=== PATIENT | male | born 1960 | race African-American/Black ===

== ENCOUNTER 2017-06-19 09:58 | Inpatient (IN) | payer MEDICAID ==
[~2017-06-19] VITALS: Ht 175.3 cm; Wt 90.7 kg
[2017-06-19 10:06] VITALS: BP 180/127
--- NOTE | 2017-06-19 10:10 | NUR ---
56 YO M BIB taxi w/ c/o edema. Pt is a&o x 4 at this time, but could not list any health hx. In triage stated he has CHF. Pt reports he was taking Lasix but has not taken it since October 2016 because he ran out and is currently not taking any medication. GCS 15. Pt presents with labored breathing and grunting and purse-liped breathing. HOB elevated w/o effectiveness. Pulse ox revealed 83%, O2 applied via NC at 2L/min. O2 sat re-evaluated at 99%. Pt unsteady when attempting to ambulate. Educated to use urinal and ask for help when trying to stand. Edema noted pn full body of pt. The abdomen is distended and hard to the touch and the skin looks like "orange peels". Scrotal and penile edema noted, severe. Edema noted bilaterally from scrotum to the feet. Non-pitting edema. ER MD Worthington notified of pt status. Pt needs met at this time. Will continue to monitor.
[2017-06-19] MEDS ORDERED: IPRATROPIUM 0.02% 0.5 MG/2.5 ML NEBU INH ONE (10:45)
[2017-06-19] MEDS ORDERED: ALBUTEROL 0.083% 2.5 MG/3 ML NEBU INH ONE (10:45)
[2017-06-19] MEDS ORDERED: methylPREDNISolone SS 125 MG/2 ML VIAL IVP ONE (10:45)
[2017-06-19] MEDS ORDERED: FUROSEMIDE 100 MG/10 ML VIAL IVP ONE (10:45)
[2017-06-19 11:26] LABS: BASOPHILS % (AUTO) 0.5 % (0.0-2.0); EOSINOPHILS % (AUTO) 0.3 % (0.0-4.0); HEMATOCRIT 37.2 % (36-52); HEMOGLOBIN 11.9 g/dL (12.0-18.0); LYMPHOCYTES # (AUTO) 0.8 K/uL (2.0-11.5); LYMPHOCYTES % (AUTO) 9.8 % (20.5-51.1); MEAN CORPUSCULAR HEMOGLOBIN 31 pg (27-31); MEAN CORPUSCULAR HGB CONC 32 g/dL (33-37); MEAN CORPUSCULAR VOLUME 96.1 fL (80-94); MONOCYTES # (AUTO) 0.8 K/uL (0.8-1.0); MONOCYTES % (AUTO) 9.6 % (1.7-9.3); NEUTROPHILS # (AUTO) 6.7 K/uL (1.8-7.7); NEUTROPHILS % (AUTO) 79.8 % (42.2-75.2); PLATELET COUNT (AUTO) 317 K/uL (140-450); RED BLOOD CELL COUNT(AUTO) 3.87 MIL/uL (4.20-6.10); RED CELL DISTRIBUTION WIDTH 13.7 % (11.6-13.7); WHITE BLOOD COUNT (AUTO) 8.4 K/uL (4.8-10.8)
--- NOTE | 2017-06-19 11:34 | NUR ---
PT YELLING OUT FOR NURSE ASSISTANCE TO USE URINAL. PT REFUSES TO USE URINAL IN BED. DEMANDS TO BE ASSISTED TO GET UP AND STAND. 1 PERSON ASSIST, TOLERATED WELL.PT INFORMED TO USE CALL LIGHT BUTTON WHEN REQUESTING ASSISTANCE, VERBALIZED UNDERSTANDING.
[2017-06-19] MEDS ORDERED: ACETAMINOPHEN 325 MG TAB PO PRN (11:35)
[2017-06-19] MEDS ORDERED: ONDANSETRON 4 MG/2 ML VIAL IM/IVP PRN (11:35)
[2017-06-19] MEDS ORDERED: NACL 0.9% 1,000 ML IV SCH (11:35)
[2017-06-19] MEDS ORDERED: DOCUSATE SODIUM 100 MG GELCAP PO PRN (11:35)
[2017-06-19] MEDS ORDERED: ENALAPRILAT 2.5 MG/2 ML VIAL IVP ONE (11:55)
--- NOTE | 2017-06-19 11:59 | NUR ---
URINAL-500CC OUT.
[2017-06-19 12:08] LABS: PROTHROMBIN TIME 12.8 secs (10.8-13.4)
--- NOTE | 2017-06-19 12:42 | NUR ---
Patient will be admitted to care of GELA Salazar. Admited to Tele. Will go to room 119-B. Belongings list completed. Pt tolerated transfer well.
--- NOTE | 2017-06-19 13:00 | NUR ---
PATIENT BROUGHT TO UNIT VIA GURNEY FROM THE ER. RECEIVED BEDSIDE REPORT FROM POLISHING MACHINE OPERATOR HELPER. PATIENT IS AAOX4, ON 2L NC WITH NO SIGNS AND SYMPTOMS OF ACUTE RESPIRATORY DISTRESS NOTED AT THIS TIME. PATIENT WAS ABLE TO AMBULATE FROM THE GURNEY TO THE RESTROOM TO HIS BED. ORIENTED PATIENT TO THE ROOM, EXPLAINED THE CALL LIGHT TO HIM. HE VERBALIZED UNDERSTANDING. MRSA SWAB DONE. SKIN IS INTACT. PATIENT IS VERY EDEMATOUS IN BLE AND SCROTAL AREA. HAS IV TO THE RIGHT EJ 20G ON SALINE LOCK AT THIS TIME. BED IN LOWEST POSITION, SIDE RAILS UP X2, CALL LIGHT PLACED WITHIN REACH. WILL CONTINUE TO MONITOR.
[2017-06-19 13:12] LABS: ANION GAP 12.4 (8-16); ASPARTATE AMINOTRANSFERASE 45 U/L (15-37); CARBON DIOXIDE 28.6 mmol/L (21-32); CHLORIDE 108 mmol/L (98-107); CREATININE 0.7 mg/dL (0.7-1.3); GFR ARICAN-AMERICAN 149 mL/min (>90); GLUCOSE 142 mg/dL (74-106); SODIUM SERUM 145 mmol/L (136-145); TOTAL BILIRUBIN 1.8 mg/dL (0.0-1.0); UREA NITROGEN, BLOOD 16 mg/dL (7-18)
[2017-06-19 13:27] LABS: MAGNESIUM 2.2 mg/dL (1.8-2.4); PHOSPHORUS 3.1 mg/dL (2.5-4.9)
[2017-06-19 14:12] LABS: THYROID STIMULATING HORMONE 4.17 uIU/mL (0.34-3.74)
--- NOTE | 2017-06-19 14:15 | NUR ---
ECHO DONE DYLAN GUERRA NOTIFIED ABOUT EF AND RVSP
[2017-06-19] MEDS ORDERED: HEPARIN PER PHARMACY MC PRN (15:10)
[2017-06-19] MEDS ORDERED: hePARIN / DEXT 5% PREMIX 250 ML IV SCH (15:10)
--- NOTE | 2017-06-19 15:10 | NUR ---
ACCESSED PT AND NOTIFIED JEANMARIE OF MY FINDINGS. PT EXHIBITED INCREASED WOB WHILE LAYING DOWN AND SUGGESTED TO MD THAT PT WOULD BENEFIT FROM BiPAP. MD AGREED. WAITING ON MD'S ORDERS.
--- NOTE | 2017-06-19 15:50 | NUR ---
URINE SAMPLE COLLECTED.
[2017-06-19 16:00] VITALS: BP 147/120
[2017-06-19 16:36] LABS: APPEARANCE,URINE CLEAR (CLEAR); BILIRUBIN,URINE NEGATIVE (NEGATIVE); BLOOD, URINE NEGATIVE (NEGATIVE); COLOR,URINE YELLOW (YELLOW); LEUKOCYTE ESTERASE ,URINE NEGATIVE (NEGATIVE); NITRITE, URINE NEGATIVE (NEGATIVE); UGLUCOSE NEGATIVE (NEGATIVE)
[2017-06-19 16:42] LABS: BARBITURATE, URINE NEG. ng/ml (NEG <=200); BENZODIAZEPINE, URINE NEG. ng/mL (NEG <=200); CANNABINOID, URINE POS. ng/mL (NEG <=50); COCAINE, URINE NEG. ng/mL (NEG <=300); OPIATE, URINE NEG. ng/mL (NEG <=2000); PHENCYCLIDINE SCREEN,URINE NEG. ng/mL (NEG <=25)
--- NOTE | 2017-06-19 16:50 | NUR ---
MADE DR MURRY AWARE OF PATIENTS ELEVATED DIASTOLIC BP AND ELEVATED HR. WILL FOLLOW THROUGH WITH ORDERS.
[2017-06-19] MEDS ORDERED: METOPROLOL 25 MG TAB PO SCH ×3 (17:45→21:00)
[2017-06-19] MEDS ORDERED: METOPROLOL 5 MG/5 ML VIAL IV SCH (17:45)
--- NOTE | 2017-06-19 17:45 | NUR ---
GAVE METOPROLOL 2.5ML IVP FOR BP OF 147/120 HR133.
--- NOTE | 2017-06-19 18:49 | NUR ---
SPOKE WITH DR ISABEL TO INFORM HER OF PATIENTS REASSESSMENT OF BLOOD PRESSURE. 142/94, HEART RATE STILL ELEVATED AT 131. SHE SAID THAT THEY ARE GOING TO WATCH IT FOR THE NEXT FOUR HOURS AND IF IT IS STILL HIGH THEY WILL GIVE AMIODARONE. PER DR RICHARDSON.
--- NOTE | 2017-06-19 19:25 | NUR ---
ENDORSED PATIENT TO PHOTO MANAGER RN FOR CONTINUITY OF CARE. PATIENT IN STABLE CONDITION.
--- NOTE | 2017-06-19 19:26 | NUR ---
RECEIVED REPORT FROM DAY NURSE. PT IN STABLE CONDITION. PT IS AAOX4 ON 2L O2 VIA NC. SKIN INTACT. PT HAS GENERALIZED EDEMA AND PITTING EDEMA +2 TO SCROTAL AREA AND ABDOMEN. PT HAS A R EJ PATENT AND INTACT, INFUSING WELL. PT HAS ORDERS TO BE ON HEPARIN DRIP AT 1530 06/19/18, PT IS NOT CURRENTLY ON HEPARIN DRIP, ASKED DR. ISABEL IF PT SHOULD BE ON IT, SHE SAID YES, I WILL START HEPARIN DRIP. INITIAL ASSESSMENT COMPLETED. PLAN OF CARE DISCUSSED WITH PT, VERBALIZED UNDERSTANDING. ALL SAFETY PRECAUTIONS MET, BOARD UPDATED, CALL LIGHT WITHIN REACH, WILL CONTINUE TO MONITOR.
[2017-06-19 20:00] VITALS: BP 142/94
[2017-06-19] MEDS: hePARIN / DEXT 5% PREMIX 250 ML IV SCH (20:09)
--- NOTE | 2017-06-19 20:09 | NUR ---
HEPARIN DRIP STARTED, PT TOLERATING WELL, NO S/S OF DISTRESS, WILL CONTINUE TO MONITOR.
[2017-06-19] MEDS: METOPROLOL 25 MG TAB PO SCH (20:50)
[2017-06-19] MEDS: SIMVASTATIN 20 MG TAB PO SCH (20:50)
--- NOTE | 2017-06-19 20:50 | NUR ---
DUE MEDICATIONS GIVEN WITH EDUCATION, PT VERBALIZED UNDERSTANDING AND TOLERATED WELL. WILL CONTINUE TO MONITOR
--- NOTE | 2017-06-19 21:00 | NUR ---
PT GIVEN CRACKERS AND JUICE PER REQUEST
--- NOTE | 2017-06-19 22:00 | NUR ---
PT FOUND WITHOUT O2 ON SAT AT 86% PUT O2 BACK AND EDUCATED IMPORTANCE OF WEARING O2, PT AGREES AND UNDERSTANDS
--- NOTE | 2017-06-19 22:30 | NUR ---
ASSISTED PT UP TO THE SIDE OF THE BED TO USE URINAL
--- NOTE | 2017-06-19 22:30 | NUR ---
PT GIVEN MORE CRACKERS AND JUICE REQUESTED
--- NOTE | 2017-06-19 23:24 | NUR ---
PT RESTING COMFORTABLY IN BED NO S/S OF DISTRESS NOTED
[2017-06-20] VITALS: BP 120/63
--- NOTE | 2017-06-20 00:30 | NUR ---
MADE DR. ISABEL MADE AWARE OF HR 131, DR STATED SHE WILL PUT IN ORDERS
--- NOTE | 2017-06-20 00:49 | NUR ---
PT FOUND WITH O2 OFF, PT NON COMPLIANT WITH O2 AND KEEPS TAKING OFF, PT EDUCATED ON IMPORTANCE OF O2, VERBALIZED UNDERSTANDING
--- NOTE | 2017-06-20 00:53 | NUR ---
AMIODARONE ADMINISTERED PER MD ORDERS
[2017-06-20] MEDS ORDERED: AMIODARONE 200 MG TAB PO SCH (01:00)
--- NOTE | 2017-06-20 02:00 | NUR ---
PT REFUSING TO WEAR O2 AT THIS TIME
--- NOTE | 2017-06-20 02:34 | NUR ---
NOTIFIED DR. ISABEL THAT PT REFUSES IV TO BE ATTEMPTED, ONLY ONE ATTEMPT MADE AND PT STATES, "NO MORE INVASIVE THERAPY."
--- NOTE | 2017-06-20 02:35 | NUR ---
FLUIDS D/C AT THIS TIME
--- NOTE | 2017-06-20 03:00 | NUR ---
PT STILL REFUSING TO WEAR O2
[2017-06-20 04:00] VITALS: BP 126/68
--- NOTE | 2017-06-20 05:55 | NUR ---
FLUMER MADE ONE ATTEMPT TO DRAW BLOOD AND COULD NOT GET IT, PT REFUSES ANY OTHER ATTEMPTS
--- NOTE | 2017-06-20 06:27 | NUR ---
MADE BAHMAN IN RAD AWARE THAT PT REFUSED TO HAVE IV STARTED AND IS REFUSING INVASIVE TREATMENT AT THIS TIME. PT REFUSES CT
--- NOTE | 2017-06-20 06:30 | NUR ---
PT AGITATED THAT HE IS NPO SAYING THAT HOW CAN A NURSE NOT GIVE HIM ANY FOOD OR WATER AND HE IS SCARED FOR HIS LIFE, MADE DR. ISABEL AWARE SHE SAID TO STILL KEEP NPO FOR NOW
--- NOTE | 2017-06-20 07:23 | NUR ---
REPORT GIVEN TO DAY NURSE FOR CONTINUITY OF CARE, PT IN STABLE CONDITION.
--- NOTE | 2017-06-20 07:50 | NUR ---
ENDORSEMENT RECEIVED FROM PMP NURSE. PATIENT AWAKE, ALERT. RESPIRATION EVEN, UNLABOR ON 4L NC. SKIN DRY AND WARM. IV CAME OFF FROM RIGHT EJ, CATHETER INTACT, BLEEDING WAS CONTROLLED. DENIED PAIN, SOB AT THIS TIME. PLAN OF CARE WAS DISCUSSED WITH PATIENT. BED AT LOW POSITION WITH HOB WAS ELEVATED. CALL LIGHT WITHIN REACH
[2017-06-20 08:00] VITALS: BP 126/91
[2017-06-20 08:27] LABS: T4 (THYROXINE) 6.3 ug/dL (4.5-12.0)
[2017-06-20 08:56] LABS: HEMATOCRIT 38.4 % (36-52); HEMOGLOBIN 12.1 g/dL (12.0-18.0); LYMPHOCYTES # (AUTO) 0.8 K/uL (2.0-11.5); LYMPHOCYTES % (AUTO) 6.6 % (20.5-51.1); MEAN CORPUSCULAR HEMOGLOBIN 30 pg (27-31); MEAN CORPUSCULAR HGB CONC 32 g/dL (33-37); MONOCYTES # (AUTO) 1.1 K/uL (0.8-1.0); MONOCYTES % (AUTO) 9.7 % (1.7-9.3); NEUTROPHILS # (AUTO) 9.7 K/uL (1.8-7.7); NEUTROPHILS % (AUTO) 83.7 % (42.2-75.2); PLATELET COUNT (AUTO) 338 K/uL (140-450); RED CELL DISTRIBUTION WIDTH 13.8 % (11.6-13.7); WHITE BLOOD COUNT (AUTO) 11.6 K/uL (4.8-10.8)
[2017-06-20] MEDS: METOPROLOL 25 MG TAB PO SCH ×2 (09:00→20:43)
[2017-06-20] MEDS: AMIODARONE 200 MG TAB PO SCH ×2 (09:00→20:43)
[2017-06-20] MEDS ORDERED: FUROSEMIDE 20 MG/2 ML VIAL IVP SCH ×3 (09:00)
[2017-06-20] MEDS: LISINOPRIL 5 MG TAB PO SCH (09:00)
[2017-06-20] MEDS: ASPIRIN 81 MG TAB.CHEW PO SCH (09:01)
[2017-06-20 09:13] LABS: ANION GAP 8.4 (8-16); CARBON DIOXIDE 34.6 mmol/L (21-32); CREATININE 0.8 mg/dL (0.7-1.3)
--- NOTE | 2017-06-20 09:27 | NUR ---
CT SCAN CHEST WITH CONTRAST CONSENT IS OBTAINED AT BEDSIDE, SIGNED BY PATIENT. ALL RISKS AND BENEFITS WERE EXPLAINED TO THE PATIENT. PATIENT VERBALIZED UNDERSTANDING.
[2017-06-20 09:33] LABS: MAGNESIUM 2.3 mg/dL (1.8-2.4); PHOSPHORUS 3.9 mg/dL (2.5-4.9)
--- NOTE | 2017-06-20 10:12 | NUR ---
CT SCAN TECHS ARE AT BEDSIDE TRANSFERRING PATIENT. PATIENT IS STABLE AT THIS TIME.
--- NOTE | 2017-06-20 10:33 | NUR ---
PATIENT HAS BEEN SCREENED AND CATEGORIZED MODERATE NUTRITION RISK. PATIENT WILL BE SEEN WITHIN 3-5 DAYS OF ADMISSION. 06/22/17 - 06/24/[address]
--- NOTE | 2017-06-20 11:00 | NUR ---
PATIENT WAS BROUGHT BACK FROM CT. PATIENT IS STABLE AT THIS TIME. HEPARIN DRIP WAS ADJUSTED PER PROTOCOL.
[2017-06-20] MEDS: hePARIN / DEXT 5% PREMIX 250 ML IV SCH ×3 (11:11→17:13)
--- NOTE | 2017-06-20 11:40 | NUR ---
PATIENT AWAKE, ALERT. RESPIRATION EVEN, UNLABOR ON 4L NC. VS IS STABLE. DENIED PAIN, SOB AT THIS TIME. NO DISTRESS NOTED. CALL LIGHT WITHIN REACH
[2017-06-20 12:00] VITALS: BP 129/92
[2017-06-20 12:29] LABS: FOLIC ACID 13.7 ng/mL (>3.0)
[2017-06-20] MEDS ORDERED: FUROSEMIDE 40 MG TAB PO SCH (13:43)
--- NOTE | 2017-06-20 15:30 | NUR ---
PATIENT IS SLEEPING COMFORTABLY. RESPIRATION EVEN, UNLABOR ON ROOM AIR. NO DISTRESS NOTED AT THIS TIME. MED WAS GIVEN PER ORDER. CALL LIGHT WITHIN REACH
[2017-06-20 16:00] VITALS: BP 130/86
[2017-06-20] MEDS ORDERED: SIMETHICONE 40 MG/0.6 ML GT PRN (17:35)
[2017-06-20] MEDS ORDERED: HYDROcodone/APAP 5/325 MG 1 TAB TAB GT PRN (17:35)
[2017-06-20] MEDS ORDERED: HEPARIN PER PHARMACY MC PRN (17:40)
--- NOTE | 2017-06-20 18:29 | NUR ---
PATIENT AWAKE, ALERT. RESPIRATION EVEN, UNLABOR ON 2L NC. IV PATENT AND INTACT. NO DISTRESS NOTED AT THIS TIME. CALL LIGHT WITHIN REACH
--- NOTE | 2017-06-20 19:19 | NUR ---
ENDORSEMENT GIVEN TO THE ONLINE MARKETING DIRECTOR NURSE. PATIENT IS STABLE AT THIS TIME
--- NOTE | 2017-06-20 19:20 | NUR ---
RECEIVED REPORT FROM DAY NURSE. PT IN STABLE CONDITION. PT IS AAOX4 ON 2L O2 VIA NC. SKIN INTACT. PT HAS GENERALIZED EDEMA AND PITTING EDEMA +2 TO SCROTAL AREA AND ABDOMEN. PT HAS A R EJ PATENT AND INTACT, INFUSING WELL. PT HAS ORDERS TO BE ON HEPARIN DRIP AT 1530 06/19/18, PT IS NOT CURRENTLY ON HEPARIN DRIP, ASKED DR. ISABEL IF PT SHOULD BE ON IT, SHE SAID YES, I WILL START HEPARIN DRIP. INITIAL ASSESSMENT COMPLETED. PLAN OF CARE DISCUSSED WITH PT, VERBALIZED UNDERSTANDING. ALL SAFETY PRECAUTIONS MET, BOARD UPDATED, CALL LIGHT WITHIN REACH, WILL CONTINUE TO MONITOR. Addendum: 06/20/17 at 2226 by Renee Owens RN CORRECTION: PT ALREADY ON HEPARIN DRIP, DISREGARD. PT NO LONGER HAS EJ, PT HAS L AC IV
[2017-06-20 20:00] VITALS: BP 128/85
--- NOTE | 2017-06-20 20:00 | NUR ---
PT REQUESTING A SANDWICH WITH ONLY CHEESE IN IT, PT STATES HE HAS NOT BEEN SUFFICIENTLY FED SINCE HES BEEN HERE.
--- NOTE | 2017-06-20 20:30 | NUR ---
PT REQUESTING MORE FOOD AT THIS TIME. TOLD PT HE CAN HAVE SOME CRACKERS. PT GIVEN GAIL
[2017-06-20] MEDS: SIMVASTATIN 20 MG TAB PO SCH (20:43)
--- NOTE | 2017-06-20 21:15 | NUR ---
PT SITTING AT THE BEDSIDE REQUESTING TO BE GIVEN ANOTHER SANDWHICH, WILL CALL WAFER POLISHING LEAD WORKER
--- NOTE | 2017-06-20 21:30 | NUR ---
PT GIVEN SANDWICH, PT FOUND WITHOUT O2 ON, RE APPLIES O2 AND EDUCATED PT ON IMPORTANCE OF WEARING IT
--- NOTE | 2017-06-20 21:45 | NUR ---
PT TURNED DUCTFIXING PLUMBER LIGHT, WENT INTO ROOM, PT REQUESTING THAT TV CHANNEL BE CHANGED
--- NOTE | 2017-06-20 22:10 | NUR ---
CAME IN ROOM AND FOUND PT GETTING OUT OF BED SAYING THAT HE NEEDS TO, "SLEEP UPSIDE DOWN FOR HIS SCROTUM AND THAT THE GOWN IS TRAPPING HIM AND HE DOES NOT WANT TO WEAR IT." PT REFUSING GOWN AT THIS TIME AND WANTS TO BE NAKED BECAUSE HE FEELS TRAPPED
--- NOTE | 2017-06-20 22:24 | NUR ---
PT TURNED STOCK DRIVER LIGHT, WENT INTO ROOM, PT REQUESTS THAT VOLUME ON TV BE ADJUSTED
--- NOTE | 2017-06-20 23:00 | NUR ---
PT CALLED AND STATED, "I'M NOT GETTING ANSWERS HERE, SOMETHING IS WRONG WITH MY STERNUM." PT POINTED AT SCROTUM. HE STATES, "IT IS GETTING BIGGER AND NOTHING IS BEING DONE, I CAN'T SLEEP." PT PROCEEDED TO GET INTO CHAIR NAKED. WILL NOTIFY DR. ISABEL
--- NOTE | 2017-06-20 23:05 | NUR ---
DR. ISABEL MADE AWARE OF PTS INCREASING AGITATION. SHE STATES THAT IT IS NOT A CASE SHE IS FAMILIAR WITH AND IS COVERING FOR BARREL RAISER HELPER, IT IS DAY SHIFTS CASE. SHE WILL LOOK INTO IT. NEW ORDERS GIVEN FOR ATIVAN NEEDED FOR AGITATION
[2017-06-20] MEDS ORDERED: LORazepam 1 MG TAB PO PRN (23:20)
--- NOTE | 2017-06-20 23:55 | NUR ---
LAB CALLED WITH CRITICAL PTT 74.4, HEPARIN DRIP ADJUSTED PER PROTOCOL. NO S/S OF DISTRESS OR BLEEDING NOTED. WILL MAKE DR. ISABEL AWARE.
[2017-06-21] VITALS: BP 132/86
[2017-06-21] MEDS: hePARIN / DEXT 5% PREMIX 250 ML IV SCH ×2 (00:27→10:40)
--- NOTE | 2017-06-21 01:15 | NUR ---
PT TURNED BIOTECHNICIAN LIGHT BECAUSE HE WANTS TO SIT ON THE SIDE OF THE BED AND ADJUST THE TV
--- NOTE | 2017-06-21 01:45 | NUR ---
PT TURNED BRANDS EDITOR LIGHT, PT STATES, "I DID NOT KNOW I DID THAT BUT CAN YOU BRING ME ANOTHER SANDWHICH." TOLD PT I COULD BRING HIM CRACKERS
--- NOTE | 2017-06-21 02:28 | NUR ---
PT FOUND PULLING AUTO BODY MECHANIC LIGHT CORD AND PULLING IT OUT OF THE WALL
--- NOTE | 2017-06-21 03:00 | NUR ---
PT NOW RESTING IN BED, NO S/S OF DISTRESS NOTED
[2017-06-21 04:00] VITALS: BP 138/92
[2017-06-21 07:01] LABS: BASOPHILS % (AUTO) 0.4 % (0.0-2.0); EOSINOPHILS % (AUTO) 0.4 % (0.0-4.0); HEMOGLOBIN 12.3 g/dL (12.0-18.0); LYMPHOCYTES % (AUTO) 9.9 % (20.5-51.1); MEAN CORPUSCULAR HEMOGLOBIN 30 pg (27-31); MEAN CORPUSCULAR HGB CONC 32 g/dL (33-37); MEAN CORPUSCULAR VOLUME 96.1 fL (80-94); MONOCYTES # (AUTO) 0.8 K/uL (0.8-1.0); MONOCYTES % (AUTO) 7.8 % (1.7-9.3); NEUTROPHILS # (AUTO) 7.9 K/uL (1.8-7.7); NEUTROPHILS % (AUTO) 81.5 % (42.2-75.2); PLATELET COUNT (AUTO) 349 K/uL (140-450); RED BLOOD CELL COUNT(AUTO) 4.06 MIL/uL (4.20-6.10); WHITE BLOOD COUNT (AUTO) 9.6 K/uL (4.8-10.8)
--- NOTE | 2017-06-21 07:13 | NUR ---
REPORT GIVEN TO DAY NURSE, PT IN STABLE CONDITION. NO S/S OF DISTRESS NOTED
--- NOTE | 2017-06-21 07:50 | NUR ---
ENDORSEMENT RECEIVED FROM MEAT CURER NURSE. PATIENT AWAKE, ALERT. RESPIRATION EVEN, UNLABOR ON 4L NC. SKIN DRY AND WARM. IV PATENT AND INTACT. DENIED PAIN, SOB AT THIS TIME. PLAN OF CARE WAS DISCUSSED WITH PATIENT. BED AT LOW POSITION WITH HOB WAS ELEVATED. CALL LIGHT WITHIN REACH
[2017-06-21 07:55] LABS: CARBON DIOXIDE 33.8 mmol/L (21-32); CREATININE 0.9 mg/dL (0.7-1.3); POTASSIUM 3.8 mmol/L (3.5-5.1)
[2017-06-21 08:00] VITALS: BP 162/96
[2017-06-21] MEDS ORDERED: LACTULOSE 20 GM/30 ML UDC PO SCH (08:30)
[2017-06-21 08:35] LABS: FOLIC ACID 12.3 ng/mL (>3.0)
[2017-06-21] MEDS: LISINOPRIL 5 MG TAB PO SCH (08:45)
[2017-06-21] MEDS: AMIODARONE 200 MG TAB PO SCH ×2 (08:46→20:54)
[2017-06-21] MEDS: ASPIRIN 81 MG TAB.CHEW PO SCH (08:47)
[2017-06-21] MEDS: METOPROLOL 25 MG TAB PO SCH (08:47)
[2017-06-21 08:57] LABS: MAGNESIUM 2.3 mg/dL (1.8-2.4); PHOSPHORUS 3.7 mg/dL (2.5-4.9)
[2017-06-21] MEDS ORDERED: SPIRONOLACTONE 50 MG TAB PO SCH ×2 (09:00)
[2017-06-21] MEDS ORDERED: FUROSEMIDE 40 MG/4 ML VIAL IVP SCH (09:00)
--- NOTE | 2017-06-21 09:15 | NUR ---
SPOKE TO BANDAR IN PHARMACY REGARDING PTT 45.9, ADVISED TO CONTINUE WITH CURRENT SETTING ON HEPARIN DRIP
--- NOTE | 2017-06-21 10:30 | NUR ---
PATIENT WAS SITTING NAKED ON THE CHAIR, STATED HE WANTED TO GET SOME SUN BY THE WINDOW. IV MED WAS HUNG. PATIENT WAS CLEANED UP AND PUT ON NEW GOWN. RT AT BEDSIDE. CALL LIGHT WITHIN REACH
--- NOTE | 2017-06-21 10:46 | NUR ---
CALLED DR. WESLEY MURRY [phone] REVIEWED ABG SAMPLE REPORT
--- NOTE | 2017-06-21 11:30 | NUR ---
PATIENT IS SLEEPING COMFORTABLY ON THE CHAIR. RESPIRATION EVEN, UNLABOR ON 4L NC. NO DISTRESS NOTED AT THIS TIME. VS IS STABLE. CALL LIGHT WITHIN REACH
[2017-06-21 12:00] VITALS: BP 113/87
[2017-06-21] MEDS ORDERED: MECLIZINE 25 MG TAB PO SCH (13:00)
--- NOTE | 2017-06-21 14:50 | NUR ---
PATIENT IS SLEEPING COMFORTABLY ON THE CHAIR. PATIENT WAS PLACED BACK IN BED. IV MED WAS DISCONTINUED PER ORDER. PATIENT WAS PLACED BACK TO 4L NC.
--- NOTE | 2017-06-21 15:50 | NUR ---
PATIENT AWAKE, ALERT. STANDING AND LEANING OVER THE CHAIR. PATIENT WAS HELPED TO SIT DOWN ON THE CHAIR. NASAL CANNULA WAS FOUND ON BED. RESPIRATION EVEN, UNLABOR, TACHYPNIC ON ROOM AIR. PATIENT WAS PUT BACK ON 4L NC. DENIED PAIN AT THIS TIME, N/V AT THIS TIME. CALL LIGHT WITHIN REACH.
[2017-06-21 16:00] VITALS: BP 142/102
[2017-06-21] MEDS: FUROSEMIDE 20 MG/2 ML VIAL IVP SCH ×2 (17:23→23:20)
[2017-06-21] MEDS: RIVAROXABAN 10 MG TAB PO SCH (17:29)
[2017-06-21] MEDS ORDERED: FUROSEMIDE 20 MG/2 ML VIAL IVP SCH (18:00)
[2017-06-21] MEDS ORDERED: RIVAROXABAN 10 MG TAB PO SCH (18:00)
--- NOTE | 2017-06-21 18:20 | NUR ---
OFFERED TO HELP PATIENT PUT ON SCROTAL SUPPORT. PATIENT STATED HE WANTED TO WASH UP FIRST BEFORE PUTTING IT ON. CLEAN TOWELS AND HYGIENE SUPPLIES WERE PROVIDED FOR THE PATIENT AND INTRUSTED THE PATIENT TO PUT IT ON BEFORE GOING BACK TO BED. PATIENT VERBALIZED UNDERSTANDING.
--- NOTE | 2017-06-21 19:31 | NUR ---
ENDORSEMENT GIVEN TO THE TWINE WINDER NURSE. PATIENT IS STABLE AT THIS TIME
--- NOTE | 2017-06-21 19:32 | NUR ---
RECEIVED BEDSIDE REPORT FROM DAY SHIFT NURSE MATI RN, PT STABLE, NO DISTRESS NOTED, SLEEPING, IV TO RAC 20G SL, PATENT, INTACT, PT ON 4LPM O2 VIA NC, NO SOB, PT HAS BLE EDEMA AND SCROTAL EDEMA,, INITIAL ASSESSMENT DONE, ALL SAFETY PRECAUTION MET, WILL CONTINUE TO MONITOR.
[2017-06-21 20:00] VITALS: BP 146/97
[2017-06-21] MEDS: CARVEDILOL 3.125 MG TAB PO SCH (20:53)
[2017-06-21] MEDS: SIMVASTATIN 20 MG TAB PO SCH (20:53)
[2017-06-21] MEDS: LACTULOSE 20 GM/30 ML UDC PO SCH (20:55)
--- NOTE | 2017-06-21 20:55 | NUR ---
DUE MEDICATION ADMINISTERED, PT TOLERATED WELL, NO DISTRESS NOTED, CALL LIGHT WITHIN REACH, WILL CONTINUE TO MONITOR.
--- NOTE | 2017-06-21 22:10 | NUR ---
TALKED TO DR. ISABEL REGARDING PT STATED HAVING TROUBLE BREATHING, O2 SATURATION OF 98%, PT KEEPS TAKING NC OFF. SEEN PT, STATED LUNGS ARE CLEAR, STATED NO NEED FOR BREATHING TREATMENT, ENCOURAGE PT TO KEEP O2 ON, PT STATED UNDERSTANDING AND PUT OXYGEN BACK ON. WILL CONTINUE TO MONITOR.
--- NOTE | 2017-06-21 23:20 | NUR ---
DUE MEDICATION ADMINISTERED, PT TOLERATED WELL, NO DISTRESS NOTED, CALL LIGHT WITHIN REACH, WILL CONTINUE TO MONITOR.
[2017-06-22] VITALS: BP 155/87
--- NOTE | 2017-06-22 00:01 | NUR ---
CHECKED ON PT, PT SLEEPING, NO DISTRESS NOTED, CALL LIGHT WITHIN REACH, WILL CONTINUE TO MONITOR.
--- NOTE | 2017-06-22 01:00 | NUR ---
PT STATED SOB, CHECKED ON PT, PT STABLE, O2 97% ON 4LPM O2 VIA NC, ENCOURAGE PT TO STAY ON O2, PT STATED DOES NOT WANT O2, NOTIFY DR. ISABEL, STATED WILL SEE PT, KEEP ENCOURAGING PT TO PUT ON NC, PT FINALLY PUTS ON NC, LEFT RESTING, NO DISTRESS NOTED, CALL LIGHT WITHIN REACH, WILL CONTINUE TO MONITOR.
--- NOTE | 2017-06-22 03:10 | NUR ---
PT RESTING ON BED,NO DISTRESS NOTED, CALL LIGHT WITHIN REACH, WILL CONTINUE TO MONITOR.
[2017-06-22 04:00] VITALS: BP 138/100
--- NOTE | 2017-06-22 05:20 | NUR ---
PT AMBULATED TO RESTROOM, DID A BM, THEN AMBULATED TO CHAIR ON THE BEDSIDE, REQUESTED TO SIT ON CHAIR, NO DISTRESS NOTED, CALL LIGHT WITHIN REACH, WILL CONTINUE TO MONITOR.
[2017-06-22] MEDS: FUROSEMIDE 20 MG/2 ML VIAL IVP SCH ×3 (05:48→17:34)
--- NOTE | 2017-06-22 07:25 | NUR ---
ENDORSED PLAN OF CARE TO DAY SHIFT NURSE KARISSA RN, PT STABLE, NO DISTRESS NOTED, CALL LIGHT WITHIN REACH.
--- NOTE | 2017-06-22 07:26 | NUR ---
RECEIVED REPORT FROM PROTOTYPE SEWER RN. PATIENT IS SITTING IN THE CHAIR SLEEPING, AWAKENS TO NAME. AAOX4. HAS NASAL CANNULA AT 4L. NO SIGNS AND SYMPTOMS OF ACUTE RESPIRATORY DISTRESS NOTED AT THIS TIME. PATIENT HAS IV THE RIGHT AC 20G ON SALINE LOCK AT THIS TIME. DISCUSSED PLAN OF CARE WITH PATIENT AND HE VERBALIZED UNDERSTANDING. BED IS IN LOWEST POSITION, SIDE RAILS UP X2, CALL LIGHT WITHIN REACH TO PATIENT SITTING IN CHAIR. WILL CONTINUE TO MONITOR.
[2017-06-22 07:37] LABS: BASOPHILS % (AUTO) 0.4 % (0.0-2.0); EOSINOPHILS # (AUTO) 0.1 K/uL (0-0.4); HEMATOCRIT 36.4 % (36-52); HEMOGLOBIN 11.7 g/dL (12.0-18.0); LYMPHOCYTES % (AUTO) 13.6 % (20.5-51.1); MEAN CORPUSCULAR HEMOGLOBIN 31 pg (27-31); MEAN CORPUSCULAR HGB CONC 32 g/dL (33-37); MEAN CORPUSCULAR VOLUME 96.2 fL (80-94); MONOCYTES # (AUTO) 0.7 K/uL (0.8-1.0); MONOCYTES % (AUTO) 9.7 % (1.7-9.3); NEUTROPHILS # (AUTO) 5.4 K/uL (1.8-7.7); NEUTROPHILS % (AUTO) 75.3 % (42.2-75.2); PLATELET COUNT (AUTO) 298 K/uL (140-450); RED BLOOD CELL COUNT(AUTO) 3.78 MIL/uL (4.20-6.10); WHITE BLOOD COUNT (AUTO) 7.1 K/uL (4.8-10.8)
[2017-06-22 07:46] LABS: ANION GAP 9.1 (8-16); CREATININE 0.9 mg/dL (0.7-1.3); POTASSIUM 4.1 mmol/L (3.5-5.1)
[2017-06-22 08:00] VITALS: BP 140/101
[2017-06-22 08:02] LABS: MAGNESIUM 2.2 mg/dL (1.8-2.4); PHOSPHORUS 4.3 mg/dL (2.5-4.9)
[2017-06-22] MEDS: SPIRONOLACTONE 50 MG TAB PO SCH (08:10)
[2017-06-22] MEDS: ASPIRIN 81 MG TAB.CHEW PO SCH (08:10)
[2017-06-22] MEDS: LISINOPRIL 10 MG TAB PO SCH (08:11)
[2017-06-22] MEDS: AMIODARONE 200 MG TAB PO SCH ×2 (08:11→20:30)
[2017-06-22] MEDS: LACTULOSE 20 GM/30 ML UDC PO SCH ×2 (08:11→20:30)
[2017-06-22] MEDS: CARVEDILOL 3.125 MG TAB PO SCH (08:11)
[2017-06-22] MEDS: CLINICAL MONITORING MC SCH (08:14)
[2017-06-22] MEDS ORDERED: LACTULOSE 20 GM/30 ML UDC PO SCH (09:00)
--- NOTE | 2017-06-22 11:00 | NUR ---
PATIENT IS BACK IN THE BED, CALL LIGHT WITHIN REACH. WILL CONTINUE TO MONITOR.
--- NOTE | 2017-06-22 11:30 | NUR ---
ATTEMPTED TO PUT PATIENTS SCROTUM IN AN EXTRA LARGE SIZE SCROTAL SUPPORT BUT THEY WOULD NOT FIT. ELEVATED PATIENTS SCROTUM WITH A PILLOW. EDUCATED PATIENT ON THE REASONING OF ME PLACING THE PILLOW THERE. PATIENT VERBALIZED UNDERSTANDING.
[2017-06-22 12:00] VITALS: BP 120/87
--- NOTE | 2017-06-22 12:35 | NUR ---
ADMINISTERED LASIX, NOTICED PATIENT REMOVED THE PILLOW FROM UNDER HIS SCROTUM. ASKED HIM WHY HE DID THAT AND HE REPLIED THAT HE WAS HOT. PLACED THE PILLOW AGAIN UNDER HIS SCROTUM. WILL CONTINUE TO MONITOR.
[2017-06-22] MEDS ORDERED: SILDENAFIL 20 MG TAB PO SCH (13:00)
--- NOTE | 2017-06-22 14:32 | NUR ---
PATIENT REFUSED TO HAVE HIS LEADS FIXED. STUDENTS OFFERED TO CHANGE HIS LINEN AND HE REFUSED.
[2017-06-22 16:00] VITALS: BP 106/70
[2017-06-22] MEDS: RIVAROXABAN 10 MG TAB PO SCH (17:42)
--- NOTE | 2017-06-22 19:30 | NUR ---
RECEIVED FROM AM RN IN CHAIR SITTING UP BUT SLEEPING. PT. WOKE UP EASILY WHEN CALLED BY NAME. [address] 02 STA AT 99 %. CALL LIGHT WITH IN REACH . A/O X 4. ROM X 4. SCROTUM INFLAMMED. PT. WITH ANASARCA. TELEMETRY MONITORING. HEPLOCKED. AFEBRILE. DENIES ANY PAIN AT THIS TIME. CARE PLANS FOR THE NIGHT DISCUSSED WITH HIM.
--- NOTE | 2017-06-22 19:37 | NUR ---
ENDORSED PATIENT TO SR. STRATEGIC SOURCING MANAGER RN FOR CONTINUITY OF CARE. PATIENT IN STABLE CONDITION.
[2017-06-22 20:31] VITALS: BP 123/91
[2017-06-22] MEDS: CARVEDILOL 6.25 MG TAB PO SCH (20:31)
[2017-06-22] MEDS: SIMVASTATIN 20 MG TAB PO SCH (20:31)
--- NOTE | 2017-06-22 20:36 | NUR ---
ALL P.O. MEDICATIONS TAKEN WITH OUT ANY PROBLEM. TOLERATED WELL. CALL LIGHT WITH IN REACH.
[2017-06-23] VITALS (7 sets, daily range): BP systolic 107–129; BP diastolic 74–97
[2017-06-23] MEDS: FUROSEMIDE 20 MG/2 ML VIAL IVP SCH ×4 (00:05→17:10)
--- NOTE | 2017-06-23 00:25 | NUR ---
PT. STILL AWAKE AT THIS TIME AND WATCHING TV WITH SNACKS. ABLE TO VERBALIZE NEEDS WELL. A/O X 4. TELEMETRY MONITORING. ABLE TO USE CALL LIGHT WELL.
--- NOTE | 2017-06-23 01:30 | NUR ---
CHECKED ON PT. SLEEPING AT THIS TIME.
--- NOTE | 2017-06-23 04:17 | NUR ---
BEEN SLEEPING FOR A WHILE. NO RESTLESSNESS. CHECKED IVF SITE . PATENT AND WITH GOOD BLOOD RETURN. CALL LIGHT WITH IN REACH. TELEMETRY MONITORING.
--- NOTE | 2017-06-23 07:31 | NUR ---
ENDORSED TO THE NEX RN FOR CONTINUITY OF CARE. SLEEPING. WAKES UP ESILY WHEN TOUCHED. NO COMPLAINTS AT THIS TIME. TELEMETRY MONITORING.
--- NOTE | 2017-06-23 07:32 | NUR ---
RECEIVED REPORT FROM COMMUNITY ASSOCIATE RN. PATIENT IS STANDING AND LEANING ON BEDSIDE TABLE. AAOX4. HAS NASAL CANNULA AT 4L. NO SIGNS AND SYMPTOMS OF ACUTE RESPIRATORY DISTRESS NOTED AT THIS TIME. PATIENT HAS IV THE RIGHT AC 20G ON SALINE LOCK AT THIS TIME. DISCUSSED PLAN OF CARE WITH PATIENT AND HE VERBALIZED UNDERSTANDING. PATIENT SET BED HEIGHT HIGH AND REFUSES TO LET YOU LOWER IT. EDUCATED HIM ON SAFETY, STILL WANTS IT UP HIGH. SIDE RAILS UP X2, CALL LIGHT WITHIN REACH. WILL CONTINUE TO MONITOR.
[2017-06-23 07:54] LABS: MAGNESIUM 1.9 mg/dL (1.8-2.4); PHOSPHORUS 3.4 mg/dL (2.5-4.9)
[2017-06-23 07:57] LABS: BASOPHILS # (AUTO) 0.1 K/uL (0.00-0.22); BASOPHILS % (AUTO) 1.7 % (0.0-2.0); EOSINOPHILS # (AUTO) 0.1 K/uL (0-0.4); HEMATOCRIT 36.2 % (36-52); HEMOGLOBIN 11.6 g/dL (12.0-18.0); LYMPHOCYTES # (AUTO) 0.8 K/uL (2.0-11.5); LYMPHOCYTES % (AUTO) 11.4 % (20.5-51.1); MEAN CORPUSCULAR HEMOGLOBIN 30 pg (27-31); MEAN CORPUSCULAR HGB CONC 32 g/dL (33-37); MEAN CORPUSCULAR VOLUME 95.1 fL (80-94); MONOCYTES # (AUTO) 0.7 K/uL (0.8-1.0); MONOCYTES % (AUTO) 9.5 % (1.7-9.3); NEUTROPHILS # (AUTO) 5.6 K/uL (1.8-7.7); NEUTROPHILS % (AUTO) 76.4 % (42.2-75.2); PLATELET COUNT (AUTO) 302 K/uL (140-450); RED BLOOD CELL COUNT(AUTO) 3.81 MIL/uL (4.20-6.10); RED CELL DISTRIBUTION WIDTH 13.4 % (11.6-13.7); WHITE BLOOD COUNT (AUTO) 7.4 K/uL (4.8-10.8)
[2017-06-23 07:59] LABS: ANION GAP 11.8 (8-16); CREATININE 0.8 mg/dL (0.7-1.3); POTASSIUM 3.8 mmol/L (3.5-5.1)
[2017-06-23] MEDS: LACTULOSE 20 GM/30 ML UDC PO SCH ×2 (09:14→21:44)
[2017-06-23] MEDS: ASPIRIN 81 MG TAB.CHEW PO SCH (09:14)
[2017-06-23] MEDS: LISINOPRIL 10 MG TAB PO SCH (09:15)
[2017-06-23] MEDS: CARVEDILOL 6.25 MG TAB PO SCH ×2 (09:15→21:44)
[2017-06-23] MEDS: SPIRONOLACTONE 50 MG TAB PO SCH (09:15)
[2017-06-23] MEDS: AMIODARONE 200 MG TAB PO SCH ×2 (09:16→21:44)
[2017-06-23] MEDS: CLINICAL MONITORING MC SCH (09:20)
--- NOTE | 2017-06-23 11:04 | NUR ---
PATIENT STATING THAT WE DIDN'T GIVE HIM BREAKFAST, WHEN EARLIER HE REFUSED HIS PANCAKES AND EGGS AND WANTED TOAST WITH CHEESE INSTEAD. I HAD CALL [facility] AND REQUESTED WHAT THE PATIENT WANTED AND THEY BROUGHT IT OVER. NOW PATIENT WANTED A SANDWICH, INFORMED HIM THAT THE WILL BE BRINGING LUNCH SOON. HE ASKED FOR CHOCOLATE MILK. WENT TO THE KITCHEN TO SEE IF WE HAVE CHOCOLATE MILK AND THEY DON'T CARRY IT. BROUGHT LOW FAT MILK AND PEACHES TO PATIENT FOR A SNACK AND HE REFUSED THEM.
[2017-06-23 12:09] LABS: HEPATITIS A ANTIBODY IGM Negative (Negative); HEPATITIS B CORE AB TOTAL Negative (Negative); HEPATITIS B SURFACE ANTIBODY Non Reactive (.); HEPATITIS B SURFACE ANTIGEN Negative (Negative)
--- NOTE | 2017-06-23 14:28 | NUR ---
06/23/17 RD INITIAL ASSESSMENT COMPLETED PLEASE REFER TO NUTRITION ASSESSMENT UNDER CARE ACTIVITY FOR ESTIMATED NUTRITIONAL NEEDS. RD RECOMMENDATIONS: 1. CONTINUE CARDIAC DIET TOLERATED. -NOTE PT WITH GOOD PO INTAKE AND MEETING 100% OF NUTRITION NEEDS AT THIS TIME. 2. RD WILL F/U 7 DAYS; LOW RISK. NATHALY BENITEZ, RD
[2017-06-23] MEDS: ALBUTEROL SULFATE/IPRATROPIU 3 ML SOL IH PRN (14:40)
[2017-06-23] MEDS: RIVAROXABAN 10 MG TAB PO SCH (17:19)
--- NOTE | 2017-06-23 19:25 | NUR ---
RECEIVED FROM AM RN SITTING IN CHAIR DOZING. WOKE UP WHEN TOUCHED AND CALLED BY NAME. NO SOB. DENIES PAIN AT THIS TIME. ABLE TO VERBALIZE NEEDS WELL. CALL LIGHT WITH IN REACH. TELEMETRY MONITORING.
--- NOTE | 2017-06-23 19:27 | NUR ---
ENDORSED PATIENT TO FABRIC AND ACCESSORIES ESTIMATOR RN FOR CONTINUITY OF CARE. PATIENT IN STABLE CONDITION.
--- NOTE | 2017-06-23 19:30 | NUR ---
RECEIVED FROM AM RN IN BED . DAUGHTER AT BEDSIDE. PT. DX. CHANGE OF LOC AND ON TRACH TO VENT WITH 02 SAT OF 100% FI02 AT 30 % RATE AT 14. MARIE CATHETER IN PLACE DRAINING WELL WITH YELLOW URINE , GT FEEDING AT 65 ML / HOUR AND WITH NS AT 165 ML/H. IVF SITE INTACT AND WITH GOOD BLOOD RETURN. PT. TOTAL CARE. APHASIC. NEEDS WILL BE ANTICIPATED AND PT. WILL BE TURNED Q 2H RT WITH PRESSURE ULCER TO SACRAL AREA. Addendum: 06/23/17 at 2208 by Marcy Rowland RN ABOVE CHARTING WRONG PT.
[2017-06-23] MEDS: SIMVASTATIN 20 MG TAB PO SCH (21:44)
--- NOTE | 2017-06-23 22:10 | NUR ---
PT. STILL IN CHAIR DOZING . NO RESTLESSNESS. ALL P.O. MEDICATIONS TAKEN WELL. PROVIDED WITH A LITTLE BIT OF WATER WITH ICE RT C/O VERY THIRSTY. REMINDED TO GO SLOW ON HIS FLUIDS. "I KNOW". TELEMETRY MONITORING. ABLE TO USE CALL LIGHT FOR HELP AT ALL TIMES.
[2017-06-24 00:15] VITALS: BP 116/84
--- NOTE | 2017-06-24 00:41 | NUR ---
PT. ASSISTED TO BED. NO COMPLAINTS OF PAIN DONE. ON TELEMETRY MONITORING . ABLE TO VERBALIZE NEEDS WELL. USES CALL LIGHT MOST OF TIMES.
[2017-06-24] MEDS: FUROSEMIDE 20 MG/2 ML VIAL IVP SCH ×4 (00:58→18:00)
--- NOTE | 2017-06-24 03:00 | NUR ---
SLEEPING MOST OF TIMES SITTING IN CHAIR. PREFERS STAYING IN CHAIR. "I AM COMFORTABLE THIS WAY."
[2017-06-24 04:00] VITALS: BP 126/96
--- NOTE | 2017-06-24 07:18 | NUR ---
SLEPT WELL. ENDORSED TO THE NEXT RN FOR CONTINUITY OF CARE. NO PAIN COMPLAINTS DONE THIS SHIFT.
--- NOTE | 2017-06-24 07:19 | NUR ---
RECEIVED REPORT FROM NIGHT RN AT PT BEDSIDE. PATIENT IS SLEEPING, EASILY AWAKENS. ON O2 4L NC. EXPIRATORY GRUNTING NOTED, NO S/S OF ACUTE DISTRESS. EDEMA NOTED BUE/BLE WELL SCROTAL. PATIENT C/O LOWER EXTREMITY PAIN, DR. LEWIS MADE AWARE. CALL LIGHT WITHIN REACH. DENIES CHEST PAIN.
[2017-06-24 08:00] VITALS: BP 119/77
[2017-06-24] MEDS: CARVEDILOL 6.25 MG TAB PO SCH ×2 (09:14→21:00)
[2017-06-24] MEDS: SPIRONOLACTONE 50 MG TAB PO SCH (09:14)
[2017-06-24] MEDS: AMIODARONE 200 MG TAB PO SCH ×2 (09:14→21:00)
[2017-06-24] MEDS: GABAPENTIN 300 MG CAP PO SCH ×3 (09:14→18:30)
[2017-06-24] MEDS: ASPIRIN 81 MG TAB.CHEW PO SCH (09:15)
[2017-06-24] MEDS: FERROUS GLUCONATE 324 MG TAB PO SCH (09:15)
[2017-06-24] MEDS: LISINOPRIL 10 MG TAB PO SCH (09:15)
[2017-06-24] MEDS: LACTULOSE 20 GM/30 ML UDC PO SCH ×2 (09:15→20:49)
[2017-06-24] MEDS: CLINICAL MONITORING MC SCH (09:15)
--- NOTE | 2017-06-24 10:20 | NUR ---
PATIENT RESTING IN BED. NO S/S OF ACUTE DISTRESS NOTED.
[2017-06-24] MEDS: ALBUTEROL SULFATE/IPRATROPIU 3 ML SOL IH PRN ×3 (10:24→19:09)
[2017-06-24 12:00] VITALS: BP 82/55
--- NOTE | 2017-06-24 12:30 | NUR ---
PATIENT LETHARGIC, NON ADMINISTERED NEURONTIN. PATIENT IS ASLEEP, EASILY AWAKENS, ALERT AND ORIENTED.
--- NOTE | 2017-06-24 13:40 | NUR ---
PATIENT HAVING INCREASED WORK OF BREATHING, RT AT BEDSIDE, ADMINISTERED PRN BREATHING TX. DR. MURRY MADE AWARE OF DECREASED BP IN LOW 80S. NO NEW ORDERS, CONTINUE TO MONITOR AT THIS TIME.
--- NOTE | 2017-06-24 14:58 | NUR ---
PT NOTES CHART REVIEWED. CLEARED BY RN FOR P.T. TX. PATIENT IS ASLEEP, BUT AROUSABLE. MONITORED PATIENT'S VC BP 86/62, HR 114 BPM & RETAKEN AGAIN A FEW MINS LATER BP 81/54, HR 110 BPM. SPO2 ON 3 LPM FLUCTUATING BETWEEN 85%-90%. WILL HOLD TX AT THIS TIME D/T PATIENT HYPOTENSIVE & DROWSY. RN IS PRESENT AT PATIENT'S BEDSIDE & AWARE. DISCUSSED W/ PRIMARY PHYSICAL THERAPIST TIME [id number] PVE Addendum: 06/24/17 at 1704 by Codie Rasheed PT PHYSICAL THERAPY CO-SIGN The Physical Therapy Progress Notes documented by Pilot Instructor have been reviewed. Reviewed/Co-Signed by: Codie Rasheed PT Documentation Done by:CARMITA CARBALLO PTA
[2017-06-24 16:00] VITALS: BP 89/55
--- NOTE | 2017-06-24 17:20 | NUR ---
PATIENT LETHARGIC PERIODS OF SLEEP APNEA. AWAKENS TO NAME, NO S/S OF ACUTE DISTRESS NOTED. DENIES PAIN/DISCOMFORT.
[2017-06-24] MEDS: RIVAROXABAN 10 MG TAB PO SCH (18:31)
--- NOTE | 2017-06-24 19:31 | NUR ---
SBAR REPORT GIVEN TO GELA RIOS AT PT BEDSIDE. PATIENT SLEEPING, EASILY AROUSES, NO S/S OF ACUTE DISTRESS NOTED. CONTINUED ON 4L NC.
--- NOTE | 2017-06-24 19:40 | NUR ---
RECEIVED PATIENT REPORT AT BEDSIDE. PATIENT ALERT AND ORIENTED BUT LETHARGIC. PATIENT RECEIVING 3L O2 VIA NC. O2 SAT AT 95%. ASCITES NOTED. SCROTAL EDEMA AND BLE +2 PITTING EDEMA NOTED. IV LINE NOTED TO THE RIGHT AC SALINE LOCKED. PATIENT ON TELE MONITORING. BED LOWERED WITH CALL LIGHT WITHIN REACH. WILL CONTINUE TO MONITOR
[2017-06-24 20:00] VITALS: BP 89/62
[2017-06-24] MEDS: SIMVASTATIN 20 MG TAB PO SCH (20:49)
[2017-06-25] VITALS: BP 97/59
--- NOTE | 2017-06-25 01:19 | NUR ---
PATIENT ASLEEP IN BED. NO S/S OF DISTRESS. PT ON 3L O2 VIA NC. O2 SAT 100%
--- NOTE | 2017-06-25 02:45 | NUR ---
PATIENT AWAKE, SITTING AT THE SIDE OF THE BED. PATIENT VOIDED IN THE URINAL. 200ML OF DARK QUIANA URINE NOTED
[2017-06-25 04:00] VITALS: BP 103/72
[2017-06-25] MEDS: ALBUTEROL SULFATE/IPRATROPIU 3 ML SOL IH PRN ×3 (05:33→22:23)
[2017-06-25] MEDS: FUROSEMIDE 20 MG/2 ML VIAL IVP SCH ×4 (05:51→21:11)
[2017-06-25 06:30] LABS: HEMATOCRIT 36.7 % (36-52); HEMOGLOBIN 11.4 g/dL (12.0-18.0); MEAN CORPUSCULAR HEMOGLOBIN 30 pg (27-31); MEAN CORPUSCULAR HGB CONC 31 g/dL (33-37); MEAN CORPUSCULAR VOLUME 96.1 fL (80-94); PLATELET COUNT (AUTO) 253 K/uL (140-450); RED BLOOD CELL COUNT(AUTO) 3.82 MIL/uL (4.20-6.10); RED CELL DISTRIBUTION WIDTH 14.1 % (11.6-13.7)
[2017-06-25 06:48] LABS: ANION GAP 8.4 (8-16); CARBON DIOXIDE 38.8 mmol/L (21-32); CREATININE 1.5 mg/dL (0.7-1.3); POTASSIUM 4.2 mmol/L (3.5-5.1)
[2017-06-25 06:58] LABS: MAGNESIUM 2.2 mg/dL (1.8-2.4); PHOSPHORUS 4.2 mg/dL (2.5-4.9)
--- NOTE | 2017-06-25 07:29 | NUR ---
PATIENT REPORT GIVEN AT BEDSIDE. PATIENT ENDORSED IN STABLE CONDITION
--- NOTE | 2017-06-25 07:30 | NUR ---
RECEIVED REPORT AT BEDSIDE FROM [employer] NURSE FOR CONTINUITY OF CARE. PATIENT STABLE.
--- NOTE | 2017-06-25 07:50 | NUR ---
PATIENT RESTING. EASILY AWAKENS WHEN SPOKEN TO. HR 115. O2 SAT 97% 3L NC. BREATH SOUNDS DIMINISHED WITH EXPIRATORY WHEEZE. PATIENT COMPLAINS OF SOB. PRN TX GIVEN. POST TX BREATH SOUNDS CLEAR, DIMINISHED. PATIENT TOLERATED TX WELL. NO ADVERSE SIDE EFFECTS. PATIENT STATES TO "FEEL BETTER". NO RESPIRATORY DISTRESS NOTED AT THIS TIME. WILL CONTINUE TO MONITOR.
[2017-06-25 07:51] LABS: LYMPHOCYTES % (MANUAL) 8 % (20-46); MONOCYTES % (MANUAL) 4 % (5-12)
[2017-06-25 07:52] LABS: EOSINOPHILS % (MANUAL) 1 % (0-4)
[2017-06-25 08:00] VITALS: BP 123/79
--- NOTE | 2017-06-25 08:00 | NUR ---
INITIAL ASSESSMENT PERFORMED.PATIENT ALERT AND ABLE TO VERBALIZE NEEDS. NO ACUTE DISTRESS NOTED. NO SOB. RESP EVEN AND UNLABORED/ LUNG SOUNDS CLEAR. PATIENT CONT ON O2 @3L/MIN VIA NC. PATIENT WITH BOWEL SOUNDS ACTIVE. RAC 20G. SL. PATENT AND INTACT. PATIENT WITH CARDIAC DIET. PATIENT DENIES PAIN. SKIN INTACT. PLAN OF CARE DISCUSSED WITH PATIENT AT BEDSIDE. PATIENT VERBALIZED UNDERSTANDING AND AGREEMENT. PATIENT ORIENTED TO ROOM. PATIENT ABLE TO AMBULATE WITH ASSIST. AT BEDSIDE. CALL LIGHT WITHIN REACH. WILL CONT TO MONITOR.
[2017-06-25] MEDS: FERROUS GLUCONATE 324 MG TAB PO SCH (09:13)
[2017-06-25] MEDS: LISINOPRIL 10 MG TAB PO SCH (09:14)
[2017-06-25] MEDS: GABAPENTIN 300 MG CAP PO SCH ×3 (09:15→17:25)
[2017-06-25] MEDS: ASPIRIN 81 MG TAB.CHEW PO SCH (09:15)
[2017-06-25] MEDS: SPIRONOLACTONE 50 MG TAB PO SCH (09:15)
[2017-06-25] MEDS: AMIODARONE 200 MG TAB PO SCH ×2 (09:16→21:10)
[2017-06-25] MEDS: CARVEDILOL 6.25 MG TAB PO SCH ×2 (09:16→21:10)
[2017-06-25] MEDS: LACTULOSE 20 GM/30 ML UDC PO SCH ×2 (09:16→21:17)
[2017-06-25] MEDS: CLINICAL MONITORING MC SCH (09:26)
--- NOTE | 2017-06-25 10:30 | NUR ---
PATIENT ALERT AND ABLE TO VERBALIZE NEEDS. NO ACUTE DISTRESS NOTED. DENIES PAIN AT THIS TIME. PATIENT CONT WITH SCROTAL SWELLING +2. PATIENT STATED THAT IT HAS IMPROVED SIGNIFICANTLY. CONT WITH ANASARCA.CALL LIGHT WITHIN REACH. WILL CONT TO MONITOR.
[2017-06-25 10:31] LABS: HEMATOCRIT 34.1 % (36-52); HEMOGLOBIN 10.8 g/dL (12.0-18.0); MEAN CORPUSCULAR HEMOGLOBIN 30 pg (27-31); MEAN CORPUSCULAR HGB CONC 32 g/dL (33-37); MEAN CORPUSCULAR VOLUME 94.3 fL (80-94); PLATELET COUNT (AUTO) 244 K/uL (140-450); RED BLOOD CELL COUNT(AUTO) 3.62 MIL/uL (4.20-6.10); RED CELL DISTRIBUTION WIDTH 13.9 % (11.6-13.7); WHITE BLOOD COUNT (AUTO) 17.6 K/uL (4.8-10.8)
[2017-06-25 10:54] LABS: LYMPHOCYTES % (MANUAL) 2 % (20-46); MONOCYTES % (MANUAL) 4 % (5-12)
--- NOTE | 2017-06-25 12:00 | NUR ---
PATIENT REFUSING FC PLACEMENT. DR MURRY TALK TO PATIENT REGARDING IMPORTANCE OF FC PLACEMENT. PATIENT VERBALIZED UNDERSTANDING AND AGREEMENT.
--- NOTE | 2017-06-25 12:32 | NUR ---
PATIENT SCHEDULED MEDICATIONS GIVEN ORDERED. PATIENT STATED HE WOULD LIKE TO HAVE FC PLACEMENT AFTER HE EATS LUNCH. GARETT GIVEN 4/10 PAIN. CALL LIGHT WITHIN REACH. WILL CONT TO MONITOR.
[2017-06-25] MEDS: HYDROcodone/APAP 7.5/325 MG 1 TAB PO PRN (12:33)
--- NOTE | 2017-06-25 14:01 | NUR ---
PATIENTS PENIS FORESKIN EDEMATOUS AND CANNOT VISUALIZED MEATUS.ATTEMPTED X 2 TO INSERT FC. MET RESISTANCE AND UNABLE ADVANCE FC. DR MURRY MADE AWARE. WILL CONT TO MONITOR PT.
--- NOTE | 2017-06-25 14:31 | NUR ---
CM NOTE REVIEW DONE FOR CONTINUED STAY CRITERIA
[2017-06-25 16:00] VITALS: BP 97/57
--- NOTE | 2017-06-25 16:00 | NUR ---
PATIENT IN BED WITH EYES CLOSED. RESP EVEN AND UNLABORED. EASILY WOKEN. NO ACUTE DISTRESS NOTED. CALL LIGHT WITHIN REACH. WILL CONT TO MONITOR.
[2017-06-25 16:29] LABS: APPEARANCE,URINE CLEAR (CLEAR); BILIRUBIN,URINE NEGATIVE (NEGATIVE); BLOOD, URINE NEGATIVE (NEGATIVE); COLOR,URINE YELLOW (YELLOW); LEUKOCYTE ESTERASE ,URINE NEGATIVE (NEGATIVE); NITRITE, URINE NEGATIVE (NEGATIVE); PH,URINE 5.5 (5.0-9.0); UGLUCOSE NEGATIVE (NEGATIVE)
[2017-06-25] MEDS: RIVAROXABAN 10 MG TAB PO SCH (17:31)
--- NOTE | 2017-06-25 18:00 | NUR ---
PATIENT IN BED EATING MEAL. NO ACUTE DISTRESS . RESP EVEN AND UNLABORED. DENIES PAIN . CALL LIGHT WITHIN REACH. WILL CONT TO MONITOR.
--- NOTE | 2017-06-25 19:10 | NUR ---
ENDORSED REPORT TO DRAW IN HAND NURSE AT BEDSIDE FOR CONT OF CARE. PATIENT STABLE.
--- NOTE | 2017-06-25 19:11 | NUR ---
PATIENT REPORT RECEIVED FROM MORNING NURSE AT BEDSIDE. PATIENT IS ASLEEP. BUT AROUSABLE TO LIGHT SHAKING. PATIENT IS ON O2 4L NC. PATIENT'S BREATHING IS A LITTLE LABORED. BUT PULSE OX READS 96%. BED IN LOWEST POSITION, SIDE RAILS UP AND CALL LIGHT WITHIN REACH. WILL CONTINUE TO MONITOR.
[2017-06-25] MEDS: SIMVASTATIN 20 MG TAB PO SCH (21:10)
--- NOTE | 2017-06-25 22:25 | NUR ---
PATIENT SEEN BY RT. RT WILL GIVE PATIENT BREATHING TREATMENT.
[2017-06-26] VITALS (29 sets, daily range): BP systolic 59–118; BP diastolic 28–78
--- NOTE | 2017-06-26 | NUR ---
CHECKED ON PATIENT. PATIENT IS ASLEEP. NO SIGNS AND SYMPTOMS OF DISTRESS NOTED. BREATHING EVEN AND UNLABORED. WILL CONTINUE TO MONITOR.
--- NOTE | 2017-06-26 03:00 | NUR ---
CHECKED ON PATIENT. PATIENT IS ASLEEP. NO SIGNS AND SYMPTOMS OF DISTRESS NOTED. BREATHING EVEN AND UNLABORED. WILL CONTINUE TO MONITOR.
[2017-06-26] MEDS: HYDROcodone/APAP 7.5/325 MG 1 TAB PO PRN (06:06)
--- NOTE | 2017-06-26 07:18 | NUR ---
PATIENT REPORT GIVEN TO MORNING NURSE FOR CONTINUITY OF CARE. PATIENT IS IN STABLE CONDITION
--- NOTE | 2017-06-26 07:30 | NUR ---
PATIENT REPORT RECEIVED FROM RETAIL DELIVERY DRIVER NURSE AT BEDSIDE. PATIENT IS SLEEPING, AROUSED TO LIGHT SHAKING, OX4. PATIENT IS ON O2 4L NC. VITALS TAKEN. IV NOTED TO RIGHT AC, 20G, SL. BOARD UPDATED. PLAN OF CARE DISCUSSED, PT VERBALIZED UNDERSTANDING. BED IN LOWEST POSITION, SIDE RAILS UP AND CALL LIGHT WITHIN REACH. WILL CONTINUE TO MONITOR.
--- NOTE | 2017-06-26 07:45 | NUR ---
PATIENT REPORT GIVEN TO MORNING NURSE FOR CONTINUITY OF CARE. PATIENT IS IN STABLE CONDITION Addendum: 06/26/17 at 0745 by Neelima Zambrano RN WRONG TIME
[2017-06-26] MEDS: LISINOPRIL 10 MG TAB PO SCH (09:00)
--- NOTE | 2017-06-26 09:05 | NUR ---
ATTEMPTED ABG TWICE ON LR. GOT SMALL SAMPLES ON THE 2ND TRY. TRIED TO GET SAMPLE READ BUT ABG MACHINE REPORTED INSUFFICIENT AMOUNT OF SAMPLE. PT STATED ANY MORE ATTEMPTS WILL BE REFUSED. WILL INFORM .
[2017-06-26] MEDS: CARVEDILOL 6.25 MG TAB PO SCH ×2 (09:14→21:00)
[2017-06-26] MEDS: ASPIRIN 81 MG TAB.CHEW PO SCH (09:14)
[2017-06-26] MEDS: LACTULOSE 20 GM/30 ML UDC PO SCH ×2 (09:14→22:14)
[2017-06-26] MEDS: FUROSEMIDE 20 MG/2 ML VIAL IVP SCH (09:14)
[2017-06-26] MEDS: AMIODARONE 200 MG TAB PO SCH ×2 (09:15→22:14)
[2017-06-26] MEDS: SPIRONOLACTONE 50 MG TAB PO SCH (09:15)
--- NOTE | 2017-06-26 09:15 | NUR ---
PT IS ON METOPROLOL, LASIX, AND SPIROLACTONE. DUE TO CONCERN OF LOW BP, LISINOPRIL NOT GIVEN, BP 118/76 AT THIS TIME.
[2017-06-26] MEDS: FERROUS GLUCONATE 324 MG TAB PO SCH (09:16)
[2017-06-26] MEDS: CLINICAL MONITORING MC SCH (09:16)
[2017-06-26] MEDS: GABAPENTIN 300 MG CAP PO SCH ×3 (09:16→18:11)
[2017-06-26 10:56] LABS: HEMATOCRIT 36.6 % (36-52); HEMOGLOBIN 11.2 g/dL (12.0-18.0); MEAN CORPUSCULAR HEMOGLOBIN 30 pg (27-31); MEAN CORPUSCULAR HGB CONC 31 g/dL (33-37); MEAN CORPUSCULAR VOLUME 97.4 fL (80-94); PLATELET COUNT (AUTO) 248 K/uL (140-450); RED BLOOD CELL COUNT(AUTO) 3.76 MIL/uL (4.20-6.10); RED CELL DISTRIBUTION WIDTH 14.6 % (11.6-13.7); WHITE BLOOD COUNT (AUTO) 12.6 K/uL (4.8-10.8)
[2017-06-26 11:11] LABS: MAGNESIUM 2.6 mg/dL (1.8-2.4); PHOSPHORUS 5.4 mg/dL (2.5-4.9)
[2017-06-26 11:13] LABS: ANION GAP 6.2 (8-16); CARBON DIOXIDE 39.9 mmol/L (21-32); CREATININE 2.6 mg/dL (0.7-1.3); POTASSIUM 5.1 mmol/L (3.5-5.1)
[2017-06-26 11:33] LABS: EOSINOPHILS % (MANUAL) 1 % (0-4); LYMPHOCYTES % (MANUAL) 7 % (20-46); MONOCYTES % (MANUAL) 12 % (5-12)
--- NOTE | 2017-06-26 12:00 | NUR ---
ATTEMPTED TO GET ABG ON PT BUT PT REFUSED. EXPLAINED TO PT WHY HE NEEDED TO GET AN ABG BUT PT STILL REFUSED. WILL CONT TO MONITOR PT.
--- NOTE | 2017-06-26 12:30 | NUR ---
GAVE PT CRANBERRY JUICE MIXED WITH ICE. PT FINISHED ALL. NO S/S OF ACUTE DISTRESS. VITALS TAKEN. O2 95%, BP 94/66, HR 105.
--- NOTE | 2017-06-26 14:28 | NUR ---
BED ALARM ACTIVATED. FOUND PT ON BED LYING SIDEWAY. URINE ON FLOOR. RAPID RESPONSE CALLED, CODE JUDI CALLED [phone]. FOR DETAILS PLEASE REFER TO [facility] DOCUMENTATION SHEET.
--- NOTE | 2017-06-26 15:00 | NUR ---
TRANSFERRED PT TO ICU, BED 5. REPORT GIVEN TO ICU NURSE.
--- NOTE | 2017-06-26 15:42 | NUR ---
AT 1500 PT RECEIVED FROM MED/SURG/TELE VIA [facility]. PT NON-RESPONSIVE, NO EYES OPENING, UNABLE TO FOLLOW COMMANDS, NO WITHDRAWS TO PAIN, RESTLESS. PUPLIS REACTIVE TO LIGHT. SKIN DRY AND WARM TO TOUCH. PT RECEIVED ON ETT TO VENT AC 14, TV 500 PEEP 5 FIO2 100%. LUNGS SOUND CLEAR ON AUSCULTATION. RIGHT AC 20 G, INTACT WITH GOOD BLOOD RETURNS. ABDOMEN FIRM, ROUND, NON-TENDER. ACTIVE BOWEL SOUND. EDEMATOUS BODY. KEPT HOB ELEVATED. BED IN LOW POSITION LOCKED. WILL CONTINUE TO MONITOR.
--- NOTE | 2017-06-26 15:50 | NUR ---
PT BP FLUCTUATING, CALLED DR MURRY SAID WILL BE IN ICU SOON TO SEE PT.
--- NOTE | 2017-06-26 16:00 | NUR ---
PATIENT PULLED ETT TUBE. DR. MURRY MADE AWARE. ER PHYSICIAN MADE AWARE, STATED WILL DO ABG FOR NOW AND WILL EVALUATE IF PATIENT NEED TO BE REINTUBATED WHEN RESULTS COMEBACK. RT AT BEDSIDE, ABG OBTAINED.
[2017-06-26] MEDS ORDERED: PROPOFOL 1000 MG/100 ML PREMIX 100 ML IV PRN (16:10)
--- NOTE | 2017-06-26 16:20 | NUR ---
PT ON NON-REBREATHER 100%. SPO2 100%. PT ABLE VERBALIZE. A/O X3. DR. MURRY AT BEDSIDE EVALUATING PT. MADE AWARE ABOUT FLUCTUATING BP. RT AT BEDSIDE.
--- NOTE | 2017-06-26 16:27 | NUR ---
DR. MURRY AWARE ABOUT ABG RESULT.
--- NOTE | 2017-06-26 16:30 | NUR ---
SPOKE TO MD MORENO ABOUT ABG. TIFFANIE WANTS ANOTHER ABG DONE.
[2017-06-26] MEDS ORDERED: BUMETANIDE 1 MG TAB PO SCH (17:00)
--- NOTE | 2017-06-26 17:12 | NUR ---
CALLED DR. MURRY. NOTIFIED PT CONDITION. OKAY TO GIVE PO MEDICINE.
--- NOTE | 2017-06-26 17:29 | NUR ---
P.T. NOTES D/C FROM P.T. AT THIS TIME, Pt TRANSFERRED TO ICU; WILL AWAIT P.T. RE EVAL ORDER WHEN APPROPRIATE. Addendum: 06/26/17 at 1729 by Codie Rasheed PT Amended: Links added.
[2017-06-26] MEDS: RIVAROXABAN 10 MG TAB PO SCH (17:30)
--- NOTE | 2017-06-26 17:40 | NUR ---
PT CODED AT AROUND 1545 DURING CODE. PT TRANSFERED TO ICU. PT EXTUBED SELF. 1657 PLACED PT ON BIPAP 02/20 BU R 14 100%. GOT ABG'S @ 1655 SHOWED MD MORENO AT 1718. REINTUBATED PT AND PLACED PT ON AC 14, 500, +5, 100%. HR 105 SAT 89 RR 14. WILL CONT TO MONITOR PT.
--- NOTE | 2017-06-26 17:49 | NUR ---
AT [address] HERNANDEZ. ASSISTED BY ER NURSE NIKKO, ASSIGNED NURSE AND RT. PT ON ETT TO VENT AT THIS TIME. AC/VC 14 TV 500, FIO2 100% PEEP 5.
[2017-06-26] MEDS: PROPOFOL 1000 MG/100 ML PREMIX 100 ML IV PRN (18:17)
--- NOTE | 2017-06-26 18:19 | NUR ---
Pt. on deprivan at 5 mcg/kg/min. On continuous monitoring.
--- NOTE | 2017-06-26 18:45 | NUR ---
BP 68/51. CALLED OFFICE X2. UNABLE TO REACH DOCTOR.
--- NOTE | 2017-06-26 19:15 | NUR ---
AND DR. ISABEL AT BEDSIDE TO ADJUST ETT TUBE PLACEMENT ACCORDINGLY
--- NOTE | 2017-06-26 19:17 | NUR ---
REPORT GIVEN TO NOC SHIFT RN FOR CONTINUITY OF CARE. PT ON SEDATION. DR. TALAVERA AT BEDSIDE EVALUATING PT.
--- NOTE | 2017-06-26 19:29 | NUR ---
RECEIVED PT ON VENT SUPPORT AT DOCUMENTED SETTINGS, 7.5 ETT PULLED BACK 3 CM TO 24 CM PER CXR, TOLERATED WELL WITH BILATERAL BREATH SOUNDS PRESENT, AWATING CXR FOR CONFIRMED PLACEMENT, SUCTIONED SMALL AMOUNTS OF THIN BLOOD TINGED SECRETIONS, ALARMS SET AND AUDIBLE, VENT PLUGGED INTO RED OUTLET, AMBU BAG AT BEDSIDE, WILL CONT TO MONITOR.
[2017-06-26] MEDS: FLUTICASONE 100 MCG /SALMETEROL 50 MCG DISK IH SCH (19:30)
--- NOTE | 2017-06-26 19:30 | NUR ---
RECEIVED PT. PT SEDATED, RASS-3. BILATERAL PERRL NOTED. FLACC 0. CONTINUE ETT TO VENT. TOLERATING WELL. LUNGS CLEAR ON AUSCULTATION. EQUAL, UNLABORED BILATERAL BREATH NOTED. CONTINUE TO MONITOR VITALS CLOSELY. AWAITING PLACEMENT OF CENTRAL LINE. SKIN WARM, DRY, INTACT. 20 GAUGE R AC NOTED. INTACT AND PATENT. CONTINUE PROPOFOL DRIP. TOLERATING WELL. BLLE +3 EDEMA NOTED. SWELLING NOTED ON SCROTUM. ABLE TO MOVE BUE. CONTINUE ROM AND ELEVATION OF BLE. ABDOMEN HARD, DISTENDED. BOWEL SOUND PRESENT X 4 QUADRANT. WILL CONTINUE TO MONITOR.
--- NOTE | 2017-06-26 19:40 | NUR ---
MARIE CATHETER PLACED ORDERED BY DR. ISABEL. 30 CC DARK YELLOW URINE WITH DARK SEDIMENTATION NOTED IN CATHETER
--- NOTE | 2017-06-26 19:45 | NUR ---
NG TUBE PLACEMENT PLACED ORDERED. TOLERATED WELL. DRAINING MURKY GREEN OUTPUT.
[2017-06-26] MEDS ORDERED: LORazepam 2 MG/ML VIAL ONE (19:55)
--- NOTE | 2017-06-26 20:03 | NUR ---
DR. ISABEL AND LITHOGRAPHIC PLATE MAKER AT BEDSIDE TO PLACE CENTRAL LINE. CONSENT OBTAINED, TIME OUT DONE. WILL CONTINUE TO MONITOR.
--- NOTE | 2017-06-26 20:15 | NUR ---
XRAY CONFIRMATION OF ETT PLACEMENT
--- NOTE | 2017-06-26 20:15 | NUR ---
XRAY CONFIRMATION OF NG TUBE PLACEMENT AND CENTRAL LINE PLACEMENT.
[2017-06-26] MEDS ORDERED: NOREPINEPHRINE 4 MG/4 ML VIAL IV ONE ×2 (20:24→20:38)
[2017-06-26] MEDS ORDERED: NOREPINEPHRINE 8 MG in DEXTROSE 5% 250 ML IV PRN (20:30)
[2017-06-26] MEDS ORDERED: BUMETANIDE 1 MG/4 ML VIAL IV ONE (21:00)
--- NOTE | 2017-06-26 21:00 | NUR ---
BEDBATH GIVEN TO PT. ALL LINEN CHANGED. NEW LEADS PLACED. PT TOLERATED WELL.
[2017-06-26 21:27] LABS: ALBUMIN 2.2 g/dL (3.4-5.0); ANION GAP 8.4 (8-16); CARBON DIOXIDE 38.5 mmol/L (21-32); CREATININE 3.2 mg/dL (0.7-1.3); POTASSIUM 4.9 mmol/L (3.5-5.1); TOTAL BILIRUBIN 1.5 mg/dL (0.0-1.0)
[2017-06-26] MEDS: PIPER/TAZO 3.375GM/D5W PREMIX 50 ML IV SCH (22:14)
[2017-06-26] MEDS: SIMVASTATIN 20 MG TAB PO SCH (22:15)
--- NOTE | 2017-06-26 22:30 | NUR ---
ORAL CARE PERFORMED. PT TOLERATED WELL. NOTED WITH SCANT AMOUNT OF BLOOD IN MOUTH. WILL CONTINUE TO MONITOR FOR CHANGES
--- NOTE | 2017-06-26 23:00 | NUR ---
PT RESTING IN BED. NO S/SX OF ACUTE DISTRESS NOTED.
[2017-06-27] VITALS (107 sets, daily range): BP systolic 79–151; BP diastolic 48–102
--- NOTE | 2017-06-27 | NUR ---
PT AWAKE TO SOUND. ATTEMPTED TO REACH FOR ETT TUBE. REMIND PT TO NOT REMOVE TUBE AND THE IMPORTANCE OF HAVING ETT TUBE AND CENTRAL LINE. PT BECAME CALM AND RELAXED IN BED. NODDED UNDERSTANDING. PT ABLE TO NOD AND SHAKE HEAD TO SIMPLE CONVERSATION.
--- NOTE | 2017-06-27 01:00 | NUR ---
PT IN BED. CALM AND RESTING. NO S/SX OF ACUTE DISTRESS NOTED. PT ATTEMPTED TO RAISE HAND TO ETT TUBE BUT STOPPED WHEN ASKED NOT TO. PT NODS UNDERSTANDING OF THE IMPORTANCE OF KEEPING ETT TUBE IN PLACE. WILL CONTINUE TO MONITOR
[2017-06-27] MEDS: LORazepam 2 MG/ML VIAL IM/IVP PRN ×4 (01:42→22:09)
--- NOTE | 2017-06-27 02:00 | NUR ---
PT RESTING IN BED. NO S/SX OF ACUTE DISTRESS NOTED. VITALS WITHIN STABLE. FLACC 0
--- NOTE | 2017-06-27 03:00 | NUR ---
VITALS REMAIN STABLE. CONTINUE LEVOPHED AND PROPOFOL DRIP AT CURRENT RATE. PT RESTING COMFORTABLY IN BED. NO S/SX OF ACUTE DISTRESS NOTED.
--- NOTE | 2017-06-27 04:00 | NUR ---
PT RESTING IN BED. NO S/SX OF ACUTE DISTRESS NOTED. FLACC 0. WILL CONTINUE TO MONITOR FOR CHANGES.
[2017-06-27] MEDS: PIPER/TAZO 3.375GM/D5W PREMIX 50 ML IV SCH ×2 (04:33→13:31)
--- NOTE | 2017-06-27 05:00 | NUR ---
PT SUCTION WITH MODERATE THICK CREAMY YELLOW SECRETION. O2 SATURATION CONTINUES TO BE IN 80%S WITH GOOD WAVEFORM. RT NOTIFIED AND AT BEDSIDE TO ASSESS
--- NOTE | 2017-06-27 06:00 | NUR ---
ORAL CARE GIVEN. PT SUCTIONED. TOLERATED WELL. VITALS WITHIN NORMAL. FLACC 0. NO S/SX OF ACUTE DISTRESS NOTED.
[2017-06-27 06:26] LABS: BASOPHILS % (AUTO) 0.1 % (0.0-2.0); EOSINOPHILS % (AUTO) 0.2 % (0.0-4.0); HEMATOCRIT 34.3 % (36-52); HEMOGLOBIN 10.9 g/dL (12.0-18.0); LYMPHOCYTES # (AUTO) 0.7 K/uL (2.0-11.5); MEAN CORPUSCULAR HEMOGLOBIN 30 pg (27-31); MEAN CORPUSCULAR HGB CONC 32 g/dL (33-37); MEAN CORPUSCULAR VOLUME 94.9 fL (80-94); MONOCYTES # (AUTO) 1.5 K/uL (0.8-1.0); MONOCYTES % (AUTO) 14.2 % (1.7-9.3); NEUTROPHILS # (AUTO) 8.3 K/uL (1.8-7.7); NEUTROPHILS % (AUTO) 78.5 % (42.2-75.2); PLATELET COUNT (AUTO) 261 K/uL (140-450); RED BLOOD CELL COUNT(AUTO) 3.61 MIL/uL (4.20-6.10); RED CELL DISTRIBUTION WIDTH 14.3 % (11.6-13.7); WHITE BLOOD COUNT (AUTO) 10.6 K/uL (4.8-10.8)
[2017-06-27] MEDS: ALBUTEROL SULFATE/IPRATROPIU 3 ML SOL IH PRN (06:53)
--- NOTE | 2017-06-27 06:53 | NUR ---
RECEIVED ON A CS DiscoSCAPE R860 VENTILATOR PLUGGED INTO RED OUTLET TOLERATING WELL WITHOUT ADVERSE REACTIONS NOTED TO A PORTEX ENDOTRACHEAL TUBE #7.5 SECURED AT 24cm WITH ANCHOR FAST ETT PLACEMENT CONFIRMED VIA CXR SATED 06/28/2011 AND BILATERAL AUSCULTATION AMBU BAG NOTED AT HOB LOC SEDATED BREATH SOUNDS COARSE RHONCHI BILATERAL WITH SHALLOW CHEST RISE ENDOTRACHEAL SUCTION FOR LARGE THIN YELLOW WITH BLOOD TINGE SECRETIONS AIRWAY PATENT
[2017-06-27 07:06] LABS: ANION GAP 11.7 (8-16); CARBON DIOXIDE 36.8 mmol/L (21-32); CREATININE 2.4 mg/dL (0.7-1.3); POTASSIUM 4.5 mmol/L (3.5-5.1)
--- NOTE | 2017-06-27 07:10 | NUR ---
RECEIVED REPORT FROM GELA MAGANA. PT IS INTUBATED (SIZE 7.5) AND SEDATED ON PROPOFOL 3.57ML/HR AND LEVOPHED 4.997MCG/KG/MIN. PT HAS A MARIE CATH IN PLACE DRAINING QUIANA/ORANGE COLORED URINE. PT HAS A RIGHT IJ IN PLACE WITH CVP MONITORING THAT WAS ZEROED; CURRENTLY READING 23. PTS IJ BANDAGE IS DRY AND IN TACT. PT HAD A RIGHT AC THAT WAS REMOVED; IT DID NOT FLUSH AND NO BLOOD DRAW. PT HAS ANASARCA; HIS UPPER LIMBS ARE SWOLLEN, STOMACH ROUND AND DISTENDED WITH ASCITES, LOWER LIMBS ARE HARD WITH +1 PITTING. ALTHOUGH PT IS SEDATED, HE CAN BE AROUSED AND WILL FOLLOW SIMPLE COMMANDS (WIGGLE TOES, OPEN YOUR EYES). PT FIO2 WAS REDUCED FROM 80 TO 70 DURING REPORT. PT'S LIMBS ARE COLD TO THE TOUCH, AND SKIN ON LOWER LIMBS IS TIGHT AND SHINY. SKIN IS INTACT BUT FEET BILATERALLY ARE VERY DRY. PULSES COULD BE FOUND ON LIMBS WITH DOPPLER ONLY. BOWEL SOUNDS ARE PRESENT IN ALL 4 QUADRANTS BUT VERY FAINT DUE TO DISTENTION AND ASCITES. LUNG SOUNDS ARE CLEAR BILATERALLY BUT WILL CRACKLES WHEN NEEDS TO BE SUCTIONS. SECRETIONS ARE THICK, YELLOW/ GREEN AND CREAMY. PT HAS NG TUBE THAT IS CONNECTED TO LOW INTERMITTED SUCTION. PTS BED IS IN LOWEST POSITION WITH BED ALARM AND LOCK ON. ALTHOUGH SEDATED, PT CALL LIGHT IS WITHIN REACH OF PT.
[2017-06-27 07:19] LABS: MAGNESIUM 2.5 mg/dL (1.8-2.4); PHOSPHORUS 4.6 mg/dL (2.5-4.9)
--- NOTE | 2017-06-27 07:20 | NUR ---
SATURATION 98% ON FIO2 OF 80% POST HHN THERAPY TITRATED FIO2 TO 70% HALINA/RN NOTIFIED
[2017-06-27] MEDS: FLUTICASONE 100 MCG /SALMETEROL 50 MCG DISK IH SCH ×2 (07:30→19:30)
--- NOTE | 2017-06-27 08:00 | NUR ---
VAP ORAL CARE PROVIDED PER PROTOCOL. MARIE CARE WAS ALSO COMPLETED. PT HAS CREAM YELLOW DISCHARGE FROM PENIS. WILL CLOSELY MONITOR.
[2017-06-27] MEDS: PANTOPRAZOLE 40 MG INJ VIAL IVP SCH (08:36)
[2017-06-27] MEDS: SPIRONOLACTONE 50 MG TAB PO SCH (08:39)
[2017-06-27] MEDS: CARVEDILOL 6.25 MG TAB PO SCH ×2 (08:39→20:20)
[2017-06-27] MEDS: ASPIRIN 81 MG TAB.CHEW PO SCH (08:40)
[2017-06-27] MEDS: FERROUS GLUCONATE 324 MG TAB PO SCH (08:40)
[2017-06-27] MEDS: AMIODARONE 200 MG TAB NG SCH ×2 (08:42→20:19)
[2017-06-27] MEDS: LACTULOSE 20 GM/30 ML UDC PO SCH ×2 (08:43→20:20)
[2017-06-27] MEDS: BUMETANIDE 1 MG/4 ML VIAL IV SCH ×2 (08:45→20:19)
[2017-06-27] MEDS: CLINICAL MONITORING MC SCH (08:46)
--- NOTE | 2017-06-27 08:56 | NUR ---
SEDATED NO SOB NOTED AT THIS TIME BREATH SOUNDS EXP WHEEZE BILATERAL WITH GOOD CHEST RISE SATURATION 96% ON FIO2 OF 70% TITRATED FIO2 TO 65% STEVEN/RN NOTIFIED
--- NOTE | 2017-06-27 09:30 | NUR ---
DR. EATON CAME TO SEE PATIENT. UPDATE GIVEN.
--- NOTE | 2017-06-27 09:57 | NUR ---
PTS BLOOD PRESSURE BEGAN TO DROP. 09: LEVOPHED INCREASED 2 MCG = 13.11ML 1003: LEVOPHED INCREASED 2 MCG = 16.68ML 1005: PROPOFOL TURNED OFF 1010: LEVOPHED INCREASED 2 MCG = 20.6ML 1015: LEVOPHED INCREASED 2 MCG = 24.33ML PTS SBP HAS STAYED OVER 90 SINCE THE LAST INCREASE.
--- NOTE | 2017-06-27 10:52 | NUR ---
OFF SEDATION RESPONSIVE TO LINEN ATTENDANT VERBAL COMMANDS PATIENT PARTICIPATED IN WEANING PARAMETERS BREATH SOUNDS RHONCHI AND WHEEZE BILATERAL ENDOTRACHEAL SUCTION FOR LARGE THIN YELLOW WITH BLOOD TINGE SECRETIONS AIRWAY PATENT CHANGED ANCHOR FAST TOLERATED CHANGE WELL WITHOUT ADVERSE REACTIONS NOTED Addendum: 06/27/17 at 1118 by Jamel Cameron RT Jovanna LYONS REVIEWED ABG REPORT WITH DR. ANISH EATON NEW ORDER: INCREASE PEEP TO 7 cmH2O KEEP SATURATION GREATER THAN 92%
--- NOTE | 2017-06-27 10:52 | NUR ---
RESPIRATORY AT BEDSIDE. PEEP CHANGED TO 7.
--- NOTE | 2017-06-27 12:08 | NUR ---
VAP ORAL CARE. PT SLEEPING, DENIES ALL PAIN. PT IS OFF PROPOFOL, FOLLOWS COMMANDS AND HELPS WITH TURNING POSSIBLE. PT IS RESPONSIVE AND RESPONDS TO LIGHT PAIN, MOVEMENT, SHAKING. BED IN LOWEST POSITION, BED LOCK ON, ALARM ON, CALL LIGHT WITHIN REACH.
[2017-06-27] MEDS ORDERED: PROBIOTIC SCREEN 1 EA MISC MC PRN (13:30)
--- NOTE | 2017-06-27 13:50 | NUR ---
06/27/17 RD FOLLOW UP COMPLETED PLEASE REFER TO NUTRITION ASSESSMENT UNDER CARE ACTIVITY FOR ESTIMATED NUTRITIONAL NEEDS. 1.CONTINUE NPO STATUS MEDICALLY APPROPRIATE 2. RECOMMEND NUTRITION SUPPORT WHEN MEDICALLY APPROPRIATE: NUTREN PULMONARY STARTING AT 10 ML/HOUR AND INCREASING 10 ML/HR Q12H UNTIL GOAL RATE OF 50 ML/HOUR. -THIS WILL INITITALLY PROVIDE 360 KCAL, 16 G PROTEIN AND 188 ML OF H20. IN ADDITION TO KCAL RECEIVED FROM PROPOFOL (2.57 ML/HR, 1.1 KCAL/ML), PT WILL RECEIVE 454 KCAL/DAY (26% OF ENERGY NEEDS). 3. RD TO FOLLOW-UP 2-3 DAYS, HIGH RISK TONIO VILLAGOMEZ RD
--- NOTE | 2017-06-27 14:11 | NUR ---
PT SLEEPING, EASILY AROUSED. FOLLOWS DIRECTIONS, COMMANDS AND ABLE TO ASSIST IN TURNING. REPOSITIONED FOR COMFORT AND DENIES ALL PAIN. BED LOCK ON AND IN LOWEST POSITION. ALARM ON. CALL LIGHT WITHIN REACH.
[2017-06-27] MEDS ORDERED: METOLAZONE 5 MG TAB PO SCH (14:19)
[2017-06-27] MEDS: NOREPINEPHRINE 8 MG in NACL 0.9% 250 ML IV PRN (14:51)
--- NOTE | 2017-06-27 15:10 | NUR ---
PT AGITATED. ATIVAN GIVEN. CHANGED CVP DRESSING. BED IN LOWEST POSITION, BED LOCK AND ALARM ON. CALL LIGHT WITHIN REACH.
[2017-06-27] MEDS: RIVAROXABAN 15 MG TAB PO SCH (16:46)
--- NOTE | 2017-06-27 16:55 | NUR ---
PT CVP READING ZEROED.
--- NOTE | 2017-06-27 17:18 | NUR ---
CONTINUED TO MONITOR PT ON VENT WITH SETTINGS CHARTED BREATH SOUNDS PRESENT BILAT CLEAR SXN PT WITH MIN AMT OFF WHITE SECS ABU BAG AT BEDSIDE VENT PLUGGED INTO RED OUTLET
--- NOTE | 2017-06-27 19:14 | NUR ---
RECEIVED PT STABLE ON VENT SUPPORT AT DOCUMENTED SETTINGS, SUCTIONED SMALL AMOUNTS OF THICK YELLOW SECRETIONS, NO RESP DISTRESS OR SOB NOTED AT THIS TIME, 7.5 ETT SECURED AND PATENT AT 24 CM AT THE TEETH/GUMS, ALARMS SET AND AUDIBLE, AMBU BAG AT BEDSIDE, VENT PLUGGED INTO RED OUTLET, PULSE OX ON, WILL CONTINUE TO MONITOR.
--- NOTE | 2017-06-27 19:20 | NUR ---
TRANSFERRED CARE TO IZZY, GELA.
--- NOTE | 2017-06-27 19:20 | NUR ---
RECEIVED BEDSIDE REPORT FORM MORNING SHIFT RNMIGUE. PT CLOSED HIS EYES BUT RESPONSIVE TO NAME AND VOICE, PT IS ETT TO VENT SETTING WITH A/C MODE RATE 14, FIO2 65%, VT 500, PEEP 7. NO ACUTE RESPIRATORY DISTRESS NOTED. PT HAS CENTRAL LINE TO RIGHT IJ WITH CBP MONITORING. PT IS ON LEVOPHED 8MG RUNNING WITH 15MCG/MIN. BILATERAL LUNG SOUND CLEAR. S1, S2 HEARD. ST ON THE ABSTRACT CHECKER. HR 118 NOTED. ACTIVE BOWEL SOUND HEARD TO ALL 4 QUADS. PT'S ABDOMEN ROUND AND DISTENDED WITH ASCITES. MARIE CATH IN PLACE, DRAINING CLEAR, YELLOW URINE. BED IS LOW POSITION, HOB ELEVATED 30 DEGREE. CALL LIGHT WITHIN REACH. WILL CONTINUE TO MONITOR. Addendum: 06/27/17 at 2105 by Andreas Brooks RN NGT TO RIGHT NARES, PLACEMENT CHECKED, CONNECTED TO LOW INTERMITTENT SUCTION.
[2017-06-27] MEDS: PIPER/TAZO 2.25GM/D5W PREMIX 50 ML IV SCH (20:18)
[2017-06-27] MEDS: acetaZOLAMIDE 250 MG TAB PO SCH (20:20)
[2017-06-27] MEDS: SIMVASTATIN 20 MG TAB PO SCH (20:20)
--- NOTE | 2017-06-27 20:25 | NUR ---
BP 135/100 NOTED. LEVOPHED TITRATED DOWN TO 13MCG/MIN. NO ACUTE DISTRESS NOTED. WILL CONTINUE TO MONITOR.
--- NOTE | 2017-06-27 20:40 | NUR ---
ADMINISTERED SCHEDULED MEDICATIONS ORDERED, PT TOLERATED WELL. NGT IS CLAMPED AT THIS TIME. NO ACUTE DISTRESS NOTED. BP 132/[address] ON THE ASSEMBLER CHASSIS. DENIES PAIN AT THIS TIME. WILL CONTINUE TO MONITOR.
--- NOTE | 2017-06-27 22:10 | NUR ---
PT COMPLAINED ABOUT DISCOMFORT WITH ET TUBE. ATIVAN ADMINISTERED AT THIS TIME, TOLERATED WELL. WILL CONTINUE TO MONITOR.
[2017-06-28] VITALS (108 sets, daily range): BP systolic 79–150; BP diastolic 49–100
--- NOTE | 2017-06-28 | NUR ---
PT IS IN ASLEEP, AROUSABLE TO VOICE, OAA X1, ABLE TO ANSWER BY NODDING HIS HEAD. NO ACUTE DISTRESS NOTED. DENIES PAIN AT THIS TIME. PROVIDED VAP ORAL CARE, TOLERATED WELL. WILL CONTINUE TO MONITOR.
--- NOTE | 2017-06-28 01:30 | NUR ---
AT BED SIDE TO CHECK THE PT. WILL FOLLOW THE ORDER.
[2017-06-28] MEDS: NOREPINEPHRINE 8 MG in NACL 0.9% 250 ML IV PRN ×2 (01:48→19:04)
[2017-06-28] MEDS: LORazepam 2 MG/ML VIAL IM/IVP PRN (02:16)
--- NOTE | 2017-06-28 02:16 | NUR ---
ADMINISTERED ATIVAN DUE TO PT COMPLAINED ABOUT DISCOMFORT WITH ET TUBE AND FIGHT WITH VENT. WILL CONTINUE TO MONITOR.
[2017-06-28] MEDS: PROPOFOL 1000 MG/100 ML PREMIX 100 ML IV PRN ×2 (02:54→19:02)
--- NOTE | 2017-06-28 02:55 | NUR ---
PROPOFOL STARTED AT THIS TIME DUE TO PT GETTING AGITATED AND FIGHTING WITH VENT. NOTIFIED DR. ISABEL THAT PT IS GETTING AGITATED AND ATIVAN DOES NOT WORK. DR. ISABEL STATED IT IS OK TO START PROPOFOL. WILL CONTINUE TO MONITOR.
--- NOTE | 2017-06-28 03:50 | NUR ---
PT IS SEDATED RASS -3 ON PROPOFOL DRIP. NO ACUTE DISTRESS NOTED. PT'S BP 119/84 WITH LEVOPHED DRIP. WILL CONTINUE TO MONITOR.
[2017-06-28] MEDS: PIPER/TAZO 2.25GM/D5W PREMIX 50 ML IV SCH ×3 (05:28→20:20)
--- NOTE | 2017-06-28 05:30 | NUR ---
ADMINISTERED SCHEDULED ABX, TOLERATED WELL. NO ACUTE DISTRESS NOTED. PT IS SEDATED RASS -3 ON PROPOFOL DRIP. BP 123/90 AT THIS TIME WITH LEVOPHED DRIP. HOB ELEVATED, BED IS LOW POSITION. CALL LIGHT WITHIN REACH.
--- NOTE | 2017-06-28 06:06 | NUR ---
BP 130/94 NOTED, LEVOPHED TITRATED DOWN TO 9MCG/MIN AT THIS TIME. NO ACUTE DISTRESS NOTED. PT IS SEDATED RASS -3 WITH PROPOFOL DRIP. WILL CONTINUE TO MONITOR.
[2017-06-28 06:15] LABS: BASOPHILS % (AUTO) 0.1 % (0.0-2.0); EOSINOPHILS # (AUTO) 0.1 K/uL (0-0.4); EOSINOPHILS % (AUTO) 0.7 % (0.0-4.0); HEMATOCRIT 34.1 % (36-52); LYMPHOCYTES % (AUTO) 8.6 % (20.5-51.1); MEAN CORPUSCULAR HEMOGLOBIN 30 pg (27-31); MEAN CORPUSCULAR HGB CONC 32 g/dL (33-37); MEAN CORPUSCULAR VOLUME 93.2 fL (80-94); MONOCYTES # (AUTO) 1.7 K/uL (0.8-1.0); MONOCYTES % (AUTO) 14.8 % (1.7-9.3); NEUTROPHILS # (AUTO) 8.7 K/uL (1.8-7.7); NEUTROPHILS % (AUTO) 75.8 % (42.2-75.2); PLATELET COUNT (AUTO) 287 K/uL (140-450); RED BLOOD CELL COUNT(AUTO) 3.66 MIL/uL (4.20-6.10); RED CELL DISTRIBUTION WIDTH 14.2 % (11.6-13.7); WHITE BLOOD COUNT (AUTO) 11.5 K/uL (4.8-10.8)
[2017-06-28 06:19] LABS: ANION GAP 12.1 (8-16); CARBON DIOXIDE 36.8 mmol/L (21-32); CREATININE 1.8 mg/dL (0.7-1.3); POTASSIUM 3.9 mmol/L (3.5-5.1)
[2017-06-28 06:30] LABS: MAGNESIUM 2.5 mg/dL (1.8-2.4); PHOSPHORUS 3.9 mg/dL (2.5-4.9)
--- NOTE | 2017-06-28 07:05 | NUR ---
RECEIVED INTUBATED PT WITH 7.5 ETT SECURED @24 TEETH/GUMS ON VENT. SETTINGS AC 14, VT 500, PEEP 6 AND FIO2 40%. PT SUCTIONED OBTAINED SMALL AMOUNT OF THICK YELLOW SECRETIONS, AIRWAY IS PATENT AND ETT IS SECURE. PT IS NOT AWAKE AND NOT ALERT AT THIS TIME BUT IS NOT SOB AND NOT IN DISTRESS. VENT IS PLUGGED INTO A RED OUTLET WITH ALARMS ON AND FUNCTIONING. AMBU BAG IS PRESENT AT BEDSIDE. WILL CONTINUE TO MONITOR.
[2017-06-28] MEDS: FLUTICASONE 100 MCG /SALMETEROL 50 MCG DISK IH SCH ×2 (07:30→19:30)
--- NOTE | 2017-06-28 07:35 | NUR ---
BEDSIDE REPORT GIVEN TO MORNING NURSE PRITCHARD FOR CONTINUITY OF CARE.
--- NOTE | 2017-06-28 07:35 | NUR ---
RECEIVED REPORT FROM IZZY RN. PT IS SEDATED ON PROPOFOL. PT HAS RIGHT IJ; PROPOFOL RUNNING, LEVOPHED, CVP MONITORING (MEASURING 18). PT CAN BE AROUSED. PT'S LUNGS ARE CLEAR AND ALL BOWEL SOUNDS CAN BE HEARD IN ALL 4 QUADRANTS. PT HAS A MARIE IN PLACE WITH BIGHT YELLOW URINE WITH BLOOD CLOT SEDIMENTS IN TUBE. PT HAS DISCHARGE FROM PENIS. PT HAS +1 PITTING ANASARCA. PT IS CURRENTLY NPO EXCEPT FOR MEDS. PT IS ON FLUID RESTRICTION. S1S2 HEARD. PT IS ON THE OPTOMETRIST. PT'S BED LOCK AND ALARM IS ON, BED IN LOWEST POSITION, CALL LIGHT WITHIN REACH. WILL CLOSELY MONITOR. Addendum: 06/28/17 at 1240 by Carmen Fregoso RN PT ETT TUBE AT 24 TEETH/GUMS. SIDE 7.5
--- NOTE | 2017-06-28 08:05 | NUR ---
VAP ORAL CARE. PT IS SEDATED. PT POSITIONED FOR COMFORT. SKIN ASSESSMENT AND BED BATH. BED LEFT IN LOWEST POSITION, BED LOCK ON AND ALARM ON. CALL LIGHT WITHIN LIGHT.
[2017-06-28] MEDS: PANTOPRAZOLE 40 MG INJ VIAL IVP SCH (08:30)
[2017-06-28] MEDS: BUMETANIDE 1 MG/4 ML VIAL IV SCH ×2 (08:30→20:22)
[2017-06-28] MEDS: LACTOBACILLUS RHAMNOSUS GG 1 EACH CAP PO SCH (08:31)
[2017-06-28] MEDS: FERROUS GLUCONATE 324 MG TAB PO SCH (08:31)
[2017-06-28] MEDS: acetaZOLAMIDE 250 MG TAB PO SCH ×2 (08:31→20:21)
[2017-06-28] MEDS: LACTULOSE 20 GM/30 ML UDC PO SCH ×2 (08:31→20:21)
[2017-06-28] MEDS: SPIRONOLACTONE 50 MG TAB PO SCH (08:32)
[2017-06-28] MEDS: ASPIRIN 81 MG TAB.CHEW PO SCH (08:33)
[2017-06-28] MEDS: AMIODARONE 200 MG TAB NG SCH ×2 (08:33→20:21)
[2017-06-28] MEDS: CARVEDILOL 6.25 MG TAB PO SCH ×2 (08:33→20:22)
[2017-06-28] MEDS ORDERED: METOLAZONE 5 MG TAB PO SCH (09:00)
[2017-06-28] MEDS: CLINICAL MONITORING MC SCH (09:17)
--- NOTE | 2017-06-28 10:00 | NUR ---
DR. EATON CAME TO SEE PT. UPDATE GIVEN. ORDERS RECEIVED. WILL CLOSELY MONITOR.
--- NOTE | 2017-06-28 12:10 | NUR ---
RT HERE DRAWING ABG.
--- NOTE | 2017-06-28 12:30 | NUR ---
CALLED DR. EATON TO LET HIM KNOW OF ABG RESULTS. DID NOT RECEIVE ANY NEW ORDERS.
--- NOTE | 2017-06-28 12:31 | NUR ---
ABG RESULTS GIVEN TO BY NURSE NAMAN NO VENT CHANGES REQUESTED BY PHYSICIAN AT THIS TIME.
--- NOTE | 2017-06-28 12:37 | NUR ---
PT RESTING IN BED. PT IS ON PROPOFOL. DENIES ALL PAIN. PT CAN BE AROUSED BY TOUCH AND CALLING HIS NAME. FOLLOWS DIRECTIONS AND IS ABLE TO HELP ASSIST IN TURNING
--- NOTE | 2017-06-28 12:48 | NUR ---
VAP ORAL CARE PROVIDED PER PROTOCOL.
--- NOTE | 2017-06-28 13:21 | NUR ---
PT SUCTIONED OBTAINED SMALL AMOUNT OF THICK CLEAR SECRETIONS, AIRWAY IS PATENT AND ETT REMAINS SECURE. WILL CONTINUE TO MONITOR.
--- NOTE | 2017-06-28 13:59 | NUR ---
[facility]. REPOSITIONED PT FOR COMFORT. PT IS ABLE TO BE AROUSED BUT VERY LETHARGIC DUE TO PROPOFOL. RASS -3.
[2017-06-28] MEDS ORDERED: POTASSIUM CHLORIDE 20% 40 MEQ/15 ML UDC GT SCH (14:55)
--- NOTE | 2017-06-28 15:24 | NUR ---
UPDATED URINE OUTPUT 4,010 ML SINCE START OF SHIFT.
--- NOTE | 2017-06-28 16:51 | NUR ---
PT IS RESTING. REMAINS -3 RASS. CVP TRENDING DOWN, CURRENTLY 16. BED LOCKED, ALARM ON. CALL LIGHT WITHIN REACH. WILL CLOSELY MONITOR.
--- NOTE | 2017-06-28 17:25 | NUR ---
PT REMAINS ON DOCUMENTED VENT SETTINGS. ETT REMAINS SECURE. VENT ALARMS REMAIN ON AND FUNCTIONING. PT IS NOT DEMONSTRATING ANY SIGNS/SYMPTOMS OF RESPIRATORY DISTRESS.
--- NOTE | 2017-06-28 17:25 | NUR ---
RT AT BEDSIDE.
--- NOTE | 2017-06-28 17:27 | NUR ---
CALLED PNEUMATIC TUBE FITTER FOR FEEDING PUMP. NEW ORDERS TO START FEEDS.
--- NOTE | 2017-06-28 17:54 | NUR ---
DR. MURRY MADE AWARE OF URINE OUTPUT OF 4010 ML FOR 12H.
[2017-06-28] MEDS: RIVAROXABAN 15 MG TAB PO SCH (17:56)
--- NOTE | 2017-06-28 19:20 | NUR ---
TRANSFERRED CARE TO NIGHT RNHANNAH.
--- NOTE | 2017-06-28 19:20 | NUR ---
PT GETTING AGITATED DURING SHIFT CHANGE, PROPOFOL TITRATED UP TO 15MCG/KG/MIN.
--- NOTE | 2017-06-28 19:23 | NUR ---
RECEIVED BEDSIDE REPORT FORM MORNING SHIFT RNMIGUE. PT IS SEDATED WITH PROPOFOL DRIP RASS -3, PT IS ETT TO VENT SETTING WITH A/C MODE RATE 14, FIO2 40%, VT 500, PEEP 6. NO ACUTE RESPIRATORY DISTRESS NOTED. PT HAS CENTRAL LINE TO RIGHT IJ WITH CVP MONITORING. PT IS ON LEVOPHED 8MG RUNNING WITH 7MCG/MIN. BILATERAL LUNG SOUND CLEAR. S1, S2 HEARD. ST ON THE MACHINE SETTER. HR 115 NOTED. ACTIVE BOWEL SOUND HEARD TO ALL 4 QUADS. PT'S ABDOMEN ROUND AND DISTENDED WITH ASCITES. MARIE CATH IN PLACE, DRAINING CLEAR, YELLOW URINE. BED IS LOW POSITION, HOB ELEVATED 30 DEGREE. CALL LIGHT WITHIN REACH. WILL CONTINUE TO MONITOR.
--- NOTE | 2017-06-28 19:45 | NUR ---
TUBE FEEDING STARTED ORDERED, CHECKED PLACEMENT OF NG TUBE, NO RESIDUAL NOTED. CONTINUOS FEEDING NUTREN PULMO 10ML/HR. WILL CONTINUE TO MONITOR.
[2017-06-28] MEDS: SIMVASTATIN 20 MG TAB PO SCH (20:21)
--- NOTE | 2017-06-28 20:40 | NUR ---
ADMINISTERED SCHEDULED MEDICATIONS ORDERED, TOLERATED WELL. NO ACUTE DISTRESS NOTED. ST ON THE MONITOR. BP 121/60 WITH LEVOPHED DRIP. PT IS SEDATED RASS -3 WITH PROPOFOL DRIP. WILL CONTINUE TO MONITOR.
--- NOTE | 2017-06-28 22:30 | NUR ---
PT IS SEDATED RASS -[address] ON THE OVERHEAD CLEANER. BP 95/65 WITH LEVOPHED DRIP. NO ACUTE DISTRESS NOTED. WILL CONTINUE TO MONITOR.
[2017-06-29] VITALS (106 sets, daily range): BP systolic 88–137; BP diastolic 44–85
--- NOTE | 2017-06-29 | NUR ---
PT IS SEDATED WITH PROPOFOL DRIP RASS -3. NO ACUTE DISTRESS NOTED. ST ON THE BIOLOGY FACULTY MEMBER. BP 105/66 WITH LEVOPHED DRIP. WILL CONTINUE TO MONITOR.
--- NOTE | 2017-06-29 01:39 | NUR ---
LOWERED FIO2 TO 30%. SATS 95%
--- NOTE | 2017-06-29 01:50 | NUR ---
DR. ISABEL AT BEDSIDE TO CHECK THE PT, WILL FOLLOW THE ORDER.
--- NOTE | 2017-06-29 03:30 | NUR ---
PT IS SEDATED WITH PROPOFOL DRIP RASS -3. NO ACUTE RESPIRATORY DISTRESS NOTED. ST ON THE LIFE ENRICHMENT DIRECTOR. HR 113. BP 105/76 WITH LEVOPHED DRIP. WILL CONTINUE TO MONITOR.
[2017-06-29] MEDS: PIPER/TAZO 2.25GM/D5W PREMIX 50 ML IV SCH ×3 (04:49→20:18)
--- NOTE | 2017-06-29 05:00 | NUR ---
ADMINISTERED SCHEDULED ABX ORDERED. NO ACUTE DISTRESS NOTED. ST ON THE MONITOR. BP 104/73 WITH LEVOPHED DRIP. PT IS SEDATED WITH PROPOFOL. WILL CONTINUE TO MONITOR.
--- NOTE | 2017-06-29 06:20 | NUR ---
PT IS SEDATED WITH PROPOFOL RASS -3. NO ACUTE DISTRESS NOTED. ST ON THE MONITOR. FLACC 0. WILL CONTINUE TO MONITOR.
--- NOTE | 2017-06-29 06:45 | NUR ---
RECEIVED PT ON VENT SETTINGS AC 14, VT 500, PEEP 6, FI02 30%. AIRWAY IS SECURED AND PATENT. VENT IS PLUGGED INTO RED OUTLET AND AMBU BAG IS IN ROOM. NO RESPIRATORY DISTRESS IS NOTED. ET TUBE 7.5 AND 24@TEETH. ALARMS AND SET AND FUNCTIONING. NO SECRETIONS WHILE SUCTIONING. NO TX IS GIVEN AT THIS TIME. WILL CONTINUE TO MONITOR.
--- NOTE | 2017-06-29 07:10 | NUR ---
BED SIDE REPORT GIVEN TO MORNING RN. HIGGINS FOR CONTINUITY OF CARE.
--- NOTE | 2017-06-29 07:11 | NUR ---
RECEIVED BEDSIDE REPORT FROM STAFF ANESTHETIST RN, HANNAH, FOR CONTINUITY OF CARE. PATIENT IS SEDATED, ABLE TO FOLLOW SIMPLE COMMANDS. SKIN IS INTACT, CENTRAL LINE TO RIJ WITH PROPOFOL RUNNING AT 15MCG/HR AND LEVOPHED RUNNING AT 7MCG/HR. ST/SR ON MONITOR, CVP MONITORING IS 11 AT THIS TIME. PATIENT HAS ETT TO VENT WITH SETTINGS AC/VC FIO2 30, TV 500, RATE 14, PEEP 6. PATIENT HAS NG TUBE TO RIGHT NARES TO TUBE FEEDING, NUTREN PULMO, 10ML/HR. PATIENT HAS A MARIE CATHETER IN PLACE. HOB IS 30 DEGRESS IN LOWEST POSSIBLE POSITION. PATIENT SHOWS NO SIGNS OF DISTRESS AT THIS TIME. CALL LIGHT IS IN REACH. WILL MONITOR CLOSELY.
[2017-06-29] MEDS: FLUTICASONE 100 MCG /SALMETEROL 50 MCG DISK IH SCH ×2 (07:30→19:30)
[2017-06-29] MEDS: FERROUS GLUCONATE 324 MG TAB PO SCH (08:22)
[2017-06-29] MEDS: AMIODARONE 200 MG TAB NG SCH ×2 (08:22→20:18)
[2017-06-29] MEDS: LACTOBACILLUS RHAMNOSUS GG 1 EACH CAP PO SCH (08:22)
[2017-06-29] MEDS: CARVEDILOL 6.25 MG TAB PO SCH (08:22)
[2017-06-29] MEDS: SPIRONOLACTONE 50 MG TAB PO SCH (08:23)
[2017-06-29] MEDS: LACTULOSE 20 GM/30 ML UDC PO SCH ×2 (08:23→20:16)
[2017-06-29] MEDS: ASPIRIN 81 MG TAB.CHEW PO SCH (08:23)
[2017-06-29] MEDS: acetaZOLAMIDE 250 MG TAB PO SCH ×2 (08:23→20:19)
[2017-06-29] MEDS: PANTOPRAZOLE 40 MG INJ VIAL IVP SCH (08:24)
[2017-06-29] MEDS: CLINICAL MONITORING MC SCH (08:25)
[2017-06-29] MEDS: BUMETANIDE 1 MG/4 ML VIAL IV SCH ×2 (08:25→20:17)
[2017-06-29 09:10] LABS: ANION GAP 8.8 (8-16); CARBON DIOXIDE 37.8 mmol/L (21-32); CREATININE 1.6 mg/dL (0.7-1.3); POTASSIUM 3.6 mmol/L (3.5-5.1)
[2017-06-29 09:17] LABS: MAGNESIUM 2.3 mg/dL (1.8-2.4); PHOSPHORUS 3.6 mg/dL (2.5-4.9)
[2017-06-29 09:23] LABS: EOSINOPHILS # (AUTO) 0.1 K/uL (0-0.4); EOSINOPHILS % (AUTO) 1.3 % (0.0-4.0); MEAN CORPUSCULAR HEMOGLOBIN 30 pg (27-31)
[2017-06-29 09:26] LABS: RED BLOOD CELL COUNT(AUTO) 3.74 MIL/uL (4.20-6.10); WHITE BLOOD COUNT (AUTO) 11.2 K/uL (4.8-10.8)
[2017-06-29 09:27] LABS: HEMOGLOBIN 11.2 g/dL (12.0-18.0); MEAN CORPUSCULAR HGB CONC 32 g/dL (33-37); MEAN CORPUSCULAR VOLUME 93.5 fL (80-94); PLATELET COUNT (AUTO) 305 K/uL (140-450); RED CELL DISTRIBUTION WIDTH 14.2 % (11.6-13.7)
[2017-06-29 09:28] LABS: BASOPHILS % (AUTO) 0.4 % (0.0-2.0); LYMPHOCYTES # (AUTO) 1.2 K/uL (2.0-11.5); LYMPHOCYTES % (AUTO) 10.5 % (20.5-51.1); MONOCYTES # (AUTO) 1.5 K/uL (0.8-1.0); MONOCYTES % (AUTO) 13.3 % (1.7-9.3); NEUTROPHILS # (AUTO) 8.4 K/uL (1.8-7.7); NEUTROPHILS % (AUTO) 74.5 % (42.2-75.2)
--- NOTE | 2017-06-29 10:52 | NUR ---
06/29/17 RD FOLLOW UP COMPLETED PLEASE REFER TO NUTRITION PROGRESS NOTE UNDER CARE ACTIVITY FOR ESTIMATED NUTRITION NEEDS. RD RECOMMENDATIONS: 1. RECOMMEND ADDING PROSOURCE TID ONTO CURRENT TUBE FEEDING ORDER OF NUTREN SHEILARY AT GOAL RATE OF 50M L/HR. -EACH PROSOURCE PROVIDES 11 GM OF PROTEIN AND 40 KCAL (INCREASED PROTEIN NEEDS DUE TO VENT SUPPORT) -NOTE GOAL RATE OF 50 ML/HR WILL PROVIDE 1200 ML TOTAL VOLUME, 1920 KCAL, 115 GM OF PROTEIN, 917 ML OF FREE WATER (WILL BE ADEQUATE TO MEET 100% OF ESTIMATED ENERGY AND PROTEIN NEEDS) 2. RD WILL F/U 2-3 DAYS; HIGH RISK. NATHALY BENITEZ, RD
--- NOTE | 2017-06-29 11:12 | NUR ---
PATIENT WAS PUT ON SEDATION VACATION, PROPOFOL WAS OFF FOR [address] RT AT BEDSIDE. PATIENT TOLERATED WELL. DECREASED PROPOFOL TO 10MCG/HR. WILL CONTINUE TO MONITOR
--- NOTE | 2017-06-29 11:25 | NUR ---
ATTEMPTED A WEAN ON VENT SETTINGS CPAP WITH PS OF 10. FIRST ATTEMPT PT WENT APNEIC AND THE APNEIC ALARM WENT OFF. PLACED HIM BACK ON INITIAL SETTINGS FOR A COUPLE MINUTES AND EXPLAINED TO THE PT AGAIN THAT WE WERE SWITCHING MODES TO CPAP FOR A WEANING TRIAL. PLACED BACK ON CPAP PS 10. NIF OF -7, VC 241, RSBI 47, VT 502, PEAK PRESSURE 17, MEAN 8. PT WAS DISPLAYING RESPIRATORY DISTRESS HR WENT TO 120 SP02 65. PLACED PT BACK ON INITIAL VENT SETTINGS. WEAN LASTED 2 MINUTES TOTAL. WILL CONTINUE TO MONITOR.
--- NOTE | 2017-06-29 11:27 | NUR ---
PATIENT OPENS EYES, ABLE TO FOLLOW COMMANDS AND NODS HEAD TO ANSWER QUESTIONS. DENIES PAIN AT THIS TIME. PATIENT IS OBSERVED SLIGHTLY RESTLESS EVEN AFTER CALMING TECHNIQUES SO INCREASED PROPOFOL DRIP BACK TO 15MCG/HR. WILL CONTINUE TO MONITOR
[2017-06-29] MEDS: NOREPINEPHRINE 8 MG in NACL 0.9% 250 ML IV PRN (12:49)
[2017-06-29] MEDS: PROPOFOL 1000 MG/100 ML PREMIX 100 ML IV PRN (15:02)
--- NOTE | 2017-06-29 15:07 | NUR ---
IN TO SEE PATIENT, UPDATED ON PATIENT'S CONDITION. WILL FOLLOW UP WITH ANY ORDERS.
--- NOTE | 2017-06-29 15:43 | NUR ---
IN TO SEE PATIENT, UPDATED ON PATIENT'S CONDITION. WILL FOLLOW UP ON ANY ORDERS.
--- NOTE | 2017-06-29 15:50 | NUR ---
PROVIDED MARIE CARE AND CLEANED AND CHANGED PATIENT. PATIENT TOLERATED WELL. NO SIGNS OF ACUTE DISTRESS NOTED. PROVIDED ORAL CARE. WILL CONTINUE TO MONITOR
[2017-06-29] MEDS: RIVAROXABAN 15 MG TAB PO SCH (16:45)
--- NOTE | 2017-06-29 18:09 | NUR ---
PATIENT PRESENTS NO SIGNS OF DISTRESS AT THIS TIME. WILL CONTINUE TO MONITOR
--- NOTE | 2017-06-29 18:54 | NUR ---
DR. ROCHA IN TO SEE AND EXAMINE PATIENT. WILL FOLLOW UP WITH ANY ORDERS.
--- NOTE | 2017-06-29 19:02 | NUR ---
ENDORSED CONTINUITY OF CARE AT BEDSIDE TO MOLD YARD SUPERVISOR RNMG. PATIENT PRESENTS NO SIGNS OF ACUTE DISTRESS AT THIS TIME.
--- NOTE | 2017-06-29 19:20 | NUR ---
RECEIVED REPORT FROM MORNING RN FOR CONTINUITY OF CARE. VS STABLE AT THIS TIME. PT AFEBRILE. RASS -3. PT ON PROPOFOL DRIP AT 15MCG. PERRL. ETT TO VENT WITH SETTINGS: FIO2 30%, RR14, TV 500, AND PEEP 6. LUNG SOUNDS RHONCHI. NO SIGNS OF RESPIRATORY DISTRESS NOTED. S1+S2 HEARD. PULSES ARE STRONG AND PALPABLE IN ALL EXTREMITIES. SINUS TACHYCARDIA ON MONITOR. PT ON LEVOPHED DRIP AT 5MCG. NGT IN PLACE THROUGH RIGHT NARES. PLACEMENT CHECKED. 10ML RESIDUAL NOTED. NUTREN PULMONARY RUNNING AT 20ML/HR. PT TOLERATING WELL. ABDOMEN ROUND, SOFT AND NONDISTENDED. MARIE CATHETER IN PLACE WITH YELLOW AND CLEAR URINE DRAINING. NO FOUL ODOR NOTED. PT HAS RIGHT IJ CENTRAL LINE IN PLACE. DRESSING DRY AND INTACT. NO BLEEDING NOTED ON SITE. HOB ELEVATED AT 30 DEGREES. CALL LIGHT WITHIN REACH. ALL SAFETY PRECAUTIONS ARE IN PLACE. WILL CONTINUE TO MONITOR PT.
[2017-06-29] MEDS: SIMVASTATIN 20 MG TAB PO SCH (20:18)
--- NOTE | 2017-06-29 22:20 | NUR ---
DR. HOSKINS AT BEDSIDE. WILL FOLLOW-UP WITH ANY ORDERS.
[2017-06-30] VITALS (105 sets, daily range): BP systolic 84–141; BP diastolic 50–97
[2017-06-30] MEDS: PROPOFOL 1000 MG/100 ML PREMIX 100 ML IV PRN ×3 (00:30→23:53)
--- NOTE | 2017-06-30 01:35 | NUR ---
VS STABLE AT THIS TIME. SINUS RHYTHM ON MONITOR. CURRENTLY NO CHANGE IN PT CONDITION. PT STILL ON PROPOFOL AND LEVOPHED DRIP. NGT TO FEEDING. ALL SAFETY PRECAUTIONS ARE IN PLACE. WILL CONTINUE TO MONITOR PT.
--- NOTE | 2017-06-30 04:45 | NUR ---
PT TURNED AND REPOSITIONED. LINENS CHANGED. PT ABLE TO FOLLOW SIMPLE COMMANDS. PT AROUSABLE. RASS -3. WILL CONTINUE TO MONITOR PT.
[2017-06-30] MEDS: PIPER/TAZO 2.25GM/D5W PREMIX 50 ML IV SCH ×3 (05:55→20:16)
--- NOTE | 2017-06-30 06:34 | NUR ---
DR. SUGGS AT BEDSIDE TO SEE PT.
[2017-06-30] MEDS: FLUTICASONE 100 MCG /SALMETEROL 50 MCG DISK IH SCH ×2 (07:11→19:30)
--- NOTE | 2017-06-30 07:12 | NUR ---
RECEIVED PT ON CARESCAPE ON A/C 14 VT 500 PEEP6 FIO2 30 ALARMS ARE 0N AND AUDIBLE BMV HOB PTS ET TUBE IS SECURE SIZE 7.5 24 CM ANCHOR FAST IN PLACE BS CLEAR PT IN HF ASLEEP VENT PLUGGED INTO RED OUTLET
--- NOTE | 2017-06-30 07:21 | NUR ---
REPORT GIVEN TO MORNING RN FOR CONTINUITY OF CARE. PT IN STABLE CONDITION AT THIS TIME.
--- NOTE | 2017-06-30 07:30 | NUR ---
RECEIVED REPORT FROM PM RN . PT SEDATED, RASS -3. BEDSIDE MONITOR SHOWS ST. ETT TO VENT WITH SETTINGS: FIO2 30%, RR14, TV 500, AND PEEP 6. NO SIGNS OF RESPIRATORY DISTRESS NOTED. PT HAS RIGHT IJ CENTRAL LINE IN PLACE. ON LEVOPHED DRIP AT 5MCG AND PROPOFOL DRIP AT 15MCG. NGT IN PLACE THROUGH RIGHT NARES RUNNING NUTREN PULMONARY RUNNING AT 30ML/HR. PLACEMENT CHECKED. 10ML RESIDUAL NOTED. ABDOMEN ROUND, MARIE CATHETER IN PLACE WITH YELLOW AND CLEAR URINE DRAINING. DRESSING DRY AND INTACT. HOB ELEVATED AT 30 DEGREES. CALL LIGHT WITHIN REACH. ALL SAFETY PRECAUTIONS IN PLACE. WILL CONTINUE TO MONITOR PT.
[2017-06-30 08:29] LABS: BASOPHILS # (AUTO) 0.1 K/uL (0.00-0.22); BASOPHILS % (AUTO) 1.2 % (0.0-2.0); EOSINOPHILS # (AUTO) 0.2 K/uL (0-0.4); EOSINOPHILS % (AUTO) 1.8 % (0.0-4.0); HEMATOCRIT 33.5 % (36-52); HEMOGLOBIN 10.7 g/dL (12.0-18.0); LYMPHOCYTES # (AUTO) 1.4 K/uL (2.0-11.5); LYMPHOCYTES % (AUTO) 14.2 % (20.5-51.1); MEAN CORPUSCULAR HEMOGLOBIN 30 pg (27-31); MEAN CORPUSCULAR HGB CONC 32 g/dL (33-37); MEAN CORPUSCULAR VOLUME 92.6 fL (80-94); MONOCYTES # (AUTO) 1.1 K/uL (0.8-1.0); MONOCYTES % (AUTO) 11.1 % (1.7-9.3); NEUTROPHILS # (AUTO) 6.8 K/uL (1.8-7.7); NEUTROPHILS % (AUTO) 71.7 % (42.2-75.2); PLATELET COUNT (AUTO) 335 K/uL (140-450); RED BLOOD CELL COUNT(AUTO) 3.61 MIL/uL (4.20-6.10); RED CELL DISTRIBUTION WIDTH 13.1 % (11.6-13.7); WHITE BLOOD COUNT (AUTO) 9.6 K/uL (4.8-10.8)
[2017-06-30 08:39] LABS: ANION GAP 7.2 (8-16); CARBON DIOXIDE 34.6 mmol/L (21-32); CREATININE 1.2 mg/dL (0.7-1.3)
[2017-06-30 08:45] LABS: POTASSIUM 2.8 mmol/L (3.5-5.1)
[2017-06-30 08:46] LABS: MAGNESIUM 1.8 mg/dL (1.8-2.4); PHOSPHORUS 4.1 mg/dL (2.5-4.9)
[2017-06-30] MEDS ORDERED: BUMETANIDE 1 MG/4 ML VIAL IV SCH (09:00)
[2017-06-30] MEDS: CLINICAL MONITORING MC SCH (09:00)
[2017-06-30] MEDS: ASPIRIN 81 MG TAB.CHEW PO SCH (09:29)
[2017-06-30] MEDS: AMIODARONE 200 MG TAB NG SCH ×2 (09:29→20:16)
[2017-06-30] MEDS: PANTOPRAZOLE 40 MG INJ VIAL IVP SCH (09:29)
[2017-06-30] MEDS: LACTOBACILLUS RHAMNOSUS GG 1 EACH CAP PO SCH (09:29)
[2017-06-30] MEDS ORDERED: KCL 20 MEQ/WATER INJ PREMIX 100 ML IV SCH (09:30)
[2017-06-30] MEDS: acetaZOLAMIDE 250 MG TAB PO SCH ×2 (09:30→20:16)
[2017-06-30] MEDS: FERROUS GLUCONATE 324 MG TAB PO SCH (09:30)
[2017-06-30] MEDS: SPIRONOLACTONE 50 MG TAB PO SCH (09:30)
[2017-06-30] MEDS: LACTULOSE 20 GM/30 ML UDC PO SCH ×2 (09:31→20:17)
--- NOTE | 2017-06-30 09:35 | NUR ---
SEDATION VACATION DONE WITH RT JOVANNA. REORIENTED PT,NOTIFIED HIM HE IS IN HOSPITAL, DON'T PULL OUT THE TUBES. PT IS CALM AT THIS MOMENT.
[2017-06-30] MEDS ORDERED: POTASSIUM CHLORIDE 20% 40 MEQ/15 ML UDC GT SCH (10:00)
--- NOTE | 2017-06-30 11:06 | NUR ---
IN TO [place]CKE PT, NOTIFIED MD SEDATION VACATION DONE, PER , STOP PROPOFOL AT THIS TIME AND CHANGE TO CPAP TO SEE HOW PT IS DOING, NOTIFIED RT JOVANNA.
--- NOTE | 2017-06-30 12:02 | NUR ---
NIF -24 VC 540 Addendum: 06/30/17 at 1224 by Randa Moise RT PS 12 PEEP WAS DECREASED TO 5
--- NOTE | 2017-06-30 12:27 | NUR ---
FRANCO REPORTED TO DR BERRY RETURN TO A/C WEAN IN AM
--- NOTE | 2017-06-30 12:30 | NUR ---
PT BACK TO PROPOFOL DRIP AT 10 MCG/KG/MIN
--- NOTE | 2017-06-30 15:02 | NUR ---
PT SEDATED, NO SOB, O2 SAT 96%.
[2017-06-30] MEDS: RIVAROXABAN 15 MG TAB PO SCH (17:31)
--- NOTE | 2017-06-30 18:00 | NUR ---
PT SEDATED. STILL ETT TO VENT, NO S/S OF RESPIRATORY DISTRESS NOTED. DAY SHIFT URINE OUTPUT TOTAL 3000 ML.
[2017-06-30 19:11] LABS: ANION GAP 7.5 (8-16); CREATININE 1.4 mg/dL (0.7-1.3); POTASSIUM 3.5 mmol/L (3.5-5.1)
--- NOTE | 2017-06-30 19:15 | NUR ---
BEDSIDE REPORT GIVEN TO PM NURSE.
[2017-06-30] MEDS: NOREPINEPHRINE 8 MG in NACL 0.9% 250 ML IV PRN (19:16)
--- NOTE | 2017-06-30 19:30 | NUR ---
RECEIVED BEDSIDE REPORT FORM MORNING SHIFT RN, ANTOINE. PT IS SEDATED WITH PROPOFOL DRIP RASS -3. PT IS ETT TO VENT SETTING WITH A/C MODE RATE 14, FIO2 30%, VT 500, PEEP 5. NO ACUTE RESPIRATORY DISTRESS NOTED. NO FEVER. PT HAS CENTRAL LINE TO RIGHT IJ WITH CVP MONITORING. PT IS ON LEVOPHED 8MG RUNNING WITH 7MCG/MIN. BILATERAL LUNG SOUND CLEAR. S1, S2 HEARD. ST ON THE THERAPEUTIC MENTOR. HR 106 NOTED. ACTIVE BOWEL SOUND HEARD TO ALL 4 QUADS. PT'S ABDOMEN ROUND AND DISTENDED WITH ASCITES.PT IS IN NGT TO CONTINUOUS FEEDING WITH NUTREN PULMO 40ML/HR. MARIE CATH IN PLACE, DRAINING CLEAR, YELLOW URINE. BED IS LOW POSITION, HOB ELEVATED 30 DEGREE. CALL LIGHT WITHIN REACH. WILL CONTINUE TO MONITOR.
--- NOTE | 2017-06-30 20:00 | NUR ---
INCREASED CONTINUOUS TUBE FEEDING FROM 40ML/HR TO 50ML/HR ORDERED. TUBE PLACEMENT CHECKED, 5ML RESIDUAL NOTED. PT TOLERATED WELL. WILL CONTINUE TO MONITOR.
[2017-06-30] MEDS: SIMVASTATIN 20 MG TAB PO SCH (20:16)
--- NOTE | 2017-06-30 20:40 | NUR ---
ADMINISTERED SCHEDULED MEDICATIONS ORDERED, TOLERATED WELL. PT IS SEDATED WITH LEVOPHED DRIP. ST ON THE [employer] SALES CONSULTANT. HR 100'S NOTED. NO ACUTE DISTRESS NOTED. WILL CONTINUE TO MONITOR.
--- NOTE | 2017-06-30 22:30 | NUR ---
PT SEDATED WITH PROPOFOL DRIP RASS -3. NO ACUTE DISTRESS NOTED. ST ON THE MONITOR. HR 104 NOTED. BP 104/64 WITH LEVOPHED DRIP. WILL CONTINUE TO MONITOR.
[2017-07-01] VITALS (107 sets, daily range): BP systolic 75–131; BP diastolic 54–93
--- NOTE | 2017-07-01 00:30 | NUR ---
PT IS SEDATED WITH PROPOFOL DRIP RASS -3. NO ACUTE DISTRESS NOTED. A FLUTTER 3:1 TO 2:1 ON THE MONITOR WITH HR 102. CONTINUOUS LEVOPHED DRIP 7MCG/MIN. SBP OVER 100, DBP OVER 60 NOTED. WILL CONTINUE TO MONITOR.
--- NOTE | 2017-07-01 02:40 | NUR ---
PT IS SEDATED RASS -3 WITH PROPOFOL DRIP. NO FEVER, NO ACUTE DISTRESS NOTED. A FLUTTER 3:1 TO 2:1 ON THE MONITOR WITH HR 98. PT IS ON CONTINUOUS LEVOPHED DRIP 7MCG/MIN. HOB ELEVATED 30 DEGREE. BED IS LOW POSITION. CALL LIGHT WITHIN REACH. WILL CONTINUE TO MONITOR.
[2017-07-01] MEDS: PIPER/TAZO 2.25GM/D5W PREMIX 50 ML IV SCH ×3 (04:04→20:45)
--- NOTE | 2017-07-01 04:30 | NUR ---
ADMINISTERED SCHEDULED IV ABX, TOLERATED WELL. NO ACUTE DISTRESS NOTED. A-FLUTTER ON THE PRINT CUTTER. NO FEVER. VITAL SIGNS STABLE. FLACC 0. WILL CONTINUE TO MONITOR.
--- NOTE | 2017-07-01 06:00 | NUR ---
PT IS SEDATED RASS -3 WITH PROPOFOL DRIP. NO ACUTE DISTRESS NOTED. A-FLUTTER ON HYDRAULIC OIL TOOL OPERATOR WITH HR 100'S. SBP IS ABOVE 90 WITH LEVOPHED DRIP. WILL CONTINUE TO MONITOR.
--- NOTE | 2017-07-01 06:27 | NUR ---
REC'D PT ON CARESCAPE VENT SETTINGS AC14 VT 500 PEEP 5 FIO2 40% ALARMS ON AND FUNCTIONING PROPERLY AMBU BAG AT SIDE OF VENT AND VENT IS PLUGGED INTO RED OUTLET, SXN PT LARGE AMT OF THICK WHITE SECTIONS, B\S ARE RHONCHI BILATERALLY, PT IS ORALLY INTUBATED WITH 7.5 ET TUBE SECURED WITH ANCHOR FAST AT 24 CM AT TEETH, SKIN INTEGRITY IS INTACT, PT IS RESTING WITH NO SIGNS OF DISTRESS NOTED AT THIS TIME
[2017-07-01 06:38] LABS: ANION GAP 8.3 (8-16); CARBON DIOXIDE 33.9 mmol/L (21-32); CREATININE 1.3 mg/dL (0.7-1.3); POTASSIUM 3.2 mmol/L (3.5-5.1)
[2017-07-01 06:49] LABS: BASOPHILS # (AUTO) 0.1 K/uL (0.00-0.22); BASOPHILS % (AUTO) 0.9 % (0.0-2.0); EOSINOPHILS # (AUTO) 0.2 K/uL (0-0.4); EOSINOPHILS % (AUTO) 1.7 % (0.0-4.0); HEMATOCRIT 35.6 % (36-52); HEMOGLOBIN 11.8 g/dL (12.0-18.0); LYMPHOCYTES # (AUTO) 1.4 K/uL (2.0-11.5); LYMPHOCYTES % (AUTO) 12.5 % (20.5-51.1); MEAN CORPUSCULAR HEMOGLOBIN 31 pg (27-31); MEAN CORPUSCULAR HGB CONC 33 g/dL (33-37); MEAN CORPUSCULAR VOLUME 92.9 fL (80-94); NEUTROPHILS # (AUTO) 8.2 K/uL (1.8-7.7); NEUTROPHILS % (AUTO) 75.9 % (42.2-75.2); PLATELET COUNT (AUTO) 383 K/uL (140-450); RED BLOOD CELL COUNT(AUTO) 3.83 MIL/uL (4.20-6.10); RED CELL DISTRIBUTION WIDTH 13.4 % (11.6-13.7)
[2017-07-01 06:54] LABS: MAGNESIUM 1.9 mg/dL (1.8-2.4); PHOSPHORUS 4.4 mg/dL (2.5-4.9)
--- NOTE | 2017-07-01 07:20 | NUR ---
REPORT GIVEN TO RN. CHAPPELL. FOR CONTINUITY OF CARE.
[2017-07-01] MEDS ORDERED: DOCUSATE 100 MG/10 ML UDC PO PRN (07:24)
[2017-07-01] MEDS: FLUTICASONE 100 MCG /SALMETEROL 50 MCG DISK IH SCH ×2 (07:30→19:30)
--- NOTE | 2017-07-01 07:45 | NUR ---
ONE PORT OF THE RIGHT IJ TLC IS LEAKING. GIVEN PARTIAL BATH AND LINENS ARE CHANGE. TOLERATED THE PROCEDURE WELL.
[2017-07-01 07:59] LABS: WHITE BLOOD COUNT (AUTO) 10.9 K/uL (4.8-10.8)
[2017-07-01] MEDS: FERROUS GLUCONATE 324 MG TAB PO SCH (08:00)
--- NOTE | 2017-07-01 08:00 | NUR ---
INITIAL SHIFT ASSESSMENT DONE (SEE ASSESSMENT PART). SEDATED WITH PROPOFOL DRIP BUT EASILY AROUSABLE. FOLLOWS SIMPLE COMMAND. NO C/O PAIN. ON VENTILATOR, TOLERATING CURRENT SETTINGS WELL. O2 SAT 99%. A-FLUTTER ON MONITOR. SBP IN 86-110'S. ON LEVOPHED DRIP AT 5 MCG/MIN. ON TUBE FEEDING VIA NGT, TOLERATING WELL. NO RESIDUALS NOTED. HOB ELEVATED. UPDATED OF PLAN OF CARE. WILL CONTINUE TO MONITOR.
--- NOTE | 2017-07-01 08:15 | NUR ---
PATIENT ACCIDENTALLY PULL OUT THE NGT, TIP INTACT. INSERTED A NEW 16F NGT ON RIGHT NARES. PLACEMENT VERIFIED WITH OTHER RN, GELA RICKS. TOLERATED THE PROCEDURE WELL.
--- NOTE | 2017-07-01 08:43 | NUR ---
VENT CHECK, NO SXN REQUIRED AIRWAY IS PATENT AND PT IS RESTING
[2017-07-01] MEDS: LACTULOSE 20 GM/30 ML UDC PO SCH ×2 (08:55→20:45)
[2017-07-01] MEDS: acetaZOLAMIDE 250 MG TAB PO SCH ×2 (08:55→20:46)
[2017-07-01] MEDS: PANTOPRAZOLE 40 MG INJ VIAL IVP SCH (08:55)
[2017-07-01] MEDS: ASPIRIN 81 MG TAB.CHEW PO SCH (08:56)
[2017-07-01] MEDS: AMIODARONE 200 MG TAB NG SCH ×2 (08:56→20:45)
[2017-07-01] MEDS: SPIRONOLACTONE 50 MG TAB PO SCH (08:56)
[2017-07-01] MEDS: LACTOBACILLUS RHAMNOSUS GG 1 EACH CAP PO SCH (08:56)
[2017-07-01] MEDS: CLINICAL MONITORING MC SCH (08:58)
--- NOTE | 2017-07-01 09:18 | NUR ---
REPORT GIVEN TO INCOMING AIR VICE MARSHAL GELA REN. Addendum: 07/01/17 at 1921 by Agency 03 GELA REN WRONG TIME.
--- NOTE | 2017-07-01 10:00 | NUR ---
SLEEPING AT THIS TIME BUT EASILY AROUSABLE. NO SIGNS OF PAIN. OCCASIONAL AGITATION NOTED. TOLERATING VENTILATOR WELL. O2 SAT 97-100%. A-FLUTTER ON MONITOR. SBP IN 90'S-124. HOB ELEVATED. WILL CONTINUE TO MONITOR.
--- NOTE | 2017-07-01 11:05 | NUR ---
VENT CHECK, SXN PT SMALL AMT OF WHITE SECRETIONS PT IS RESTING
[2017-07-01] MEDS ORDERED: POTASSIUM CHLORIDE 40 MEQ, LIDOCAINE 1% 25 MG in NACL 0.9% 250 ML IV SCH (12:00)
--- NOTE | 2017-07-01 12:00 | NUR ---
REASSESSMENT DONE. NEURO STATUS STILL THE SAME. NO SIGNS OF PAIN. OCCASIONAL AGITATION NOTED. TOLERATING CURRENT VENTILATOR SETTINGS WELL. O2 SAT 99-100%. A-FLUTTER ON MONITOR. SBP IN 100'S-120'S. TOLERATING TUBE FEEDING WELL. NO RESIDUALS NOTED. HOB ELEVATED. UPDATED OF PLAN OF CARE. WILL CONTINUE TO MONITOR.
[2017-07-01] MEDS: PROPOFOL 1000 MG/100 ML PREMIX 100 ML IV PRN (12:32)
--- NOTE | 2017-07-01 12:58 | NUR ---
VENT CHECK, NO SXN REQUIRED AIRWAY IS PATENT PT SLEEPING
[2017-07-01] MEDS ORDERED: POTASSIUM CHLORIDE 10 MEQ TABER PO SCH (13:05)
--- NOTE | 2017-07-01 14:00 | NUR ---
RESTING IN BED. NO SIGNS OF PAIN. OCCASIONAL AGITATION NOTED. TOLERATING VENTILATOR WELL. O2 SAT 99-100%. A-FLUTTER ON MONITOR. SBP IN 100'S-120'S. HOB ELEVATED. WILL CONTINUE TO MONITOR.
--- NOTE | 2017-07-01 15:05 | NUR ---
vent check, sxn pt moderate amt of white secretions pt is resting with no signs of distress noted
--- NOTE | 2017-07-01 16:00 | NUR ---
REASSESSMENT DONE. NEURO STATUS UNCHANGED. NO SIGNS OF PAIN. OCCASIONAL AGITATION NOTED. TOLERATING CURRENT VENTILATOR SETTINGS WELL. O2 SAT 99-100%. A-FLUTTER ON MONITOR. SBP IN 100'S-120'S. TOLERATING TUBE FEEDING WELL. NO RESIDUALS NOTED. HOB ELEVATED. UPDATED OF PLAN OF CARE. WILL CONTINUE TO MONITOR.
--- NOTE | 2017-07-01 16:45 | NUR ---
VENT CHECK NO SXN REQUIRED AIRWAY IS PATENT PT SLEEPING
[2017-07-01] MEDS: RIVAROXABAN 15 MG TAB PO SCH (17:18)
--- NOTE | 2017-07-01 17:50 | NUR ---
DR EATON IS IN THE ROOM. UPDATED OF STATUS. STATED TO DO WEANING AGAIN TOMORROW MORNING.
--- NOTE | 2017-07-01 18:00 | NUR ---
RESTING IN BED. NO C/O PAIN. OCCASIONAL AGITATION NOTED. TOLERATING VENTILATOR WELL. O2 SAT 99-100%. A-FLUTTER ON MONITOR. SBP IN 100'S-110'S. LEVOPHED DRIP DECREASE TO 4 MCG/MIN. HOB ELEVATED. WILL CONTINUE TO MONITOR.
--- NOTE | 2017-07-01 19:18 | NUR ---
REPORT GIVEN TO INCOMING SUPPLIER MANAGER RN, RN HANNAH.
--- NOTE | 2017-07-01 19:30 | NUR ---
RECEIVED BEDSIDE REPORT FORM MORNING SHIFT RNTA. PT IS SEDATED WITH PROPOFOL DRIP RASS -3. PT IS ETT TO VENT SETTING WITH A/C MODE RATE 14, FIO2 30%, VT 500, PEEP 5. NO ACUTE RESPIRATORY DISTRESS NOTED. NO FEVER. PT HAS CENTRAL LINE TO RIGHT IJ WITH CVP MONITORING. PT IS ON LEVOPHED RUNNING WITH 4MCG/MIN. BILATERAL LUNG SOUND CLEAR. S1, S2 HEARD. ST ON THE DISPATCHER ELECTRIC POWER. HR 96 NOTED. ACTIVE BOWEL SOUND HEARD TO ALL 4 QUADS. PT'S ABDOMEN ROUND AND DISTENDED WITH ASCITES.PT IS IN NGT TO CONTINUOUS FEEDING WITH NUTREN PULMO 50ML/HR. MARIE CATH IN PLACE, DRAINING CLEAR, YELLOW URINE. PT'S SKIN IS INTACT. BILATERAL LOWER EX'S +1 PITTING EDEMA NOTED. SCROTUM SELLING NOTED. BED IS LOW POSITION, HOB ELEVATED 30 DEGREE. CALL LIGHT WITHIN REACH. WILL CONTINUE TO MONITOR.
[2017-07-01] MEDS: FERROUS SULFATE 300 MG/5 ML UDC GT SCH (20:45)
[2017-07-01] MEDS: SIMVASTATIN 20 MG TAB PO SCH (20:46)
--- NOTE | 2017-07-01 21:00 | NUR ---
ADMINISTERED SCHEDULED MEDICATIONS ORDERED, TOLERATED WELL. NO ACUTE DISTRESS NOTED. PT IS SEDATED RASS -3 WITH PROPOFOL DRIP. A-FLUTTER ON THE MONITOR WITH HR 99. BP 119/61 NOTED WITH LEVOPHED DRIP. PT IS TOLERATED WELL WITH VENTILATOR. WILL CONTINUE TO MONITOR.
[2017-07-01] MEDS: NOREPINEPHRINE 8 MG in NACL 0.9% 250 ML IV PRN (21:06)
--- NOTE | 2017-07-01 23:00 | NUR ---
PT IS SEDATED WITH PROPOFOL DRIP RASS -3. NO ACUTE DISTRESS NOTED. NO AGITATION NOTED AT THIS TIME. A-FLUTTER ON CORN SHELLER OPERATOR. HR ABOVE 100, BP 113/72 WITH LEVOPHED DRIP. WILL CONTINUE TO MONITOR.
[2017-07-02] VITALS (62 sets, daily range): BP systolic 84–146; BP diastolic 44–87
--- NOTE | 2017-07-02 01:00 | NUR ---
PT IS SEDATED WITH PROPOFOL RASS -3. NO ACUTE DISTRESS NOTED. NO EPISODE OF AGITATION NOTED. BP 113/57 WITH LEVOPHED DRIP. A-FLUTTER ON OVEN PRESS TENDER. WILL CONTINUE TO MONITOR.
--- NOTE | 2017-07-02 02:40 | NUR ---
PT IS SEDATED RASS -3. PT TOLERATED WELL WITH TUBE FEEDING, 5CC RESIDUAL NOTED. NO ACUTE DISTRESS NOTED. TOLERATED WELL WITH VENTILATOR. FLACC 0. WILL CONTINUE TO MONITOR.
--- NOTE | 2017-07-02 05:10 | NUR ---
ADMINISTERED SCHEDULED ABX, TOLERATED WELL. NO ACUTE DISTRESS NOTED. PT IS SEDATED WITH PROPOFOL DRIP RASS -3. SBP ABOVE 90'S WITH LEVOPHED DRIP. WILL CONTINUE TO MONITOR.
[2017-07-02] MEDS: PIPER/TAZO 2.25GM/D5W PREMIX 50 ML IV SCH (05:21)
[2017-07-02 05:51] LABS: BASOPHILS # (AUTO) 0.1 K/uL (0.00-0.22); EOSINOPHILS % (AUTO) 2.5 % (0.0-4.0); HEMOGLOBIN 11.4 g/dL (12.0-18.0); LYMPHOCYTES # (AUTO) 1.4 K/uL (2.0-11.5)
[2017-07-02 06:01] LABS: ANION GAP 7.2 (8-16); CARBON DIOXIDE 31.2 mmol/L (21-32); POTASSIUM 3.4 mmol/L (3.5-5.1)
[2017-07-02 06:09] LABS: MAGNESIUM 1.9 mg/dL (1.8-2.4); PHOSPHORUS 2.9 mg/dL (2.5-4.9)
[2017-07-02 06:14] LABS: EOSINOPHILS # (AUTO) 0.2 K/uL (0-0.4); HEMATOCRIT 34.8 % (36-52); LYMPHOCYTES % (AUTO) 13.8 % (20.5-51.1); MEAN CORPUSCULAR HEMOGLOBIN 30 pg (27-31); MEAN CORPUSCULAR HGB CONC 33 g/dL (33-37); MEAN CORPUSCULAR VOLUME 93.1 fL (80-94); MONOCYTES % (AUTO) 9.8 % (1.7-9.3); NEUTROPHILS # (AUTO) 7.1 K/uL (1.8-7.7); NEUTROPHILS % (AUTO) 72.9 % (42.2-75.2); PLATELET COUNT (AUTO) 382 K/uL (140-450); RED BLOOD CELL COUNT(AUTO) 3.74 MIL/uL (4.20-6.10); WHITE BLOOD COUNT (AUTO) 9.8 K/uL (4.8-10.8)
--- NOTE | 2017-07-02 06:26 | NUR ---
RECEIVED PT ON CARESCAPE ON NOTED SETTINGS ALARMS ARE ON AND AUDIBLE BMV HOB PTS ET TUBE SIZE 7,5 IS SECURE 24 CM ANCH[address] FAST IN PLACE BS RHONCI PT AWAKE IN HF VENT PLUGGED INTO RED OUTLET
--- NOTE | 2017-07-02 07:30 | NUR ---
REPORT GIVEN TO RN. SCHULTZ FOR CONTINUITY OF CARE.
--- NOTE | 2017-07-02 07:30 | NUR ---
RECEIVED REPORT FROM PM RN . PT SEDATED, BEDSIDE MONITOR SHOWS A-FLUTTER. ETT TO VENT WITH SETTINGS: FIO2 30%, RR14, TV 500, AND PEEP 5. NO SIGNS OF RESPIRATORY DISTRESS NOTED. PT HAS RIGHT IJ CENTRAL LINE IN PLACE.DRESSING DRY AND INTACT. ON LEVOPHED DRIP AT 4MCG AND PROPOFOL DRIP AT 10MCG/KG/MIN. NGT IN PLACE THROUGH RIGHT NARES RUNNING NUTREN PULMONARY RUNNING AT 50ML/HR. PLACEMENT CHECKED. MARIE CATHETER IN PLACE WITH YELLOW AND CLEAR URINE NOTED. HOB ELEVATED AT 30 DEGREES. CALL LIGHT WITHIN REACH. ALL SAFETY PRECAUTIONS IN PLACE. WILL CONTINUE TO MONITOR PT.
[2017-07-02] MEDS ORDERED: POTASSIUM CHLORIDE 10 MEQ TABER PO SCH (08:37)
[2017-07-02] MEDS: PANTOPRAZOLE 40 MG INJ VIAL IVP SCH (08:43)
[2017-07-02] MEDS: LACTULOSE 20 GM/30 ML UDC PO SCH ×2 (08:43→21:24)
[2017-07-02] MEDS: LACTOBACILLUS RHAMNOSUS GG 1 EACH CAP PO SCH (08:44)
[2017-07-02] MEDS: SPIRONOLACTONE 50 MG TAB PO SCH (08:44)
[2017-07-02] MEDS: ASPIRIN 81 MG TAB.CHEW PO SCH (08:44)
[2017-07-02] MEDS: AMIODARONE 200 MG TAB NG SCH ×2 (08:44→21:26)
[2017-07-02] MEDS: FERROUS SULFATE 300 MG/5 ML UDC GT SCH ×2 (08:45→21:26)
[2017-07-02] MEDS: acetaZOLAMIDE 250 MG TAB PO SCH ×2 (08:45→21:25)
--- NOTE | 2017-07-02 08:58 | NUR ---
VENT CHECK, NO SXN REQUIRED AIRWAY IS PATENT AND SEDATION WAS TURNED OFF TO START WEANING THE PATIENT
--- NOTE | 2017-07-02 09:05 | NUR ---
START SEDATION VACATION, RT AT BEDSIDE, PT TOLERATED WELL, REORIENTED PT, TOLD PT NOT TO PULL OUT TUBES, PT NODDED HIS HEAD .
--- NOTE | 2017-07-02 09:06 | NUR ---
PT PLACED ON CPAP 5 PS 12 WITH NO SIGNS OF DISTRESS NOTED AT THIS TIME
[2017-07-02] MEDS: CLINICAL MONITORING MC SCH (09:37)
--- NOTE | 2017-07-02 10:48 | NUR ---
DECREASE PS TO [address] EATON LEAVE PT ON CPAP
--- NOTE | 2017-07-02 14:00 | NUR ---
PT AGITATED , TRIED TO PULL OUT TUBES, STARTED PT ON PROPOFOL AGAIN. Addendum: 07/02/17 at 1621 by Kay Edwards RN WRONG TIME, PT BACK TO PROPOFOL DRIP AT 1500 INSTEAD OF 1400
--- NOTE | 2017-07-02 14:27 | NUR ---
07/02/17 RD FOLLOW UP COMPLETED PLEASE REFER TO NUTRITION ASSESSMENT UNDER CARE ACTIVITY FOR ESTIMATED NUTRITIONAL NEEDS. RD RECOMMENDATIONS: 1. RECOMMEND ADDING PROSOURCE TID ONTO CURRENT TUBE FEEDING ORDER OF NUTREN PULOMARY AT GOAL RATE OF 50M L/HR. -EACH PROSOURCE PROVIDES 11 GM OF PROTEIN AND 40 KCAL (INCREASED PROTEIN NEEDS DUE TO VENT SUPPORT) -NOTE GOAL RATE OF 50 ML/HR WILL PROVIDE 1200 ML TOTAL VOLUME, 1920 KCAL, 115 GM OF PROTEIN, 917 ML OF FREE WATER (WILL BE ADEQUATE TO MEET 100% OF ESTIMATED ENERGY AND PROTEIN NEEDS) 2. RD WILL F/U 2-3 DAYS; HIGH RISK. TONIO VILLAGOMEZ RD
--- NOTE | 2017-07-02 16:00 | NUR ---
PT CALMS DOWN AT THIS TIME. HELD PROPOFOL DRIP AND PT BACK TO CPAP. EXPLAINED TO PT NOT TO PULL OUT THE TUBES, PT NODDED HIS HEAD.
--- NOTE | 2017-07-02 17:16 | NUR ---
PT EXTUBATED PER ORDER WITHOUT INCIDENT VENT ON STBY PER DR UMA ALAMO AT [facility]
[2017-07-02] MEDS: RIVAROXABAN 15 MG TAB PO SCH (17:45)
[2017-07-02] MEDS: ALBUTEROL SULFATE/IPRATROPIU 3 ML SOL IH SCH (19:28)
--- NOTE | 2017-07-02 19:30 | NUR ---
RECEIVED REPORT FROM DAY NURSE, NO S/S OF DISTRESS NOTED. WILL CONTINUE TO MONITOR
--- NOTE | 2017-07-02 19:45 | NUR ---
PT AWAKE SITTING UP IN BED, ON CPAP/BIPAP @35% FIO2. PT DENIES PAIN @ THIS TIME. AOX3 MOVING ALL EXTREMITIES, SINUS TACHYCARDIA 100S; +1 EDEMA NOTED, ASCITES PRESENT. LUNGS CLEAR BILATERAL UPPER AND LOWER LOBES. ABDOMEN SOFT ROUND NGT TO R NOAM WINTERSEN PULMONARY @ 50 ML/HR. MARIE CATH QUIANA URINE PRESENT. SKIN INTACT. TRIPLE LUMEN R IJ NOTED, PATENT FLUSHING WELL. NO ACUTE DISTRESS NOTED. WILL CONTINUE TO MONITOR Addendum: 07/03/17 at 0349 by Chip Cortes RN AFLUTTER NOTED; NOT SINUS TACHYCARDIA
--- NOTE | 2017-07-02 19:48 | NUR ---
RECEIVED PT STABLE ON 3L NC POST EXTUBATION, NO RESP DISTRESS OR SOB NOTED AT THIS TIME, PLACED PT ON BIPAP FOR NOC ORDER BUT COULD NOT TOLERATE BIPAP MODE SETTINGS, ADJUSTED TO CPAP MODE AND IS MORE COMFORTABLE FOR THE PATIENT, HHN TX GIVEN INLINE, TOLERATING WELL, ALARMS SET AND AUDIBLE, LUIS ALBERTO REN AWARE, WILL CONTINUE TO MONITOR.
[2017-07-02] MEDS: SIMVASTATIN 20 MG TAB PO SCH (21:25)
--- NOTE | 2017-07-02 22:00 | NUR ---
BATH DONE PER PT REQUEST, LINEN CHANGED. X1 LARGE BM. NO ACUTE DISTRESS. WILL CONTINUE TO MONITOR
[2017-07-03] VITALS (14 sets, daily range): BP systolic 86–114; BP diastolic 54–78
--- NOTE | 2017-07-03 01:00 | NUR ---
PT ASLEEP IN BED; AROUSABLE. NO S/S OF ACUTE DISTRESS NOTED. CPAP @ 35%. AFLUTTER 100S NOTED. WILL CONTINUE TO OBSERVE
[2017-07-03] MEDS: ALBUTEROL SULFATE/IPRATROPIU 3 ML SOL IH SCH ×4 (01:08→19:09)
[2017-07-03 05:45] LABS: ANION GAP 8.4 (8-16); CREATININE 0.9 mg/dL (0.7-1.3); POTASSIUM 3.4 mmol/L (3.5-5.1)
[2017-07-03 05:50] LABS: MAGNESIUM 1.7 mg/dL (1.8-2.4); PHOSPHORUS 2.6 mg/dL (2.5-4.9)
[2017-07-03 06:59] LABS: BASOPHILS # (AUTO) 0.1 K/uL (0.00-0.22); BASOPHILS % (AUTO) 0.8 % (0.0-2.0); EOSINOPHILS # (AUTO) 0.2 K/uL (0-0.4); EOSINOPHILS % (AUTO) 2.3 % (0.0-4.0); HEMOGLOBIN 11.3 g/dL (12.0-18.0); LYMPHOCYTES % (AUTO) 9.5 % (20.5-51.1); MEAN CORPUSCULAR HEMOGLOBIN 31 pg (27-31); MEAN CORPUSCULAR HGB CONC 33 g/dL (33-37); MEAN CORPUSCULAR VOLUME 92.9 fL (80-94); MONOCYTES # (AUTO) 0.9 K/uL (0.8-1.0); MONOCYTES % (AUTO) 8.5 % (1.7-9.3); NEUTROPHILS # (AUTO) 8.1 K/uL (1.8-7.7); NEUTROPHILS % (AUTO) 78.9 % (42.2-75.2); PLATELET COUNT (AUTO) 336 K/uL (140-450); RED BLOOD CELL COUNT(AUTO) 3.66 MIL/uL (4.20-6.10); RED CELL DISTRIBUTION WIDTH 13.3 % (11.6-13.7); WHITE BLOOD COUNT (AUTO) 10.3 K/uL (4.8-10.8)
[2017-07-03] MEDS: FLUTICASONE 100 MCG /SALMETEROL 50 MCG DISK IH SCH (07:30)
--- NOTE | 2017-07-03 07:30 | NUR ---
RECEIVED REPORT FROM PM RN . PT AWAKE, ALERT. BEDSIDE MONITOR SHOWS A-FLUTTER. ON O2 NC 3L/MIN. NO SIGNS OF RESPIRATORY DISTRESS NOTED. PT HAS RIGHT IJ CENTRAL LINE IN PLACE.DRESSING DRY AND INTACT. NGT IN PLACE THROUGH RIGHT NARES RUNNING NUTREN PULMONARY RUNNING AT 50ML/HR. PLACEMENT CHECKED. MARIE CATHETER IN PLACE WITH YELLOW CLOUDY URINE NOTED. HOB ELEVATED AT 30 DEGREES. POC EXPLAINED TO PT, PT VERBALIZED UNDERSTANDING. CALL LIGHT WITHIN REACH. ALL SAFETY PRECAUTIONS IN PLACE. WILL CONTINUE TO MONITOR PT.
--- NOTE | 2017-07-03 07:31 | NUR ---
OFF BIPAP AT THIS TIME (7P-7A) ON SUPPLEMENTAL OXYGEN AT 3 LPM VIA NC VENTILAYOR ON STANDBY X 24 HRS ENDING 07/03/2017 AT 1700 HRS
--- NOTE | 2017-07-03 07:49 | NUR ---
REVIEWED ADVAIR DISKCUS 150/50 ORDER WITH [facility]IA/PHARMACY INHALER NOT AVAILABLE/CARRIED FOREMENTIONED WILL DC OFF EMAR WITH POSSIBLE SUBSTITUTE
[2017-07-03] MEDS ORDERED: MAG SULF 2000 MG/WATER PREMIX 50 ML IV SCH (09:00)
[2017-07-03] MEDS: acetaZOLAMIDE 250 MG TAB PO SCH (09:18)
[2017-07-03] MEDS: LACTOBACILLUS RHAMNOSUS GG 1 EACH CAP PO SCH (09:18)
[2017-07-03] MEDS: ASPIRIN 81 MG TAB.CHEW PO SCH (09:19)
[2017-07-03] MEDS: FERROUS SULFATE 300 MG/5 ML UDC GT SCH ×2 (09:19→20:39)
[2017-07-03] MEDS: AMIODARONE 200 MG TAB NG SCH ×2 (09:19→20:39)
[2017-07-03] MEDS: SPIRONOLACTONE 50 MG TAB PO SCH (09:19)
[2017-07-03] MEDS: LACTULOSE 20 GM/30 ML UDC PO SCH ×2 (09:20→20:39)
[2017-07-03] MEDS: PANTOPRAZOLE 40 MG INJ VIAL IVP SCH (09:20)
[2017-07-03] MEDS: CLINICAL MONITORING MC SCH (09:22)
--- NOTE | 2017-07-03 11:40 | NUR ---
BEDSIDE SWALLOW EVALUATION DONE, TRIED APPLE SOURCE AND APPLE JUICE, PT ABLE TO SWALLOW AND NO COUGH OR ASPIRATION NOTED.
[2017-07-03] MEDS ORDERED: POTASSIUM CHLORIDE 40 MEQ, LIDOCAINE 1% 25 MG in NACL 0.9% 250 ML IV SCH (12:00)
--- NOTE | 2017-07-03 13:47 | NUR ---
PT RESTING IN BED, AWAKE, ALERT, NO S/S OF RESPIRATORY DISTRESS NOTED, WILL CONTINUE TO MONITOR.
[2017-07-03] MEDS: RIVAROXABAN 15 MG TAB PO SCH (17:12)
--- NOTE | 2017-07-03 19:05 | NUR ---
BED BATH GIVEN, GOWN CHANGED. PT TOLERATED WELL.
--- NOTE | 2017-07-03 20:00 | NUR ---
PATIENT RECEIVED FROM ANTOINE BLISS/GELA. PATIENT EATING AT THIS TIME, STARTED ON FULL LIQUID DIET, HOB ELEVATED, TOLERATING PO INTAKE WELL. ST ON THE MONITOR, ON O2 AT 3LNC, TLC ON RIJ PATENT AND INTACT, THREE PORTS WITH GOOD BLOOD RETURN. MARIE CATHETER DRAINING CLOUDY YELLOW URINE WITH SEDIMENTS. MOVES ALL EXTREMITIES, ABLE TO TURN AND REPOSITIONED SELF IN BED. DENIES PAIN, AAOX4.
[2017-07-03] MEDS: SIMVASTATIN 20 MG TAB PO SCH (20:39)
[2017-07-04] VITALS: BP 99/76
[2017-07-04] MEDS ORDERED: HYDROcodone/APAP 7.5/325 MG 1 TAB PO PRN (00:25)
--- NOTE | 2017-07-04 00:29 | NUR ---
PATIENT COMPLAINING OF PAIN ON THE MARIE CATH SITE, NOTED URINE BLOODY AT THIS TIME. CALLED AND INFORMED DR. ISABEL (RESIDENT) ABOUT IT AND STATED THAT SHE'S GOING TO ORDER PAIN MED FOR THE PATIENT.
[2017-07-04] MEDS ORDERED: LIDOCAINE JELLY 2% 30 ML TUBE TP SCH (01:00)
[2017-07-04] MEDS ORDERED: LIDOCAINE JELLY 2% 30 ML TUBE TP ONE (01:10)
[2017-07-04] MEDS: ALBUTEROL SULFATE/IPRATROPIU 3 ML SOL IH SCH ×4 (01:40→19:00)
--- NOTE | 2017-07-04 01:40 | NUR ---
PT REFUSED BIPAP. I EXPLAINED THE BENEFITS OF BIPAP BUT PT DECLINED.
--- NOTE | 2017-07-04 02:52 | NUR ---
SPOKE WITH DR. ISABEL AT 229 TO INFORMED THAT PATIENT WANTED THE MARIE CATH TO BE REMOVED, DR. ISABEL STATED " WE CAN TRY IT", ASKED MD TO PUT IN ORDER TO DC MARIE CATH. MARIE CATH WAS REMOVED AT 234, PATIENT STATED " I FEEL RELIEVED".
--- NOTE | 2017-07-04 03:03 | NUR ---
GAVE TELEPHONE REPORT TO CRISTOBAL/GELA . PATIENT INFORMED THAT HE WILL GO TO [facility]/TELE 116.
[2017-07-04 04:00] VITALS: BP 102/65
--- NOTE | 2017-07-04 04:02 | NUR ---
PATIENT TRANSFERRED TO [facility] 116 BY CECI/[employer] PR[employer]ATION OFFICER AT 0400. BELONGINGS LIST DONE. PATIENT DENIES ANY PAIN, NO RESPIRATORY DISTRESS.
--- NOTE | 2017-07-04 04:15 | NUR ---
RECEIVED PT FROM ICU VIA WC IN STABLE CONDITION.PLACED ON BED TELE APPLIED AND SHOWING ST.CALL LIGHT WITHIN REACH.RT.IJ CVP LINE IS PATENT.BIPAP APPLIED BY RT.HE IS AWAKE,ALERT AND ORIENTED.VS STABLE.WILL CONTINUE MONITORING.
--- NOTE | 2017-07-04 06:52 | NUR ---
PT WANTED TO REMOVE BIPAP AND HAS O2 VIA NC.PUT O2 AT 3L/NC.INFORMED DAY SHIFT RT.NO REP.DISTRESS NOTED NOW.HR FOR VERY SHORT TIME TURNED TO A-FIB/FLUTER BUT BACK TO ST.PT WAS ASYMPTOMATIC.
[2017-07-04 07:07] LABS: BASOPHILS # (AUTO) 0.1 K/uL (0.00-0.22); BASOPHILS % (AUTO) 0.8 % (0.0-2.0); EOSINOPHILS # (AUTO) 0.1 K/uL (0-0.4); EOSINOPHILS % (AUTO) 1.4 % (0.0-4.0); HEMATOCRIT 32.9 % (36-52); HEMOGLOBIN 10.7 g/dL (12.0-18.0); LYMPHOCYTES % (AUTO) 10.4 % (20.5-51.1); MEAN CORPUSCULAR HEMOGLOBIN 30 pg (27-31); MEAN CORPUSCULAR HGB CONC 33 g/dL (33-37); MEAN CORPUSCULAR VOLUME 92.6 fL (80-94); MONOCYTES # (AUTO) 0.8 K/uL (0.8-1.0); MONOCYTES % (AUTO) 8.3 % (1.7-9.3); NEUTROPHILS # (AUTO) 7.9 K/uL (1.8-7.7); NEUTROPHILS % (AUTO) 79.1 % (42.2-75.2); PLATELET COUNT (AUTO) 327 K/uL (140-450); RED BLOOD CELL COUNT(AUTO) 3.55 MIL/uL (4.20-6.10); RED CELL DISTRIBUTION WIDTH 13.9 % (11.6-13.7)
[2017-07-04 07:37] LABS: ANION GAP 9.5 (8-16); CARBON DIOXIDE 26.4 mmol/L (21-32); CREATININE 0.9 mg/dL (0.7-1.3); POTASSIUM 3.9 mmol/L (3.5-5.1)
--- NOTE | 2017-07-04 07:40 | NUR ---
RECEIVED REPORT FROM CHARGE NURSE. PATIENT IS AAOX4, CURRENTLY ON ROOM AIR, HAS NO SIGNS AND SYMPTOMS OF ACUTE DISTRESS NOTED AT THIS TIME. HAS RIGHT IJ TRIPLE LUMEN, ALL ON SALINE LOCK. FLUSH WELL. SITE IS CLEAN, DRY, PATENT AND INTACT. BED IN LOWEST POSITION, SIDE RAILS UP X2, CALL LIGHT WITHIN REACH. WILL CONTINUE TO MONITOR.
--- NOTE | 2017-07-04 07:41 | NUR ---
REPORT GIVEN TO TRINA RN .PT CONDITION IS STABLE.
[2017-07-04 08:00] VITALS: BP 95/55
[2017-07-04 08:03] LABS: PHOSPHORUS 2.5 mg/dL (2.5-4.9)
[2017-07-04] MEDS: SPIRONOLACTONE 50 MG TAB PO SCH (09:00)
[2017-07-04] MEDS: LACTULOSE 20 GM/30 ML UDC PO SCH ×2 (09:00→21:00)
[2017-07-04] MEDS: AMIODARONE 200 MG TAB NG SCH ×2 (09:00→21:22)
[2017-07-04] MEDS: LACTOBACILLUS RHAMNOSUS GG 1 EACH CAP PO SCH (09:46)
[2017-07-04] MEDS: PANTOPRAZOLE 40 MG INJ VIAL IVP SCH (09:46)
[2017-07-04] MEDS: ASPIRIN 81 MG TAB.CHEW PO SCH (09:46)
[2017-07-04] MEDS: FERROUS SULFATE 300 MG/5 ML UDC GT SCH ×2 (09:47→21:22)
[2017-07-04] MEDS: CLINICAL MONITORING MC SCH (09:54)
[2017-07-04 12:00] VITALS: BP 95/65
[2017-07-04 16:00] VITALS: BP 87/55
[2017-07-04] MEDS: RIVAROXABAN 10 MG TAB PO SCH (18:04)
--- NOTE | 2017-07-04 19:30 | NUR ---
ENDORSED PATIENT TO ROTARY DRILLER HELPER RN FOR CONTINUITY OF CARE. PATIENT IN STABLE CONDITION.
--- NOTE | 2017-07-04 19:49 | NUR ---
PT REFUSED HHNTX , HE WATCHING OUTSIDE FROM THE WINDOW, HE DENIED ANY SOB OR DISTRESS.
[2017-07-04 20:00] VITALS: BP 112/85
--- NOTE | 2017-07-04 21:00 | NUR ---
ASKED DR CARTER IF OK TO GIVE NG AND GT MEDICATIONS PO ROUTE, DR SAID YES. ASKED IF ORDERS CAN BE CHANGED, HE SAID YES BUT FOR NOW JUST GIVE MEDS PO BECAUSE IT WILL TAKE TIME TO CHANGE ORDERS AND GET THEM VERIFIED
[2017-07-04] MEDS: SIMVASTATIN 20 MG TAB PO SCH (21:21)
--- NOTE | 2017-07-04 21:25 | NUR ---
ADMINISTERED SCHEDULED MEDICATIONS, PT TOLERATED WELL. PT RESTING IN BED NO SIGNS OF DISTRESS NOTED. BED IN LOWEST POSITION, CALL LIGHT WITHIN REACH. WILL CONTINUE TO MONITOR.
--- NOTE | 2017-07-04 23:59 | NUR ---
PT REFUSING TX AND BIPAP , HE SAID HE DOES NOT NEEDED, NO DISTRESS NOTED AT THIS TIME OR SOB
[2017-07-05] VITALS: BP 95/65
--- NOTE | 2017-07-05 | NUR ---
PT STABLE, NO SIGNS OF DISTRESS NOTED AT THIS TIME. BED IN LOWEST POSITION, CALL LIGHT WITHIN REACH. WILL CONTINUE TO MONITOR.
[2017-07-05] MEDS: ALBUTEROL SULFATE/IPRATROPIU 3 ML SOL IH SCH ×4 (01:00→19:00)
--- NOTE | 2017-07-05 02:14 | NUR ---
PT STABLE, NO SIGNS OF DISTRESS NOTED AT THIS TIME. BED IN LOWEST POSITION, CALL LIGHT WITHIN REACH. WILL CONTINUE TO MONITOR.
[2017-07-05 04:00] VITALS: BP 94/51
--- NOTE | 2017-07-05 04:00 | NUR ---
VITAL SIGNS WNL. PT STABLE, NO SIGNS OF DISTRESS NOTED AT THIS TIME. BED IN LOWEST POSITION, CALL LIGHT WITHIN REACH. WILL CONTINUE TO MONITOR.
--- NOTE | 2017-07-05 07:34 | NUR ---
ENDORSED PT TO DAY SHIFT RN FOR CONTINUITY OF CARE. PT IN STABLE CONDITION.
[2017-07-05 08:00] VITALS: BP 110/78
--- NOTE | 2017-07-05 08:00 | NUR ---
INITIAL ASSESSMENT PERFORMED. RESIDENT ALERT AND ABLE TO MAKE NEEDS KNOWN. NO ACUTE DISTRESS NOTED. LUNG SOUNDS CLEAR PT ON ROOM AIR. BOWEL SOUNDS ACTIVE. STATED LBM THIS AM. PATIENT CONT ON FULL LIQUID DIET. PATIENT WITH RIGHT IJ IN PLACE. PATENT AND INTACT. PATIENT DENIES PAIN AT THIS TIME. VSS.SKIN INTACT. PATIENT ABLE TO AMBULATE TO BATHROOM WITHOUT DIFFICULTIES AND STEADY GAIT. DISCUSSED PLAN OF CARE WITH PATIENT AT BEDSIDE. PATIENT VERBALIZED UNDERSTANDING AND AGREEMENT. ORIENTED PATIENT TO ROOM . CALL LIGHT WITHIN REACH. WILL CONT TO MONITOR.
[2017-07-05] MEDS: LACTOBACILLUS RHAMNOSUS GG 1 EACH CAP PO SCH (08:41)
[2017-07-05] MEDS: AMIODARONE 200 MG TAB PO SCH ×2 (08:41→21:15)
[2017-07-05] MEDS: ASPIRIN 81 MG TAB.CHEW PO SCH (08:41)
[2017-07-05] MEDS: LACTULOSE 20 GM/30 ML UDC PO SCH ×2 (08:42→21:15)
[2017-07-05] MEDS: FERROUS SULFATE 300 MG/5 ML UDC PO SCH ×2 (08:42→21:15)
[2017-07-05] MEDS: SPIRONOLACTONE 50 MG TAB PO SCH (08:42)
[2017-07-05] MEDS: PANTOPRAZOLE 40 MG INJ VIAL IVP SCH (08:43)
[2017-07-05] MEDS: CLINICAL MONITORING MC SCH (09:31)
--- NOTE | 2017-07-05 10:00 | NUR ---
PATIENT ALERT AND ABLE TO MAKE NEEDS KNOWN. NO ACUTE DISTRESS NOTED. CALL LIGHT WITHIN REACH. WILL CONT TO MONITOR.
[2017-07-05 12:00] VITALS: BP 110/75
--- NOTE | 2017-07-05 12:30 | NUR ---
PATIENT HAVING LUNCH AT THIS TIME. PATIENT TOLERATING DIET WELL. NO ACUTE DISTRESS. WILL CONT TO MONITOR.
--- NOTE | 2017-07-05 14:55 | NUR ---
07/05/17 RD FOLLOW UP COMPLETED PLEASE REFER TO NUTRITION PROGRESS NOTE UNDER CARE ACTIVITY FOR ESTIMATED NUTRITION NEEDS. RD RECOMMENDATIONS: 1. CONTINUE FULL LIQUID DIET TOLEREATED 2. WHEN APPROPRIATE, ADVANCE TO CARDIAC DIET 3. RD WILL F/U 3-5 DAYS; MODERATE RISK. ABHIJIT LOWE RD
--- NOTE | 2017-07-05 15:00 | NUR ---
PATIENT SITTING BY WINDOW READING MAGAZINE. NO ACUTE DISTRESS NOTED. WILL CONT TO MONITOR.
[2017-07-05 16:00] VITALS: BP 97/54
[2017-07-05] MEDS: RIVAROXABAN 10 MG TAB PO SCH (17:00)
--- NOTE | 2017-07-05 17:35 | NUR ---
PATIENT SITTING IN CHAIR HAVING DINNER. TOLERATING WELL. NO ACUTE DISTRESS NOTED. WILL CONT TO MONITOR.
--- NOTE | 2017-07-05 19:00 | NUR ---
PHYSICAL THERAPY CO-SIGN The Physical Therapy Progress Notes documented by Mixer Wet Pour have been reviewed. Reviewed/Co-Signed by: Karly Wood DPT Documentation Done by: Filemon Boggs PTA Patient yesenia tx well, progressing towards goals, cont with PT POC as yesenia/safe. Addendum: 07/05/17 at 1901 by Karly Wood PT Amended: Links added.
--- NOTE | 2017-07-05 19:15 | NUR ---
ENDORSED REPORT TO SORTER LUMBER STRAIGHTENER NURSE. PATIENT STABLE.
--- NOTE | 2017-07-05 19:23 | NUR ---
PT REFUSES HHNTX. PT SITTING IN CHAIR. NO SOB NOTED. PT AWAKE AND ORIENTED.WILL TAKE NEXT HHNTX
--- NOTE | 2017-07-05 19:30 | NUR ---
RECEIVED REPORT FROM DAY SHIFT NURSE HEIDI AT BEDSIDE FOR CONTINUITY OF CARE. PT AWAKE AO X4. PT IV CENTRAL LINE IJ HEP LOCK. NO S/S OF DISTRESS. PT ON RA. NO SOB. NO COMPLAINTS OF PAIN AT THIS TIME. BED LOWERED CALL LIGHT WITHIN REACH WILL CONTINUE TO MONITOR.
[2017-07-05 20:20] VITALS: BP 109/77
--- NOTE | 2017-07-05 21:00 | NUR ---
PT REQUESTING REG DIET. PT STATES HE HAS TOLERATED FULL LIQUIDS. PT IS VEGETARIAN.
[2017-07-05] MEDS: SIMVASTATIN 20 MG TAB PO SCH (21:16)
[2017-07-05] MEDS: CARVEDILOL 3.125 MG TAB PO SCH (21:16)
--- NOTE | 2017-07-05 22:06 | NUR ---
PT AWAKE AND WATCHING TV. NO SOB. NO S/S OF DISTRESS. WILL CONTINUE TO MONITOR.
--- NOTE | 2017-07-05 22:34 | NUR ---
SPOKE TO MD ABOUT PT DIET. CHANGED TO REGULAR DIET. WILL CONTINUE TO MONITOR.
[2017-07-06] VITALS: BP 115/72
--- NOTE | 2017-07-06 00:38 | NUR ---
PT IS READING AND WRITING QUIETLY. PT HAS NO SOB. NO S/S OF DISTRESS. WILL CONTINUE TO MONITOR.
[2017-07-06] MEDS: ALBUTEROL SULFATE/IPRATROPIU 3 ML SOL IH SCH ×4 (02:01→20:19)
--- NOTE | 2017-07-06 02:54 | NUR ---
PT IS SLEEPING. NO SOB. NO S/S OF DISTRESS. WILL CONTINUE TO MONITOR.
--- NOTE | 2017-07-06 03:41 | NUR ---
GAVE PT URINAL. EDUCATED PT ON STRICT INPUT AND OUTPUT. PT REFUSED CENTRAL LINE DRESSING CHANGE. I JUST REINFORCED WITH TAPE. WILL CONTINUE TO MONITOR.
[2017-07-06 04:00] VITALS: BP 115/83
--- NOTE | 2017-07-06 04:46 | NUR ---
PATIENT SLEEPING. NO S/S OF DISTRESS. NO SOB WILL CONTINUE TO MONITOR.
[2017-07-06 07:19] LABS: BASOPHILS # (AUTO) 0.1 K/uL (0.00-0.22); BASOPHILS % (AUTO) 1.2 % (0.0-2.0); EOSINOPHILS # (AUTO) 0.1 K/uL (0-0.4); HEMATOCRIT 33.8 % (36-52); LYMPHOCYTES # (AUTO) 1.4 K/uL (2.0-11.5); LYMPHOCYTES % (AUTO) 20.5 % (20.5-51.1); MEAN CORPUSCULAR HEMOGLOBIN 30 pg (27-31); MEAN CORPUSCULAR HGB CONC 33 g/dL (33-37); MEAN CORPUSCULAR VOLUME 91.1 fL (80-94); MONOCYTES # (AUTO) 0.7 K/uL (0.8-1.0); MONOCYTES % (AUTO) 10.7 % (1.7-9.3); NEUTROPHILS # (AUTO) 4.5 K/uL (1.8-7.7); NEUTROPHILS % (AUTO) 65.6 % (42.2-75.2); PLATELET COUNT (AUTO) 361 K/uL (140-450); RED BLOOD CELL COUNT(AUTO) 3.71 MIL/uL (4.20-6.10); WHITE BLOOD COUNT (AUTO) 6.9 K/uL (4.8-10.8)
--- NOTE | 2017-07-06 07:21 | NUR ---
GAVE REPORT TO DAY SHIFT NURSE CHANNING FOR CONTINUITY OF CARE AT BEDSIDE.
--- NOTE | 2017-07-06 07:21 | NUR ---
RECEIVED REPORT FROM NIGHTSHIFT NURSE AT BEDSIDE. PATIENT IS ALERT AND ORIENTED X4. PATIENT SHOWS NO SIGNS OF RESPIRATORY DISTRESS OR RESPIRATORY DEPRESSION. PATIENT HAS A RIGHT IJ CENTRAL LINE TRIPLE LUMEN WITH NOTHING INFUSING. PATIENT IS ON STRICT INTAKE AND OUTPUT. ENCOURAGED PATIENT TO USE THE URINAL SO WE CAN MEASURE HIS OUTPUT. PATIENT UNDERSTOOD INSTRUCTIONS. UPDATED BOARD IN PATIENT'S ROOM. LOWERED BED TO LOWEST SETTING. PLACED CALL LIGHT WITHIN REACH OF PATIENT. ENCOURAGED PATIENT TO CALL IF HE NEEDS ANYTHING. WILL CONTINUE TO MONITOR PATIENT.
[2017-07-06 07:26] LABS: ANION GAP 9.2 (8-16); CARBON DIOXIDE 26.6 mmol/L (21-32); CREATININE 0.8 mg/dL (0.7-1.3); POTASSIUM 3.8 mmol/L (3.5-5.1)
[2017-07-06 07:44] LABS: MAGNESIUM 1.8 mg/dL (1.8-2.4); PHOSPHORUS 2.1 mg/dL (2.5-4.9)
[2017-07-06 08:00] VITALS: BP 121/85
--- NOTE | 2017-07-06 08:01 | NUR ---
RECEIVED PT ON ROOM AIR SPO2 95%. BIPAP IS BEDSIDE, NOT INDICATED AT THIS TIME. PT IS SITTING UP IN BED NOT DEMONSTRATING ANY SIGNS/SYMPTOMS OF RESPIRATORY DISTRESS.
[2017-07-06] MEDS: CLINICAL MONITORING MC SCH (09:00)
[2017-07-06] MEDS: PANTOPRAZOLE 40 MG INJ VIAL IVP SCH (09:10)
[2017-07-06] MEDS: LACTULOSE 20 GM/30 ML UDC PO SCH ×2 (09:11→20:43)
[2017-07-06] MEDS: FERROUS SULFATE 300 MG/5 ML UDC PO SCH ×2 (09:11→20:43)
[2017-07-06] MEDS: ASPIRIN 81 MG TAB.CHEW PO SCH (09:11)
[2017-07-06] MEDS: SPIRONOLACTONE 50 MG TAB PO SCH (09:11)
[2017-07-06] MEDS: AMIODARONE 200 MG TAB PO SCH ×2 (09:11→20:44)
--- NOTE | 2017-07-06 09:11 | NUR ---
PATIENT IS RESTING IN BED. NO COMPLAINTS OF PAIN AT THIS TIME. WILL CONTINUE TO MONITOR PATIENT.
[2017-07-06] MEDS: CARVEDILOL 3.125 MG TAB PO SCH ×2 (09:13→20:44)
[2017-07-06] MEDS: LACTOBACILLUS RHAMNOSUS GG 1 EACH CAP PO SCH (09:13)
[2017-07-06 12:00] VITALS: BP 100/56
--- NOTE | 2017-07-06 12:33 | NUR ---
PATIENT SITTING ON CHAIR EATING HIS LUNCH. PATIENT SHOWS NO SIGNS OF RESPIRATORY DISTRESS OR RESPIRATORY DEPRESSION. WILL CONTINUE TO MONITOR PATIENT.
--- NOTE | 2017-07-06 14:30 | NUR ---
PHYSICAL THERAPY CO-SIGN The Physical Therapy Progress Notes documented by Car Driver have been reviewed. I concur with the documentation of this TILE AND MOTTLE SUPERVISOR. Plan: continue PT as per plan of care if he remains in this hospital. Reviewed/Co-Signed by: Tamara Giron, PT Documentation Done by: Filemon Boggs, TILE AND MOTTLE SUPERVISOR Addendum: 07/06/17 at 1515 by Tamara Giron PT Amended: Links added.
--- NOTE | 2017-07-06 14:44 | NUR ---
PATIENT SITTING ON CHAIR NEXT TO RESTROOM. PATIENT SHOWS NO SIGNS OF RESPIRATORY DISTRESS OR RESPIRATORY DEPRESSION. PATIENT DOES NOT MENTION ANY PAIN. WILL CONTINUE TO MONITOR PATIENT.
[2017-07-06 16:00] VITALS: BP 92/61
[2017-07-06] MEDS: RIVAROXABAN 10 MG TAB PO SCH (16:41)
--- NOTE | 2017-07-06 16:43 | NUR ---
PATIENT SITTING IN CHAIR NEXT TO RESTROOM. PATIENT DOES NOT COMPLAIN OF ANY PAIN. PATIENT DOES NOT PRESENT WITH ANY RESPIRATORY DISTRESS OR RESPIRATORY DEPRESSION. ASKED IF I CAN CHANGE PATIENT'S CENTRAL DRESSING. PATIENT RESPONDED, "IT IS OKAY, I DO NOT WANT ANYONE TOUCHING IT". EXPLAINED THE RISKS OF INFECTION AND THE BENEFITS OF CHANGING THE DRESSING. PATIENT UNDERSTOOD AND STILL REFUSED. WILL CONTINUE TO MONITOR PATIENT.
--- NOTE | 2017-07-06 18:59 | NUR ---
PATIENT RESTING IN BED. NO COMPLAINTS OF PAIN. NO SIGNS OF RESPIRATORY DISTRESS OR RESPIRATORY DEPRESSION. WILL CONTINUE TO MONITOR PATIENT.
--- NOTE | 2017-07-06 19:25 | NUR ---
GAVE REPORT TO NIGHTSHIFT NURSE AT BEDSIDE. PATIENT IN STABLE CONDITION.
--- NOTE | 2017-07-06 19:30 | NUR ---
RECEIVED FROM AM RN IN BED AWAKE AND SITTING IN CHAIR AND WRITING. HALL WORKER IN HERE TO SEE PT. NO SOB. VERBALIZES WELL. IVF CL TO RIGHT INTERNAL JUGULAR. NO BLEEDING. PATENT. CALL LIGHT WITH IN REACH AND REMINDED TO USE CALL LIGHT FOR ANY HELP HE MAY NEED. CARE PLANS FOR THE NIGHT DISCUSSED WITH HIM. TELEMETRY MONITORING. ON ROOM AIR AND 02 SAT 99% AT THIS T GUERRERO. DENIES ANY PAIN.
[2017-07-06] MEDS: SIMVASTATIN 20 MG TAB PO SCH (20:46)
[2017-07-06 20:47] VITALS: BP 105/69
--- NOTE | 2017-07-06 23:34 | NUR ---
SEEN BY CEREAL CHEMIST. STILL AWAKE AT THIS TIME. ENCOURAGED TO SLEEP. WATCHING TV. "OK" CALL LIGHT WITH IN REACH.
[2017-07-07 00:36] VITALS: BP 97/67
--- NOTE | 2017-07-07 00:39 | NUR ---
VITAL SIGNS TAKEN. WOKE UP EASILY . CALL LIGHT WITH IN REACH. TELEMETRY MONITORING.
[2017-07-07] MEDS: ALBUTEROL SULFATE/IPRATROPIU 3 ML SOL IH SCH ×2 (01:00→06:46)
--- NOTE | 2017-07-07 01:29 | NUR ---
PT WANTS TO SLEEP, NO SOB OR ANY DISTRESS NOTED
[2017-07-07 04:54] VITALS: BP 104/73
--- NOTE | 2017-07-07 06:27 | NUR ---
SLEPT WELL THIS SHIFT. NO COMPLAINTS DONE. TELEMETRY MONITORING. ABLE TO USE CALL LIGHT FOR HELP AND ABLE TO VERBALIZE NEEDS WELL. 02 SAT AT 100 TO 98 % ROOM AIR. NO COMPLAINTS OF SOB WHOLE NIGHT.
--- NOTE | 2017-07-07 07:25 | NUR ---
RECEIVED REPORT FROM NIGHTSHIFT NURSE AT BEDSIDE. UPDATED ON PATIENT'S CONDITION. PATIENT PRESENTS WITH NO PAIN AND NO RESPIRATORY DISTRESS OR RESPIRATORY DEPRESSION. PATIENT IS A&OX4. PATIENT HAS A RIGHT IJ TRIPLE LUMEN WITH NO FLUIDS INFUSING. UPDATED BOARD IN PATIENT'S ROOM. PUT CALL LIGHT WITHIN REACH OF PATIENT. WILL CONTINUE TO MONITOR PATIENT.
[2017-07-07 08:00] VITALS: BP 112/78
[2017-07-07 08:19] LABS: BASOPHILS # (AUTO) 0.1 K/uL (0.00-0.22); BASOPHILS % (AUTO) 1.2 % (0.0-2.0); EOSINOPHILS # (AUTO) 0.2 K/uL (0-0.4); EOSINOPHILS % (AUTO) 2.4 % (0.0-4.0); HEMATOCRIT 30.1 % (36-52); HEMOGLOBIN 10.2 g/dL (12.0-18.0); LYMPHOCYTES # (AUTO) 1.5 K/uL (2.0-11.5); LYMPHOCYTES % (AUTO) 22.7 % (20.5-51.1); MEAN CORPUSCULAR HEMOGLOBIN 31 pg (27-31); MEAN CORPUSCULAR HGB CONC 34 g/dL (33-37); MEAN CORPUSCULAR VOLUME 90.6 fL (80-94); MONOCYTES # (AUTO) 0.8 K/uL (0.8-1.0); MONOCYTES % (AUTO) 11.2 % (1.7-9.3); NEUTROPHILS # (AUTO) 4.2 K/uL (1.8-7.7); NEUTROPHILS % (AUTO) 62.5 % (42.2-75.2); PLATELET COUNT (AUTO) 344 K/uL (140-450); RED BLOOD CELL COUNT(AUTO) 3.33 MIL/uL (4.20-6.10); RED CELL DISTRIBUTION WIDTH 13.8 % (11.6-13.7); WHITE BLOOD COUNT (AUTO) 6.8 K/uL (4.8-10.8)
--- NOTE | 2017-07-07 08:30 | NUR ---
PATIENT ABLE TO EAT ALL OF HIS BREAKFAST. PATIENT IS IN STABLE CONDITION AT THIS TIME.
[2017-07-07] MEDS: PANTOPRAZOLE 40 MG INJ VIAL IVP SCH (08:42)
[2017-07-07 08:53] LABS: ANION GAP 10.3 (8-16); CARBON DIOXIDE 27.5 mmol/L (21-32); CREATININE 0.9 mg/dL (0.7-1.3); POTASSIUM 3.8 mmol/L (3.5-5.1)
[2017-07-07] MEDS: CLINICAL MONITORING MC SCH (09:00)
[2017-07-07] MEDS: LACTOBACILLUS RHAMNOSUS GG 1 EACH CAP PO SCH (10:14)
[2017-07-07] MEDS: SPIRONOLACTONE 50 MG TAB PO SCH (10:14)
[2017-07-07] MEDS: AMIODARONE 200 MG TAB PO SCH ×3 (10:15→21:33)
[2017-07-07] MEDS: ASPIRIN 81 MG TAB.CHEW PO SCH (10:16)
[2017-07-07] MEDS: CARVEDILOL 3.125 MG TAB PO SCH ×3 (10:17→21:32)
[2017-07-07] MEDS: FERROUS SULFATE 300 MG/5 ML UDC PO SCH ×3 (10:18→21:34)
[2017-07-07] MEDS: LACTULOSE 20 GM/30 ML UDC PO SCH ×2 (10:18→21:28)
--- NOTE | 2017-07-07 10:44 | NUR ---
PATIENT RESTING IN BED AT THIS TIME. NO COMPLAINTS OF PAIN. PATIENT RESPIRATIONS ARE WITHIN NORMAL LIMITS. WILL CONTINUE TO MONITOR PATIENT .
[2017-07-07 12:00] VITALS: BP 93/58
--- NOTE | 2017-07-07 13:30 | NUR ---
PATIENT AWAKE AT THIS TIME. PATIENT SITTING ON CHAIR AT BEDSIDE. NO COMPLAINTS OF PAIN. NO SIGNS OF RESPIRATORY DISTRESS OR RESPIRATORY DEPRESSION. WILL CONTINUE TO MONITOR PATIENT.
[2017-07-07] MEDS ORDERED: FUROSEMIDE 20 MG TAB PO SCH (14:30)
--- NOTE | 2017-07-07 15:06 | NUR ---
PATIENT BLOOD PRESSURE IS 95/69, 77 HR. HELD LASIX MEDICATION. PATIENT IN STABLE CONDITION. WILL CONTINUE TO MONITOR PATIENT.
[2017-07-07 16:00] VITALS: BP 96/60
[2017-07-07] MEDS: RIVAROXABAN 10 MG TAB PO SCH (17:30)
--- NOTE | 2017-07-07 17:32 | NUR ---
PATIENT REFUSED XARELTO MEDICATION. EXPLAINED BENEFITS OF MEDICATION TO PATIENT. PATIENT UNDERSTOOD BUT STILL REFUSED. WILL CONTINUE TO MONITOR PATIENT.
--- NOTE | 2017-07-07 17:32 | NUR ---
REAPPLIED TELE MONITOR LEADS TO PATIENT. PATIENT SHOWS NO SIGNS OF RESPIRATORY DISTRESS OR RESPIRATORY DEPRESSION.
--- NOTE | 2017-07-07 19:21 | NUR ---
GAVE REPORT TO NIGHTSHIFT NURSE AT BEDSIDE. PATIENT IN STABLE CONDITION.
--- NOTE | 2017-07-07 19:24 | NUR ---
RECEIVED FROM AM RN IN BED AWAKE AND ALERT. NO SOB. TELEMETRY MONITORING. CALL LIGHT WITH IN REACH. PT. DENIES ANY PAIN AT THIS TIME. VERBALIZES WELL. SITTING IN CHAIR AT THIS TIME WATCHING TV.
[2017-07-07 20:00] VITALS: BP 102/75
--- NOTE | 2017-07-07 20:00 | NUR ---
PT. WALKING IN HALLWAY AND ALL THE WAY TO ER SIDE. ADVISED NOT TO BUT REFUSED TO BE STOPPED. CALLED SECURITY FOR HELP. PT. ACCOMPANIED BACK TO HIS ROOM. NOTED PT. WALKING WELL WITH OUT ASSIST. NO SOB.
[2017-07-07] MEDS: SIMVASTATIN 20 MG TAB PO SCH ×2 (21:00→21:37)
--- NOTE | 2017-07-07 21:38 | NUR ---
PT. DECIDED AT FIRST TO NOT TAKE HIS MEDICATION. TALKED TO HIM ABOUT PROS AND CONS OF NOT TAKING IT. PT. UPSET AND AFTER A WHILE DECIDED TO TAKE IT FOR THE VERY LAST TIME. ALL P.O. MEDICATIONS ADMINISTERED.
[2017-07-08 00:47] VITALS: BP 98/68
--- NOTE | 2017-07-08 00:49 | NUR ---
PT. SLEEPING AT THIS TIME. NO RESTLESSNESS NOTED. TELEMETRY MONITORING.
--- NOTE | 2017-07-08 02:30 | NUR ---
PT. ABLE TO USE CALL LIGHT FOR HELP. ALERT AND ORIENTED X 4. ROM X 4. AFEBRILE. WATCHING TV AT THIS TIME.
[2017-07-08 04:00] VITALS: BP 109/73
--- NOTE | 2017-07-08 04:10 | NUR ---
SLEEPING AT THIS TIME WITH TV ON. CALL LIGHT WITH IN REACH.
--- NOTE | 2017-07-08 06:03 | NUR ---
PT. BEEN SLEEPING IN AND OUT RT WATCHING TV. PT. AM PERSONAL HYGIENE RENDERED BY CNAS. NO COMPLAINTS DONE. ON TELEMETRY MONITORING. NO SOB OR PAIN COMPLAINTS DONE THIS SHIFT. ABLE TO VERBALIZE NEEDS WELL.
[2017-07-08] MEDS ORDERED: ALBUTEROL SULFATE/IPRATROPIU 3 ML SOL IH PRN (07:00)
--- NOTE | 2017-07-08 07:30 | NUR ---
RECEIVED PT REPORT FROM NIGHTSHIFT NURSE. PATIENT IS AWAKE, ALERT, OX4. PATIENT HAS A RIGHT IJ TRIPLE LUMEN, HEP LOCK. VITALS TAKEN, NO S/S OF DISTRESS NOTED. INITIAL ASSESSMENT DONE. UPDATED BOARD. CALL LIGHT WITHIN REACH. WILL CONTINUE TO MONITOR.
[2017-07-08 08:00] VITALS: BP 109/67
[2017-07-08] MEDS ORDERED: CARVEDILOL 3.125 MG TAB PO SCH (09:00)
[2017-07-08] MEDS ORDERED: FERROUS SULFATE 300 MG/5 ML UDC PO SCH (09:00)
[2017-07-08] MEDS ORDERED: FUROSEMIDE 20 MG TAB PO SCH (09:00)
[2017-07-08] MEDS ORDERED: AMIODARONE 200 MG TAB PO SCH (09:00)
[2017-07-08] MEDS: SPIRONOLACTONE 50 MG TAB PO SCH (09:20)
[2017-07-08] MEDS: PANTOPRAZOLE 40 MG INJ VIAL IVP SCH (09:20)
[2017-07-08] MEDS: LACTOBACILLUS RHAMNOSUS GG 1 EACH CAP PO SCH (09:20)
[2017-07-08] MEDS: ASPIRIN 81 MG TAB.CHEW PO SCH (09:21)
[2017-07-08] MEDS: LACTULOSE 20 GM/30 ML UDC PO SCH (09:22)
[2017-07-08] MEDS: CLINICAL MONITORING MC SCH (09:36)
--- NOTE | 2017-07-08 09:50 | NUR ---
PT SITTING ON CHAIR OUTSIDE THE ROOM BY THE EXIT DOOR. NO S/S OF RESPIRATORY DISTRESS.
--- NOTE | 2017-07-08 10:20 | NUR ---
I met with patient to discuss plan for discharge and to provide resources available to patient. I attempted to provide patient with low- cost health care provider list, discounted medication list, shelters list in the area, as well transitional housing information and list. Patient was uncooperative and got very upset, with resources these telegraphic typewriter mechanic provided. He declined the resources stating " that he did not want or need correction or transitional housing" Patient also stated " I rather be discharge to the streets and find my own way". Patient stated " that he wanted to get placed on a facility or assisting living where he can retired peacefully, He also requested for $ 1,000. 00 [place] from the hospital to be able to buy a van; due to having gifted hands and been able to fix cars, therefore; he would be able to buy these old van and buy some oil with the $1,000.00 provided by the hospital and will fix it for transportation" Patient in addition requested to these telegraphic typewriter mechanic to contact " The welfare office and ask them to provide him with additional medical and financial assistance on a monthly basis. Patient will not hear or understand these telegraphic typewriter mechanic when I attempted to explain that what he was requesting would not be able to be provided. Patient got upset and " Stated that I can not help him" Patient stated that he has been living in [place] for about 40 years and he deserves to be provided with the resources he is asking as well; his green card and welfare services. Patient follow up implying that these telegraphic typewriter mechanic will not help him with what he wants and needs because Patient is . 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 Patient was serious and quiet after that and call his nurse to come and ask MD to discharge him. Patient will not speak much to me therefore; I left resources and dismiss my self from meeting.
--- NOTE | 2017-07-08 10:40 | NUR ---
SOCIAL WORK HAS FINISHED TALKING TO THE PT. PER PT REQUEST, PROVIDED PT WITH ONE RENE CRACKER AND HALF CUP OF WATER.
[2017-07-08] MEDS ORDERED: AMIO200T10 PO (11:02)
[2017-07-08] MEDS ORDERED: SPIR50TA PO (11:02)
[2017-07-08] MEDS ORDERED: FER300L PO (11:02)
[2017-07-08] MEDS ORDERED: XAR10 PO (11:02)
[2017-07-08] MEDS ORDERED: CARV3.122 PO (11:02)
[2017-07-08] MEDS ORDERED: PNEUMOCOCCAL VACCINE 23 MCG/0.5 ML VIAL IMVAC SCH (11:20)
--- NOTE | 2017-07-08 11:46 | NUR ---
PT NOTES Patient is sitting next to exit door in the hallway. Patient declined to participate in therapy. GELA Askew present & stated patient will be discharged. Patient educated on safety. Discussed w/ primary Physical Therapist. Addendum: 07/08/17 at 1302 by Nathaniel Choi PT PHYSICAL THERAPY CO-SIGN The Physical Therapy Progress Notes documented by Wic Site Coordinator have been reviewed. Reviewed/Co-Signed by: Nathaniel Choi PT Documentation Done by: CARMITA CARBALLO TIE TAMPER PT EDUCATED BUT NO CONSENT FOR CARE GIVEN, ACTIVELY WAITING TO DC.
[2017-07-08 12:00] VITALS: BP 117/53
--- NOTE | 2017-07-08 12:00 | NUR ---
PT WAS DISCHARGED PER MD ORDER. DISCHARGE INSTRUCTIONS AND MEDICATION TEACHING GIVEN. PT VERBALIZED UNDERSTANDING. MADE PT AWARE OF SCHEDULE APPOINTMENT WITH DR PARSONS. HALF-WAY LIST PROVIDED. HOMELESS WAIVER FORM SIGNED. BUS PASS PROVIDED. TELE REMOVED. CENTRAL LINE DC'D WITH SUTURE REMOVAL KIT, TIP INTACT, PRESSURE APPLIED. NO BLEEDING NOTED.
--- NOTE | 2017-07-08 12:20 | NUR ---
PT HAD LUNCH. DENIES ANY PAIN AT THIS TIME. NO S/S OF ACUTE DISTRESS. PT LEFT WITH ALL HIS BELONGING AND IN STABLE CONDITION. WHEELED PT TO LOBBY.
--- NOTE | 2017-07-08 13:00 | NUR ---
FOUND PT IN THE CAR WITH PASSER-BY WHO REQUESTS THE HOSPITAL TO PROVIDE A CAB TO THE BUS STATION FOR THE PT. TOLD THE PT TO WAIT IN FRONT OF THE LOBBY FOR THE CAB. PT REFUSED, STATING THAT HE IS NOT GOING BACK, HE KNOWS WHICH BUS TAKE, AND HE NEEDS TO GO RIGHT NOW. TRIED TO CONVINCE PT TO WAIT FOR CAB. PT JUST KEPT WALKING TOWARD WESTBOUND. CALLED CHARGE NURSE WHO CONTACTED THE SECURITY.
== END 2017-07-08 12:30 | disposition home or self-care (01) | DRG 720 ==
LOC: MED 09:58 → MTU 11:38 → MIC 06-26 14:53 → MTU 07-04 04:00
PROVIDERS: ADMIT Family Medicine Sports Medicine; ATTEND Family Medicine Sports Medicine
PROC: 5A1955Z Respiratory Ventilation, Greater than 96 Consecutive Hours (ICD-10-PCS; principal; 2017-06-26)
PROC: 0BH17EZ Insertion of Endotracheal Airway into Trachea, Via Natural or Artificial Opening (ICD-10-PCS; 2017-06-26)
PROC: 02HV33Z Insertion of Infusion Device into Superior Vena Cava, Percutaneous Approach (ICD-10-PCS; 2017-06-26)
PROC: B548ZZA Ultrasonography of Superior Vena Cava, Guidance (ICD-10-PCS; 2017-06-26)
PROC: 5A09357 Assistance with Respiratory Ventilation, Less than 24 Consecutive Hours, Continuous Positive Airway Pressure (ICD-10-PCS; 2017-07-02)
DX: A41.9 Sepsis, unspecified organism (principal); I26.09 Other pulmonary embolism with acute cor pulmonale; N17.0 Acute kidney failure with tubular necrosis; J96.21 Acute and chronic respiratory failure with hypoxia; R57.0 Cardiogenic shock; R65.21 Severe sepsis with septic shock; I48.92 Unspecified atrial flutter; M62.82 Rhabdomyolysis; E83.42 Hypomagnesemia; E44.0 Moderate protein-calorie malnutrition; I48.0 Paroxysmal atrial fibrillation; E87.4 Mixed disorder of acid-base balance; G93.41 Metabolic encephalopathy; I50.43 Acute on chronic combined systolic (congestive) and diastolic (congestive) heart failure; D72.829 Elevated white blood cell count, unspecified; F12.90 Cannabis use, unspecified, uncomplicated; I25.10 Atherosclerotic heart disease of native coronary artery without angina pectoris; D50.9 Iron deficiency anemia, unspecified; J44.9 Chronic obstructive pulmonary disease, unspecified; R74.8 Abnormal levels of other serum enzymes; F19.90 Other psychoactive substance use, unspecified, uncomplicated; N43.3 Hydrocele, unspecified; I07.1 Rheumatic tricuspid insufficiency; I27.20 Pulmonary hypertension, unspecified; E66.8 Other obesity; E78.5 Hyperlipidemia, unspecified; E87.8 Other disorders of electrolyte and fluid balance, not elsewhere classified; K72.90 Hepatic failure, unspecified without coma; I13.0 Hypertensive heart and chronic kidney disease with heart failure and stage 1 through stage 4 chronic kidney disease, or unspecified chronic kidney disease; N18.9 Chronic kidney disease, unspecified; I49.9 Cardiac arrhythmia, unspecified; J96.22 Acute and chronic respiratory failure with hypercapnia; K74.60 Unspecified cirrhosis of liver; I16.1 Hypertensive emergency; E87.6 Hypokalemia; D53.9 Nutritional anemia, unspecified; Z68.29 Body mass index [BMI] 29.0-29.9, adult; Z59.0 Homelessness; Z91.19 Patient's noncompliance with other medical treatment and regimen; Z79.899 Other long term (current) drug therapy
CPT/HCPCS: 31500; 36415; 36600; 70450; 71045; 71275; 74018; 76700; 80048; 80053; 80305; 81003; 82140; 82150; 82550; 82553; 82607; 82728; 82746; 82803; 82948; 83036; 83540; 83690; 83735; 83880; 84100; 84436; 84443; 84479; 84484; 85025; 85045; 85379; 85610; 85730; 86704; 86706; 86708; 86709; 86803; 86886; 86900; 86901; 87040; 87070; 87081; 87086; 87205; 87340; 90732; 92950; 93005; 93880; 93970; 94003; 94640; 94660; 96374; 96375; 97110; 97116; 97140; 97530; 99285; C9113; J1642; J1644; J1940; J2001; J2060; J2543; J2704; J2930; J3475; J3480; J3490; J7030; J7613; J7620; J7644; Q0092; Q9967

== ENCOUNTER 2017-07-29 19:58 | Inpatient (IN) | payer MEDICAID ==
[~2017-07-29] VITALS: Ht 175.3 cm; Wt 107.0 kg
[~2017-07-29 19:58] MED LIST: AMIO200T10 PO; CARV3.122 PO; FER300L PO; SPIR50TA PO; XAR10 PO
[2017-07-29 20:02] VITALS: BP 159/100
--- NOTE | 2017-07-29 20:07 | NUR ---
TO BED # 12 AMBULATORY
--- NOTE | 2017-07-29 20:10 | NUR ---
PATIENT PRESENTS TO ED WITH C/O GENERALIZED BODYACHES AND SHORTNESS OF BREATH X 1 WEEK. PT STATES HE USED TO TAKE WATER PILLS BUT IS UNSURE WHAT HE TAKES AND IS UNSURE OF HIS MEDICAL HISTORY. PT STATES "SOMETHING TO DO WITH PULMONARY". PT SKIN IS DRY AND PEELING ON HANDS AND FEET. PT DENIES N/V/D; AAOX4 WITH EVEN AND STEADY GAIT; HR EVEN AND REGULAR; PT DENIES ANY FEVER OR CP AT THIS TIME; PATIENT STATES PAIN OF 0/10 AT THIS TIME; PATIENT POSITIONED FOR COMFORT; HOB ELEVATED; BEDRAILS UP X2; BED DOWN. ER MD MADE AWARE OF PT STATUS.
--- NOTE | 2017-07-29 20:10 | NUR ---
URINE SAMPLE COLLECTED
--- NOTE | 2017-07-29 21:37 | NUR ---
X-Ray at bedside.
--- NOTE | 2017-07-29 21:44 | NUR ---
LAB AT BEDSIDE
[2017-07-29] MEDS ORDERED: DILTIAZEM 25 MG/5 ML VIAL IVP ONE ×2 (21:50→22:06)
[2017-07-29] MEDS ORDERED: DILTIAZEM 125 MG/25 ML VIAL IV ONE ×2 (22:02→22:50)
[2017-07-29 22:14] LABS: BASOPHILS # (AUTO) 0.1 K/uL (0.00-0.22); BASOPHILS % (AUTO) 1.2 % (0.0-2.0); EOSINOPHILS # (AUTO) 0.1 K/uL (0-0.4); EOSINOPHILS % (AUTO) 1.8 % (0.0-4.0); HEMATOCRIT 33.6 % (36-52); HEMOGLOBIN 10.8 g/dL (12.0-18.0); LYMPHOCYTES % (AUTO) 16.5 % (20.5-51.1); MEAN CORPUSCULAR HEMOGLOBIN 29 pg (27-31); MEAN CORPUSCULAR HGB CONC 32 g/dL (33-37); MEAN CORPUSCULAR VOLUME 90.7 fL (80-94); MONOCYTES # (AUTO) 0.5 K/uL (0.8-1.0); MONOCYTES % (AUTO) 9.3 % (1.7-9.3); NEUTROPHILS # (AUTO) 4.2 K/uL (1.8-7.7); NEUTROPHILS % (AUTO) 71.2 % (42.2-75.2); PLATELET COUNT (AUTO) 253 K/uL (140-450); RED BLOOD CELL COUNT(AUTO) 3.71 MIL/uL (4.20-6.10); RED CELL DISTRIBUTION WIDTH 15.1 % (11.6-13.7); WHITE BLOOD COUNT (AUTO) 5.9 K/uL (4.8-10.8)
--- NOTE | 2017-07-29 22:15 | NUR ---
PT EATING SANDWICH, CRACKERS AND JUICE.
[2017-07-29 22:24] LABS: ANION GAP 8.9 (8-16); CREATININE 0.8 mg/dL (0.7-1.3); POTASSIUM 3.9 mmol/L (3.5-5.1)
[2017-07-29 22:26] LABS: PROTHROMBIN TIME 13.1 secs (10.8-13.4)
--- NOTE | 2017-07-29 22:32 | NUR ---
PT RESTING COMFORTABLY AT THIS TIME.
[2017-07-29 22:39] LABS: ALBUMIN 3.4 g/dL (3.4-5.0); TOTAL BILIRUBIN 1.8 mg/dL (0.0-1.0)
[2017-07-29] MEDS ORDERED: ASPIRIN 81 MG TAB.CHEW PO ONE (22:40)
[2017-07-29] MEDS ORDERED: DILTIAZEM 125 MG in DEXTROSE 5% 100 ML IV ONE (22:40)
[2017-07-29] MEDS ORDERED: MORPHINE SULFATE 4 MG/ML SYR IVP PRN (23:30)
[2017-07-29] MEDS ORDERED: HYDROcodone/APAP 7.5/325 MG 1 TAB PO PRN (23:30)
[2017-07-29] MEDS ORDERED: ONDANSETRON 4 MG/2 ML VIAL IM/IVP PRN (23:30)
[2017-07-29] MEDS ORDERED: ACETAMINOPHEN 325 MG TAB PO PRN (23:30)
[2017-07-29 23:54] LABS: APPEARANCE,URINE CLEAR (CLEAR); BLOOD, URINE NEGATIVE (NEGATIVE); COLOR,URINE YELLOW (YELLOW); LEUKOCYTE ESTERASE ,URINE NEGATIVE (NEGATIVE); NITRITE, URINE NEGATIVE (NEGATIVE); UGLUCOSE TRACE (NEGATIVE)
[2017-07-29 23:59] LABS: AMYLASE 28 U/L (25-115); CHOL/HDL RATIO 3.1 (1-4.5); HDL CHOLESTEROL 39 mg/dL (40-60); LDL (CALC) 74 mg/dL (60-100); LIPASE 69 U/L (73-393); THYROID STIMULATING HORMONE 5.84 uIU/mL (0.34-3.74); TRIGLYCERIDES 33 mg/dL (30-150)
[2017-07-30] VITALS (7 sets, daily range): BP systolic 119–156; BP diastolic 93–118
[2017-07-30] MEDS ORDERED: DILTIAZEM 30 MG TAB PO SCH
[2017-07-30 00:02] LABS: BARBITURATE, URINE NEG. ng/ml (NEG <=200); BENZODIAZEPINE, URINE NEG. ng/mL (NEG <=200); CANNABINOID, URINE POS. ng/mL (NEG <=50); COCAINE, URINE NEG. ng/mL (NEG <=300); OPIATE, URINE NEG. ng/mL (NEG <=2000); PHENCYCLIDINE SCREEN,URINE NEG. ng/mL (NEG <=25)
[2017-07-30 00:04] LABS: BILIRUBIN,URINE NEGATIVE (NEGATIVE)
[2017-07-30 00:05] LABS: RBC,URINE 0-5 (RARE) /HPF (0-5); WBC,URINE 0-5 (RARE) /HPF (0-5)
--- NOTE | 2017-07-30 00:20 | NUR ---
ADMITTED PATIENT TO THE TELE UNIT, PATIENT AWAKE ALERT ORIENTED X3, NO S/S OF DISTRESS NOTED, REPORTED SHORTNESS OF BREATH, O2SAT 94%, ON O2 NC. TELE MONITOR PLACED ON PATIENT, IV PATENT AND INTACT, INFUSING NS AT 60ML/HR. PLAN OF CARE DISCUSSED, PATIENT VERBALIZED UNDERSTANDING. CALL LIGHT WITHIN REACH, SAFETY MEASURE ENSURED, WILL CONTINUE TO MONITOR.
--- NOTE | 2017-07-30 00:20 | NUR ---
Patient will be admitted to care of DR MATHIS. Admited to TELE. Will go to room 111B. Belongings list completed. Report to GELA SMITH.
[2017-07-30] MEDS: NACL 0.9% 1,000 ML IV SCH ×2 (00:40→23:26)
[2017-07-30] MEDS ORDERED: AMIODARONE 200 MG TAB PO ONE (00:50)
[2017-07-30] MEDS ORDERED: DILTIAZEM 30 MG TAB ONE (01:03)
--- NOTE | 2017-07-30 01:13 | NUR ---
DR. MURRY ORDERED ME TO GIVE PO AMIODARONE 200MG AND PO CARDIZEM 15MG ONE TIME FOR TONIGHT. MEDICATION GIVEN, PATIENT TOLERATED WELL. WILL CONTINUE TO MONITOR.
[2017-07-30] MEDS ORDERED: ALBUTEROL SULFATE/IPRATROPIU 3 ML SOL IH PRN (02:10)
[2017-07-30] MEDS ORDERED: ALBUTEROL SULFATE/IPRATROPIU 3 ML SOL IH ONE (02:17)
--- NOTE | 2017-07-30 02:27 | NUR ---
BP 167/116, HR 126, MADE DR. MURRY AWARE. RECEIVED ORDER OF COREG 1.5625MG PO ONCE. ORDER RECEIVED AND CARRIED OUT. PATIENT TOLERATED MEDICATION WELL. WILL CONTINUE TO MONITOR.
[2017-07-30] MEDS ORDERED: CARVEDILOL 3.125 MG TAB PO SCH ×2 (02:30→09:00)
[2017-07-30] MEDS: ALBUTEROL SULFATE/IPRATROPIU 3 ML SOL IH SCH ×5 (02:44→23:09)
[2017-07-30] MEDS ORDERED: FUROSEMIDE 20 MG/2 ML VIAL IVP SCH (04:00)
--- NOTE | 2017-07-30 04:05 | NUR ---
BP 156/112, HR 125, DR. MURRY IS AWARE.
--- NOTE | 2017-07-30 06:00 | NUR ---
PATIENT ASKED FOR BANANA, AND APPLE, STATED," IF YOU DON'T GIVE APPLE AND BANANA, I WILL NOT LET YOU DRAW BLOOD. I AM NOT A BLOOD BANK." MADE DR. MURRY AWARE, DR STATED," HE CAN HAVE FOOD, I WILL CHANGE THE DIET."
[2017-07-30 06:52] LABS: ANION GAP 8.4 (8-16); CARBON DIOXIDE 33.6 mmol/L (21-32); CREATININE 0.8 mg/dL (0.7-1.3)
[2017-07-30 07:07] LABS: MAGNESIUM 1.7 mg/dL (1.8-2.4); PHOSPHORUS 3.2 mg/dL (2.5-4.9)
--- NOTE | 2017-07-30 07:30 | NUR ---
RECEIVED ON BED AAOX4. NO SOB NOTED, NO C/O PAIN AT THIS TIME. PT ON BREATHING TREATMENTS AT THIS TIME WITH 99% O2 SATS. CHEST, DIMINISHED AIR ENTRY TO THE BASES. ABDOMEN SOFT, BOWEL SOUNDS PRESENT. +2 PITTING EDEMA ON BLE, INSTRUCTED PT TO CALL FOR ASSISTANCE, CALL LIGHT WITHIN, PT VERBALIZED UNDERSTANDING.
--- NOTE | 2017-07-30 07:37 | NUR ---
ENDORSED PLAN OF CARE TO DAY SHIFT, PATIENT IS IN STABLE CONDITION.
--- NOTE | 2017-07-30 07:41 | NUR ---
PT TONI WILKES TO EAT
--- NOTE | 2017-07-30 08:50 | NUR ---
PATIENT HAS BEEN SCREENED AND CATEGORIZED MODERATE NUTRITION RISK. PATIENT WILL BE SEEN WITHIN 3-5 DAYS OF ADMISSION. 08/01/17 08/03/[address]
[2017-07-30] MEDS: MAG SULF 2000 MG/WATER PREMIX 50 ML IV SCH ×2 (09:47→19:08)
[2017-07-30] MEDS: FERROUS SULFATE 300 MG/5 ML UDC PO SCH ×2 (09:47→20:35)
[2017-07-30] MEDS: AMIODARONE 200 MG TAB PO SCH ×2 (09:48→20:35)
[2017-07-30] MEDS: SPIRONOLACTONE 50 MG TAB PO SCH (09:49)
--- NOTE | 2017-07-30 10:00 | NUR ---
INSTRUCTED PT NPO UNTIL 3:30 PM FOR ULTRASOUND OF ABDOMEN, PT VERBALIZED UNDERSTANDING.
--- NOTE | 2017-07-30 13:05 | NUR ---
PT RESTING. NO SOB NOTED. NO SIGNS OF PAIN AT THIS TIME. NPO MAINTAINED.
--- NOTE | 2017-07-30 16:00 | NUR ---
ULTRASOUND OF ABDOMEN ON GOING AT THE BEDSIDE.
[2017-07-30] MEDS: RIVAROXABAN 10 MG TAB PO SCH (18:00)
[2017-07-30] MEDS ORDERED: MAG SULF 2000 MG/WATER PREMIX 50 ML IV ONE (19:08)
--- NOTE | 2017-07-30 19:25 | NUR ---
PT RESTING. NO SOB NOTED. NO SIGNS OF PAIN. ENDORSED TO NEXT SHIFT NURSE FOR CONTINUITY OF CARE.
--- NOTE | 2017-07-30 19:30 | NUR ---
RECEIVED REPORT FROM DAY SHIFT RN, PATIENT RESTING IN BED, AWAKE ALERT ORIENTED X3, NO S/S OF DISTRESS NOTED, RT IS IN THE ROOM, AND WILL GIVE BREATHING TREATMENT. IV PATENT AND INTACT, INFUSING MAGNESIUM AT 25ML/HR. CALL LIGHT WITHIN REACH, HEAD OF BED ELEVATED, SCROTUM IS ELEVATED ON PILLOW AND BILATERAL LOWER EXTREMITIES ARE ELEVATED, SAFETY MEASURE ENSURED, WILL CONTINUE TO MONITOR .
[2017-07-30] MEDS: CARVEDILOL 3.125 MG TAB PO SCH (20:36)
[2017-07-30] MEDS: DOCUSATE SODIUM 100 MG GELCAP PO PRN (20:39)
--- NOTE | 2017-07-30 20:42 | NUR ---
DUE MEDICATION GIVEN, PATIENT TOLERATED WELL. NO S/S OF DISTRESS NOTED, CALL LIGHT WITHIN REACH, SAFETY MEASURE ENSURED, WILL CONTINUE TO MONITOR.
--- NOTE | 2017-07-30 22:36 | NUR ---
NO CHANGE IN CONDITION, PATIENT IS SLEEPING, NO S/S OF DISTRESS NOTED, ON NC O2, 2L. CALL LIGHT WITHIN REACH, SAFETY MEASURE ENSURED, WILL CONTINUE TO MONITOR.
[2017-07-31] VITALS: BP 131/90
[2017-07-31] MEDS ORDERED: DILTIAZEM 30 MG TAB PO SCH
--- NOTE | 2017-07-31 00:12 | NUR ---
VITAL SIGNS STABLE, NO S/S OF DISTRESS NOTED, CALL LIGHT WITHIN REACH, SAFETY MEASURE ENSURED, WILL CONTINUE TO MONITOR.
--- NOTE | 2017-07-31 02:22 | NUR ---
PATIENT IS SLEEPING, NO S/S OF DISTRESS NOTED, ON NC O2, 2L. CALL LIGHT WITHIN REACH, SAFETY MEASURE ENSURED, WILL CONTINUE TO MONITOR.
[2017-07-31] MEDS: ALBUTEROL SULFATE/IPRATROPIU 3 ML SOL IH SCH ×6 (03:32→23:19)
[2017-07-31 04:00] VITALS: BP 131/94
--- NOTE | 2017-07-31 04:40 | NUR ---
NO CHANGE IN CONDITION, VITAL SIGNS STABLE, NO S/S OF DISTRESS NOTED, PATIENT TOOK NASAL CANNULA OFF, AND STATED," I AM OKAY, I DON'T WANT THIS WHEN I AM SLEEPING." [id number]%, EDUCATION GIVEN, PATIENT STILL REFUSE NASAL CANNULA, CALL LIGHT WITHIN REACH, SAFETY MEASURE ENSURED, WILL CONTINUE TO MONITOR.
--- NOTE | 2017-07-31 06:14 | NUR ---
PATIENT RESTING IN BED, NO S/S OF DISTRESS NOTED, CALL LIGHT WITHIN REACH, SAFETY MEASURE ENSURED, WILL CONTINUE TO MONITOR.
[2017-07-31 06:20] LABS: T4 (THYROXINE) 6.6 ug/dL (4.5-12.0)
--- NOTE | 2017-07-31 07:20 | NUR ---
ENDORSED PLAN OF CARE TO DAY SHIFT RN, PATIENT RESTING IN BED, IN STABLE CONDITION.
--- NOTE | 2017-07-31 07:21 | NUR ---
RECEIVED REPORT FROM THE DIESEL TECHNICIAN NURSE AT BEDSIDE FOR CONTINUITY OF CARE. PT IS AWAKE AND ORIENTED. INTRODUCED MYSELF AND UPDATED THE BOARDS. PT CLAIMS HE HAD A SMALL BM TODAY AND VERY LITTLE URINE. NOT URINATING MUCH. WILL KEEP TRACK OF I&O. SKIN IN INTACT, DRY. SCROTAL SWELLING. IV ON L AC 20G NS AT 10ML. PT IS EATING BREAKFST NOW. WILL CONTINUE TO MONITOR PT.
[2017-07-31 08:00] VITALS: BP 135/103
[2017-07-31] MEDS: FERROUS SULFATE 300 MG/5 ML UDC PO SCH ×2 (08:46→21:48)
[2017-07-31] MEDS: SPIRONOLACTONE 50 MG TAB PO SCH (08:47)
[2017-07-31] MEDS: CARVEDILOL 3.125 MG TAB PO SCH (08:47)
[2017-07-31] MEDS: AMIODARONE 200 MG TAB PO SCH ×2 (08:47→21:49)
[2017-07-31] MEDS: DOCUSATE SODIUM 100 MG GELCAP PO PRN (08:50)
[2017-07-31] MEDS ORDERED: CARVEDILOL 3.125 MG TAB PO SCH (09:15)
[2017-07-31 10:02] LABS: BASOPHILS # (AUTO) 0.1 K/uL (0.00-0.22); EOSINOPHILS # (AUTO) 0.1 K/uL (0-0.4); HEMOGLOBIN 11.4 g/dL (12.0-18.0); MEAN CORPUSCULAR HEMOGLOBIN 28 pg (27-31); MONOCYTES # (AUTO) 0.5 K/uL (0.8-1.0); NEUTROPHILS # (AUTO) 4.4 K/uL (1.8-7.7); RED BLOOD CELL COUNT(AUTO) 4.03 MIL/uL (4.20-6.10); WHITE BLOOD COUNT (AUTO) 6.1 K/uL (4.8-10.8)
[2017-07-31 10:05] LABS: BASOPHILS % (AUTO) 1.2 % (0.0-2.0); EOSINOPHILS % (AUTO) 1.8 % (0.0-4.0); HEMATOCRIT 36.5 % (36-52); LYMPHOCYTES % (AUTO) 16.7 % (20.5-51.1); MEAN CORPUSCULAR HGB CONC 31 g/dL (33-37); MEAN CORPUSCULAR VOLUME 90.5 fL (80-94); MONOCYTES % (AUTO) 8.2 % (1.7-9.3); NEUTROPHILS % (AUTO) 72.1 % (42.2-75.2); PLATELET COUNT (AUTO) 271 K/uL (140-450); RED CELL DISTRIBUTION WIDTH 15.2 % (11.6-13.7)
[2017-07-31 10:13] LABS: ANION GAP 10.1 (8-16); CARBON DIOXIDE 31.2 mmol/L (21-32); CREATININE 0.9 mg/dL (0.7-1.3); POTASSIUM 4.3 mmol/L (3.5-5.1)
[2017-07-31 10:17] LABS: MAGNESIUM 2.5 mg/dL (1.8-2.4); PHOSPHORUS 2.7 mg/dL (2.5-4.9)
--- NOTE | 2017-07-31 10:29 | NUR ---
PT IS SITTING UP ON THE SIDE OF THE BED. WRITING ON A PIECE OF PAPER. PT SAYS HE DOES THAT TO KEEP HIS MIND SHARP. REQUESTED ANOTHER JUICE BOX. NO OTHER COMPLAINTS. WILL CONTINUE TO MONITOR PT.
[2017-07-31 12:00] VITALS: BP 129/88
--- NOTE | 2017-07-31 13:00 | NUR ---
Expediter Service Order Notes: These travel writer contact [facility] Program for the mentally ill and homeless emergency skilled nursing. I spoke to Cas Joseph (Worker of the day) to discuss services, housing and medical care needed for patient. Per Mrs. Ruiz services are available for homeless individuals ages 18-64, willing to go to their emergency skilled nursing and receive mental and medical healthcare who have Medical and are not currently receiving SSI. I discuss Patient situation and made a referral for patient to see if he meets their criteria for services and housing. Per Mrs. Ruiz she requested patient's H&P and facesheet for her team to assess patient for program services provided by [facility]. I agreed to send Patients information and continue communication with Mrs. Ruiz
[2017-07-31] MEDS ORDERED: FUROSEMIDE 40 MG/4 ML VIAL IVP SCH (15:00)
--- NOTE | 2017-07-31 15:00 | NUR ---
Account Auditor Notes: Cas Ruiz (Worker of the day) form [facility] Program for Homeless and mental Health call me stating that after her team reviewing patient's information it was determined that Patient do not meet criteria to receive their services for two main reasons; 1) Patient has many medical issues that requires a different level of care that they ca not provide in their Program 2) Patient has a criminal background that they can not accept but instead provide resources to a Program In [place] call [facility]. According to Mrs. Ruiz Patient in 04/04 was convicted for battery charge and was assigned to a P.O. I thanked Mrs. Ruiz and ended the Call.
--- NOTE | 2017-07-31 15:41 | NUR ---
1220 SPOKE WITH NITA AT [facility] [phone] FAX [phone] AND INFORMED HER THAT PT WILL MOST LIKELY BE DISCHARGED TOMORROW. PER NITA IF PRESCRIPTION AND PT INFORMATION IS FAXED SHE CAN BEGIN THE PROCESS. [address] OLIVARES AND REQUESTED THAT HE MAKE OUT RX AND FAX TO NITA. 1500 SPOKE WITH NITA AND VERIFIED THAT RX WAS RECEIVED.
[2017-07-31 16:00] VITALS: BP 138/99
--- NOTE | 2017-07-31 16:44 | NUR ---
PT LAYING ON HIS STOMACH ACROSS THE BED WITH LEGS RAISED. PER PT THIS IS ONLY WAY HE CAN SLEEP. REQUESTED SOME FRUIT. CALLED [facility]. WILL CONTINUE TO MONITOR PT.
[2017-07-31] MEDS: RIVAROXABAN 10 MG TAB PO SCH (18:10)
--- NOTE | 2017-07-31 18:12 | NUR ---
ADMINISTERED XARELTO AFTER DINNER ORDERED. PT TOLERATED WELL. PT CLAIMS HE IS ALL BETTER. WILL CONTINUE TO MONITOR PT.
--- NOTE | 2017-07-31 19:34 | NUR ---
ENDORSED TO THE NIGHTSHIFT NURSE AT BEDSIDE FOR CONTINUITY OF CARE. PT IS IN STABLE CONDITION.
--- NOTE | 2017-07-31 19:39 | NUR ---
RECEIVED FROM AM RN AWAKE AND ALERT. ABLE TO VERBALIZE NEEDS WELL. NO SOB. DENIES ANY PAIN AT THIS T GUERRERO. STANDING UP BESIDE BED STRADDLING HIMSELF WITH A PILLOW BESIDE BED. " I AM COMFORTABLE WITH THIS POSITION." CALL LIGHT WITH IN REACH. CARE PLANS FOR TH ENIGHT DISCUSSED WITH HIM. TELEMETRY MONITORING.
--- NOTE | 2017-07-31 20:00 | NUR ---
RECEIVED PATIENT ON ROOM AIR. O2 SAT 97%. SCHEDULED BREATHING TX ADMINISTERED. PT TOLERATED TX WELL, NO ADVERSE SIDE EFFECTS. NO RESPIRATORY DISTRESS NOTED AT THIS TIME. WILL CONTINUE TO MONITOR.
[2017-07-31] MEDS ORDERED: SPIRONOLACTONE 50 MG TAB PO SCH (21:00)
[2017-07-31 21:43] VITALS: BP 132/98
[2017-07-31] MEDS: CARVEDILOL 6.25 MG TAB PO SCH (21:50)
--- NOTE | 2017-07-31 22:30 | NUR ---
PT. AWAKE AT THIS TIME AND WATCHING TV. CALL LIGHT WITH IN REACH. NO SOB. DENIES PAIN AT THIS TIME. ABLE TO AMBULATE BY HIMSELF. PITTING EDEMA TO BOTH LOWER EXTREMITIES+2. WITH BREATHING TREATMENTS FROM RESPIRATORY THERAPISTS.
[2017-07-31] MEDS: NACL 0.9% 1,000 ML IV SCH (23:26)
--- NOTE | 2017-07-31 23:31 | NUR ---
SCHEDULED BREATHING TX ADMINISTERED. NO RESPIRATORY DISTRESS NOTED AT THIS TIME. WILL CONTINUE TO MONITOR.
[2017-08-01 00:43] VITALS: BP 130/92
--- NOTE | 2017-08-01 01:30 | NUR ---
SLEEPING WELL. ABLE TO USE CALL LIGHT FOR HELP. ON ROOM AIR. REFUSING 02 AT THIS TIME. 02 SAT 90. "I AM OK" ENCOURAGED TO CALL IF HE NEEDS HELP. "OJK"
[2017-08-01] MEDS: ALBUTEROL SULFATE/IPRATROPIU 3 ML SOL IH SCH ×6 (03:19→22:51)
--- NOTE | 2017-08-01 03:19 | NUR ---
SCHEDULED BREATHING TX ADMINISTERED. NO RESPIRATORY DISTRESS NOTED AT THIS TIME. WILL CONTINUE TO MONITOR.
[2017-08-01 03:41] VITALS: BP 131/89
--- NOTE | 2017-08-01 03:55 | NUR ---
WOKE UP EASILY WHEN VITAL SIGN TAKEN. NO COMPLAINTS . WENT BACK TO SLEEP IN A SITTING UP POSITION AT THIS TIME. TELEMETRY MONITORING. DENIES PAIN AT THIS TIME.
[2017-08-01 06:26] LABS: BASOPHILS # (AUTO) 0.1 K/uL (0.00-0.22); BASOPHILS % (AUTO) 0.7 % (0.0-2.0); EOSINOPHILS # (AUTO) 0.1 K/uL (0-0.4); EOSINOPHILS % (AUTO) 0.8 % (0.0-4.0); HEMATOCRIT 34.7 % (36-52); LYMPHOCYTES % (AUTO) 14.3 % (20.5-51.1); MEAN CORPUSCULAR HEMOGLOBIN 29 pg (27-31); MEAN CORPUSCULAR HGB CONC 32 g/dL (33-37); MEAN CORPUSCULAR VOLUME 90.3 fL (80-94); MONOCYTES # (AUTO) 0.9 K/uL (0.8-1.0); MONOCYTES % (AUTO) 12.8 % (1.7-9.3); NEUTROPHILS % (AUTO) 71.4 % (42.2-75.2); PLATELET COUNT (AUTO) 282 K/uL (140-450); RED BLOOD CELL COUNT(AUTO) 3.84 MIL/uL (4.20-6.10); RED CELL DISTRIBUTION WIDTH 15.3 % (11.6-13.7)
[2017-08-01 06:40] LABS: ANION GAP 11.8 (8-16); CARBON DIOXIDE 29.7 mmol/L (21-32); POTASSIUM 5.5 mmol/L (3.5-5.1)
--- NOTE | 2017-08-01 06:42 | NUR ---
PT. AWAKE AT THIS TIME. WATCHING TV. NO COMPLAINTS DONE. TELEMETRY MONITORING. USES CALL LIGHT FOR ANY HELP HE MAY NEED. DENIES PAIN AT THIS TIME.
[2017-08-01 06:48] LABS: MAGNESIUM 2.1 mg/dL (1.8-2.4); PHOSPHORUS 3.5 mg/dL (2.5-4.9)
--- NOTE | 2017-08-01 07:29 | NUR ---
RECEIVED REPORT FROM COMMERCIAL CREDIT HEAD RN. PATIENT IS SLEEPING AT THIS TIME BUT AWAKES TO NAME. NO SIGNS AND SYMPTOMS OF ACUTE DISTRESS NOTED AT THIS TIME. ON ROOM AIR. HAS IV TO THE LEFT FOREARM 20G, NS INFUSING AT 10 ML/HR. SITE IS CLEAN, DRY, PATENT AND INTACT. BED IN LOWEST POSITION, SIDE RAILS UP X2, CALL LIGHT PLACED WITHIN REACH. WILL CONTINUE TO MONITOR.
[2017-08-01 08:00] VITALS: BP 149/108
[2017-08-01] MEDS ORDERED: SODIUM POLYSTYRENE 15 GM/60 ML UDBTL PO SCH (08:25)
[2017-08-01] MEDS: FERROUS SULFATE 300 MG/5 ML UDC PO SCH ×2 (09:07→21:34)
[2017-08-01] MEDS: CARVEDILOL 6.25 MG TAB PO SCH ×2 (09:07→21:34)
[2017-08-01] MEDS: AMIODARONE 200 MG TAB PO SCH ×2 (09:07→21:34)
[2017-08-01] MEDS: SPIRONOLACTONE 50 MG TAB PO SCH (09:08)
--- NOTE | 2017-08-01 11:19 | NUR ---
[place]EXALATE GIVEN TO PATIENT. TOLERATED WELL. WILL CONTINUE TO MONITOR.
[2017-08-01 12:00] VITALS: BP 150/109
[2017-08-01] MEDS ORDERED: ALBU0.0912 IH (12:02)
[2017-08-01] MEDS ORDERED: CARV6.252 PO (12:02)
--- NOTE | 2017-08-01 13:00 | NUR ---
Network Technology Instructor Notes: These health underwriter met with patient to discuss response form [facility] homeless and mental health program declined his acceptance due to Patient's criminal record information found. Patient denied information been accurate initially however; after I discuss with him his limited resources, due to his background he open up and agreed that he needed to follow thought with his important matters and legal documents. After I heard his frustrations with the system I informed patient of resource [facility] in [place] with who they work, and provide services with individuals with mental health, medical needs who need housing and have Probation background. Patient was appreciative and thanked me for my assistance; accepted the resource to CHOICE program and agreed to follow up after his discharge from [facility].
[2017-08-01] MEDS ORDERED: FUROSEMIDE 40 MG/4 ML VIAL IVP SCH (14:00)
--- NOTE | 2017-08-01 14:29 | NUR ---
PATIENT WANTED TO SIT IN HIS CHAIR AND TAKE A NAP. PLACED CHAIR NEXT TO WINDOW, CLOSED THE BLINDS AND PATIENT ELEVATED HIS LEGS ON THE BED. PLACED CALL LIGHT WITH PATIENT. WILL CONTINUE TO MONITOR.
[2017-08-01 14:41] LABS: ANION GAP 11.6 (8-16); CARBON DIOXIDE 29.6 mmol/L (21-32); CREATININE 1.1 mg/dL (0.7-1.3); POTASSIUM 4.2 mmol/L (3.5-5.1)
[2017-08-01] MEDS ORDERED: SODIUM FERRIC GLUCONATE 125 MG in NACL 0.9% 100 ML IV SCH (15:00)
--- NOTE | 2017-08-01 15:01 | NUR ---
1230 SPOKE WITH NITA FROM [facility] AND SHE STATED THAT THEY WILL BE UNABLE TO DELIVER PT'S MEDICATIONS TODAY THERE WAS A DELAY IN RECEIVING ONE OF THE MEDICATIONS FROM THEIR SUPPLIER TODAY. NITA DID APOLOGIZE AND STATED THAT IF THE MEDICATION IS RECEIVED TODAY SHE WILL HAVE IT DELIVERED TO [facility] EVEN IF IT IS AFTER HOURS. DR OLIVARES INFORMED AND ALSO PT WAS INFORMED. ALSO SPOKE WITH PT REGARDING DISCHARGE TODAY AND PT WAS RESISTANT. INFORMED PT THAT HE HAS BEEN GIVEN RESOURCES AND HE NEEDS TO UTILIZE THEM AND MAKE AN ATTEMPT TO FOLLOW UP ON HIS OWN. SUGGESTED THAT PT GO TO A FPC AND HE DID AGREE AND INFORMED HIM THAT THE [facility] IN [place] IS AVAILABLE AND THAT HE DOES NEED TO BE THERE TOMORROW BY 4PM. PT THEN STATED THAT HE DOES PLAN ON GOING TO THE WELFARE OFFICE IN [place] TO SEEK ASSISTANCE.
--- NOTE | 2017-08-01 15:26 | NUR ---
1503 CALLED [facility] [phone] AND SPOKE WITH ANTONINA AND PROVIDED INFORMATION THAT PT NEEDS A BARIATRIC GURNEY TRANSPORT WITH O2 AT 2L. AND PROVIDED DESTINATION OF [facility] ROOM 188. PROVIDED MAURICE AUTHORIZATION NUMBER [id number] AND ALSO PROVIDED [facility] UNIT CONTACT NUMBER AND REQUESTED THAT THE BE UNIT BE NOTIFIED OF WHAT COMPANY WILL BE PICKING PT UP AND WHAT TIME. Addendum: 08/02/17 at 0854 by Yusra Leary CM ENTERED ON WRONG PATIENT
[2017-08-01 16:00] VITALS: BP 123/101
--- NOTE | 2017-08-01 16:05 | NUR ---
INFORMED PATIENT THAT HIS O2 SATURATION WAS AT 89% BUT DIDN'T WANT TO WEAR THE OXYGEN.
--- NOTE | 2017-08-01 16:50 | NUR ---
PATIENT HAVING BOWEL MOVEMENT.
[2017-08-01] MEDS: RIVAROXABAN 10 MG TAB PO SCH (17:41)
--- NOTE | 2017-08-01 19:20 | NUR ---
ENDORSED PATIENT TO BRANCH SERVICE LEADER RN FOR CONTINUITY OF CARE. PATIENT IN STABLE CONDITION.
--- NOTE | 2017-08-01 19:25 | NUR ---
RECEIVED REPORT FROM DAY SHIFT NURSE NATALIE-GELA. PATIENT IS RESTING AT THIS TIME. AOX4, ON ROOM AIR AND REFUSING HIS NASAL CANNULA. HAS IV TO THE LEFT FOREARM 20G, NS INFUSING AT 10 ML/HR. SITE IS CLEAN, DRY, PATENT AND INTACT. NO S/S OF RESPIRATORY DISTRESS OR DISCOMFORT NOTE AT THIS TIME. DISCUSSED PLAN OF CARE AND PT VERBALIZED UNDERSTANDING. BED IN LOWEST POSITION, SIDE RAILS UP X2, BED BREAKS ON. BED SIDE TABLE AND CALL LIGHT PLACED WITHIN REACH. UPDATED WHITE BOARD. WILL CONTINUE TO MONITOR.
[2017-08-01 20:00] VITALS: BP 148/109
--- NOTE | 2017-08-01 21:35 | NUR ---
SCHEDULED MEDICATION GIVEN AND TOLERATED WELL. NO S/S OF RESPIRATORY DISTRESS OR DISCOMFORT AT THIS TIME. WILL CONTINUE TO MONITOR.
[2017-08-01] MEDS: NACL 0.9% 1,000 ML IV SCH (23:26)
[2017-08-02] VITALS: BP 115/88
--- NOTE | 2017-08-02 | NUR ---
VITAL SIGN TAKEN AND TOLERATED WELL. WILL CONTINUE TO MONITOR.
--- NOTE | 2017-08-02 02:25 | NUR ---
RECEIVED PATIENT LYING ON BED ASLEEP. FALL PRECAUTION IMPLEMENTED. CALL LIGHT WITHIN REACH. WILL CONTINUE TO MONITOR.
--- NOTE | 2017-08-02 02:25 | NUR ---
ENDORSED PT CARE TO SKIVER MACHINE NURSE ISAIAS FOR CONTINUITY OF CARE. PT STABLE AT THIS TIME.
[2017-08-02] MEDS: ALBUTEROL SULFATE/IPRATROPIU 3 ML SOL IH SCH ×2 (02:57→06:48)
[2017-08-02 04:00] VITALS: BP 144/108
--- NOTE | 2017-08-02 05:20 | NUR ---
SEEN PATIENT AWAKE SITTING ON BED . CALL PRECAUTION IMPLEMENTED. CALL LIGHT WITHIN REACH. NO S/S OF DISTRESS NOTED AT THIS TIME. WILL CONTINUE TO MONITOR.
[2017-08-02 06:45] LABS: BASOPHILS # (AUTO) 0.1 K/uL (0.00-0.22); BASOPHILS % (AUTO) 0.9 % (0.0-2.0); EOSINOPHILS # (AUTO) 0.1 K/uL (0-0.4); EOSINOPHILS % (AUTO) 1.3 % (0.0-4.0); HEMOGLOBIN 11.3 g/dL (12.0-18.0); LYMPHOCYTES # (AUTO) 1.1 K/uL (2.0-11.5); LYMPHOCYTES % (AUTO) 14.9 % (20.5-51.1); MEAN CORPUSCULAR HEMOGLOBIN 29 pg (27-31); MEAN CORPUSCULAR HGB CONC 32 g/dL (33-37); MEAN CORPUSCULAR VOLUME 89.8 fL (80-94); MONOCYTES % (AUTO) 12.6 % (1.7-9.3); NEUTROPHILS # (AUTO) 5.4 K/uL (1.8-7.7); NEUTROPHILS % (AUTO) 70.3 % (42.2-75.2); PLATELET COUNT (AUTO) 306 K/uL (140-450); RED BLOOD CELL COUNT(AUTO) 3.89 MIL/uL (4.20-6.10); RED CELL DISTRIBUTION WIDTH 15.3 % (11.6-13.7); WHITE BLOOD COUNT (AUTO) 7.6 K/uL (4.8-10.8)
--- NOTE | 2017-08-02 07:30 | NUR ---
ENDORSEMENT GIVEN TO AM SHIFT NURSE FOR CONTINUITY OF CARE. PATIENT IN STABLE CONDITION.
--- NOTE | 2017-08-02 07:45 | NUR ---
PATIENT AWAKE, ALERT, SITTING ON THE BED. RESPIRATION EVEN, UNLABOR ON ROOM AIR. SKIN DRY AND WARM. IV PATENT AND INTACT. PATIENT HAD A DIFFICULT TIME STAYING AWAKE, COMPLAINED OF NOT BEING ABLE TO SLEEPING FOR 5 DAYS, AND NOT FEELING WELL. DENIED ANY PAIN, SOB, N/V AT THIS TIME. VS IS TAKEN. PLAN OF CARE WAS DISCUSSED WITH PATIENT. BED AT LOW POSITION, SIDE RAILS UP. CALL LIGHT WITHIN REACH
[2017-08-02 08:00] VITALS: BP 144/102
--- NOTE | 2017-08-02 08:21 | NUR ---
PATIENT AWAKE, ALERT, ORIENTED, REQUESTING TO LEAVE AMA. RISKS WERE EXPLAINED TO THE PATIENT. PATIENT SIGNED AMA FORM. DR. MATTHEWS WAS MADE AWARE. IV WAS REMOVED, CATHETER INTACT, NO ACTIVE BLEEDING SEEN. SHELL FREEZING MACHINE OPERATOR WAS REMOVED, PATIENT TOLERATED WELL. ID BAND WAS REMOVED
--- NOTE | 2017-08-02 09:31 | NUR ---
PATIENT WAS ESCORTED OUT BY SECURITY. PATIENT IS STABLE AT THIS TIME
[2017-08-02 10:53] LABS: MAGNESIUM 2.2 mg/dL (1.8-2.4); PHOSPHORUS 3.7 mg/dL (2.5-4.9)
[2017-08-02 11:13] LABS: ANION GAP 13.2 (8-16); CARBON DIOXIDE 29.8 mmol/L (21-32); CREATININE 1.1 mg/dL (0.7-1.3)
== END 2017-08-02 09:30 | disposition left against medical advice (07) | DRG 133 ==
LOC: MED 19:58 → MTU 23:31
PROVIDERS: ADMIT Family Medicine Sports Medicine; ATTEND Family Medicine Sports Medicine
DX: J96.01 Acute respiratory failure with hypoxia (principal); I46.9 Cardiac arrest, cause unspecified; N17.0 Acute kidney failure with tubular necrosis; E83.42 Hypomagnesemia; I42.9 Cardiomyopathy, unspecified; I27.81 Cor pulmonale (chronic); I50.9 Heart failure, unspecified; I11.0 Hypertensive heart disease with heart failure; I48.92 Unspecified atrial flutter; F12.90 Cannabis use, unspecified, uncomplicated; R80.9 Proteinuria, unspecified; D64.9 Anemia, unspecified; E66.9 Obesity, unspecified; E87.6 Hypokalemia; G47.33 Obstructive sleep apnea (adult) (pediatric); E11.9 Type 2 diabetes mellitus without complications; K74.60 Unspecified cirrhosis of liver; I25.10 Atherosclerotic heart disease of native coronary artery without angina pectoris; N50.89 Other specified disorders of the male genital organs; R74.8 Abnormal levels of other serum enzymes; Z53.21 Procedure and treatment not carried out due to patient leaving prior to being seen by health care provider; Z91.19 Patient's noncompliance with other medical treatment and regimen; Z59.0 Homelessness; Z68.34 Body mass index [BMI] 34.0-34.9, adult; Z79.899 Other long term (current) drug therapy; Z71.51 Drug abuse counseling and surveillance of drug abuser
CPT/HCPCS: 36415; 71045; 76700; 80048; 80053; 80305; 81001; 82150; 83036; 83540; 83605; 83690; 83735; 83880; 84100; 84436; 84443; 84479; 84484; 85025; 85610; 85730; 87040; 87081; 87086; 93005; 94640; 96365; 96376; 99285; G0482; J1940; J2916; J3475; J3490; J7030; J7060; J7620

== ENCOUNTER 2017-08-09 10:26 | Inpatient (IN) | payer MEDICAID ==
[~2017-08-09] VITALS: Ht 175.3 cm; Wt 117.9 kg
[~2017-08-09 10:26] MED LIST changes: +ALBU0.0912 IH; +CARV6.252 PO
--- NOTE | 2017-08-09 10:27 | NUR ---
Patient BIBA to bed 4 at this time.
[2017-08-09 10:30] VITALS: BP 153/108
--- NOTE | 2017-08-09 10:36 | NUR ---
Note undone in EDM - 08/09/17 at 1042 by MEDMKD PT BIBA C/O "DIFFICULTY WALKING." PT IS AAOX4, ANSWERING QUESTIONS IN FULL SENTENCES, CLEAR SPEECH, FACIAL SYMMTRY, WITH EQUAL BUSINESS PROCESS SPECIALIST/PUSHES, PERRLA. PT PLACED ON ALL MONITORS, VSS. PT REPORTS LEGS ARE WEAK AND HEAVY, MAKING WALKING VERY DIFFICULT. PTS LEGS HAVE ASHY DRY SKIN, NO EDEMA, 2+ BILAT PEDAL PULSES, STRONG PUSHES BILAT. PT FOLLOWS COMMANDS WELL. DENIES N/V/D, DENIES SOB OR CP. PT REPORTS ABD DISTENTION MORE THAN NORMAL, DENIES PAIN. ABD NON TENDER, BUT FIRM AND DISTENDED. NAD NOTED/STATED OTHERWISE, PLACED ON 2L O2 VIA NC. PENDING MD WALDEN
--- NOTE | 2017-08-09 10:36 | NUR ---
PT BIBA C/O "DIFFICULTY WALKING." PT IS AAOX4, ANSWERING QUESTIONS IN FULL SENTENCES, CLEAR SPEECH, FACIAL SYMMTRY, WITH EQUAL REGIONAL OPERATIONS DIRECTOR/PUSHES, PERRLA. PT PLACED ON ALL MONITORS, TACHY AT 120 BPM, HYPERTENSIVE AT 158/108. PT REPORTS LEGS ARE WEAK AND HEAVY, MAKING WALKING VERY DIFFICULT. PTS LEGS HAVE ASHY DRY SKIN, NO EDEMA, 2+ BILAT PEDAL PULSES, STRONG PUSHES BILAT. PT FOLLOWS COMMANDS WELL. DENIES N/V/D, DENIES SOB OR CP. PT REPORTS ABD DISTENTION MORE THAN NORMAL, DENIES PAIN. ABD NON TENDER, BUT FIRM AND DISTENDED. NAD NOTED/STATED OTHERWISE, PLACED ON 2L O2 VIA NC. PENDING MD WALDEN
--- NOTE | 2017-08-09 10:39 | NUR ---
REPORT RECIEVED FROM [facility] WITH GELA FUNK AT BEDSIDE
--- NOTE | 2017-08-09 10:41 | NUR ---
PT ADMITS TO NOT TAKING PRESCRIBED MEDICATION FOR DM, HTN AND CHF FOR 1 WEEK, STATES HIS DOCTOR DID NOT GIVE HIM A REFILL AND HE AHSNT HAD AN APPOINTMENT RECENTLTY.
[2017-08-09] MEDS ORDERED: ENALAPRILAT 2.5 MG/2 ML VIAL IVP ONE (10:55)
[2017-08-09] MEDS ORDERED: FUROSEMIDE 100 MG/10 ML VIAL IVP ONE (10:55)
[2017-08-09] MEDS ORDERED: ASPIRIN 325 MG TAB PO ONE (10:55)
[2017-08-09] MEDS ORDERED: SPIRONOLACTONE 25 MG TAB PO ONE (10:55)
[2017-08-09] MEDS ORDERED: ONDANSETRON 4 MG/2 ML VIAL IVP ONE (10:55)
[2017-08-09] MEDS ORDERED: NITROGLYCERIN 2% 1 GM PKT TP ONE (10:55)
[2017-08-09 11:17] LABS: BASOPHILS # (AUTO) 0.1 K/uL (0.00-0.22); EOSINOPHILS # (AUTO) 0.1 K/uL (0-0.4); HEMATOCRIT 31.9 % (36-52); HEMOGLOBIN 10.1 g/dL (12.0-18.0); LYMPHOCYTES # (AUTO) 0.8 K/uL (2.0-11.5); LYMPHOCYTES % (AUTO) 12.4 % (20.5-51.1); MEAN CORPUSCULAR HEMOGLOBIN 29 pg (27-31); MEAN CORPUSCULAR HGB CONC 32 g/dL (33-37); MEAN CORPUSCULAR VOLUME 90.4 fL (80-94); MONOCYTES # (AUTO) 0.7 K/uL (0.8-1.0); MONOCYTES % (AUTO) 10.9 % (1.7-9.3); NEUTROPHILS % (AUTO) 74.7 % (42.2-75.2); PLATELET COUNT (AUTO) 270 K/uL (140-450); RED BLOOD CELL COUNT(AUTO) 3.53 MIL/uL (4.20-6.10); RED CELL DISTRIBUTION WIDTH 16.2 % (11.6-13.7); WHITE BLOOD COUNT (AUTO) 6.7 K/uL (4.8-10.8)
--- NOTE | 2017-08-09 11:21 | NUR ---
PT PLACED ON BIPAP BY RT.
--- NOTE | 2017-08-09 11:22 | NUR ---
Lauren maldonado in ED - 08/09/17 at 1126 by ANGIEKD PT PLACED ON BIPAP BY RT. GAMEZ IN PROGRESS
[2017-08-09 11:28] VITALS: BP 157/109
--- NOTE | 2017-08-09 11:35 | NUR ---
URINAL EMPTIED WITH 400ML OF CLEAR YELLOW URINE
--- NOTE | 2017-08-09 11:36 | NUR ---
RECIVED PT IN BED 3 ER ON 2LPM NC SPO2 .96 PT [address] BRE[address]ING [address] GAFFNEY ORDERED BPAP PT PLACED OON BIPAP WITH SETTINGS CHARTED PT AWAKE ALERT YOSSI BIPAP WELL AT THIS TIME BIPAP PLUGGED INTO RED OUTLET AMBU BAG AT BEDSIDE WILL CONTINUE TO MONITOR PT ON BIPAP PT UP AND DOWN URINATING GELA LENZ AWARE
[2017-08-09 11:39] LABS: CREATININE 0.9 mg/dL (0.7-1.3)
[2017-08-09 11:40] LABS: PROTHROMBIN TIME 12.7 secs (10.8-13.4)
[2017-08-09] MEDS ORDERED: NACL 0.9% 1,000 ML IV SCH (11:42)
[2017-08-09] MEDS ORDERED: ACETAMINOPHEN 325 MG TAB PO PRN (11:45)
[2017-08-09] MEDS ORDERED: ZOLPIDEM 5 MG TAB PO PRN (11:45)
--- NOTE | 2017-08-09 11:48 | NUR ---
EMPTIED 400ML FROM URINAL - CLEAR YELLOW URINE
[2017-08-09] MEDS ORDERED: HEPARIN PER PHARMACY MC PRN (11:50)
[2017-08-09 11:54] LABS: ALBUMIN 3.2 g/dL (3.4-5.0); FREE T4 (FREE THYROXINE) 1.01 ng/dL (0.76-1.46); THYROID STIMULATING HORMONE 5.77 uIU/mL (0.34-3.74); TOTAL BILIRUBIN 1.5 mg/dL (0.0-1.0)
--- NOTE | 2017-08-09 12:12 | NUR ---
DR LYN (RESIDENT) AT BEDSIDE TO IRAM
--- NOTE | 2017-08-09 12:16 | NUR ---
900ML OF CLEAR YELLOW URINE EMPTIED OUT OF URINAL
--- NOTE | 2017-08-09 12:35 | NUR ---
Patient will be admitted to care of [facility]. Admited to TELE. Will go to [id number]. Belongings list completed. Report to YAYA REN.
[2017-08-09] MEDS: ALBUTEROL SULFATE/IPRATROPIU 3 ML SOL IH SCH ×2 (12:39→19:23)
--- NOTE | 2017-08-09 12:40 | NUR ---
RECEIVED PT ON UNIT [facility]IA [facility], PT IS AAOX4, AMBULATES WITH ASSIST, IV IS ON THE LEFT FA, PATENT, INTACT, FLUSHING WELL, PT IS HAVING LABORED BREATHING, PT SKIN IS INTACT, DISCUSSED PLAN OF CARE WITH PT, PT VERBALIZED UNDERSTANDING, ORIENTED PT TO ROOM, SAFETY/FALL PRECAUTIONS ARE IN PLACE, CALL LIGHT IS WITHIN REACH, WILL CONTINUE TO MONITOR.
--- NOTE | 2017-08-09 12:46 | NUR ---
PT PLACED ON 3L NC. PT STATING HE IS NOT SOB AT THIS TIME. WILL MONITOR PT OFF BIPAP. MADE AWARE OF MODALITY CHANGE. BREATHING TX ADMINISTERED.
[2017-08-09 12:50] LABS: APPEARANCE,URINE CLEAR (CLEAR); BILIRUBIN,URINE NEGATIVE (NEGATIVE); BLOOD, URINE NEGATIVE (NEGATIVE); COLOR,URINE YELLOW (YELLOW); LEUKOCYTE ESTERASE ,URINE NEGATIVE (NEGATIVE); NITRITE, URINE NEGATIVE (NEGATIVE); UGLUCOSE NEGATIVE (NEGATIVE)
[2017-08-09 13:24] LABS: PROTHROMBIN TIME 12.8 secs (10.8-13.4)
[2017-08-09 13:34] LABS: FREE T4 (FREE THYROXINE) 0.99 ng/dL (0.76-1.46); PHOSPHORUS 3.7 mg/dL (2.5-4.9); THYROID STIMULATING HORMONE 6.52 uIU/mL (0.34-3.74)
[2017-08-09 13:36] LABS: RBC,URINE NONE SEEN /HPF (0-5); WBC,URINE NONE SEEN /HPF (0-5)
--- NOTE | 2017-08-09 13:40 | NUR ---
POST ABG PLACED PT ON .40 VENTI MASK PT WITH MILD HYPOXIMA DR HOGAN AWARE SPO2 .94 TO .98 PT IN STOMACH PAIN RN AWARE
[2017-08-09] MEDS: hePARIN / DEXT 5% PREMIX 250 ML IV SCH (14:49)
[2017-08-09] MEDS ORDERED: CARVEDILOL 6.25 MG TAB PO SCH ×2 (16:00→21:00)
[2017-08-09] MEDS ORDERED: AMIODARONE 200 MG TAB PO SCH (16:00)
[2017-08-09] MEDS ORDERED: SPIRONOLACTONE 50 MG TAB PO SCH (16:00)
[2017-08-09] MEDS ORDERED: FERROUS SULFATE 300 MG/5 ML UDC PO SCH (16:00)
--- NOTE | 2017-08-09 17:24 | NUR ---
PT REFUSED TO SIGN CONSENT FOR CT-SCAN WITH CONTRAST AT THIS TIME. PT STATED, "I HAD ENOUGH PROCEDURES FOR TODAY, I WILL SIGN LATER." I EDUCATED THE PATIENT REGARDING THE CT-SCAN AND THE REASON IT WAS BEING ORDERED. PT STILL REFUSED.
--- NOTE | 2017-08-09 18:28 | NUR ---
PT ON 3LPM NC SPO2 .94
--- NOTE | 2017-08-09 19:20 | NUR ---
PT SITTING UP ON SIDE OF BED AND ON ROOM AIR WHEN ENTERED ROOM. SPO2 89%. B/S: CLEAR. RATE 24 AND PT APPEARS TO HAVE LABORED BREATHING. PT IS AWAKE AND ALERT. COMPLETED MASK TX OF DUONEB THAT PT TOLERATED WELL WITH NO ADVERSE EFFECTS. ADVISED PATIENT TO LEAVE NASAL CANNULA ON AT 3L/M.
--- NOTE | 2017-08-09 19:30 | NUR ---
RECEIVED REPORT FROM [facility] NURSE FOR CONTINUITY OF CARE. PT AAOX4. PT IV NOTED RFA ON HEPARIN DRIP STARTED 1449 RUNNING AT 1600U/HR AKA: 16ML/HR. PT HAS NO SOB NO S/S OF DISTRESS ON 3L NC. BED LOWERED CALL LIGHT WITHIN REACH. WILL CONTINUE TO MONITOR.
[2017-08-09 19:57] VITALS: BP 128/91
[2017-08-09] MEDS: FERROUS SULFATE 300 MG/5 ML UDC PO SCH (20:13)
[2017-08-09] MEDS: DOCUSATE SODIUM 100 MG GELCAP PO SCH (20:14)
[2017-08-09] MEDS: CARVEDILOL 6.25 MG TAB PO SCH (20:14)
[2017-08-09] MEDS: AMIODARONE 200 MG TAB PO SCH (20:14)
--- NOTE | 2017-08-09 21:45 | NUR ---
RECEIVED CALL FROM LAB WITH UPDATED PTT. PTT 63.7. CHECKED EMAR FOR DOSAGE. PTT 46-70 = NO CHANGE. WILL CONTINUE TO MONITOR.
[2017-08-09] MEDS: ALBUTEROL SULFATE/IPRATROPIU 3 ML SOL IH PRN (22:59)
--- NOTE | 2017-08-09 23:20 | NUR ---
COMPLETEDDUONEB TREATMENT @2258. SPO2 98 BUT PATIENT IS A MOUTH BREATHER WHICH IS CAUSING HIM TO DESAT. PLACED PATIENT ON VENTURI MASK OF 15LPM 50% BUT PATIENT WAS VERY LETHARGIC. PLACED ON BIPAP @2326 SPO2 99 HEART RATE 116. WILL CONTINUE TO MONITOR.
[2017-08-10] VITALS (7 sets, daily range): BP systolic 107–158; BP diastolic 71–117
--- NOTE | 2017-08-10 00:18 | NUR ---
CHANGED BIPAP SETTINGS TO 02/20 RATE 12 FIO2 35% PER ORDERS FROM DR. BERRY.
[2017-08-10] MEDS: ALBUTEROL SULFATE/IPRATROPIU 3 ML SOL IH PRN (01:38)
[2017-08-10] MEDS: ALBUTEROL SULFATE/IPRATROPIU 3 ML SOL IH SCH ×3 (06:00→18:49)
--- NOTE | 2017-08-10 06:24 | NUR ---
REC'D PT ON JOSE BIPAP SETTINGS 02/20 RR12 FIO2 35% ALARMS ON AND AUDIBLE AND FUNCTIONING PROPERLY, AMBU BAG AT SIDE OF BIPAP AND BIPAP IS PLUGGED INTO RED OUTLET, NO HHN GIVEN PT IS SLEEPING WITH NO SIGNS OF DISTRESS NOTED AT THIS TIME, B\S ARE COARSE BILATERALLY, PT IS WEARING FACE MASK LARGE AND SKIN INTEGRITY IS INTACT
--- NOTE | 2017-08-10 06:39 | NUR ---
PATIENT HAS BEEN SCREENED AND CATEGORIZED MODERATE NUTRITION RISK. PATIENT WILL BE SEEN WITHIN 3-5 DAYS OF ADMISSION. 08/11/17-08/13/17 NORMA SMITH MS, RDN
--- NOTE | 2017-08-10 07:19 | NUR ---
PT TOOK BIPAP OFF AND WOULD NOT PUT BIPAP BACK ON SO I PLACED PT ON VENTI MASK AT 50% AT 15L
[2017-08-10] MEDS: hePARIN / DEXT 5% PREMIX 250 ML IV SCH (07:47)
--- NOTE | 2017-08-10 07:47 | NUR ---
PT IS AWAKE LYING ON THE BED, INSULATION WORKER NURSERALF HANG [place]OTHER HEPARIN BAG [place] [address] UNITS/HR.
--- NOTE | 2017-08-10 07:56 | NUR ---
GAVE REPORT TO DAYSHIFT NURSE AT BEDSIDE FOR CONTINUITY OF CARE.
--- NOTE | 2017-08-10 08:00 | NUR ---
RECEIVED REPORT ABOUT THE PT FROM SCORING MACHINE OPERATOR NURSERALF, PT IS AWAKE LYING ON THE BED, WITH A BIPAP BUT PT REFUSED TO HAVE IT PLACED ON HIM, [place] [address] UNITS/HR AT RIGHT FA. SIDE RAILS ARE UP AND CALL LIGHT WITHIN REACH. NO SIGN OF DISTRESS NOTED AT THIS TIME. WILL CONTINUE TO MONITOR.
--- NOTE | 2017-08-10 08:10 | NUR ---
PT IS AWAKE AND VITAL SIGNS TAKEN, SIDE RAILS ARE UP AND CALL,LIGHT WITHIN REACH., PT ALLOWED THE BIPAP TO BE PLACED ON HIM. NO SIGN OF DISTRESS NOTED AND WILL CONTINUE TO MONITOR.
--- NOTE | 2017-08-10 08:18 | NUR ---
FLIGHT TECHNICIAN CALLED AND INFORMED THAT SHE WAS NOT ABLE TO DRAW BLOOD FROM THE PT.
--- NOTE | 2017-08-10 08:24 | NUR ---
ASSISTED PT WHO SAT ON THE EDGE OF THE BED AND PUT ON GOWN AND PT WAS MADE COMFORTABLE ON THE BED, PT REFUSED TO HAVE THE BIPAP ON AND PT VERBALIZED THAT HE IS FINE. SIDE RAILS ARE UP AND CALL LIGHT WITHIN REACH. WILL CONTINUE TO MONITOR.
[2017-08-10] MEDS: DOCUSATE SODIUM 100 MG GELCAP PO SCH ×2 (08:47→20:19)
[2017-08-10] MEDS: AMIODARONE 200 MG TAB PO SCH ×2 (08:47→20:18)
[2017-08-10] MEDS: CARVEDILOL 6.25 MG TAB PO SCH ×3 (08:48→20:19)
[2017-08-10] MEDS: SPIRONOLACTONE 50 MG TAB PO SCH (08:49)
[2017-08-10] MEDS: FERROUS SULFATE 300 MG/5 ML UDC PO SCH ×2 (08:49→20:18)
[2017-08-10] MEDS: FUROSEMIDE 20 MG/2 ML VIAL IVP SCH (08:50)
[2017-08-10] MEDS ORDERED: FUROSEMIDE 40 MG/4 ML VIAL IVP SCH (09:00)
--- NOTE | 2017-08-10 09:00 | NUR ---
PT IS ASLEEP AND LYING ON THE BED, BP TAKEN AND RESULT IS 105/75., MEDICATIONS GIVEN AND PT TOLERATED IT, NO SIGN OF DISTRESS NOTED AND WILL CONTINUE TO MONITOR.
--- NOTE | 2017-08-10 09:03 | NUR ---
WENT TO CHECK ON PT, HE HAD VENTI MASK OFF AND RN WAS AT BEDSIDE GIVING PT MEDS I PLACED HIM BACK ON HIS 50% VENTI MASK AND EXPLAINED TO PT THAT IF HE WAS NOT GOING TO KEEP BIPAP ON HE NEEDED TO KEEP VENTI MASK ON.
--- NOTE | 2017-08-10 09:20 | NUR ---
ASKED PT TO SIGN THE CONSENT FOR THE CT AND CHEST ANGIOGRAPHY, WITNESSED THE PT SIGNING.
--- NOTE | 2017-08-10 09:25 | NUR ---
ASKED THE DR. MILLER TO SIGN THE CONSENT FOR THE CT AND CHEST ANGIOGRAPHY OF THE PT, DR. MILLER VERBALIZED THAT THE HEPARIN DRIP SHOULD BE WHEELED WITH THE PT, ACKNOWLEDGED AND WILL CALL RADIOLOGY.
--- NOTE | 2017-08-10 09:26 | NUR ---
CALLED RADIOLOGY AND SPOKE TO ZAYNAB, INFORMED THAT CONSENT WAS ALREADY SIGNED BY THE PT AND THAT THE PT IS ON A HEPARIN DRIP. ZAYNAB ASKED IF THE HEPARIN CAN BE STOPPED DURING THE PROCEDURE AND DR. MILLER WAS INFORMED AND ASKED ABOUT IT AND VERBALIZED THAT IT IS OK TO STOP THE HEPARIN DRIP OF THE PT DURING THE PROCEDURE.
--- NOTE | 2017-08-10 10:30 | NUR ---
INFORMED DR. MILLER IF PT CAN BE OUT FROM THE HEPARIN DRIP FOR ABOUT 10-15 MINS WHEN THE PT GOES FOR A CHEST ANGIOGRAPHY, DR. MILLER AND CHARGE NURSE, HANNAH, INFORMED OF THE PROCEDURE AND CONSENTED THAT IT IS OK FOR PT TO BE OUT OF HEPARIN DURING THE PROCEDURE.
--- NOTE | 2017-08-10 10:36 | NUR ---
PT IS OUT OF THE ROOM AND WAS TAKEN BY MIDWIFE AND BIRTH CENTER OWNER, ZAYNAB FOR A CHEST ANGIOGRAPHY AND RIDING ON A WHEELCHAIR WITH O2 PLACED ON HIM. NO SIGN OF DISTRESS NOTED ON THE PT AT THIS TIME.
--- NOTE | 2017-08-10 11:00 | NUR ---
PT GOT BACK TO THE ROOM AND MADE COMFORTABLE ON THE BED, IV LINE HOOKED UP AND HEPARIN WAS STARTED AGAIN. VITAL SIGN STABLE AND NO SIGN OF DISTRESS NOTED. CALL LIGHT WITHIN REACH AND SIDE RAILS ARE UP. WILL CONTINUE TO MONITOR.
--- NOTE | 2017-08-10 12:07 | NUR ---
PT IS ASLEEP ON A DOMIN[place]FOWLERS POSITON WITH FACE MASK ON, VITAL SIGNS TAKEN. SIDE RAILS ARE UP AND CALL LIGHT WITHIN REACH, NO SIGN OF DISTRESS NOTED AND WILL CONTINUE TO MONITOR.
--- NOTE | 2017-08-10 12:46 | NUR ---
RECEIVED A CALL FROM PHARMACIST, MARIA GUADALUPE VELAZQUEZ, INFORMING THAT THE HEPARIN WAS ALREADY DISCONTINUED FOR THE PT.
--- NOTE | 2017-08-10 12:49 | NUR ---
ACKNOWLEDGED AN ORDER FOR INCENTIVE SPIROMETRY FOR THE PT, FROM DR. MILLER.
--- NOTE | 2017-08-10 12:54 | NUR ---
SPOKE TO DR. MILLER TO CONFIRM IF HEPARIN IS BEING DISCONTINUED FOR THE PT, DR. MILLER SAID TO DISCONTINUE THE HEPARIN AND THE IVF WELL AND JUST PLACE PT ON A SALINE LOCK SINCE PT IS EATING GOOD. ORDER ACKNOWLEDGED.
--- NOTE | 2017-08-10 14:51 | NUR ---
PT IS SEATED ON THE BED AND WRITING ON A PAPER, FACE MASK STILL ON AND NO SIGN OF DISTRESS NOTED. CALL LIGHT WITHIN REACH AND WILL CONTINUE TO MONITOR.
--- NOTE | 2017-08-10 15:02 | NUR ---
pt is unable to preform IS at this time, pt is confused
--- NOTE | 2017-08-10 16:50 | NUR ---
DR. MILLER WAS INFORMED OF THE PT WANTING TO HAVE A SHOWER. DR. MILLER SPOKE TO THE PT AND ASSESSED THE PT'S O2 SAT LEVEL. PT IS ALLOWED TO TAKE A QUICK SHOWER.
--- NOTE | 2017-08-10 17:00 | NUR ---
PT WAS ASSISTED TO HAVE A SHOWER, NO SIGN OF DISTRESS NOTED. DRESSED UP AND MADE COMFORTABLE , TELE MONITOR WAS PLACED. WILL CONTINUE TO MONITOR.
[2017-08-10] MEDS ORDERED: RIVAROXABAN 10 MG TAB PO SCH (17:30)
--- NOTE | 2017-08-10 17:37 | NUR ---
PT IS SEATED ON THE CHAIR NEAR THE WINDOW WITH OXYGEN MASK ON, READING A MAGAZINE AND WATCHING TV AT THE SAME TIME, MEDICATION GIVEN AND PT TOLERATED IT. NO SIGN OF DISTRESS NOTED. WILL CONTINUE TO MONITOR.
[2017-08-10 18:37] LABS: BASOPHILS % (AUTO) 0.7 % (0.0-2.0); EOSINOPHILS # (AUTO) 0.1 K/uL (0-0.4); EOSINOPHILS % (AUTO) 1.1 % (0.0-4.0); HEMATOCRIT 37.8 % (36-52); HEMOGLOBIN 11.6 g/dL (12.0-18.0); LYMPHOCYTES % (AUTO) 15.5 % (20.5-51.1); MEAN CORPUSCULAR HEMOGLOBIN 28 pg (27-31); MEAN CORPUSCULAR HGB CONC 31 g/dL (33-37); MEAN CORPUSCULAR VOLUME 92.3 fL (80-94); MONOCYTES # (AUTO) 0.6 K/uL (0.8-1.0); MONOCYTES % (AUTO) 8.7 % (1.7-9.3); NEUTROPHILS # (AUTO) 4.7 K/uL (1.8-7.7); PLATELET COUNT (AUTO) 335 K/uL (140-450); RED CELL DISTRIBUTION WIDTH 16.6 % (11.6-13.7); WHITE BLOOD COUNT (AUTO) 6.4 K/uL (4.8-10.8)
--- NOTE | 2017-08-10 19:00 | NUR ---
SCHEDULED BREATHING TREATMENT ADMINISTERED. PATIENT TOLERATED TX WELL, NO ADVERSE SIDE EFFECTS. PATIENT ON VENTURI MASK AT FIO2 OF 40%. NO RESPIRATORY DISTRESS NOTED AT THIS TIME. WILL CONTINUE TO MONITOR.
[2017-08-10 19:09] LABS: ANION GAP 7.8 (8-16); CARBON DIOXIDE 33.3 mmol/L (21-32); CREATININE 1.2 mg/dL (0.7-1.3); POTASSIUM 4.1 mmol/L (3.5-5.1)
--- NOTE | 2017-08-10 19:10 | NUR ---
ENDORSED PT TO SPUN PASTE MACHINE OPERATOR NURSERALF FOR CONTINUITY OF CARE. PT IS AAKE AND LYING ON THE BED AND IS STABLE AT THIS TIME.
[2017-08-10 19:13] LABS: PHOSPHORUS 4.1 mg/dL (2.5-4.9)
[2017-08-10 19:22] LABS: CHOL/HDL RATIO 3.1 (1-4.5)
--- NOTE | 2017-08-10 19:30 | NUR ---
RECEIVED REPORT FROM DAYSHIFT NURSE AT BEDSIDE FOR CONTINUITY OF CARE . PT IS AAOX4. PT IS ON VENTURI MASK 12L WITH FIO2 40%. IV NOTED RFA 20G SALINE LOCK. NO SOB NO S/S OF DISTRESS. BED LOWERED CALL LIGHT WITHIN REACH. WILL CONTINUE TO MONITOR.
--- NOTE | 2017-08-10 20:48 | NUR ---
PT IS AWAKE AND RESTING IN BED NO SOB NO S/S OF DISTRESS WILL CONTINUE TO MONITOR.
--- NOTE | 2017-08-10 22:21 | NUR ---
PT SLEEPING NO SOB. NO S/S OF DISTRESS. WILL CONTINUE TO MONITOR.
--- NOTE | 2017-08-11 02:00 | NUR ---
PT IS SLEEPING. NO SOB. NO S/S OF DISTRESS. WILL CONTINUE TO MONITOR.
[2017-08-11 03:45] VITALS: BP 110/68
--- NOTE | 2017-08-11 03:49 | NUR ---
PT SLEEPING WILL CONTINUE TO MONITOR
[2017-08-11] MEDS: ALBUTEROL SULFATE/IPRATROPIU 3 ML SOL IH PRN (04:10)
[2017-08-11] MEDS: ALBUTEROL SULFATE/IPRATROPIU 3 ML SOL IH SCH ×2 (07:00→13:15)
--- NOTE | 2017-08-11 07:18 | NUR ---
GAVE REPORT TO DAYSHIFT NURSE FOR CONTINUITY OF CARE.
--- NOTE | 2017-08-11 07:19 | NUR ---
RECEIVED REPORT FROM BURNING SUPERVISOR NURSE. PATIENT LYING DOWN IN BED RECEIVING A BREATHING TREATMENT. NO DISTRESS NOTED. DENIES ANY PAIN. AAOX3, CALM, COOPERATIVE, SKIN COLOR APPROPRIATE TO ETHNICITY, WARM TO TOUCH. RESPIRATIONS EVEN, UNLABORED, ON O2 3L/MIN VIA NC. SKIN IS INTACT, HOWEVER, DRYNESS NOTED ON B/L LE AND FOOTS. ABDOMEN SOFT, OBESE. LUNGS DIMINISHED THROUGHOUT ALL LOBES. IV SITE INTACT, PATENT, ON SALINE LOCK. SCROTAL EDEMA AND B/L LE EDEMA NOTED. REVIEWED PLAN OF CARE WITH PATIENT. PATIENT VERBALIZED UNDERSTANDING. SAFETY MEASURES IN PLACE, CALL LIGHT WITHIN REACH. WILL CONTINUE TO MONITOR.
[2017-08-11 08:00] VITALS: BP 135/93
[2017-08-11] MEDS: DOCUSATE SODIUM 100 MG GELCAP PO SCH (09:19)
[2017-08-11] MEDS: SPIRONOLACTONE 50 MG TAB PO SCH (09:19)
[2017-08-11] MEDS: AMIODARONE 200 MG TAB PO SCH (09:20)
[2017-08-11] MEDS: CARVEDILOL 6.25 MG TAB PO SCH (09:21)
[2017-08-11] MEDS: FERROUS SULFATE 300 MG/5 ML UDC PO SCH (09:21)
--- NOTE | 2017-08-11 09:32 | NUR ---
PATIENT BACK FROM EGD. REPORT RECEIVED FROM OR NURSE. V/S STABLE, NO DISTRESS NOTED. IVF PLACED BACK ON PATIENT PER ORDERS. OXYGEN VIA NC ON 3L/MIN AT THIS THIS TIME S/P EGD. SAFETY MEASURES IN PLACE, CALL LIGHT WITHIN REACH, FALL PREVENTIONS IN PLACE. WILL CONTINUE TO MONITOR.
[2017-08-11] MEDS: FUROSEMIDE 20 MG/2 ML VIAL IVP SCH (09:44)
--- NOTE | 2017-08-11 10:48 | NUR ---
PATIENT LYING DOWN IN BED SLEEPING, AROUSABLE BY VOICE. NO DISTRESS NOTED. CONDITION UNCHANGED. SAFETY MEASURES IN PLACE, CALL LIGHT WITHIN REACH. WILL CONTINUE TO MONITOR.
[2017-08-11 11:18] LABS: BASOPHILS % (AUTO) 0.8 % (0.0-2.0); EOSINOPHILS # (AUTO) 0.1 K/uL (0-0.4); EOSINOPHILS % (AUTO) 1.7 % (0.0-4.0); HEMATOCRIT 34.8 % (36-52); HEMOGLOBIN 10.9 g/dL (12.0-18.0); LYMPHOCYTES # (AUTO) 0.7 K/uL (2.0-11.5); LYMPHOCYTES % (AUTO) 12.6 % (20.5-51.1); MEAN CORPUSCULAR HEMOGLOBIN 29 pg (27-31); MEAN CORPUSCULAR HGB CONC 31 g/dL (33-37); MEAN CORPUSCULAR VOLUME 91.3 fL (80-94); MONOCYTES # (AUTO) 0.5 K/uL (0.8-1.0); MONOCYTES % (AUTO) 9.5 % (1.7-9.3); NEUTROPHILS # (AUTO) 4.2 K/uL (1.8-7.7); NEUTROPHILS % (AUTO) 75.4 % (42.2-75.2); PLATELET COUNT (AUTO) 296 K/uL (140-450); RED BLOOD CELL COUNT(AUTO) 3.81 MIL/uL (4.20-6.10); RED CELL DISTRIBUTION WIDTH 16.5 % (11.6-13.7); WHITE BLOOD COUNT (AUTO) 5.6 K/uL (4.8-10.8)
[2017-08-11 11:30] LABS: ANION GAP 6.9 (8-16); CARBON DIOXIDE 34.3 mmol/L (21-32); POTASSIUM 4.2 mmol/L (3.5-5.1)
[2017-08-11] MEDS ORDERED: FURO20TA8 PO (11:31)
[2017-08-11] MEDS ORDERED: FERR325E14 PO (11:31)
[2017-08-11 11:43] LABS: MAGNESIUM 1.9 mg/dL (1.8-2.4); PHOSPHORUS 3.6 mg/dL (2.5-4.9)
[2017-08-11 12:00] VITALS: BP 105/75
--- NOTE | 2017-08-11 13:07 | NUR ---
PATIENT SITTING IN BEDSIDE CHAIR. NO DISTRESS NOTED. DENIES ANY PAIN. PROVIDED DISCHARGE INSTRUCTIONS TO PATIENT, FOLLOW-UP VISITS WITH DR. [facility], NEW/CHANGED MEDICATION REGIMEN, DIET REGIMEN, AND DISEASE MANAGEMENT OF CHF. 3 MONTHS OF MEDICATION SUPPLIES GIVEN TO PATIENT IN A PLASTIC BAG. [facility] GIVEN TO PATIENT, PATIENT SIGNED WAIVER FORM. ALL BELONGINGS WITH PATIENT. PATIENT TO BE DISCHARGED AROUND 1500 TO [facility]. WILL CONTINUE TO MONITOR AT THIS TIME.
--- NOTE | 2017-08-11 15:05 | NUR ---
PATIENT GETTING DRESSED AND READY TO LEAVE TO INTERMEDIATE. WILL CONTINUE TO MONITOR.
--- NOTE | 2017-08-11 16:50 | NUR ---
PATIENT ALL DRESSED UP AND READY TO GO TO [facility]. IV SITE REMOVED WITH MINIMAL BLOOD AND LUMEN COMPLETELY INTACT. ID BANDS REMOVED. ESCORTED PATIENT DOWN TO LOBBY VIA WHEELCHAIR. PATIENT ABLE TO AMBULATE WITH STEADY GAIT. PATIENT DISCHARGED AT THIS TIME TO [facility] VIA PUBLIC VEHICLE IN STABLE CONDITION.
== END 2017-08-11 16:50 | disposition home or self-care (01) | DRG 134 ==
LOC: MED 10:26 → MTU 11:42
PROVIDERS: ADMIT Student in an Organized Health Care Education/Training Program; ATTEND Student in an Organized Health Care Education/Training Program
PROC: 5A09357 Assistance with Respiratory Ventilation, Less than 24 Consecutive Hours, Continuous Positive Airway Pressure (ICD-10-PCS; principal; 2017-08-09)
PROC: 5A09357 Assistance with Respiratory Ventilation, Less than 24 Consecutive Hours, Continuous Positive Airway Pressure (ICD-10-PCS; 2017-08-10)
DX: I26.99 Other pulmonary embolism without acute cor pulmonale (principal); J96.01 Acute respiratory failure with hypoxia; N17.0 Acute kidney failure with tubular necrosis; I50.43 Acute on chronic combined systolic (congestive) and diastolic (congestive) heart failure; J18.9 Pneumonia, unspecified organism; I27.81 Cor pulmonale (chronic); E66.01 Morbid (severe) obesity due to excess calories; I11.0 Hypertensive heart disease with heart failure; E44.0 Moderate protein-calorie malnutrition; I48.92 Unspecified atrial flutter; K74.60 Unspecified cirrhosis of liver; E11.9 Type 2 diabetes mellitus without complications; J45.909 Unspecified asthma, uncomplicated; I25.10 Atherosclerotic heart disease of native coronary artery without angina pectoris; K72.90 Hepatic failure, unspecified without coma; I48.91 Unspecified atrial fibrillation; R26.2 Difficulty in walking, not elsewhere classified; I49.9 Cardiac arrhythmia, unspecified; F12.90 Cannabis use, unspecified, uncomplicated; R79.1 Abnormal coagulation profile; D63.8 Anemia in other chronic diseases classified elsewhere; E80.6 Other disorders of bilirubin metabolism; R74.0 Nonspecific elevation of levels of transaminase and lactic acid dehydrogenase [LDH]; R79.89 Other specified abnormal findings of blood chemistry; I89.0 Lymphedema, not elsewhere classified; E02 Subclinical iodine-deficiency hypothyroidism; E66.9 Obesity, unspecified; Z68.38 Body mass index [BMI] 38.0-38.9, adult; Z91.19 Patient's noncompliance with other medical treatment and regimen; Z86.73 Personal history of transient ischemic attack (TIA), and cerebral infarction without residual deficits; Z59.0 Homelessness; Z79.899 Other long term (current) drug therapy
CPT/HCPCS: 36415; 36600; 71045; 71275; 76705; 80048; 80053; 81001; 82150; 82550; 82803; 83690; 83735; 83880; 84100; 84439; 84443; 84479; 84484; 85025; 85379; 85610; 85730; 87081; 93005; 93925; 93970; 94640; 94660; 96374; 96375; 99285; J1644; J1940; J2405; J3490; J7030; J7620; Q0092; Q9967

== ENCOUNTER 2017-08-13 20:47 | Emergency (ER) | payer MEDICAID ==
[~2017-08-13] VITALS: Ht 175.3 cm; Wt 122.6 kg
[~2017-08-13 20:47] MED LIST changes: -CARV3.122 PO; -FER300L PO; +FERR325E14 PO; +FURO20TA8 PO
[2017-08-13 20:58] VITALS: BP 156/113
--- NOTE | 2017-08-13 22:20 | NUR ---
PT AMBULATED TO ER BED 7
--- NOTE | 2017-08-13 22:24 | NUR ---
57/M C/O SCROTAL EDEMA X1 DAY. PATIENT STATES HE STARTED SWELLING SINCE "YESTERDAY". PATIENT HAS LOWER EXTREMETY EDEMA WITHOUT PITTING, SKIN IS TIGHT, DRY, AND PEELING. PATIENT HAS ROUND, HARD STOMACH, AND SCROTAL SWELLING. PATIENT DENIES ANY PAIN AT THIS TIME. PATIENT STATES HE DOES NOT HAVE ANY MEDICAL HISTORY. PATIENT STATES HE HAD A "3 MONTH SUPPLY OF MEDICATIONS, AND WHEN I WENT TO [place] I HAD THEM ALL IN THE BASKET AND THEN THEY WERE GONE, I COULDNT FIND THEM ANYWHERE" WHEN ASKED WHAT THE MEDICATIONS WERE PATIENT COULD NOT RECALL. PATIENT IS A&OX4, LUNGS WHEEZING EXPIRATORY, BOWEL SOUNDS ARE ABSENT BUT PATIENT STATE LBM THIS MORNING AND "IT WAS A GOOD ONE". NO SIGNS OR SYMPTOMS OF ACUTE DISTRESS NOTED. ER MD MADE AWARE OF PATIENTS STATUS. WILL CONTINUE TO MONITOR.
--- NOTE | 2017-08-14 00:34 | NUR ---
PATIENTS CONTINUING TO WAIT FOR MD WALDEN
--- NOTE | 2017-08-14 01:55 | NUR ---
Dr. Wharton evaluating patient at bedside.
--- NOTE | 2017-08-14 02:10 | NUR ---
Patient appears to be resting comfortably in bed.
[2017-08-14] MEDS ORDERED: FUROSEMIDE 100 MG/10 ML VIAL IVP ONE (02:40)
[2017-08-14] MEDS ORDERED: SPIRONOLACTONE 50 MG TAB PO ONE (02:40)
[2017-08-14 03:18] LABS: BASOPHILS # (AUTO) 0.1 K/uL (0.00-0.22); BASOPHILS % (AUTO) 1.5 % (0.0-2.0); EOSINOPHILS # (AUTO) 0.1 K/uL (0-0.4); EOSINOPHILS % (AUTO) 1.9 % (0.0-4.0); HEMOGLOBIN 10.8 g/dL (12.0-18.0); LYMPHOCYTES # (AUTO) 1.1 K/uL (2.0-11.5); LYMPHOCYTES % (AUTO) 15.5 % (20.5-51.1); MEAN CORPUSCULAR HEMOGLOBIN 29 pg (27-31); MEAN CORPUSCULAR HGB CONC 32 g/dL (33-37); MEAN CORPUSCULAR VOLUME 91.4 fL (80-94); MONOCYTES % (AUTO) 14.7 % (1.7-9.3); NEUTROPHILS # (AUTO) 4.7 K/uL (1.8-7.7); NEUTROPHILS % (AUTO) 66.4 % (42.2-75.2); PLATELET COUNT (AUTO) 304 K/uL (140-450); RED BLOOD CELL COUNT(AUTO) 3.72 MIL/uL (4.20-6.10); WHITE BLOOD COUNT (AUTO) 7.1 K/uL (4.8-10.8)
[2017-08-14 03:26] LABS: ANION GAP 4.9 (8-16); CARBON DIOXIDE 36.2 mmol/L (21-32); CREATININE 0.9 mg/dL (0.7-1.3); POTASSIUM 4.1 mmol/L (3.5-5.1)
[2017-08-14 03:32] LABS: PROTHROMBIN TIME 12.6 secs (10.8-13.4)
[2017-08-14 03:33] LABS: ALBUMIN 3.3 g/dL (3.4-5.0); TOTAL BILIRUBIN 1.5 mg/dL (0.0-1.0)
--- NOTE | 2017-08-14 03:42 | NUR ---
PT SENT TO CT VIA W/C WITH [facility] AND ER EMT [id number]
[2017-08-14 03:49] LABS: APPEARANCE,URINE CLEAR (CLEAR); BILIRUBIN,URINE NEGATIVE (NEGATIVE); BLOOD, URINE NEGATIVE (NEGATIVE); COLOR,URINE YELLOW (YELLOW); LEUKOCYTE ESTERASE ,URINE NEGATIVE (NEGATIVE); NITRITE, URINE NEGATIVE (NEGATIVE); PH,URINE 8.5 (5.0-9.0); UGLUCOSE NEGATIVE (NEGATIVE)
[2017-08-14 04:07] LABS: RBC,URINE 0-5 (RARE) /HPF (0-5); TRIPLE PHOSPHATE CRYSTAL,UR 0-10 /HPF (None Seen); WBC,URINE 0-5 (RARE) /HPF (0-5)
--- NOTE | 2017-08-14 06:27 | NUR ---
Dr. Wharton re-evaluating patient.
[2017-08-14 07:08] VITALS: BP 174/122
--- NOTE | 2017-08-14 07:08 | NUR ---
Patient discharged with v/s stable. Written and verbal after care instructions given and explained. Patient alert, oriented and verbalized understanding of instructions. Ambulatory with steady gait. All questions addressed prior to discharge. ID band removed. Patient advised to follow up with PMD. Rx of ALDACTONE, ALBUTEROL, LASIX, XARELTO, AMIODARONE, CARVEDILOL, FERROUS SULFATE given. Patient educated on indication of medication including possible reaction and side effects. Opportunity to ask questions provided and answered.
== END 2017-08-14 07:08 | disposition home or self-care (01) ==
LOC: MED 20:47
DX: R18.8 Other ascites (principal); K76.9 Liver disease, unspecified; N50.89 Other specified disorders of the male genital organs; J45.909 Unspecified asthma, uncomplicated; I11.0 Hypertensive heart disease with heart failure; I50.9 Heart failure, unspecified; R41.0 Disorientation, unspecified; Z79.899 Other long term (current) drug therapy; Z86.73 Personal history of transient ischemic attack (TIA), and cerebral infarction without residual deficits
CPT/HCPCS: 36415; 74176; 80053; 81001; 82140; 83690; 85025; 85610; 87040; 96374; 99285; J1940

== ENCOUNTER 2017-08-23 20:28 | Inpatient (IN) | payer MEDICAID ==
[~2017-08-23] VITALS: Ht 175.3 cm; Wt 124.7 kg
[2017-08-23 20:30] VITALS: BP 103/44
[2017-08-23] MEDS ORDERED: FUROSEMIDE 100 MG/10 ML VIAL IVP ONE (21:45)
[2017-08-23 22:25] LABS: BASOPHILS # (AUTO) 0.1 K/uL (0.00-0.22); BASOPHILS % (AUTO) 1.4 % (0.0-2.0); EOSINOPHILS # (AUTO) 0.1 K/uL (0-0.4); EOSINOPHILS % (AUTO) 1.1 % (0.0-4.0); HEMATOCRIT 32.2 % (36-52); HEMOGLOBIN 10.2 g/dL (12.0-18.0); LYMPHOCYTES # (AUTO) 0.8 K/uL (2.0-11.5); LYMPHOCYTES % (AUTO) 12.9 % (20.5-51.1); MEAN CORPUSCULAR HEMOGLOBIN 28 pg (27-31); MEAN CORPUSCULAR HGB CONC 32 g/dL (33-37); MEAN CORPUSCULAR VOLUME 88.9 fL (80-94); MONOCYTES # (AUTO) 0.8 K/uL (0.8-1.0); MONOCYTES % (AUTO) 12.2 % (1.7-9.3); NEUTROPHILS # (AUTO) 4.6 K/uL (1.8-7.7); NEUTROPHILS % (AUTO) 72.4 % (42.2-75.2); PLATELET COUNT (AUTO) 237 K/uL (140-450); RED BLOOD CELL COUNT(AUTO) 3.62 MIL/uL (4.20-6.10); RED CELL DISTRIBUTION WIDTH 16.5 % (11.6-13.7); WHITE BLOOD COUNT (AUTO) 6.3 K/uL (4.8-10.8)
[2017-08-23 22:38] LABS: ANION GAP 10.9 (8-16); CARBON DIOXIDE 28.8 mmol/L (21-32); CREATININE 0.8 mg/dL (0.7-1.3); POTASSIUM 3.7 mmol/L (3.5-5.1)
[2017-08-23 22:44] LABS: ALBUMIN 3.2 g/dL (3.4-5.0); TOTAL BILIRUBIN 1.7 mg/dL (0.0-1.0)
[2017-08-23 22:45] LABS: PROTHROMBIN TIME 13.6 secs (10.8-13.4)
[2017-08-23 23:42] LABS: APPEARANCE,URINE CLEAR (CLEAR); BILIRUBIN,URINE NEGATIVE (NEGATIVE); BLOOD, URINE NEGATIVE (NEGATIVE); COLOR,URINE YELLOW (YELLOW); LEUKOCYTE ESTERASE ,URINE NEGATIVE (NEGATIVE); NITRITE, URINE NEGATIVE (NEGATIVE); UGLUCOSE NEGATIVE (NEGATIVE)
[2017-08-23 23:59] LABS: BARBITURATE, URINE NEG. ng/ml (NEG <=200); BENZODIAZEPINE, URINE NEG. ng/mL (NEG <=200); CANNABINOID, URINE POS. ng/mL (NEG <=50); COCAINE, URINE NEG. ng/mL (NEG <=300); OPIATE, URINE NEG. ng/mL (NEG <=2000); PHENCYCLIDINE SCREEN,URINE NEG. ng/mL (NEG <=25)
[2017-08-24 00:09] LABS: RBC,URINE 0-5 (RARE) /HPF (0-5); WBC,URINE 0-5 (RARE) /HPF (0-5)
[2017-08-24] MEDS ORDERED: NACL 0.9% 1,000 ML IV SCH (00:23)
[2017-08-24] MEDS ORDERED: ZOLPIDEM 5 MG TAB PO PRN (00:25)
[2017-08-24] MEDS ORDERED: ACETAMINOPHEN 325 MG TAB PO PRN (00:25)
[2017-08-24] MEDS ORDERED: HYDROcodone/APAP 7.5/325 MG 1 TAB PO PRN (00:25)
[2017-08-24] MEDS ORDERED: DOCUSATE SODIUM 100 MG GELCAP PO PRN (00:25)
[2017-08-24] MEDS ORDERED: LORazepam 0.5 MG TAB PO PRN (00:25)
[2017-08-24] MEDS ORDERED: MORPHINE SULFATE 2 MG/ML SYR IVP PRN (00:25)
[2017-08-24 01:10] VITALS: BP 154/111
[2017-08-24 01:27] LABS: FREE T4 (FREE THYROXINE) 1.01 ng/dL (0.76-1.46); MAGNESIUM 1.9 mg/dL (1.8-2.4); PHOSPHORUS 2.9 mg/dL (2.5-4.9); THYROID STIMULATING HORMONE 9.76 uIU/mL (0.34-3.74)
[2017-08-24] MEDS: FERROUS SULFATE 325 MG TABEC PO SCH ×3 (01:30→21:12)
[2017-08-24] MEDS ORDERED: CARVEDILOL 6.25 MG TAB ONE (01:57)
[2017-08-24] MEDS ORDERED: AMIODARONE 200 MG TAB ONE (01:57)
[2017-08-24] MEDS ORDERED: RIVAROXABAN 10 MG TAB PO SCH (02:00)
[2017-08-24] MEDS ORDERED: SPIRONOLACTONE 50 MG TAB PO SCH (02:00)
[2017-08-24] MEDS: AMIODARONE 200 MG TAB PO SCH ×3 (02:01→21:12)
[2017-08-24] MEDS: CARVEDILOL 6.25 MG TAB PO SCH ×3 (02:01→21:12)
[2017-08-24 05:00] VITALS: BP 137/110
[2017-08-24] MEDS: hydrALAZINE 20 MG/ML VIAL IVP SCH ×2 (06:05→06:17)
[2017-08-24 08:00] VITALS: BP 127/94
[2017-08-24] MEDS ORDERED: DILTIAZEM 25 MG/5 ML VIAL IVP SCH (08:10)
[2017-08-24 08:25] LABS: BASOPHILS # (AUTO) 0.1 K/uL (0.00-0.22); BASOPHILS % (AUTO) 1.4 % (0.0-2.0); EOSINOPHILS # (AUTO) 0.1 K/uL (0-0.4); EOSINOPHILS % (AUTO) 2.1 % (0.0-4.0); HEMATOCRIT 34.6 % (36-52); HEMOGLOBIN 10.7 g/dL (12.0-18.0); LYMPHOCYTES # (AUTO) 0.7 K/uL (2.0-11.5); LYMPHOCYTES % (AUTO) 13.2 % (20.5-51.1); MEAN CORPUSCULAR HEMOGLOBIN 28 pg (27-31); MEAN CORPUSCULAR HGB CONC 31 g/dL (33-37); MEAN CORPUSCULAR VOLUME 89.3 fL (80-94); MONOCYTES # (AUTO) 0.6 K/uL (0.8-1.0); MONOCYTES % (AUTO) 10.3 % (1.7-9.3); NEUTROPHILS # (AUTO) 3.9 K/uL (1.8-7.7); PLATELET COUNT (AUTO) 256 K/uL (140-450); RED BLOOD CELL COUNT(AUTO) 3.87 MIL/uL (4.20-6.10); RED CELL DISTRIBUTION WIDTH 16.6 % (11.6-13.7); WHITE BLOOD COUNT (AUTO) 5.4 K/uL (4.8-10.8)
[2017-08-24 08:43] LABS: ANION GAP 10.6 (8-16); CARBON DIOXIDE 31.3 mmol/L (21-32); CREATININE 0.9 mg/dL (0.7-1.3); POTASSIUM 3.9 mmol/L (3.5-5.1)
[2017-08-24] MEDS: FUROSEMIDE 40 MG/4 ML VIAL IVP SCH ×2 (08:43→16:49)
[2017-08-24] MEDS: SPIRONOLACTONE 50 MG TAB PO SCH (08:44)
[2017-08-24 08:48] LABS: PHOSPHORUS 3.5 mg/dL (2.5-4.9)
[2017-08-24] MEDS ORDERED: ALBUTEROL SULFATE/IPRATROPIU 3 ML SOL IH PRN (11:40)
[2017-08-24 12:00] VITALS: BP 116/82
[2017-08-24] MEDS: ALBUTEROL SULFATE/IPRATROPIU 3 ML SOL IH SCH ×2 (13:10→19:06)
[2017-08-24 16:00] VITALS: BP 106/74
[2017-08-24] MEDS: RIVAROXABAN 10 MG TAB PO SCH (16:55)
[2017-08-24 20:00] VITALS: BP 139/80
[2017-08-25] MEDS: ALBUTEROL SULFATE/IPRATROPIU 3 ML SOL IH SCH ×4 (00:46→19:17)
[2017-08-25 01:07] VITALS: BP 108/78
[2017-08-25 04:00] VITALS: BP 133/99
[2017-08-25 07:31] LABS: EOSINOPHILS # (AUTO) 0.1 K/uL (0-0.4); EOSINOPHILS % (AUTO) 2.9 % (0.0-4.0); HEMATOCRIT 34.4 % (36-52); HEMOGLOBIN 10.8 g/dL (12.0-18.0); LYMPHOCYTES # (AUTO) 0.8 K/uL (2.0-11.5); MEAN CORPUSCULAR HEMOGLOBIN 28 pg (27-31); MEAN CORPUSCULAR HGB CONC 31 g/dL (33-37); MEAN CORPUSCULAR VOLUME 88.5 fL (80-94); MONOCYTES # (AUTO) 0.5 K/uL (0.8-1.0); MONOCYTES % (AUTO) 10.9 % (1.7-9.3); NEUTROPHILS # (AUTO) 3.3 K/uL (1.8-7.7); NEUTROPHILS % (AUTO) 69.2 % (42.2-75.2); PLATELET COUNT (AUTO) 275 K/uL (140-450); RED BLOOD CELL COUNT(AUTO) 3.89 MIL/uL (4.20-6.10); RED CELL DISTRIBUTION WIDTH 16.3 % (11.6-13.7); WHITE BLOOD COUNT (AUTO) 4.8 K/uL (4.8-10.8)
[2017-08-25 07:40] LABS: ANION GAP 9.3 (8-16); CARBON DIOXIDE 32.6 mmol/L (21-32); CREATININE 0.9 mg/dL (0.7-1.3); POTASSIUM 3.9 mmol/L (3.5-5.1)
[2017-08-25 07:46] LABS: MAGNESIUM 1.9 mg/dL (1.8-2.4)
[2017-08-25 08:00] VITALS: BP 137/97
[2017-08-25] MEDS: FUROSEMIDE 40 MG/4 ML VIAL IVP SCH (08:25)
[2017-08-25] MEDS: DILTIAZEM 25 MG/5 ML VIAL IVP SCH ×2 (08:25→09:51)
[2017-08-25] MEDS: CARVEDILOL 6.25 MG TAB PO SCH ×2 (08:26→20:08)
[2017-08-25] MEDS: SPIRONOLACTONE 50 MG TAB PO SCH (08:26)
[2017-08-25] MEDS: FERROUS SULFATE 325 MG TABEC PO SCH ×2 (08:26→20:40)
[2017-08-25] MEDS: AMIODARONE 200 MG TAB PO SCH (08:26)
[2017-08-25] MEDS ORDERED: MAGNESIUM CITRATE 300 ML BTL PO SCH (08:30)
[2017-08-25] MEDS ORDERED: FUROSEMIDE 40 MG/4 ML VIAL IVP SCH (09:00)
[2017-08-25] MEDS ORDERED: DILTIAZEM 25 MG/5 ML VIAL IVP SCH (10:00)
[2017-08-25 10:06] LABS: T4 (THYROXINE) 6.1 ug/dL (4.5-12.0)
[2017-08-25 12:00] VITALS: BP 102/65
[2017-08-25 16:00] VITALS: BP 126/86
[2017-08-25] MEDS: FUROSEMIDE 40 MG TAB PO SCH (16:53)
[2017-08-25] MEDS: RIVAROXABAN 10 MG TAB PO SCH (16:55)
[2017-08-25 20:00] VITALS: BP 98/65
[2017-08-26] VITALS: BP 123/63
[2017-08-26] MEDS: ALBUTEROL SULFATE/IPRATROPIU 3 ML SOL IH SCH ×4 (01:11→19:26)
[2017-08-26 04:00] VITALS: BP 112/72
[2017-08-26 06:26] LABS: EOSINOPHILS # (AUTO) 0.2 K/uL (0-0.4); EOSINOPHILS % (AUTO) 3.5 % (0.0-4.0); HEMATOCRIT 34.2 % (36-52); HEMOGLOBIN 10.8 g/dL (12.0-18.0); LYMPHOCYTES # (AUTO) 0.9 K/uL (2.0-11.5); LYMPHOCYTES % (AUTO) 18.3 % (20.5-51.1); MEAN CORPUSCULAR HEMOGLOBIN 28 pg (27-31); MEAN CORPUSCULAR HGB CONC 31 g/dL (33-37); MEAN CORPUSCULAR VOLUME 88.8 fL (80-94); MONOCYTES # (AUTO) 0.8 K/uL (0.8-1.0); MONOCYTES % (AUTO) 16.4 % (1.7-9.3); NEUTROPHILS % (AUTO) 60.8 % (42.2-75.2); PLATELET COUNT (AUTO) 287 K/uL (140-450); RED BLOOD CELL COUNT(AUTO) 3.86 MIL/uL (4.20-6.10)
[2017-08-26 06:40] LABS: ANION GAP 6.2 (8-16); CARBON DIOXIDE 35.7 mmol/L (21-32); CREATININE 0.9 mg/dL (0.7-1.3); MAGNESIUM 2.1 mg/dL (1.8-2.4); PHOSPHORUS 3.9 mg/dL (2.5-4.9); POTASSIUM 3.9 mmol/L (3.5-5.1)
[2017-08-26 08:00] VITALS: BP 135/101
[2017-08-26] MEDS: FUROSEMIDE 40 MG TAB PO SCH ×2 (08:48→17:03)
[2017-08-26] MEDS: CARVEDILOL 6.25 MG TAB PO SCH ×2 (08:48→21:12)
[2017-08-26] MEDS: SPIRONOLACTONE 50 MG TAB PO SCH (08:48)
[2017-08-26] MEDS: FERROUS SULFATE 325 MG TABEC PO SCH ×2 (08:48→21:12)
[2017-08-26] MEDS: LOSARTAN 50 MG TAB PO SCH (08:48)
[2017-08-26 12:00] VITALS: BP 138/86
[2017-08-26 16:00] VITALS: BP 99/80
[2017-08-26] MEDS ORDERED: guaiFENesin DM 200/20 MG-10 ML 10 ML UDC PO PRN (16:50)
[2017-08-26] MEDS: RIVAROXABAN 10 MG TAB PO SCH (17:04)
[2017-08-26] MEDS ORDERED: DIGOXIN 0.25 MG/ML AMP IV SCH ×2 (18:01→22:00)
[2017-08-26 19:55] VITALS: BP 133/89
[2017-08-27] VITALS: BP 99/69
[2017-08-27] MEDS: ALBUTEROL SULFATE/IPRATROPIU 3 ML SOL IH SCH ×4 (01:23→19:00)
[2017-08-27 04:00] VITALS: BP 113/73
[2017-08-27 07:31] LABS: BASOPHILS # (AUTO) 0.1 K/uL (0.00-0.22); BASOPHILS % (AUTO) 1.2 % (0.0-2.0); EOSINOPHILS # (AUTO) 0.2 K/uL (0-0.4); EOSINOPHILS % (AUTO) 4.1 % (0.0-4.0); HEMATOCRIT 32.8 % (36-52); HEMOGLOBIN 10.4 g/dL (12.0-18.0); LYMPHOCYTES # (AUTO) 1.1 K/uL (2.0-11.5); LYMPHOCYTES % (AUTO) 22.2 % (20.5-51.1); MEAN CORPUSCULAR HEMOGLOBIN 28 pg (27-31); MEAN CORPUSCULAR HGB CONC 32 g/dL (33-37); MEAN CORPUSCULAR VOLUME 88.9 fL (80-94); MONOCYTES # (AUTO) 0.7 K/uL (0.8-1.0); MONOCYTES % (AUTO) 13.6 % (1.7-9.3); NEUTROPHILS % (AUTO) 58.9 % (42.2-75.2); PLATELET COUNT (AUTO) 265 K/uL (140-450); RED BLOOD CELL COUNT(AUTO) 3.69 MIL/uL (4.20-6.10); RED CELL DISTRIBUTION WIDTH 16.5 % (11.6-13.7)
[2017-08-27 07:46] LABS: ANION GAP 8.9 (8-16); CARBON DIOXIDE 33.9 mmol/L (21-32); CREATININE 0.8 mg/dL (0.7-1.3); POTASSIUM 3.8 mmol/L (3.5-5.1)
[2017-08-27 07:51] LABS: MAGNESIUM 1.8 mg/dL (1.8-2.4); PHOSPHORUS 3.9 mg/dL (2.5-4.9)
[2017-08-27 08:00] VITALS: BP 129/92
[2017-08-27] MEDS ORDERED: SODIUM PHOSPHATE 118 ML ENEM RC SCH (09:00)
[2017-08-27] MEDS ORDERED: MAGNESIUM CITRATE 300 ML BTL PO SCH (09:00)
[2017-08-27] MEDS ORDERED: DIGOXIN 0.25 MG/ML AMP IV SCH (09:00)
[2017-08-27] MEDS ORDERED: SPIRONOLACTONE 25 MG TAB PO SCH (09:00)
[2017-08-27] MEDS ORDERED: CLINICAL MONITORING MC SCH (09:00)
[2017-08-27] MEDS: LOSARTAN 50 MG TAB PO SCH (09:51)
[2017-08-27] MEDS: CARVEDILOL 6.25 MG TAB PO SCH (09:51)
[2017-08-27] MEDS: FUROSEMIDE 40 MG TAB PO SCH (09:51)
[2017-08-27] MEDS: FERROUS SULFATE 325 MG TABEC PO SCH (09:51)
[2017-08-27] MEDS ORDERED: DIGOXIN 0.125 MG TAB PO SCH (11:10)
[2017-08-27 12:00] VITALS: BP 129/92
[2017-08-27] MEDS ORDERED: LOSA50TA1 PO (14:26)
[2017-08-27] MEDS ORDERED: DOCU-299 PO (14:26)
[2017-08-27] MEDS ORDERED: DIGO0.1211 PO (14:26)
[2017-08-27] MEDS ORDERED: FURO40TA9 PO (14:26)
[2017-08-27] MEDS ORDERED: DEXT5SYR3 PO (14:26)
[2017-08-27 16:00] VITALS: BP 140/97
[2017-08-28] MEDS ORDERED: DIGOXIN 0.125 MG TAB PO SCH (09:00)
[2017-08-29] MEDS ORDERED: DIGOXIN 0.125 MG TAB PO SCH (09:00)
== END 2017-08-27 19:40 | disposition home or self-care (01) | DRG 194 ==
LOC: MED 20:28 → MTU 08-24 00:26
PROVIDERS: ADMIT Family Medicine; ATTEND Family Medicine
DX: I50.43 Acute on chronic combined systolic (congestive) and diastolic (congestive) heart failure (principal); N17.0 Acute kidney failure with tubular necrosis; E44.0 Moderate protein-calorie malnutrition; R18.8 Other ascites; I48.92 Unspecified atrial flutter; I27.20 Pulmonary hypertension, unspecified; K76.6 Portal hypertension; I42.0 Dilated cardiomyopathy; I48.91 Unspecified atrial fibrillation; I27.81 Cor pulmonale (chronic); D64.9 Anemia, unspecified; F12.10 Cannabis abuse, uncomplicated; J44.9 Chronic obstructive pulmonary disease, unspecified; Z87.891 Personal history of nicotine dependence; Z59.0 Homelessness; Z86.73 Personal history of transient ischemic attack (TIA), and cerebral infarction without residual deficits; J45.909 Unspecified asthma, uncomplicated; Z91.19 Patient's noncompliance with other medical treatment and regimen; Z68.41 Body mass index [BMI] 40.0-44.9, adult; D63.8 Anemia in other chronic diseases classified elsewhere; E66.01 Morbid (severe) obesity due to excess calories; G47.00 Insomnia, unspecified; E80.6 Other disorders of bilirubin metabolism; E02 Subclinical iodine-deficiency hypothyroidism; K59.00 Constipation, unspecified; R14.0 Abdominal distension (gaseous); K92.1 Melena; I34.0 Nonrheumatic mitral (valve) insufficiency; Z53.20 Procedure and treatment not carried out because of patient's decision for unspecified reasons; K74.60 Unspecified cirrhosis of liver
CPT/HCPCS: 36415; 71045; 76705; 80048; 80053; 80305; 81001; 82150; 83036; 83690; 83735; 83880; 84100; 84436; 84439; 84443; 84479; 84484; 85025; 85610; 87040; 87081; 93005; 94640; 96374; 99291; G0482; J0360; J1160; J1940; J3490; J7620; Q0092

== ENCOUNTER 2017-08-29 21:25 | Inpatient (IN) | payer MEDICAID ==
[~2017-08-29] VITALS: Ht 175.3 cm; Wt 113.0 kg
[~2017-08-29 21:25] MED LIST changes: -AMIO200T10 PO; +DEXT5SYR3 PO; +DIGO0.1211 PO; +DOCU-299 PO; +FURO40TA9 PO; +LOSA50TA1 PO
--- NOTE | 2017-08-29 21:26 | NUR ---
[facility] TO ER BED 09
[2017-08-29 21:29] VITALS: BP 159/108
--- NOTE | 2017-08-29 21:30 | NUR ---
C/O SOB/CHF EXACERBATION X 3 DAYS. PT SEEN HERE X 4 DAYS AGO FOR SAME COMPLAINT. PMH=CHF PT DENIES N/V/D; SKIN IS INTACT, PINK/WARM/DRY; AAOX4, PERRL, WITH EVEN AND STEADY GAIT; LUNGS WITH RHONCHI AND CRACKLES BILAT, DIMINISHED AT BASES, BREATHING LABORED ON ARRIVAL; HR EVEN AND REGULAR, BL PERIPHERAL PULSES PRESENT, +3 PITTING EDEMA ON BILAT LE; BS ACTIVE X4, NO TENDERNESS TO PALPATION, ABDOMEN DISTENDED, NO HEPATOSPLENOMEGALLY PALPATED, RESONANT TO PERCUSSION; PT DENIES ANY FEVER, CP AT THIS TIME; PT STATES 0/10 PAIN AT THIS TIME; VSS; PATIENT POSITIONED FOR COMFORT; HOB ELEVATED; BEDRAILS UP X2; BED DOWN.
[2017-08-29] MEDS ORDERED: FUROSEMIDE 40 MG/4 ML VIAL IVP ONE (21:35)
[2017-08-29 21:54] LABS: BASOPHILS # (AUTO) 0.1 K/uL (0.00-0.22); BASOPHILS % (AUTO) 1.1 % (0.0-2.0); EOSINOPHILS # (AUTO) 0.2 K/uL (0-0.4); HEMATOCRIT 34.6 % (36-52); LYMPHOCYTES # (AUTO) 0.6 K/uL (2.0-11.5); LYMPHOCYTES % (AUTO) 7.5 % (20.5-51.1); MEAN CORPUSCULAR HEMOGLOBIN 28 pg (27-31); MEAN CORPUSCULAR HGB CONC 32 g/dL (33-37); MEAN CORPUSCULAR VOLUME 87.9 fL (80-94); MONOCYTES # (AUTO) 0.7 K/uL (0.8-1.0); MONOCYTES % (AUTO) 8.7 % (1.7-9.3); NEUTROPHILS # (AUTO) 6.2 K/uL (1.8-7.7); NEUTROPHILS % (AUTO) 80.7 % (42.2-75.2); PLATELET COUNT (AUTO) 297 K/uL (140-450); RED BLOOD CELL COUNT(AUTO) 3.94 MIL/uL (4.20-6.10); RED CELL DISTRIBUTION WIDTH 16.4 % (11.6-13.7); WHITE BLOOD COUNT (AUTO) 7.7 K/uL (4.8-10.8)
--- NOTE | 2017-08-29 22:00 | NUR ---
PT REFUSING TO KEEP MONITOR ON AND STAY IN STRETCHER, ATTEMPTED TO REDIRECT X3
[2017-08-29 22:05] LABS: ANION GAP 9.2 (8-16); CARBON DIOXIDE 36.2 mmol/L (21-32); CREATININE 0.9 mg/dL (0.7-1.3); POTASSIUM 4.4 mmol/L (3.5-5.1)
[2017-08-29 22:18] LABS: TOTAL BILIRUBIN 1.2 mg/dL (0.0-1.0)
[2017-08-29 22:37] LABS: PROTHROMBIN TIME 12.9 secs (10.8-13.4)
--- NOTE | 2017-08-29 23:00 | NUR ---
PT REFUSING MONITOR AND STAYING IN ROOM , EDMD MADE AWARE
--- NOTE | 2017-08-30 | NUR ---
PT REFUSING MONITOR AND STAYING IN ROOM, EDMD MADE AWARE
--- NOTE | 2017-08-30 00:50 | NUR ---
PT REFUSING MONITOR AND STAYING IN ROOM, EDMD MADE AWARE
--- NOTE | 2017-08-30 02:01 | NUR ---
PT REFUSING OXYGEN DESPITE O2 SAT OF 77% ON RA. DR. LINTON MADE AWARE.
[2017-08-30] MEDS ORDERED: ALBUTEROL SULFATE/IPRATROPIU 3 ML SOL IH ONE (02:05)
[2017-08-30] MEDS ORDERED: ALBUTEROL 0.083% 2.5 MG/3 ML NEBU INH ONE (02:05)
[2017-08-30] MEDS ORDERED: HYDROcodone/APAP 7.5/325 MG 1 TAB PO PRN (02:10)
[2017-08-30] MEDS ORDERED: DOCUSATE SODIUM 100 MG GELCAP PO PRN ×2 (02:10→03:00)
[2017-08-30] MEDS ORDERED: FUROSEMIDE 40 MG/4 ML VIAL IVP SCH (02:10)
[2017-08-30] MEDS ORDERED: ACETAMINOPHEN 325 MG TAB PO PRN (02:10)
[2017-08-30] MEDS ORDERED: ALBUTEROL SULFATE/IPRATROPIU 3 ML SOL IH PRN (02:10)
--- NOTE | 2017-08-30 02:23 | NUR ---
PLACED PT ON NASAL CANNULA 2LPM SAT 97 HR 123 RR 20. WILL CONT TO MONITOR PT.
[2017-08-30 02:37] LABS: CHOL/HDL RATIO 3.7 (1-4.5); FREE T4 (FREE THYROXINE) 0.88 ng/dL (0.76-1.46); MAGNESIUM 1.8 mg/dL (1.8-2.4); PHOSPHORUS 3.7 mg/dL (2.5-4.9); THYROID STIMULATING HORMONE 10.63 uIU/mL (0.34-3.74)
[2017-08-30 02:43] LABS: APPEARANCE,URINE CLEAR (CLEAR); BILIRUBIN,URINE NEGATIVE (NEGATIVE); BLOOD, URINE NEGATIVE (NEGATIVE); COLOR,URINE YELLOW (YELLOW); LEUKOCYTE ESTERASE ,URINE NEGATIVE (NEGATIVE); NITRITE, URINE NEGATIVE (NEGATIVE); PH,URINE 7.5 (5.0-9.0); UGLUCOSE NEGATIVE (NEGATIVE)
[2017-08-30 02:51] LABS: BARBITURATE, URINE NEG. ng/ml (NEG <=200); BENZODIAZEPINE, URINE NEG. ng/mL (NEG <=200); CANNABINOID, URINE NEG. ng/mL (NEG <=50); COCAINE, URINE NEG. ng/mL (NEG <=300); OPIATE, URINE NEG. ng/mL (NEG <=2000); PHENCYCLIDINE SCREEN,URINE NEG. ng/mL (NEG <=25)
[2017-08-30] MEDS ORDERED: LEVOFLOXACIN 750 MG/D5W PREMIX 150 ML IV SCH (03:10)
--- NOTE | 2017-08-30 03:10 | NUR ---
INCREASED O2 ON NASAL CANNULA TO 5LPM DUE TO PT'S SPO2 BELOW 92%. SAT 92 HR 127 RR 18. WILL CONT TO MONITOR PT.
--- NOTE | 2017-08-30 03:10 | NUR ---
Patient will be admitted to care of DR. DAVID. Admited to [facility]. Will go to room 107B. Belongings list completed. Report to JAYLON REN.
[2017-08-30 03:15] VITALS: BP 184/130
--- NOTE | 2017-08-30 03:15 | NUR ---
;RECEIVED PT FROM ER VIA GURHUSSEIN PT IS AAOX4 AMBULATORY ON 02 2 LITERS NC 02 SAT 97% PT HAS EDEMA ON BLE AND ESTERNAL GENITAL MRSA NARES PROTOCL TAKEN AND SENT TO LAB RESP THERAPY IS HERE AT PT BEDSIDE
--- NOTE | 2017-08-30 03:35 | NUR ---
PLACED SPUTUM COLLECTION CUP AT BEDSIDE. EXPLAINED TO PT TO EXPECTORATE INTO CUP BUT PT SAID HE DID NOT HAVE ANYTHING TO COUGH UP AT THIS TIME. WILL CONT TO MONITOR PT.
--- NOTE | 2017-08-30 04:00 | NUR ---
PT VOIDING WELL AND AFTER LASIX GIVEN BP 159/107 02 SAT 95% and hr 129
[2017-08-30] MEDS ORDERED: CLINDAMYCIN 600 MG/4 ML VIAL ONE (04:32)
[2017-08-30] MEDS ORDERED: CLINDAMYCIN 600 MG in DEXTROSE 5% 50 ML IV SCH (05:00)
--- NOTE | 2017-08-30 06:15 | NUR ---
;PT RESTING ON BED RESP THERAPY ALREADY GIVE BREATHING TX ON TELEMETRY ATRIAL FLUTTER ON CLOSE MONITORING ON 04 22 LTS VIA NC
[2017-08-30 07:18] LABS: BASOPHILS # (AUTO) 0.2 K/uL (0.00-0.22); BASOPHILS % (AUTO) 1.9 % (0.0-2.0); EOSINOPHILS # (AUTO) 0.1 K/uL (0-0.4); EOSINOPHILS % (AUTO) 1.3 % (0.0-4.0); HEMATOCRIT 37.2 % (36-52); HEMOGLOBIN 11.9 g/dL (12.0-18.0); LYMPHOCYTES # (AUTO) 0.4 K/uL (2.0-11.5); LYMPHOCYTES % (AUTO) 5.2 % (20.5-51.1); MEAN CORPUSCULAR HEMOGLOBIN 28 pg (27-31); MEAN CORPUSCULAR HGB CONC 32 g/dL (33-37); MEAN CORPUSCULAR VOLUME 87.5 fL (80-94); MONOCYTES # (AUTO) 0.5 K/uL (0.8-1.0); MONOCYTES % (AUTO) 5.6 % (1.7-9.3); NEUTROPHILS # (AUTO) 7.1 K/uL (1.8-7.7); PLATELET COUNT (AUTO) 335 K/uL (140-450); RED BLOOD CELL COUNT(AUTO) 4.24 MIL/uL (4.20-6.10); RED CELL DISTRIBUTION WIDTH 16.5 % (11.6-13.7); WHITE BLOOD COUNT (AUTO) 8.2 K/uL (4.8-10.8)
[2017-08-30] MEDS: ALBUTEROL SULFATE/IPRATROPIU 3 ML SOL IH SCH ×3 (07:34→19:49)
--- NOTE | 2017-08-30 07:55 | NUR ---
PATIENT ALERT AND ABLE TO MAKE NEEDS KNOWN. NO ACUTE DISTRESS NOTED.PATIENT WITHOUT O2 ON WHEN ENTERED ROOM O2 SAT 88%. ADMINISTERED O2 @2L/MIN VIA NC.RESP EVEN AND UNLABORED. LUNG SOUNDS CLEAR WITH OCCASIONAL DRY COUGH NON PRODUCTIVE. BOWEL SOUNDS ACTIVE X 4 QUADS.SKIN INTACT. SCROTUM ENLARGED AND EDEMATOUS. DENIES PAIN AT THIS TIME. PATIENT WITH LAC 20G SL. ON CARDIAC DIET. UPDATED BOARD. DISCUSSED PLAN OF CARE WITH PATIENT AT BEDSIDE. PATIENT CONT ON .FREQUENT VISUAL CHECKS. CALL LIGHT WITHIN REACH. WILL CONT TO MONITOR.
[2017-08-30 08:00] VITALS: BP 152/99
[2017-08-30 08:06] LABS: ANION GAP 9.2 (8-16); CARBON DIOXIDE 38.5 mmol/L (21-32); CREATININE 0.9 mg/dL (0.7-1.3); POTASSIUM 3.7 mmol/L (3.5-5.1)
[2017-08-30 08:11] LABS: MAGNESIUM 1.8 mg/dL (1.8-2.4); PHOSPHORUS 3.7 mg/dL (2.5-4.9)
--- NOTE | 2017-08-30 08:44 | NUR ---
PATIENT HAS BEEN SCREENED AND CATEGORIZED MODERATE NUTRITION RISK. PATIENT WILL BE SEEN WITHIN 3-5 DAYS OF ADMISSION. 09/01/17 09/03/[address]
[2017-08-30] MEDS ORDERED: SPIRONOLACTONE 50 MG TAB PO SCH (09:00)
[2017-08-30] MEDS: CARVEDILOL 6.25 MG TAB PO SCH ×2 (09:06→21:09)
[2017-08-30] MEDS: SPIRONOLACTONE 25 MG TAB PO SCH (09:06)
[2017-08-30] MEDS: LOSARTAN 50 MG TAB PO SCH (09:06)
[2017-08-30] MEDS: LACTOBACILLUS RHAMNOSUS GG 1 EACH CAP PO SCH (09:07)
[2017-08-30] MEDS: FUROSEMIDE 40 MG TAB PO SCH ×2 (09:07→16:36)
[2017-08-30] MEDS: DIGOXIN 0.125 MG TAB PO SCH (09:07)
[2017-08-30] MEDS: FERROUS SULFATE 325 MG TABEC PO SCH ×2 (09:07→21:09)
--- NOTE | 2017-08-30 10:30 | NUR ---
PATIENT PROVIDED WITH SCROTAL SUPPORT STRAP . PATIENT WITHOUT OXYGEN ON WHEN ENTERED ROOM . FREQUENT REMINDERS TO KEEP O2 ON. WILL CONT TO MONITOR.
--- NOTE | 2017-08-30 11:00 | NUR ---
telephone worker Notes: I attempted to meet with patient to discuss, confirm, and asses patient for services needed upon discharge. Patient was resistance and refused to meet with these music writer. " Stated I do not want to talk to you today " Patient will not respond at all to these music writer and I ended the visit.
[2017-08-30 12:00] VITALS: BP 150/93
--- NOTE | 2017-08-30 13:12 | NUR ---
PATIENT IN BED RESTING HAD LUNCH. TOLERATED WELL. WITH O2 ON @3L/MIN VIA NC YOSSI WELL. WILL CONT TO MONITOR.
--- NOTE | 2017-08-30 15:17 | NUR ---
PATIENT IN BED RESTING ASLEEP WITH OXYGEN ON. WILL CONT TO MONITOR.
[2017-08-30 16:00] VITALS: BP 134/94
--- NOTE | 2017-08-30 16:45 | NUR ---
P.T. NOTES P.T. IRAM COMPLETED; NURSING TO [facility]BU PATIENT AD KATE Addendum: 08/30/17 at 1645 by Codie Rasheed PT Amended: Links added.
[2017-08-30] MEDS ORDERED: RIVAROXABAN 10 MG TAB PO SCH (17:30)
--- NOTE | 2017-08-30 17:51 | NUR ---
PATIENT IN BED RESTING. HAD DINNER AND TOLERATED WELL. REINFORCED WEARING O2. WILL CONT TO MONITOR.
--- NOTE | 2017-08-30 19:15 | NUR ---
ENDORSED REPORT TO CPC CODER NURSE AT BEDSIDE FOR CONTINUITY OF CARE. PATIENT STABLE.
--- NOTE | 2017-08-30 19:16 | NUR ---
RECEIVED REPORT FROM DAY SHIFT NURSE HEIDI-RN AT BEDSIDE. PT AOX4, SITTING IN BED WRITING. PT WITHOUT O2 ON WHEN ENTERED ROOM. REMINDED PT TO USE O2 @2L/NC ORDERED. NO S/S OF RESPIRATORY DISTRESS OR DISCOMFORT. IV SITE LEFT AC 20G SL. SKIN INTACT. SCROTUM ENLARGED AND EDEMATOUS. DISCUSSED PLAN OF CARE AND PT VERBALIZED UNDERSTANDING. WHITE BOARD UPDATED. BED SIDE TABLE AND CALL LIGHT WITHIN REACH. WILL CONT TO MONITOR.
[2017-08-30 20:00] VITALS: BP 126/89
--- NOTE | 2017-08-30 20:00 | NUR ---
VITAL SIGNS TAKEN AND TOLERATED WELL. NO S/S OF RESPIRATORY DISTRESS OR DISCOMFORT. WILL CONTINUE TO MONITOR.
--- NOTE | 2017-08-30 21:10 | NUR ---
PT REQUESTING SANDWICH AND JUICE. SCHEDULED MEDICATION GIVEN AND TOLERATED WELL. NO S/S OF RESPIRATORY DISTRESS OR DISCOMFORT NOTED AT THIS TIME. WILL CONTINUE TO MONITOR.
--- NOTE | 2017-08-30 22:45 | NUR ---
PT RESTING IN BED. REMINDED PT TO USE NASAL CANULA OXYGEN. NO S/S OF RESPIRATORY DISTRESS OR DISCOMFORT NOTED AT THIS TIME. WILL CONTINUE TO MONITOR.
[2017-08-31] VITALS: BP 112/80
--- NOTE | 2017-08-31 | NUR ---
PT RESTING IN BED. NO S/S OF RESPIRATORY DISTRESS OR DISCOMFORT AT THIS TIME. VITAL SIGNS TAKEN AND TOLERATED WELL. WILL CONTINUE TO MONITOR.
--- NOTE | 2017-08-31 01:40 | NUR ---
PT C/O SEVERE COUGH REQUESTING COUGH MEDICINE. SPOKE WITH DR. MILLER AND HE SAID HE WOULD PUT IN AN ORDER FOR COUGH MEDICINE.
[2017-08-31] MEDS: guaiFENesin DM 200/20 MG-10 ML 10 ML UDC PO PRN ×2 (01:59→08:56)
--- NOTE | 2017-08-31 02:02 | NUR ---
COUGH MEDICINE ADMINISTERED ORDERED. PT TOLERATED WELL. NO S/S OF RESPIRATORY DISTRESS OR DISCOMFORT. WILL CONTINUE TO MONITOR.
[2017-08-31 04:00] VITALS: BP 141/103
--- NOTE | 2017-08-31 04:00 | NUR ---
VITAL SIGNS TAKEN BY NURSE DUMONT.
--- NOTE | 2017-08-31 06:18 | NUR ---
SCHEDULED MEDICATION GIVEN AND TOLERATED WELL. NO S/S OF RESPIRATORY DISTRESS OR DISCOMFORT AT THIS TIME. PT RETURNED BACK TO SLEEP. WILL CONTINUE TO MONITOR.
[2017-08-31] MEDS ORDERED: LEVOTHYROXINE 0.025 MG TAB PO SCH (06:30)
[2017-08-31 06:56] LABS: BASOPHILS # (AUTO) 0.1 K/uL (0.00-0.22); BASOPHILS % (AUTO) 2.1 % (0.0-2.0); EOSINOPHILS # (AUTO) 0.2 K/uL (0-0.4); EOSINOPHILS % (AUTO) 4.5 % (0.0-4.0); HEMATOCRIT 33.9 % (36-52); HEMOGLOBIN 11.1 g/dL (12.0-18.0); LYMPHOCYTES # (AUTO) 0.5 K/uL (2.0-11.5); LYMPHOCYTES % (AUTO) 10.9 % (20.5-51.1); MEAN CORPUSCULAR HEMOGLOBIN 28 pg (27-31); MEAN CORPUSCULAR HGB CONC 33 g/dL (33-37); MONOCYTES # (AUTO) 0.8 K/uL (0.8-1.0); MONOCYTES % (AUTO) 17.8 % (1.7-9.3); NEUTROPHILS # (AUTO) 2.9 K/uL (1.8-7.7); NEUTROPHILS % (AUTO) 64.7 % (42.2-75.2); PLATELET COUNT (AUTO) 277 K/uL (140-450); RED BLOOD CELL COUNT(AUTO) 3.94 MIL/uL (4.20-6.10); RED CELL DISTRIBUTION WIDTH 16.6 % (11.6-13.7); WHITE BLOOD COUNT (AUTO) 4.4 K/uL (4.8-10.8)
--- NOTE | 2017-08-31 07:14 | NUR ---
ENDORSED PT CARE TO DAY SHIFT NURSE FRANCOIS FOR CONTINUITY OF CARE. Addendum: 08/31/17 at 0724 by Jackie Blake RN ZENA NURSEEffie DAY SHIFT NURSE [place]
--- NOTE | 2017-08-31 07:14 | NUR ---
RECEIVED REPORT FROM NIGHTSHIFT NURSE AT BEDSIDE. PATIENT IS AWAKE AT THIS TIME IN HIGH FOWLERS POSITION. PATIENT IS ALERT AND ORIENTED X3. NO COMPLAINTS OF PAIN AT THIS TIME. PATIENT IS ON 3 LITERS O2 VIA NC. PATIENT'S SCROTUM APPEARS ENLARGED AND SWOLLEN. PATIENT ABDOMEN IS DISTENDED. PATIENT HAS A LEFT AC 20 G SALINE LOCK. UPDATED BOARD IN PATIENT'S ROOM. LOWERED BED TO LOWEST SETTING. CALL LIGHT WITHIN REACH OF PATIENT. WILL CONTINUE TO MONITOR PATIENT.
[2017-08-31 07:18] LABS: ANION GAP 11.3 (8-16); CARBON DIOXIDE 36.9 mmol/L (21-32); CREATININE 0.9 mg/dL (0.7-1.3); POTASSIUM 4.2 mmol/L (3.5-5.1)
[2017-08-31] MEDS: ALBUTEROL SULFATE/IPRATROPIU 3 ML SOL IH SCH (07:50)
[2017-08-31 08:00] VITALS: BP 131/89
[2017-08-31] MEDS: CARVEDILOL 6.25 MG TAB PO SCH (08:46)
[2017-08-31] MEDS: SPIRONOLACTONE 25 MG TAB PO SCH (08:46)
[2017-08-31] MEDS: FERROUS SULFATE 325 MG TABEC PO SCH (08:46)
[2017-08-31] MEDS: FUROSEMIDE 40 MG TAB PO SCH (08:47)
[2017-08-31] MEDS: LACTOBACILLUS RHAMNOSUS GG 1 EACH CAP PO SCH (08:47)
[2017-08-31] MEDS: DIGOXIN 0.125 MG TAB PO SCH (08:47)
[2017-08-31] MEDS: LOSARTAN 50 MG TAB PO SCH (08:47)
--- NOTE | 2017-08-31 08:56 | NUR ---
PATIENT TOOK ALL AM MEDICATIONS. PATIENT PRESENTED WITH A COUGH. ADMINISTERED COUGH MEDICINE TO PATIENT. PATIENT TOLERATED WELL.
--- NOTE | 2017-08-31 11:35 | NUR ---
PATIENT SIGNED ALL DISCHARGE INSTRUCTIONS AND IS AWARE OF PRESCRIPTIONS. PATIENT UNDERSTANDS DIET INSTRUCTIONS. DISCONTINUED PATIENT'S INTRAVENOUS LINE WITH CATHETER STILL INTACT. REMOVED PATIENT'S IDENTIFICATION BAND. PATIENT GATHERED ALL BELONGINGS. PATIENT LEFT UNIT VIA WHEELCHAIR IN STABLE CONDITION WITH ALL BELONGINGS.
== END 2017-08-31 11:35 | disposition home or self-care (01) | DRG 194 ==
LOC: MED 21:25 → MTU 08-30 02:07
PROVIDERS: ADMIT General Practice; ATTEND General Practice
DX: I11.0 Hypertensive heart disease with heart failure (principal); N17.0 Acute kidney failure with tubular necrosis; E44.0 Moderate protein-calorie malnutrition; R18.8 Other ascites; I48.92 Unspecified atrial flutter; I50.43 Acute on chronic combined systolic (congestive) and diastolic (congestive) heart failure; K74.60 Unspecified cirrhosis of liver; F12.90 Cannabis use, unspecified, uncomplicated; D63.8 Anemia in other chronic diseases classified elsewhere; E02 Subclinical iodine-deficiency hypothyroidism; J45.909 Unspecified asthma, uncomplicated; N50.89 Other specified disorders of the male genital organs; E80.6 Other disorders of bilirubin metabolism; J98.11 Atelectasis; Z86.73 Personal history of transient ischemic attack (TIA), and cerebral infarction without residual deficits; Z79.899 Other long term (current) drug therapy; Z59.0 Homelessness; Z91.14 Patient's other noncompliance with medication regimen; Z68.36 Body mass index [BMI] 36.0-36.9, adult
CPT/HCPCS: 36415; 71045; 76604; 76705; 80048; 80053; 80305; 81003; 82150; 83690; 83735; 83880; 84100; 84436; 84439; 84443; 84479; 84484; 85025; 85610; 85730; 87081; 93005; 94640; 96374; 99285; J1940; J1956; J3490; J7030; J7060; J7613; J7620; Q0092

== ENCOUNTER 2017-09-06 20:38 | Emergency (ER) | payer MEDICAID ==
[~2017-09-06] VITALS: Ht 175.3 cm; Wt 117.1 kg
[~2017-09-06 20:38] MED LIST changes: -FERR325E14 PO; -FURO40TA9 PO
[2017-09-06 20:45] VITALS: BP 156/95
--- NOTE | 2017-09-06 20:45 | NUR ---
PATIENT TRIAGED. VSS STABLE. SENT TO ER LOBBY.
--- NOTE | 2017-09-06 23:58 | NUR ---
PATIENT PRESENTS TO ED WITH biba withc/o pain in left knee and cough. pt is afebrile . DENIES N/V/D; SKIN IS PINK/WARM/DRY; AAOX4 WITH EVEN AND STEADY GAIT; LUNGS CLEAR BL; HR EVEN AND REGULAR; PT DENIES ANY FEVER, CP, SOB, AT THIS TIME; PATIENT STATES PAIN OF 6/10 AT THIS TIME; VSS; PATIENT POSITIONED FOR COMFORT; HOB ELEVATED; BEDRAILS UP X2; BED DOWN. ER MD MADE AWARE OF PT STATUS.
--- NOTE | 2017-09-07 00:07 | NUR ---
PT TAKEN TO BED 10
--- NOTE | 2017-09-07 01:52 | NUR ---
patient is resting comfortably in bed
--- NOTE | 2017-09-07 01:56 | NUR ---
Dr. Wharton evaluating patient at bedside.
--- NOTE | 2017-09-07 03:16 | NUR ---
patient is sleeping in bed
--- NOTE | 2017-09-07 04:24 | NUR ---
pt is resting comfortably in bed
--- NOTE | 2017-09-07 06:23 | NUR ---
Patient discharged with v/s stable. Written and verbal after care instructions given and explained. Patient alert, oriented and verbalized understanding of instructions. Ambulatory with steady gait. All questions addressed prior to discharge. ID band removed. Patient advised to follow up with PMD. Rx of albuterol and robitussin given. Patient educated on indication of medication including possible reaction and side effects. Opportunity to ask questions provided and answered.
[2017-09-07 06:24] VITALS: BP 160/107
--- NOTE | 2017-09-07 06:30 | NUR ---
Patient given written and verbal discharge instructions and verbalizes understanding. Given copies of tests performed during visit. Patient is awake, alert and oriented. Ambulatory with steady gait. Refuses offer of correction placement. Given list of available shelters in surrounding areas. patient signed a wiever form.
== END 2017-09-07 06:23 | disposition home or self-care (01) ==
LOC: MED 20:38
DX: R05 Cough (principal); I25.10 Atherosclerotic heart disease of native coronary artery without angina pectoris; Z79.899 Other long term (current) drug therapy; Z59.0 Homelessness; Z86.73 Personal history of transient ischemic attack (TIA), and cerebral infarction without residual deficits
CPT/HCPCS: 99283

== ENCOUNTER 2017-09-17 20:59 | Inpatient (IN) | payer MEDICAID ==
[~2017-09-17] VITALS: Ht 175.3 cm; Wt 119.3 kg
[2017-09-17 21:09] VITALS: BP 185/130
--- NOTE | 2017-09-17 21:30 | NUR ---
57/M CAME IN ED, C/O SCROTAL EDEMA/SWELLING. PT REPORTS BEING FATIGUED, SLIGHT SOB, "DON'T FEEL WELL." PT REPORTS 3/10 GENERALIZED CHRONIC JOINT PAIN. HX CHF. PT DENIES N/V/D; SKIN IS INTACT, PINK/WARM/DRY; AAOX4, PERRL, WITH STABLE GAIT AT BASELINE; LUNGS WHEEZE BL, BREATHING UNLABORED; BS ACTIVE X4, NO TENDERNESS TO PALPATION; PT DENIES ANY FEVER, CP; PATIENT POSITIONED FOR COMFORT; HOB ELEVATED; BEDRAILS UP X2; BED DOWN. DR MCCABE AT BEDSIDE TO EVALUATE PT.
--- NOTE | 2017-09-17 21:35 | NUR ---
Dr. Owens evaluating patient at bedside.
[2017-09-17] MEDS ORDERED: FUROSEMIDE 40 MG/4 ML VIAL IVP ONE (21:45)
[2017-09-17 22:02] LABS: BASOPHILS # (AUTO) 0.1 K/uL (0.00-0.22); BASOPHILS % (AUTO) 1.6 % (0.0-2.0); EOSINOPHILS # (AUTO) 0.1 K/uL (0-0.4); EOSINOPHILS % (AUTO) 2.3 % (0.0-4.0); HEMATOCRIT 32.5 % (36-52); HEMOGLOBIN 10.4 g/dL (12.0-18.0); LYMPHOCYTES # (AUTO) 0.9 K/uL (2.0-11.5); LYMPHOCYTES % (AUTO) 17.3 % (20.5-51.1); MEAN CORPUSCULAR HEMOGLOBIN 28 pg (27-31); MEAN CORPUSCULAR HGB CONC 32 g/dL (33-37); MEAN CORPUSCULAR VOLUME 85.7 fL (80-94); MONOCYTES # (AUTO) 0.5 K/uL (0.8-1.0); MONOCYTES % (AUTO) 9.3 % (1.7-9.3); NEUTROPHILS # (AUTO) 3.4 K/uL (1.8-7.7); NEUTROPHILS % (AUTO) 69.5 % (42.2-75.2); PLATELET COUNT (AUTO) 222 K/uL (140-450); RED CELL DISTRIBUTION WIDTH 16.4 % (11.6-13.7)
[2017-09-17 22:15] LABS: ANION GAP 6.7 (8-16); CARBON DIOXIDE 31.8 mmol/L (21-32); CREATININE 0.9 mg/dL (0.7-1.3); POTASSIUM 3.5 mmol/L (3.5-5.1)
[2017-09-17 22:22] LABS: ALBUMIN 3.4 g/dL (3.4-5.0)
[2017-09-17] MEDS ORDERED: DILTIAZEM 25 MG/5 ML VIAL IVP ONE (22:40)
[2017-09-17 22:46] LABS: APPEARANCE,URINE CLEAR (CLEAR); BILIRUBIN,URINE NEGATIVE (NEGATIVE); BLOOD, URINE NEGATIVE (NEGATIVE); COLOR,URINE YELLOW (YELLOW); LEUKOCYTE ESTERASE ,URINE NEGATIVE (NEGATIVE); NITRITE, URINE NEGATIVE (NEGATIVE); PH,URINE 6.5 (5.0-9.0); UGLUCOSE NEGATIVE (NEGATIVE)
[2017-09-17 22:58] LABS: BARBITURATE, URINE NEG. ng/ml (NEG <=200); BENZODIAZEPINE, URINE NEG. ng/mL (NEG <=200); CANNABINOID, URINE POS. ng/mL (NEG <=50); COCAINE, URINE NEG. ng/mL (NEG <=300); OPIATE, URINE NEG. ng/mL (NEG <=2000); PHENCYCLIDINE SCREEN,URINE NEG. ng/mL (NEG <=25)
[2017-09-17 23:04] LABS: RBC,URINE NONE SEEN /HPF (0-5); WBC,URINE NONE SEEN /HPF (0-5)
--- NOTE | 2017-09-17 23:43 | NUR ---
PT RESTING COMFORTABLY IN BED, PT O2 89-95% WHILE RESTING/SLEEPING. PT PLACED ON O2 2L NC, SPO2 99%, RR 25 EVEN AND SLIGHTLY TACHYPNIC. BP 163/105, HR 105 AT THIS TIME. MD AWARE. PT DENIES CP OR PAIN AT THIS TIME. ALL NEEDS MET.
[2017-09-18] MEDS ORDERED: NACL 0.9% 1,000 ML IV SCH (00:07)
[2017-09-18] MEDS ORDERED: ZOLPIDEM 5 MG TAB PO PRN (00:10)
[2017-09-18] MEDS ORDERED: DOCUSATE SODIUM 100 MG GELCAP PO PRN (00:10)
[2017-09-18] MEDS ORDERED: ONDANSETRON 4 MG/2 ML VIAL IM/IVP PRN (00:10)
[2017-09-18] MEDS ORDERED: ACETAMINOPHEN 325 MG TAB PO PRN (00:10)
[2017-09-18] MEDS ORDERED: MUPIROCIN 2% OINT 22 GM TUBE TP PRN (00:10)
[2017-09-18] MEDS ORDERED: LORazepam 2 MG/ML VIAL IM/IVP PRN (00:10)
[2017-09-18] MEDS ORDERED: HYDROcodone/APAP 5/325 MG 1 TAB TAB PO PRN (00:10)
[2017-09-18] MEDS ORDERED: MORPHINE SULFATE 2 MG/ML SYR IVP PRN (00:10)
[2017-09-18 00:35] LABS: PROTHROMBIN TIME 12.6 secs (10.8-13.4)
--- NOTE | 2017-09-18 00:40 | NUR ---
Patient will be admitted to care of DR. DAVID. Admited to TELE. Will go to room 120B. Belongings list completed. Report to GELA SIMMS AT BEDSIDE.
[2017-09-18 00:45] VITALS: BP 153/121
--- NOTE | 2017-09-18 00:45 | NUR ---
RECEIVED PT FROM ER NURSE EHSAN-RN AT BEDSIDE. PT AOX4-CALM AND COOPERATIVE. ON 2L/NC, WITH IV ON LEFT AC 20G. SKIN INTACT WITH ENLARGED SCROTUM, BLE EDEMA NON-PITTING. DISCUSSED PLAN OF CARE AND PT VERBALIZED UNDERSTANDING. NO S/S OF RESPIRATORY DISTRESS OR DISCOMFORT NOTED AT THIS TIME. MRSA COLLECTED. WHITE BOARD UPDATED. ORIENTED PT TO BED ROOM, RESTROOM, BED, AND CALL LIGHT. BED IN LOWEST POSITION, BED BREAKS ON, BOTH SIDE RAILS UP. BED SIDE TABLE AND CALL LIGHT ARE WITHIN REACH. WILL CONTINUE TO MONITOR.
[2017-09-18 00:48] LABS: CHOL/HDL RATIO 3.1 (1-4.5); MAGNESIUM 1.8 mg/dL (1.8-2.4); PHOSPHORUS 3.6 mg/dL (2.5-4.9); THYROID STIMULATING HORMONE 9.85 uIU/mL (0.34-3.74)
[2017-09-18] MEDS ORDERED: SPIRONOLACTONE 50 MG TAB PO SCH (02:00)
[2017-09-18] MEDS ORDERED: CARVEDILOL 6.25 MG TAB PO SCH (02:00)
--- NOTE | 2017-09-18 02:20 | NUR ---
CALLED MEDICAL SURGICAL TECH ZHAO FOR ALDACTONE SCHEDULED MEDICATION THAT IS NOT AVAILABLE IN TELE OR [facility]. THEY ARE AVAILABLE IN ICU OR ER. SHE IS AWARE AND WILL DELIVER MEDICATION GLORY.
[2017-09-18] MEDS ORDERED: SPIRONOLACTONE 50 MG TAB ONE (02:36)
--- NOTE | 2017-09-18 02:48 | NUR ---
SCHEDULED MEDICATION GIVEN AND TOLERATED WELL. PT C/O SOB. CALLED RT FOR HIS ALBUTEROL PRN BREATHING TX.
[2017-09-18] MEDS: ALBUTEROL SULFATE/IPRATROPIU 3 ML SOL IH PRN (03:03)
--- NOTE | 2017-09-18 03:16 | NUR ---
HE REFUSED TO DO IS, HE TOLD THAT HE KNOWS HOW , AND HE WILL DO IT IN THE MORNING
[2017-09-18 04:00] VITALS: BP 157/120
--- NOTE | 2017-09-18 04:00 | NUR ---
VITAL SIGNS TAKEN AND TOLERATED WELL. NO S/S OF RESPIRATORY DISTRESS OR DISCOMFORT. BLOOD PRESSURE CONTINUES TO BE ELEVATED DESPITE MEDICATION. WILL SPEAK WITH MD. WILL CONTINUE TO MONITOR.
--- NOTE | 2017-09-18 05:55 | NUR ---
PT RESTING IN BED SLEEPING. NO S/S OF RESPIRATORY DISTRESS OR DISCOMFORT NOTED AT THIS TIME. TOOK BLOOD PRESSURE AGAIN-144/103, HR-121. DR. PEÑALOZA AWARE AND WILL PUT IN ORDERS.
--- NOTE | 2017-09-18 06:29 | NUR ---
SCROTAL SUPPORT HAS BEEN ORDERED. ASKED PT IF HE STILL HAD THE SCROTAL SUPPORT GIVEN TO HIM DURING HIS LAST ADMISSION. PT CLAIMED IT HAS BEEN STOLEN. I ASKED IF HE WOULD LIKE ANOTHER SCROTAL SUPPORT HOWEVER HE REFUSED STATING, "THAT DOESN'T HELP ME. WHAT I WOULD LIKE IS A TOP OF THE LINE JOCKEY STRAP." TOLD PT THAT WE DO NOT OFFER JOKEY STRAPS SINCE THOSE ARE FOR SPORTS. OFFERED THE SCROTAL SUPPORT AGAIN AND PT ONCE AGAIN DENIED. HE ALSO REQUESTED A SHOWER. WILL CALL MD TO MAKE HIM AWARE OF PT REFUSAL OF SCROTAL SUPPORT AND REQUEST FOR SHOWER.
--- NOTE | 2017-09-18 07:29 | NUR ---
ENDORSED PT CARE TO DAY SHIFT NURSE WALKER FOR CONTINUITY OF CARE.
--- NOTE | 2017-09-18 07:30 | NUR ---
RECEIVED REPORT FROM WRAPPER AND PRESERVER NURSE MENDEZ AT BEDSIDE FOR CONTINUITY OF CARE. PT IS AWAKE AND ORIENTED X4. INTRODUCED SELF AND UPDATED BOARD. PT DENIES CHEST PAIN. NO SOB. O2 SAT 93% ON RA. PT REFUSED SCROTAL SUPPORT. SITTING UP IN BED READING NEWSPAPER. IV TO L AC 20G INTACT SL. NO SIGNS OF DISTRESS. CALL LIGHT WITHIN REACH. WILL CONTINUE TO MONITOR.
--- NOTE | 2017-09-18 07:37 | NUR ---
PATIENT HAS BEEN SCREENED AND CATEGORIZED MODERATE RISK. PATIENT WILL BE SEEN WITHIN 3-5 DAYS OF ADMISSION. 09/21-12/[address]
[2017-09-18] MEDS: ALBUTEROL SULFATE/IPRATROPIU 3 ML SOL IH SCH ×3 (07:42→18:34)
[2017-09-18 07:57] VITALS: BP 128/96
[2017-09-18] MEDS: FUROSEMIDE 40 MG/4 ML VIAL IVP SCH (08:35)
[2017-09-18] MEDS: CARVEDILOL 6.25 MG TAB PO SCH ×2 (08:36→20:09)
[2017-09-18] MEDS: LOSARTAN 50 MG TAB PO SCH (08:36)
[2017-09-18] MEDS: DIGOXIN 0.125 MG TAB PO SCH (08:36)
[2017-09-18] MEDS: SPIRONOLACTONE 25 MG TAB PO SCH (08:37)
--- NOTE | 2017-09-18 08:45 | NUR ---
ADMINISTERED SCHEDULED MEDS. PT TOLERATED WELL. PT WAS GOING TO SLEEP WITH HEAD AT FOOT OF BED. REFUSING TO SLEEP WITH HEAD AT HOB. PT DENIES PAIN AT THIS TIME. NO SIGNS OF DISTRESS. WILL CONTINUE TO MONITOR.
[2017-09-18 12:00] VITALS: BP 135/88
--- NOTE | 2017-09-18 13:17 | NUR ---
REPORTED TO DR. MILIAN THAT PT REPORTED FEELING CONSTIPATED. COLACE WAS GIVEN FROM PREVIOUS SHIFT AND PT REPORTED HAVING A SMALL BM THIS AM BUT STILL FEELS CONSTIPATED. ORDERS RECEIVED.
[2017-09-18] MEDS ORDERED: BISACODYL 10 MG SUPP RC SCH (13:30)
--- NOTE | 2017-09-18 14:06 | NUR ---
ADMINISTERED DULCOLAX SUPPOSITORY. EDUCATED PT ON PURPOSE AND SE. PT TOLERATED WELL. PT LYING IN BED L LATERAL. NO SIGNS OF DISTRESS. CALL LIGHT WITHIN REACH. WILL CONTINUE TO MONITOR.
[2017-09-18 16:00] VITALS: BP 143/103
--- NOTE | 2017-09-18 16:45 | NUR ---
PT REPORTED HAVING A SMALL BM. SAID HE STILL THINKS HE HAS MORE FECES AND REPORTS HAVING GAS PAIN. PT WANTED TO SIT UP IN CHAIR TO RELIEVE PAIN. OFFERED PAIN MED. PT REFUSED. NO OTHER COMPLAINTS THIS TIME. WILL CONTINUE TO MONITOR.
[2017-09-18] MEDS: RIVAROXABAN 10 MG TAB PO SCH (16:53)
--- NOTE | 2017-09-18 18:09 | NUR ---
PT REFUSED DINNER TRAY. PT STATES HE IS VEGETARIAN. OFFERED TO CALL FNS FOR MEAL OPTIONS. PT STATED HE DOES NOT FEEL LIKE EATING NOW. SITTING UP IN CHAIR. PT IS COMPLAINING THAT HE ONLY HAD SMALL BM AND ABD PAIN. OFFERED PAIN MED. PT REFUSED PAIN MED AT THIS TIME. WILL CONTINUE TO MONITOR.
--- NOTE | 2017-09-18 19:00 | NUR ---
REPORTED TO DR. PEÑALOZA PT WAS COMPLAINING OF GAS PAIN. CAME TO SEE PT.
--- NOTE | 2017-09-18 19:13 | NUR ---
ENDORSED PT TO ICE SKATING INSTRUCTOR NURSE TAMIKO AT BEDSIDE FOR CONTINUITY OF CARE. PT IN STABLE CONDITION.
--- NOTE | 2017-09-18 19:15 | NUR ---
RECEIVED PT AWAKE KNEELING ON BEDSIDE CHAIR WITH HEAD ON THE BEDSIDE TABLE, COMPLAINING OF GAS PAIN AND THIS POSITION HELPS WITH THE PAIN, ABDOMEN DISTENDED AND FIRM, POSITIVE BOWEL SOUNDS, WITH ORDER FOR SIMETHICONE ONE DOSE, WILL ADMINISTER, VITAL SIGNS TAKEN, BP ELEVATED, WILL GIVE DUE BP MEDICATION SAT-91% ON ROOM AIR, PUT BACK ON O2 AT 2L/NC, SAT WENT UP TO 93%, DENIES CHEST PAIN, WITH SCROTAL EDEMA NOTED, PER RN REPORT PT REFUSED SCROTAL SUPPORT, PLAN OF CARE DISCUSSED, SAFETY MEASURES IN PLACE, CALL LIGHT WITHIN REACH.
[2017-09-18 20:00] VITALS: BP 158/106
[2017-09-18] MEDS ORDERED: SIMETHICONE 80 MG TAB.CHEW PO SCH (20:00)
[2017-09-18] MEDS ORDERED: MINERAL OIL 135 ML ENEM RC ONE (21:15)
--- NOTE | 2017-09-18 21:30 | NUR ---
MEDICATED PRN FOR ABDOMINAL PAIN WITH MORPHINE IVP, MINERAL OIL FLEET ENEMA ADMINISTERED, INSTRUCTED NOT TO BEAR DOWN AND TO HOLD LONG HE CAN, WILL RECHECK IN 15 MINUTES, MONITORED CLOSELY.
--- NOTE | 2017-09-18 22:00 | NUR ---
PT HAD NO BM NOTED, PT SLEEPING AT THIS TIME, EASILY AROUSABLE, DENIES PAIN, MONITORED CLOSELY.
[2017-09-18] MEDS ORDERED: BLOOD GLUCOSE MONITORING 1 DEV DEV FS ONE (23:00)
[2017-09-19] VITALS (7 sets, daily range): BP systolic 107–148; BP diastolic 76–95
--- NOTE | 2017-09-19 | NUR ---
PT SLEEPING, NASAL CANNULA NOT IN PLACE, EASILY AROUSABLE, PUT BACK NASAL CANNULA AND REINFORCE TO KEEP IT IN PLACE, PT NODS HIS HEAD, VITAL SIGNS STABLE, A-FLUTTER ON TELE, DENIES CHEST PAIN, STILL NO BM BUT NO COMPLAIN OF GAS/ABDOMINAL PAIN AT THIS TIME, SIDE RAILS UP AND BED ALARM ON, MONITORED CLOSELY.
--- NOTE | 2017-09-19 05:29 | NUR ---
PT SEEN SITTING ON BEDSIDE CHAIR, PT TRANSFERRED TO BED INDEPENDENTLY, PUT BACK ON O2 AT 2L VIA NASAL CANNULA, DENIES ANY PAIN, WARM BLANKET PROVIDED, MONITORED CLOSELY.
--- NOTE | 2017-09-19 06:30 | NUR ---
PT SLEEPING, SEEN WITH NASAL CANNULA NOT IN PLACE, NO RESP DISTRESS NOTED, PUT BACK ON O2 AT 2L VIA NASAL CANNULA, MONITORED CLOSELY.
--- NOTE | 2017-09-19 07:12 | NUR ---
PT SLEEPING, NO SIGNS OF DISTRESS, REPORT GIVEN TO GELA GARAY FOR CONTINUITY OF CARE.
--- NOTE | 2017-09-19 07:13 | NUR ---
RECEIVED REPORT FROM VENEER SLICING MACHINE OPERATOR NURSE. PATIENT LYING DOWN IN BED SLEEPING, AROUSABLE BY VOICE. NO DISTRESS NOTED. DENIES ANY PAIN. AAOX3, CALM, COOPERATIVE, NON-COMPLIANT WITH O2 2L/MIN VIA NC PATIENT KEEPS TAKING IT OFF, CONTINUED REINFORCEMENT NEEDED. O2 SAT 91% ON 2L/MIN VIA NC. SKIN IS INTACT. SCROTAL EDEMA AND B/L LE EDEMA NOTED. ABDOMEN IS OBESE. IV SITE INTACT, PATENT, ON SALINE LOCK. REVIEWED PLAN OF CARE WITH PATIENT. PATIENT VERBALIZED UNDERSTANDING. SAFETY MEASURES IN PLACE, CALL LIGHT WITHIN REACH. WILL CONTINUE TO MONITOR.
[2017-09-19] MEDS: ALBUTEROL SULFATE/IPRATROPIU 3 ML SOL IH SCH ×3 (08:12→19:40)
--- NOTE | 2017-09-19 08:13 | NUR ---
PATIENT OBESE PRESENTING WITH PERIODS OF APNEA IN SFW POSITION INCREASED TO HFW OFF SUPPLEMENTAL OXYGEN SATURATION 78% ON ROOM AIR POST HHN THERAPY PLACED ON SUPPLEMENTAL OXYGEN AT 3 LPM VIA NC
[2017-09-19 09:00] LABS: BASOPHILS # (AUTO) 0.1 K/uL (0.00-0.22); BASOPHILS % (AUTO) 1.6 % (0.0-2.0); EOSINOPHILS # (AUTO) 0.1 K/uL (0-0.4); EOSINOPHILS % (AUTO) 0.9 % (0.0-4.0); HEMATOCRIT 34.7 % (36-52); HEMOGLOBIN 11.1 g/dL (12.0-18.0); LYMPHOCYTES # (AUTO) 0.8 K/uL (2.0-11.5); LYMPHOCYTES % (AUTO) 13.7 % (20.5-51.1); MEAN CORPUSCULAR HEMOGLOBIN 28 pg (27-31); MEAN CORPUSCULAR HGB CONC 32 g/dL (33-37); MEAN CORPUSCULAR VOLUME 86.5 fL (80-94); MONOCYTES # (AUTO) 0.5 K/uL (0.8-1.0); MONOCYTES % (AUTO) 8.6 % (1.7-9.3); NEUTROPHILS # (AUTO) 4.4 K/uL (1.8-7.7); NEUTROPHILS % (AUTO) 75.2 % (42.2-75.2); PLATELET COUNT (AUTO) 251 K/uL (140-450); RED BLOOD CELL COUNT(AUTO) 4.01 MIL/uL (4.20-6.10); RED CELL DISTRIBUTION WIDTH 16.8 % (11.6-13.7); WHITE BLOOD COUNT (AUTO) 5.9 K/uL (4.8-10.8)
[2017-09-19 09:17] LABS: ANION GAP 9.6 (8-16); CARBON DIOXIDE 33.1 mmol/L (21-32); POTASSIUM 4.7 mmol/L (3.5-5.1)
[2017-09-19 09:19] LABS: MAGNESIUM 1.9 mg/dL (1.8-2.4); PHOSPHORUS 5.1 mg/dL (2.5-4.9)
[2017-09-19] MEDS: LOSARTAN 50 MG TAB PO SCH (09:29)
[2017-09-19] MEDS: FUROSEMIDE 40 MG/4 ML VIAL IVP SCH (09:29)
[2017-09-19] MEDS: SPIRONOLACTONE 25 MG TAB PO SCH (09:30)
[2017-09-19] MEDS: CARVEDILOL 6.25 MG TAB PO SCH ×2 (09:30→20:49)
[2017-09-19] MEDS: DIGOXIN 0.125 MG TAB PO SCH (09:30)
--- NOTE | 2017-09-19 09:39 | NUR ---
PATIENT LYING DOWN IN BED SLEEPING, AROUSABLE BY VOICE. NO DISTRESS NOTED. DENIES ANY PAIN. SCHEDULED MEDICATIONS DUE GIVEN. SAFETY MEASURES IN PLACE, CALL LIGHT WITHIN REACH. WILL CONTINUE TO MONITOR.
--- NOTE | 2017-09-19 10:59 | NUR ---
US TECH AT BEDSIDE TO PERFORM VENUOUS DOPPLER STUDY ON B/L LE. WILL CONTINUE TO MONITOR.
--- NOTE | 2017-09-19 11:12 | NUR ---
PER [facility] ORDER BY Alin MOLINA PLACED ON ROOM AIR AT THIS TIME
--- NOTE | 2017-09-19 11:35 | NUR ---
CALLED DR JUAN ANTONIO MOLINA [phone] TO REVIEW [facility] SAMPLE REPORT DR MARILYN MILIAN COVERING FOR DR JUAN ANTONIO MOLINA
--- NOTE | 2017-09-19 12:42 | NUR ---
PATIENT LYING DOWN IN BED SLEEPING, AROUSABLE BY VOICE. NO DISTRESS NOTED. DENIES ANY PAIN. CONDITION UNCHANGED. WILL CONTINUE TO MONITOR.
--- NOTE | 2017-09-19 14:08 | NUR ---
Food Counter Worker Note: I met with patient at bedside. I offered to provide him with community resources, he refused community resources.
--- NOTE | 2017-09-19 14:50 | NUR ---
ASLEEP PRESENTING WITH PERIODS OF APNEA SATURATION 89% ON SUPPLEMENTAL OXYGEN AT 3 LPM VIA NC POST STANDING OXYGEN ORDER KEEP SATURATION GREATER THAN 92% POST HHN THERAPY PLACED ON A OXYMIZER AT 5 LPM FOOD ASSEMBLER TO MONITOR
--- NOTE | 2017-09-19 15:22 | NUR ---
SATURATION 97% ON SUPPLEMENTAL OXYGEN AT 5 LPM VIA OXYMIZER PATIENT PRESENTING WITH PERIODS OF APNEA JARROD/RN NOTIFIED
--- NOTE | 2017-09-19 17:00 | NUR ---
PATIENT LYING DOWN IN BED SLEEPING, AROUSABLE BY VOICE. NO DISTRESS NOTED. DENIES ANY PAIN. SCHEDULED MEDICATIONS DUE GIVEN. CONDITION UNCHANGED. WILL CONTINUE TO MONITOR.
[2017-09-19] MEDS: RIVAROXABAN 10 MG TAB PO SCH (17:06)
--- NOTE | 2017-09-19 18:00 | NUR ---
DR. MCARTHUR AND Yohannes BENITEZ AT BEDSIDE REVIEWING PLAN OF CARE WITH PATIENT. WILL CONTINUE TO MONITOR.
[2017-09-19] MEDS ORDERED: DILTIAZEM 25 MG/5 ML VIAL IVP PRN (18:35)
[2017-09-19] MEDS ORDERED: SIMETHICONE 80 MG TAB.CHEW PO SCH (19:02)
--- NOTE | 2017-09-19 19:29 | NUR ---
GAVE REPORT TO GROUNDING ENGINEER FOR CONTINUITY OF CARE. PATIENT IN STABLE CONDITION.
--- NOTE | 2017-09-19 19:30 | NUR ---
RECEIVED REPORT FROM DAY SHIFT RN FOR CONTINUITY OF CARE. PT IS A/OX4, ON 5L O2 VIA OXIMIZER. PT IS ABLE TO MAKE NEEDS KNOWN, ABLE TO FOLLOW COMMANDS. RESPIRATIONS EVEN AND UNLABORED AT THE MOMENT. PT SKIN IS INTACT. PT IS VERY EDEMATOUS, PT HAS 2+ PITTING EDEMA TO B/L LOWER EXTREMITIES, PT ALSO HAS SCROTAL EDEMA. PT HAS 20G IV TO LEFT AC, ASYMPTOMATIC, INTACT AND PATENT. DISCUSSED PLAN OF CARE WITH PT, PT VERBALIZED UNDERSTANDING. VITAL SIGNS WITHIN NORMAL LIMITS. PT STABLE, NO SIGNS OF DISTRESS NOTED AT THIS TIME. BED IN LOWEST POSITION, BED ALARM ON. CALL LIGHT WITHIN REACH, WILL CONTINUE TO MONITOR.
--- NOTE | 2017-09-19 20:55 | NUR ---
ADMINISTERED SCHEDULED MEDICATIONS, PT TOLERATED WELL.
[2017-09-20] VITALS: BP 119/60
[2017-09-20 04:00] VITALS: BP 114/78
--- NOTE | 2017-09-20 04:45 | NUR ---
ENDORSED PT TO GELA HOOKER. PT IN STABLE CONDITION.
--- NOTE | 2017-09-20 04:50 | NUR ---
ASSUMED CARE OF PATIENT, SLEEPING WELL. NO COMPLAINS. CALL LIGHT WITHIN REACH.
[2017-09-20] MEDS: ALBUTEROL SULFATE/IPRATROPIU 3 ML SOL IH SCH ×3 (06:44→19:36)
--- NOTE | 2017-09-20 06:50 | NUR ---
RT AT BEDSIDE FOR BREATHING TREATMENT.
--- NOTE | 2017-09-20 07:22 | NUR ---
ENDORSED CARE OF PATIENT WITH SOLA RN , PATIENT IN STABLE CONDITION.
--- NOTE | 2017-09-20 07:23 | NUR ---
RECEIVED REPORT FROM PM NURSE. PT LYING ON HIS BED, NO SIGN OF DISTRESS. UPDATED BOARD, INTRODUCED SELF TO PT. ALL SAFETY MEASURE IN PLACE. PT HAS OXIMIZER ON. WILL CONTINUE TO MONITOR PT.
[2017-09-20 07:33] LABS: ALBUMIN 3.6 g/dL (3.4-5.0); ANION GAP 9.2 (8-16); CARBON DIOXIDE 34.4 mmol/L (21-32); CREATININE 1.1 mg/dL (0.7-1.3); POTASSIUM 4.6 mmol/L (3.5-5.1); TOTAL BILIRUBIN 1.6 mg/dL (0.0-1.0)
[2017-09-20 07:58] VITALS: BP 121/89
[2017-09-20] MEDS ORDERED: DILTIAZEM 25 MG/5 ML VIAL IVP PRN (08:05)
--- NOTE | 2017-09-20 08:27 | NUR ---
PER [facility] RESULTS ELEVATED CO2 PT PLACED ON BIPAP 16/6, R12 AND FIO2 40%. PT DEMONSTRATING SIGNS/SYMPTOMS OF HYPERCAPNIA. PHYSICIAN MADE AWARE OF PT STATUS. WILL CONTINUE TO MONITOR.
[2017-09-20] MEDS: DIGOXIN 0.125 MG TAB PO SCH (09:25)
[2017-09-20] MEDS: LOSARTAN 50 MG TAB PO SCH (09:25)
[2017-09-20] MEDS: CARVEDILOL 6.25 MG TAB PO SCH ×2 (09:25→21:00)
[2017-09-20] MEDS: SPIRONOLACTONE 25 MG TAB PO SCH (09:27)
[2017-09-20] MEDS: FUROSEMIDE 40 MG/4 ML VIAL IVP SCH ×2 (09:27→21:34)
--- NOTE | 2017-09-20 09:30 | NUR ---
ADMINISTERED MEDS ORDERED. DR MCARTHUR ORDERED MIRALAX 17 MG PO DAILY. RT AT THE BEDSIDE, EXPLAINED THAT PT WILL NEED BIPAP WHOLE NIGHT BECAUSE OF HIGH CO2. PT STABLE. ALL SAFETY MEASURE IN PLACE WILL CONTINUE TO MONITOR PT.
[2017-09-20] MEDS ORDERED: POLYETHYLENE GLYCOL 17 GM/PKT PO SCH (10:06)
--- NOTE | 2017-09-20 12:29 | NUR ---
PT REMOVED BIPAP MASK TO EAT. PT PLACED ON 4L OXYMIZER. PT NOT SOB AND NOT IN RESPIRATORY DISTRESS. PT APPEARS TO BE MORE ALERT AND MORE RESPONSIVE. WILL CONTINUE TO MONITOR.
[2017-09-20 12:40] VITALS: BP 110/80
--- NOTE | 2017-09-20 13:00 | NUR ---
CHECKED ON PT. PT SITTING UP IN HIS BED. INFORMED THAT THE PARACENTESIS PROCEDURE WILL BE DONE BY DR. MOLINA. HAD HIM SIGN THE CONSENT FORM. PT STATES TO HAVE NO QUESTION, DR MOLINA EXPLAINED THE PROCEDURE. WILL CONTINUE TO MONITOR THE PT.
--- NOTE | 2017-09-20 14:29 | NUR ---
Digital Printer Operator Note: Patient has [employer] restricted, however, [employer] eligibility sheet indicates patient has SNF benefits. I faxed inquiries to the following snfs: Per Zaynab from [facility] , they do not have any beds available at this time, unable to accept patient. Per Donna from [facility] , they aren't able to accept patient, no reason given. Per Lety from [facility] , they aren't able to accept patient, no reason given. Per Corrugator Operator Jael (currently covering for admission coordinator Kaci) from [facility] , unable to accept patient due to homelessness. Per Adan from [facility] , [facility] and [facility] , no beds available at this time. I informed I contacted snfs and at this time there are no snfs able to accept patient.
[2017-09-20] MEDS ORDERED: ACETAMINOPHEN 325 MG TAB PO PRN (15:00)
[2017-09-20] MEDS ORDERED: MORPHINE SULFATE 2 MG/ML SYR IVP PRN (15:00)
[2017-09-20] MEDS ORDERED: DOCUSATE SODIUM 100 MG GELCAP PO PRN (15:00)
[2017-09-20] MEDS ORDERED: HYDROcodone/APAP 5/325 MG 1 TAB TAB PO PRN (15:00)
[2017-09-20] MEDS ORDERED: LORazepam 2 MG/ML VIAL IM/IVP PRN (15:00)
[2017-09-20] MEDS ORDERED: ONDANSETRON 4 MG/2 ML VIAL IM/IVP PRN (15:00)
[2017-09-20] MEDS ORDERED: ZOLPIDEM 5 MG TAB PO PRN (15:00)
[2017-09-20 16:00] VITALS: BP 114/74
[2017-09-20] MEDS ORDERED: LORazepam 2 MG/ML VIAL IVP PRN (16:15)
--- NOTE | 2017-09-20 16:40 | NUR ---
DR MOLINA COMPLETED THE PARACENTESIS PROCEDURE ON PT. HAS 500 ML OUTPUT FROM THE PROCEDURE. FLUID COLLECTED SENT TO THE LAB. CHARGE NURSE INFORMED.PT LYING DOWN ON HIS BED. WILL CONTINUE TO MONITOR PT.
[2017-09-20] MEDS ORDERED: LIDOCAINE 2% 1000 MG/50 ML VIAL INJ SCH (17:00)
[2017-09-20] MEDS ORDERED: MAGNESIUM CITRATE 300 ML BTL PO PRN (17:55)
--- NOTE | 2017-09-20 18:13 | NUR ---
PT STATES HE IS SOB, PT PLACED ON BIPAP 16/6, R 12, FIO2 40%. BIPAP ALARMS ARE ON AND FUNCTIONING. PROTECTA-GEL PLACED UNDER MASK.
--- NOTE | 2017-09-20 19:25 | NUR ---
ENDORSED PT TO PM NURSE. PT IN STABLE CONDITION.
[2017-09-20 19:50] VITALS: BP 106/80
--- NOTE | 2017-09-20 20:00 | NUR ---
PT NOW ON BIPAP AND TOLERATING WELL.
[2017-09-20 20:33] LABS: APPEARANCE,SPUN,BODY FLUID CLEAR (CLEAR); APPEARANCE,UNSPUN,BODY FLUID HAZY (CLEAR); COLOR,BODY FLUID YELLOW (LT YELLOW); SPECIMENTYPE,BODY FLUID ASCITES
[2017-09-20 20:34] LABS: TOTAL VOLUME,BODY FLUID 1640 mL
[2017-09-20 20:40] LABS: POLYNUCLEAR, BODY FLUID 52 %; RBC, BODY FLUID 927 /cu. mm.; WBC, BODY FLUID 50 /cu. mm.
[2017-09-20 20:57] LABS: GLUCOSE,BODY FLUID 129 mg/dL
[2017-09-20] MEDS: RIVAROXABAN 10 MG TAB PO SCH (21:11)
--- NOTE | 2017-09-20 21:34 | NUR ---
ADMINISTERED SCHEDULED MEDICATIONS, PT TOLERATED WELL. ASKED DR CUEVAS AND DR ABAD IF BOTH LASIX AND COREG SHOULD BE GIVEN NOW BECAUSE BP IS 106/80, WAS INSTRUCTED TO ADMINISTER LASIX NOW AND RECHECK BP IN ONE HOUR TO ASSESS NEED OF FLUIDS, AND IF BLOOD PRESSURE ELEVATES THROUGHOUT NIGHT GIVE COREG.
--- NOTE | 2017-09-20 22:57 | NUR ---
PT C/O CONSTIPATION, PT DOES NOT WANT STOOL SOFTENER HE WANTS A LAXATIVE. ADMINISTERED CITROMA PER ORDER FOR CONSTIPATION. PT TOLERATED WELL, HE DRANK IT ALL WITHOUT ANY PROBLEMS SWALLOWING.
[2017-09-21] VITALS: BP 124/86
--- NOTE | 2017-09-21 03:00 | NUR ---
PATIENT WAS ON ROOM AND RT ATTEMPTED TO TAKE ABG BUT PATIENT REFUSED ABG TEST/ PATIENT WAS THEN PLACED BACK ON SUPP OXYGEN 4L OXYMIZER. PATIENT STABLE AND ALERT NO RESP DISTRESS AT THIS TIME BIPAP USED PRN AT BEDSIDE
[2017-09-21 04:00] VITALS: BP 126/85
--- NOTE | 2017-09-21 04:00 | NUR ---
VITAL SIGNS WITHIN NORMAL LIMITS. PT STABLE, NO SIGNS OF DISTRESS NOTED AT THIS TIME. BED IN LOWEST POSITION, BED ALARM ON. CALL LIGHT WITHIN REACH, WILL CONTINUE TO MONITOR.
--- NOTE | 2017-09-21 07:16 | NUR ---
ENDORSED PT TO DAY SHIFT RN FOR CONTINUITY OF CARE, PT IN STABLE CONDITION.
--- NOTE | 2017-09-21 07:17 | NUR ---
RECEIVED REPORT FROM PM NURSE. PT LYING ON BED ON HIS BACK. DENIES PAIN. NO SIGN OF DISTRESS. INFORMED THAT WILL CHECK ON HIM AND TAKE VS. ALL SAFETY MEASURE IN PLACE. WILL CONTINUE TO MONITOR PT.
[2017-09-21] MEDS: ALBUTEROL SULFATE/IPRATROPIU 3 ML SOL IH SCH ×3 (07:55→19:50)
[2017-09-21 08:00] VITALS: BP 137/104
[2017-09-21 08:55] LABS: BASOPHILS % (AUTO) 0.8 % (0.0-2.0); EOSINOPHILS # (AUTO) 0.2 K/uL (0-0.4); EOSINOPHILS % (AUTO) 2.9 % (0.0-4.0); HEMATOCRIT 33.1 % (36-52); HEMOGLOBIN 10.2 g/dL (12.0-18.0); LYMPHOCYTES % (AUTO) 17.8 % (20.5-51.1); MEAN CORPUSCULAR HEMOGLOBIN 28 pg (27-31); MEAN CORPUSCULAR HGB CONC 31 g/dL (33-37); MEAN CORPUSCULAR VOLUME 89.1 fL (80-94); MONOCYTES # (AUTO) 0.9 K/uL (0.8-1.0); MONOCYTES % (AUTO) 15.7 % (1.7-9.3); NEUTROPHILS # (AUTO) 3.5 K/uL (1.8-7.7); NEUTROPHILS % (AUTO) 62.8 % (42.2-75.2); PLATELET COUNT (AUTO) 244 K/uL (140-450); RED BLOOD CELL COUNT(AUTO) 3.72 MIL/uL (4.20-6.10); RED CELL DISTRIBUTION WIDTH 16.8 % (11.6-13.7); WHITE BLOOD COUNT (AUTO) 5.6 K/uL (4.8-10.8)
[2017-09-21 09:04] LABS: ANION GAP 7.5 (8-16); CARBON DIOXIDE 36.6 mmol/L (21-32); CREATININE 0.9 mg/dL (0.7-1.3); POTASSIUM 4.1 mmol/L (3.5-5.1)
[2017-09-21 09:09] LABS: PHOSPHORUS 3.4 mg/dL (2.5-4.9)
[2017-09-21] MEDS: LOSARTAN 50 MG TAB PO SCH (09:23)
[2017-09-21] MEDS: SPIRONOLACTONE 25 MG TAB PO SCH (09:23)
[2017-09-21] MEDS: FUROSEMIDE 40 MG/4 ML VIAL IVP SCH ×2 (09:24→20:09)
[2017-09-21] MEDS: CARVEDILOL 6.25 MG TAB PO SCH ×2 (09:24→20:09)
[2017-09-21] MEDS: DIGOXIN 0.125 MG TAB PO SCH (09:24)
[2017-09-21] MEDS: POLYETHYLENE GLYCOL 17 GM/PKT PO SCH (09:25)
--- NOTE | 2017-09-21 09:30 | NUR ---
CHECKED ON PT. ADMINISTERED MEDS ORDERED. PT TOLERATED WELL. NO SIGN OF DISTRESS. PT WANTS TO TAKE SHOWER. INFORMED THAT WILL LET KNOW AFTER TALKING TO DOCTOR. VERBALIZES UNDERSTANDING OF TEACHING. ALL SAFETY MEASURE I N PLACE. WILL CONTINUE TO MONITOR PT.
--- NOTE | 2017-09-21 11:16 | NUR ---
PATIENT C/O NASAL AND PHARYNGEAL DRYNESS WITH SUPPLEMENTAL OXYGEN USE ADDED HUMIDIFIER
[2017-09-21 12:00] VITALS: BP 124/87
--- NOTE | 2017-09-21 12:09 | NUR ---
CHECKED ON PT. PT SPRAYED SPRAYED AIR FRESHENER IN HIS ROOM, WANTS THE ROOM TO SANITIZED. EXPLAINED THAT FLOOR IS CLEANED AND SANITIZED. ASKED NOT SPRAY DEOODERENT IN ROOM, OTHER PT ON SIDE WOULD BE ALLERGIC TO IT. PT AGITATED, ASKING FOR SPRAY AIR. WANTS TO SPRAY TO MAKE AIR CLEAN. CHARGE NURSE AT THE BEDSIDE. TALKING TO PT.
--- NOTE | 2017-09-21 14:00 | NUR ---
[facility] V60 BIPAP AT BEDSIDE
--- NOTE | 2017-09-21 15:11 | NUR ---
CHECKED ON PTS. HELPED HIM TO GET READY FOR THE SHOWER. DOCTOR OKAY WITH IT. INFORMED PT THAT NOT TO WET THE IV ACCESS. MALKA HIGGINS COVERED HIS RT HAND WITH PLASTIC , TO AVOID THE IV ACCESS SITE FROM GETTING WET. PT VERBALISED UNDERSTANDING. STATES CAN GET SHOWER INDEPENDENTLY.
[2017-09-21 16:00] VITALS: BP 121/85
--- NOTE | 2017-09-21 17:38 | NUR ---
SATURATION 100% ON SUPPLEMENTAL OXYGEN AT 4 LPM VIA OXYMIZER TITRATED FIO2 TO 3 LPM Addendum: 09/21/17 at 1741 by Jamel Cameron RT OSCAR/GELA NOTIFIED OF SATURATION AND DECREASE IN FIO2
[2017-09-21] MEDS: RIVAROXABAN 10 MG TAB PO SCH (18:16)
--- NOTE | 2017-09-21 19:20 | NUR ---
ENDORSED PT TRO PM NURSE . PT STABLE .
--- NOTE | 2017-09-21 19:21 | NUR ---
PATIENT REPORT RECEIVED FROM MORNING NURSE AT BEDSIDE. PATIENT IS SITTING IN HIS CHAIR, ASLEEP. EASY TO AROUSE BY VOICE. NO SIGNS AND SYMPTOMS OF DISTRESS NOTED. IV SITE NOTED IN LEFT AC, SALINE LOCKED. PATIENT ON O2 3L OXYMIZER. BREATHING EVEN AND UNLABORED. BED IN LOWEST POSITION, SIDE RAILS UP AND CALL LIGHT WITHIN REACH. WILL CONTINUE TO MONITOR.
[2017-09-21 20:00] VITALS: BP 131/88
--- NOTE | 2017-09-21 20:25 | NUR ---
PATIENT TOOK BIPAP OFF HIMSELF, STATED HE IS ON DIURETICS AND NEEDS TO KEEP USING RESTROOM
--- NOTE | 2017-09-21 20:30 | NUR ---
MEDICATION EDUCATION GIVEN. MEDICATION ADMINISTERED ORDERED. PATIENT TOLERATED WELL. WILL CONTINUE TO MONITOR
--- NOTE | 2017-09-21 22:28 | NUR ---
2208- FOUND PATIENT BACK ON BIPAP UNIT AND ALARMING, ADJUSTED HEADGEAR TO ELIMINATE LEAK , PATIENT AWAKE AND ALERT, TOLERATING BIPAP 12/6, RR-12, FIO2-40%
[2017-09-22] VITALS: BP 146/92
--- NOTE | 2017-09-22 | NUR ---
PATIENT KEEPS TAKING OFF BIPAP. NOTIFIED RT. PATIENT NOW BACK ON 3L O2 VIA OXYMIZER. WILL CONTINUE TO MONITOR.
--- NOTE | 2017-09-22 01:20 | NUR ---
BHIPAP STLAURI, PATIENT DOES NOT WANT UNIT ON
--- NOTE | 2017-09-22 02:30 | NUR ---
CHECKED ON PATIENT. PATIENT IS ASLEEP. NO SIGNS AND SYMPTOMS OF DISTRESS NOTED. BREATHING EVEN AND UNLABORED. WILL CONTINUE TO MONITOR
[2017-09-22 04:00] VITALS: BP 137/83
--- NOTE | 2017-09-22 05:06 | NUR ---
CHECKED ON PATIENT. PATIENT IS ASLEEP. NO SIGNS AND SYMPTOMS OF DISTRESS NOTED. BREATHING EVEN AND UNLABORED. WILL CONTINUE TO MONITOR.
[2017-09-22] MEDS: ALBUTEROL SULFATE/IPRATROPIU 3 ML SOL IH SCH ×3 (07:16→19:14)
--- NOTE | 2017-09-22 07:19 | NUR ---
PATIENT REPORT GIVEN TO MORNING NURSE AT BEDSIDE. PATIENT IS IN STABLE CONDITION
[2017-09-22 08:00] VITALS: BP 151/110
[2017-09-22 08:14] LABS: HEMATOCRIT 33.5 % (36-52); HEMOGLOBIN 10.3 g/dL (12.0-18.0); MEAN CORPUSCULAR HEMOGLOBIN 27 pg (27-31); MEAN CORPUSCULAR HGB CONC 31 g/dL (33-37); MEAN CORPUSCULAR VOLUME 88.3 fL (80-94); PLATELET COUNT (AUTO) 242 K/uL (140-450); RED BLOOD CELL COUNT(AUTO) 3.79 MIL/uL (4.20-6.10); RED CELL DISTRIBUTION WIDTH 16.9 % (11.6-13.7); WHITE BLOOD COUNT (AUTO) 5.5 K/uL (4.8-10.8)
[2017-09-22] MEDS: POLYETHYLENE GLYCOL 17 GM/PKT PO SCH (08:16)
[2017-09-22] MEDS: SPIRONOLACTONE 25 MG TAB PO SCH (08:18)
[2017-09-22] MEDS: LOSARTAN 50 MG TAB PO SCH (08:18)
[2017-09-22] MEDS: CARVEDILOL 6.25 MG TAB PO SCH ×2 (08:18→20:30)
[2017-09-22] MEDS: FUROSEMIDE 40 MG/4 ML VIAL IVP SCH ×2 (08:19→20:30)
[2017-09-22] MEDS: DIGOXIN 0.125 MG TAB PO SCH (08:19)
--- NOTE | 2017-09-22 08:19 | NUR ---
ORDERED MEDICATIONS GIVEN. PATIENT TOLERATED IT WELL. NO SIGNS OF DISTRESS OR SOB NOTED 3L O2 OXYMIZER. PATIENT DENIES PAIN. PATIENT REQUESTED FOR CREAM OF WHEAT, CALLED DIETARY FOR IT. PATIENT ALSO C/O OF CONSTIPATION, OFFERED PRUNE JUICE AND COLACE, PATIENT ACCEPTED. SAFETY PRECAUTION IN PLACE, CALL LIGHT WITHIN REACH. SAFETY PRECAUTION IN PLACE, CALL LIGHT WITHIN REACH, WILL CONTINUE TO MONITOR PATIENT.
--- NOTE | 2017-09-22 08:20 | NUR ---
PATIENT REPORT RECEIVED FROM LACEMAKER NURSE AT BEDSIDE FOR CONTINUITY OF CARE. PATIENT IS AWAKE AND ALERT, OXIMIZER OFF. OXIMIZER PUT BACK ON PATIENT. NO SIGNS AND SYMPTOMS OF DISTRESS NOTED. IV SITE NOTED IN LEFT AC, SALINE LOCKED. PATIENT ON O2 3L OXYMIZER. BREATHING EVEN AND UNLABORED. SAFETY PRECAUTION IN PLACE, BED IN LOWEST POSITION, SIDE RAILS UP, CALL LIGHT WITHIN REACH. WILL CONTINUE TO MONITOR PATIENT. Addendum: 09/22/17 at 1008 by Gerardo Ragsdale RN WRONG TIME, CORRECT TIME: 07
[2017-09-22 08:26] LABS: ANION GAP 4.4 (8-16); CARBON DIOXIDE 38.6 mmol/L (21-32); CREATININE 0.9 mg/dL (0.7-1.3)
--- NOTE | 2017-09-22 08:38 | NUR ---
COLACE ADMINISTERED AND PRUNE JUICE GIVEN REQUESTED. PATIENT TOLERATED IT WELL. PATIENT AMBULATED TO BATHROOM, VOIDED, AND REPORTED SMALL BOWEL MOVEMENT. PATIENT FORGOT TO PUT OXIMIZER ON AFTER COMING BACK FROM BATHROOM, OXIMIZER PLACED BACK ON PATIENT. SAFETY PRECAUTION IN PLACE, CALL LIGHT WITHIN REACH, WILL CONTINUE TO MONITOR PATIENT.
[2017-09-22 08:54] LABS: BASOPHILS % (MANUAL) 0 % (0-2); EOSINOPHILS % (MANUAL) 2 % (0-4); LYMPHOCYTES % (MANUAL) 20 % (20-46); MONOCYTES % (MANUAL) 11 % (5-12)
--- NOTE | 2017-09-22 09:29 | NUR ---
HR 125, CARDIZEM PRN ADMINISTERED ORDERED. PT TOLERATED IT WELL. PATIENT AMBULATED TO BATHROOM AND VOIDED. FORGOT OXIMIZER WHEN HE CAME BACK TO BED. EDUCATED PATIENT ON NEED TO BE ON OXIMIZER, PATIENT VERBALIZED UNDERSTANDING. WILL CONTINUE TO MONITOR PATIENT.
--- NOTE | 2017-09-22 10:29 | NUR ---
PATIENT SITTING UP ON SIDE OF BED, NO SIGNS OF DISTRESS OR SOB NOTED ON 3L O2 OXIMIZER. PATIENT DENIES CHEST PAIN. HR 104, BP 130/88. WILL CONTINUE TO MONITOR PATIENT.
[2017-09-22 11:51] VITALS: BP 134/82
--- NOTE | 2017-09-22 12:45 | NUR ---
PATIENT PERFORMING ORAL CARE AND SHAVING. NO SIGNS OF DISTRESS OR SOB NOTED ON 3L O2 OXIMIZER. PATIENT DENIES CHEST PAIN. PROVIDED PATIENT WITH ANOTHER PRUNE JUICE REQUESTED. WILL CONTINUE TO MONITOR PATIENT.
--- NOTE | 2017-09-22 14:13 | NUR ---
PT SLEEPING NO HHN GIVEN NO SIGNS OF DISTRESS NOTED
--- NOTE | 2017-09-22 15:25 | NUR ---
ATTEMPTING TO WEAN PATIENT OFF OF OXIMIZER. PATIENT AGREEABLE. WILL CONTINUE TO MONITOR PATIENT.
[2017-09-22 16:00] VITALS: BP 130/92
--- NOTE | 2017-09-22 16:10 | NUR ---
PATIENT SITTING UP ON SIDE OF BED, NO SIGN OF DISTRESS OR SOB ON ROOM AIR. O2 SATURATION 100% ON ROOM AIR. PATIENT DENIES PAIN. SAFETY PRECAUTION IN PLACE, CALL LIGHT WITHIN REACH. WILL CONTINUE TO MONITOR PATIENT.
--- NOTE | 2017-09-22 17:15 | NUR ---
CHECKED IN ON PATIENT. PATIENT PLACED OXIMIZER ON HIMSELF. WHEN EDUCATING PATIENT THE NEED TO WEAN HIMSELF OFF OF OXYGEN AND HOW WELL HE WAS DOING ON ROOM AIR. PATIENT STATES THAT "I NEED IT, AT LEAST LET ME KEEP IT UNTIL TOMORROW". PATIENT DENIES PAIN, SAFETY PRECAUTION IN PLACE, CALL LIGHT WITHIN REACH, WILL CONTINUE TO MONITOR PATIENT.
[2017-09-22] MEDS: RIVAROXABAN 10 MG TAB PO SCH (19:02)
--- NOTE | 2017-09-22 19:28 | NUR ---
REPORT GIVEN TO TOWEL INSPECTOR NURSE AT BEDSIDE FOR CONTINUITY OF CARE. PATIENT IN STABLE CONDITION.
--- NOTE | 2017-09-22 19:29 | NUR ---
PATIENT REPORT RECEIVED FROM MORNING NURSE AT BEDSIDE. PATIENT IS IN BED ASLEEP. EASY TO AROUSE BY VOICE. NO SIGNS AND SYMPTOMS OF DISTRESS NOTED. IV SITE NOTED IN LEFT AC, SALINE LOCKED. PATIENT ON O2 3L OXYMIZER. BREATHING EVEN AND UNLABORED. BED IN LOWEST POSITION, SIDE RAILS UP AND CALL LIGHT WITHIN REACH. WILL CONTINUE TO MONITOR.
[2017-09-22 20:00] VITALS: BP 143/100
--- NOTE | 2017-09-22 21:00 | NUR ---
MEDICATION EDUCATION GIVEN. PATIENT VERBALIZED UNDERSTANDING. MEDICATION ADMINISTERED ORDERED
--- NOTE | 2017-09-22 22:00 | NUR ---
CHECKED ON PATIENT. PATIENT IS ASLEEP. NO SIGNS AND SYMPTOMS OF DISTRESS NOTED. BREATHING EVEN AND UNLABORED. WILL CONTINUE TO MONITOR
[2017-09-22] MEDS: ALBUTEROL SULFATE/IPRATROPIU 3 ML SOL IH PRN (22:45)
[2017-09-23] VITALS (7 sets, daily range): BP systolic 119–138; BP diastolic 60–100
--- NOTE | 2017-09-23 03:00 | NUR ---
PATIENT ON 1LPM OXIMIZER, NO DISTRESS NOTED SAO2 96% RR-18BPM
--- NOTE | 2017-09-23 05:00 | NUR ---
CHECKED ON PATIENT. PATIENT IS ASLEEP. NO SIGNS AND SYMPTOMS OF DISTRESS NOTED. BREATHING EVEN AND UNLABORED. WILL CONTINUE TO MONITOR.
[2017-09-23] MEDS: ALBUTEROL SULFATE/IPRATROPIU 3 ML SOL IH SCH ×3 (07:18→19:12)
--- NOTE | 2017-09-23 07:21 | NUR ---
PATIENT REPORT GIVEN TO MORNING NURSE AT BEDSIDE, PATIENT IS IN STABLE CONDITION
--- NOTE | 2017-09-23 07:21 | NUR ---
RECEIVED PATIENT REPORT FROM NIGHTSHIFT NURSE AT BEDSIDE. PATIENT IS AWAKE AT THIS TIME AND PRESENTS IN HIGH-FOWLERS POSITION. PATIENT ALERT AND ORIENTED X4. PATIENT ON 1L O2 VIA OXIMIZER. PATIENT HAS LEFT AC 20 G SL. NO DISTRESS NOTED AT THIS TIME. NO PAIN NOTED. PATIENT ABLE TO MAKE NEEDS KNOWN. PUT CALL LIGHT WITHIN REACH OF PATIENT. UPDATED BOARD IN PATIENT'S ROOM. WILL CONTINUE TO MONITOR PATIENT.
[2017-09-23 08:22] LABS: BASOPHILS % (AUTO) 0.5 % (0.0-2.0); EOSINOPHILS # (AUTO) 0.2 K/uL (0-0.4); EOSINOPHILS % (AUTO) 2.4 % (0.0-4.0); HEMATOCRIT 34.5 % (36-52); HEMOGLOBIN 10.8 g/dL (12.0-18.0); LYMPHOCYTES % (AUTO) 15.1 % (20.5-51.1); MEAN CORPUSCULAR HEMOGLOBIN 28 pg (27-31); MEAN CORPUSCULAR HGB CONC 31 g/dL (33-37); MEAN CORPUSCULAR VOLUME 88.8 fL (80-94); NEUTROPHILS # (AUTO) 4.2 K/uL (1.8-7.7); PLATELET COUNT (AUTO) 272 K/uL (140-450); RED BLOOD CELL COUNT(AUTO) 3.88 MIL/uL (4.20-6.10); RED CELL DISTRIBUTION WIDTH 17.2 % (11.6-13.7); WHITE BLOOD COUNT (AUTO) 6.3 K/uL (4.8-10.8)
[2017-09-23 08:28] LABS: ANION GAP 6.3 (8-16); CARBON DIOXIDE 38.6 mmol/L (21-32); CREATININE 0.8 mg/dL (0.7-1.3); POTASSIUM 3.9 mmol/L (3.5-5.1)
[2017-09-23] MEDS: FUROSEMIDE 40 MG/4 ML VIAL IVP SCH ×3 (09:00→21:00)
[2017-09-23] MEDS: POLYETHYLENE GLYCOL 17 GM/PKT PO SCH (09:01)
[2017-09-23] MEDS: LOSARTAN 50 MG TAB PO SCH (09:02)
[2017-09-23] MEDS: CARVEDILOL 6.25 MG TAB PO SCH ×2 (09:02→21:05)
[2017-09-23] MEDS: SPIRONOLACTONE 25 MG TAB PO SCH (09:02)
[2017-09-23] MEDS: DIGOXIN 0.125 MG TAB PO SCH (09:23)
--- NOTE | 2017-09-23 09:45 | NUR ---
PATIENT'S IV LINE IS LEAKING. IV LINE IS NOT GOOD. PATIENT REFUSED INSERTION OF ANOTHER IV LINE. WILL NOTIFY RESIDENT . Addendum: 09/23/17 at 1111 by Behzad Dillard II, RN UNABLE TO GIVE PATIENT'S IV PUSH LASYUAN.
--- NOTE | 2017-09-23 10:00 | NUR ---
NOTIFIED DR. ISABEL ABOUT PATIENT'S REFUSAL OF AN IV LINE. AWAITING ORDERS.
--- NOTE | 2017-09-23 10:02 | NUR ---
PER TO EVALUATE PT FOR HOME O2, PT OFF O2 PLACED ON ROOM AIRWITH PULSE OX ON FINGER START SAT O2 WAS 92% AT TWENTY THREE MINUTES LATER CHECKED PT STILL ON ROOM AIR AND SAT O2 WAS 95% WITH HR 125 PT WAS IN NO DISTRESS NOTIFIED SEWER REPAIRER ADRIENNE ON PT CONDITION AND ALSO NOTIFIED
--- NOTE | 2017-09-23 12:30 | NUR ---
PATIENT RESTING IN BED. NO DISTRESS NOTED. WILL CONTINUE TO MONITOR PATIENT.
--- NOTE | 2017-09-23 14:41 | NUR ---
09/23/17 RD INITIAL ASSESSMENT COMPLETED PLEASE REFER TO NUTRITION ASSESSMENT UNDER CARE ACTIVITY FOR ESTIMATED NUTRITIONAL NEEDS. 1. CONTINUE CARDIAC VEGETARIAN DIET TOLERATED 2. PROVIDED PATIENT WITH CARDIAC DIET EDUCATION 3. RD TO FOLLOW-UP 5-7 DAYS, LOW RISK TONIO VILLAGOMEZ RD
--- NOTE | 2017-09-23 14:50 | NUR ---
PATIENT RESTING IN CHAIR. NO DISTRESS NOTED. WILL CONTINUE TO MONITOR PATIENT.
[2017-09-23] MEDS ORDERED: FUROSEMIDE 40 MG TAB PO SCH (17:15)
--- NOTE | 2017-09-23 17:20 | NUR ---
PATIENT LAYING IN BED. WILL CONTINUE TO MONITOR PATIENT.
[2017-09-23] MEDS: RIVAROXABAN 10 MG TAB PO SCH (17:27)
--- NOTE | 2017-09-23 19:20 | NUR ---
GAVE REPORT TO NIGHTSHIFT NURSE. PATIENT IN STABLE CONDITION.
--- NOTE | 2017-09-23 19:35 | NUR ---
RECEIVED FROM AM RN IN BED SITTING UP WITH RESPIRATORY TREATMENT ON GOING. ABLE TO VERBALIZE NEEDS WELL. NO SOB. DENIES PAIN AT THIS TIME. PT. ON AT 3 LPM/OXYMIZER. 02 SAT 96 %. AFEBRILE. DX. OF CHF EXACERBATION. WITH SCROTAL EDEMA AND LOWER EXTREMITIES EDEMA. CARE PLANS FOR THE NIGHT DISCUSSED WITH PT. CALL LIGHT WITH IN REACH.
--- NOTE | 2017-09-23 21:16 | NUR ---
PT. REFUSED TO HAVE IVF INSERTED. REFUSED TO HAVE ANY IV MEDICATIONS. REFUSED LASIX IVP ORDERED. MD RESIDENTS AWARE.
--- NOTE | 2017-09-23 21:19 | NUR ---
RESIDENT MD AWARE OF PT. TO HAVE ANY MORE IVF. AWARE OF PT. MISSING IVF LASIX ORDERED. NO FURTHER ORDERS.
[2017-09-23] MEDS ORDERED: MAGNESIUM HYDROXIDE 2400 MG/30 ML UDC PO SCH (22:00)
--- NOTE | 2017-09-23 22:07 | NUR ---
PT. WITH NEW MEDICATION OF LASIX 80 MG P.O. AND MILK OF MAGNESIUM P.O. ADMINISTERED AND TOLERATED WELL.
[2017-09-23] MEDS ORDERED: FUROSEMIDE 40 MG TAB PO ONE (22:30)
[2017-09-23] MEDS ORDERED: BISACODYL 10 MG SUPP RC SCH (23:00)
--- NOTE | 2017-09-23 23:42 | NUR ---
PT. SLEEPING WELL AT THIS TIME. WITH BIPAP IN PLACE. NO RESTLESSNESS NOTED. CALL LIGHT WITH IN REACH. TELEMETRY MONITORING.
--- NOTE | 2017-09-24 01:13 | NUR ---
PATIENT WANTED BIPAP OFF AT THIS TIME. PLACED PT ON 3L OXIMIZER
[2017-09-24 04:43] VITALS: BP 119/82
--- NOTE | 2017-09-24 04:49 | NUR ---
PT. NOW AWAKE AND IS OFF BIPAP. ROOM AIR NOTED TO BE 96 % 02 SAT AT THIS TIME. NO PAIN COMPLAINTS DONE.ABLE TO VERBALIZE NEEDS WELL. USES CALL LIGHT FOR HELP.
--- NOTE | 2017-09-24 05:30 | NUR ---
PT. SLEEPING AGAIN . NO RESTLESSNESS NOTED. TELEMETRY MONITORING. ON 02 AT 2 LITERS BY OXIMIZER. USES CALL LIGHT FOR HELP.
[2017-09-24] MEDS: ALBUTEROL SULFATE/IPRATROPIU 3 ML SOL IH SCH (06:32)
--- NOTE | 2017-09-24 06:32 | NUR ---
PT IS SLEEPING WITH NO SIGNS OF DISTRESS NOTED AT THIS TIME
--- NOTE | 2017-09-24 07:15 | NUR ---
RECEIVED REPORT FROM NIGHTSHIFT NURSE AT BEDSIDE. PATIENT IS SLEEPING IN SEMI-FOWLERS POSITION. PATIENT IS AROUSABLE AT THIS TIME. NO IV SITE NOTED. PATIENT DOES NOT HAVE OXYGEN ON. SATURATION IS 94% ON ROOM AIR. NO DISTRESS NOTED. NO COMPLAINTS OF PAIN. VITAL SIGNS WITHIN NORMAL LIMITS. CALL LIGHT WITHIN REACH OF PATIENT. UPDATED BOARD IN PATIENT'S ROOM. LOWERED BED TO LOWEST SETTING. WILL CONTINUE TO MONITOR PATIENT.
[2017-09-24 08:00] VITALS: BP 118/87
[2017-09-24] MEDS: SPIRONOLACTONE 25 MG TAB PO SCH (08:13)
[2017-09-24] MEDS: CARVEDILOL 6.25 MG TAB PO SCH (08:13)
--- NOTE | 2017-09-24 08:13 | NUR ---
PATIENT TOOK ALL AM MEDICATIONS. NO IV ACCESS ON PATIENT. DID NOT GIVE LASIX IVP MEDICATION. PATIENT IS REFUSING. RESIDENT IS AWARE.
[2017-09-24] MEDS: LOSARTAN 50 MG TAB PO SCH (08:14)
[2017-09-24] MEDS: POLYETHYLENE GLYCOL 17 GM/PKT PO SCH (08:14)
[2017-09-24] MEDS: DIGOXIN 0.125 MG TAB PO SCH (08:14)
[2017-09-24] MEDS ORDERED: FURO-570 PO (08:25)
[2017-09-24] MEDS ORDERED: MAGN1.7529 PO (08:48)
--- NOTE | 2017-09-24 09:25 | NUR ---
PATIENT SIGNED ALL DISCHARGE INSTRUCTIONS AND IS AWARE OF ALL PRESCRIPTIONS. PATIENT GATHERED ALL BELONGINGS. REMOVED PATIENT'S IDENTIFICATION BAND OFF PATIENT. PATIENT HAS NO IV ACCESS. PATIENT LEFT VIA WHEELCHAIR IN STABLE CONDITION.
== END 2017-09-24 09:25 | disposition home or self-care (01) | DRG 194 ==
LOC: MED 20:59 → MTU 09-18 00:07
PROVIDERS: ADMIT General Practice; ATTEND General Practice
PROC: 5A09357 Assistance with Respiratory Ventilation, Less than 24 Consecutive Hours, Continuous Positive Airway Pressure (ICD-10-PCS; principal; 2017-09-20)
PROC: 0W9G3ZZ Drainage of Peritoneal Cavity, Percutaneous Approach (ICD-10-PCS; 2017-09-20)
DX: I11.0 Hypertensive heart disease with heart failure (principal); N17.0 Acute kidney failure with tubular necrosis; J96.01 Acute respiratory failure with hypoxia; J96.02 Acute respiratory failure with hypercapnia; E87.2 Acidosis; R18.8 Other ascites; E66.2 Morbid (severe) obesity with alveolar hypoventilation; I48.92 Unspecified atrial flutter; K74.60 Unspecified cirrhosis of liver; I50.43 Acute on chronic combined systolic (congestive) and diastolic (congestive) heart failure; I42.0 Dilated cardiomyopathy; I16.0 Hypertensive urgency; Z68.38 Body mass index [BMI] 38.0-38.9, adult; E78.5 Hyperlipidemia, unspecified; K59.00 Constipation, unspecified; F12.90 Cannabis use, unspecified, uncomplicated; D64.9 Anemia, unspecified; K40.90 Unilateral inguinal hernia, without obstruction or gangrene, not specified as recurrent; R74.0 Nonspecific elevation of levels of transaminase and lactic acid dehydrogenase [LDH]; I48.2 Chronic atrial fibrillation; J98.11 Atelectasis; Z79.01 Long term (current) use of anticoagulants; Z79.899 Other long term (current) drug therapy; Z86.73 Personal history of transient ischemic attack (TIA), and cerebral infarction without residual deficits; Z91.14 Patient's other noncompliance with medication regimen
CPT/HCPCS: 36415; 36600; 49083; 71045; 74018; 76705; 80048; 80053; 80162; 80305; 81001; 82140; 82803; 82945; 83036; 83605; 83615; 83690; 83735; 83880; 84100; 84134; 84157; 84443; 84484; 85025; 85610; 85730; 87040; 87081; 87205; 89051; 93005; 93970; 94640; 94660; 96374; 96375; 99285; J1940; J2001; J2060; J2270; J2405; J3490; J7620; Q0092

== ENCOUNTER 2017-10-24 13:25 | Inpatient (IN) | payer MEDICAID ==
[~2017-10-24] VITALS: Ht 180.3 cm; Wt 112.1 kg
[2017-10-24 13:25] VITALS: BP 184/117
[~2017-10-24 13:25] MED LIST changes: +FURO-570 PO; -FURO20TA8 PO; +MAGN1.7529 PO
--- NOTE | 2017-10-24 13:25 | NUR ---
Patient BIBA ACLS, transferred to bed 7. RN evaluating patient at bedside.
--- NOTE | 2017-10-24 13:27 | NUR ---
57YO M BIBA W/C/O SOB. EMS STATE THAT HE WAS PICKED UP FROM THE [facility]. PT STATES THAT HE WAS DISCHARGED FROM THE HOSP X3WKS AGO FOR SIMILAR REASONS AND DID NOT FILL RX. SCLARAL YELLOWING, ROCNCHI LS THROUGHOUT. BS ACTIVE. ABD DISTENDED FIRM. 63 CM. SCRODAL EDEMA PRESENT. PT ON 4 L O2 VIA NC. O2 SAT AT 99%. MONITORS APPLUIED HOB ELEVATED. ER MADE AWARE.
--- NOTE | 2017-10-24 13:40 | NUR ---
Patient being evaluated by physician at bedside.
--- NOTE | 2017-10-24 14:00 | NUR ---
DR. MCCABE MADE AWARE OF THE DIFFICULTY INSERTING MARIE
--- NOTE | 2017-10-24 14:00 | NUR ---
ATTEMPTED TO INSERT MARIE CATH. X2. UNABLE AND HAVE DIFFICULTY SECONDARY TO PENILE AND SCROTAL SWELLING. HAVE DIFFICULTY LOCATING MEATUS
[2017-10-24] MEDS ORDERED: DILTIAZEM 25 MG/5 ML VIAL IVP ONE ×2 (14:20→15:25)
[2017-10-24 14:48] LABS: BASOPHILS # (AUTO) 0.1 K/uL (0.00-0.22); EOSINOPHILS # (AUTO) 0.1 K/uL (0-0.4); EOSINOPHILS % (AUTO) 1.8 % (0.0-4.0); HEMATOCRIT 36.1 % (36-52); HEMOGLOBIN 11.1 g/dL (12.0-18.0); LYMPHOCYTES # (AUTO) 1.1 K/uL (2.0-11.5); LYMPHOCYTES % (AUTO) 17.1 % (20.5-51.1); MEAN CORPUSCULAR HEMOGLOBIN 27 pg (27-31); MEAN CORPUSCULAR HGB CONC 31 g/dL (33-37); MEAN CORPUSCULAR VOLUME 88.4 fL (80-94); MONOCYTES # (AUTO) 0.8 K/uL (0.8-1.0); MONOCYTES % (AUTO) 12.3 % (1.7-9.3); NEUTROPHILS # (AUTO) 4.2 K/uL (1.8-7.7); NEUTROPHILS % (AUTO) 67.8 % (42.2-75.2); PLATELET COUNT (AUTO) 273 K/uL (140-450); RED BLOOD CELL COUNT(AUTO) 4.08 MIL/uL (4.20-6.10); RED CELL DISTRIBUTION WIDTH 17.6 % (11.6-13.7); WHITE BLOOD COUNT (AUTO) 6.2 K/uL (4.8-10.8)
--- NOTE | 2017-10-24 14:55 | NUR ---
PT RESTING WITH HOB UP. 4L O2 VIA NC, O2SAT AT 100%. PT DENIES ANY PAIN AT THIS TIME
[2017-10-24] MEDS ORDERED: FUROSEMIDE 40 MG/4 ML VIAL IVP ONE (15:25)
[2017-10-24 15:27] LABS: ANION GAP 9.6 (8-16); CARBON DIOXIDE 32.1 mmol/L (21-32); CREATININE 0.8 mg/dL (0.7-1.3); POTASSIUM 3.7 mmol/L (3.5-5.1)
[2017-10-24 15:28] LABS: ALBUMIN 3.5 g/dL (3.4-5.0)
[2017-10-24] MEDS ORDERED: ACETAMINOPHEN 325 MG TAB PO PRN (15:55)
[2017-10-24] MEDS ORDERED: ONDANSETRON 4 MG/2 ML VIAL IM/IVP PRN (15:55)
[2017-10-24] MEDS ORDERED: ZOLPIDEM 5 MG TAB PO PRN (15:55)
[2017-10-24] MEDS ORDERED: DOCUSATE SODIUM 100 MG GELCAP PO PRN (15:55)
[2017-10-24] MEDS ORDERED: NACL 0.9% 500 ML IV ONE (16:05)
[2017-10-24] MEDS ORDERED: AMIODARONE 150 MG in DEXTROSE 5% 100 ML IV ONE (16:05)
[2017-10-24 16:31] LABS: BILIRUBIN,URINE NEGATIVE (NEGATIVE); BLOOD, URINE NEGATIVE (NEGATIVE); LEUKOCYTE ESTERASE ,URINE NEGATIVE (NEGATIVE); NITRITE, URINE NEGATIVE (NEGATIVE); UGLUCOSE NEGATIVE (NEGATIVE)
[2017-10-24 16:33] LABS: COLOR,URINE YELLOW (YELLOW)
[2017-10-24 16:33] LABS: PROTHROMBIN TIME 11.9 secs (10.8-13.4)
[2017-10-24 16:35] LABS: MAGNESIUM 2.2 mg/dL (1.8-2.4); PHOSPHORUS 4.3 mg/dL (2.5-4.9)
[2017-10-24 16:36] LABS: BARBITURATE, URINE NEGATIVE ng/ml (NEG <=200); BENZODIAZEPINE, URINE NEGATIVE ng/mL (NEG <=200); COCAINE, URINE NEGATIVE ng/mL (NEG <=300)
[2017-10-24 16:37] LABS: APPEARANCE,URINE SLIGHTLY HAZY (CLEAR); OPIATE, URINE NEGATIVE ng/mL (NEG <=2000); PHENCYCLIDINE SCREEN,URINE NEGATIVE ng/mL (NEG <=25)
[2017-10-24 16:38] LABS: CANNABINOID, URINE POSITIVE ng/mL (NEG <=50); RBC,URINE 0-5 (RARE) /HPF (0-5); WBC,URINE 0-5 (RARE) /HPF (0-5)
--- NOTE | 2017-10-24 17:25 | NUR ---
Patient will be admitted to care of dr. silva. Admited to tele. Will go to room 104b. Belongings list completed. Report to fabi blanton .
[2017-10-24 17:35] VITALS: BP 158/113
--- NOTE | 2017-10-24 17:40 | NUR ---
PT ARRIVED FROM ER IN [facility], REPORT RECEIVED FROM IRIS, PT A OX4, RESP EVEN, SLIGHTLY LABORED WITH 4LNC O2, PT ORIENTED TO ROOM AND FLOOR, PLAN OF CARE REVIEWED, CALL KAM WITHIN REACH, SIDE RAILS UP, BED LOCKED IN LOW POSITION, PT REQUEST FOOD AND DRINK, PT EXPLAINED NPO X MEDS, BP ELEVATED 150/111, WILL RECHECK. Addendum: 10/24/17 at 1941 by Yara Burns RN CONFIGURATION MANAGEMENT ARCHITECT PLACED, PT IN A FLUTTER AT 124. WILL NOTIFY .
[2017-10-24] MEDS ORDERED: hePARIN / DEXT 5% PREMIX 250 ML IV SCH (17:45)
[2017-10-24] MEDS ORDERED: guaiFENesin 20 MG/ML UDC PO PRN (17:45)
[2017-10-24] MEDS ORDERED: HEPARIN PER PHARMACY MC PRN (17:45)
--- NOTE | 2017-10-24 18:37 | NUR ---
DR FLORES MADE AWARE OF PT'S CARDIAC RHYTHM, A-FLUTTER AT 124BPM, BP 158/113, PT AWAKE RESTING QUIETLY, US AT BEDSIDE FOR BUTCH DOPPLER
[2017-10-24] MEDS ORDERED: CARVEDILOL 6.25 MG TAB PO SCH ×2 (18:45→21:00)
[2017-10-24] MEDS ORDERED: DIGOXIN 0.125 MG TAB PO SCH (18:46)
[2017-10-24] MEDS: hePARIN / DEXT 5% PREMIX 250 ML IV SCH (18:49)
[2017-10-24] MEDS: ALBUTEROL SULFATE/IPRATROPIU 3 ML SOL IH SCH (19:00)
--- NOTE | 2017-10-24 19:09 | NUR ---
HEPARIN STARTED AT THIS TIME. PT ALERT, VERBAL, NO DISTRESS.
--- NOTE | 2017-10-24 19:11 | NUR ---
PT REFUSES COREG & DIGOXIN. NURSE FROM [facility] CAME TO TRANSFER PT. HEPARIN STOPPED. PT STABLE. REPORT GIVEN TO COIN MACHINE MECHANIC NURSE.
--- NOTE | 2017-10-24 19:12 | NUR ---
REPORT RECEIVED FROM BEDSIDE REPORT FROM DAY SHIFT NURSE NAINA RN, PT STABLE, NO DISTRESS NOTED, IV TO L FA 20G PATENT INTACT, SL, AND L UPPER ARM 20G PATENT, INTACT, SL, PT ON 4LPM O2 VIA NC, NO SOB, INITIAL ASSESSMENT DONE, ALL SAFETY PRECAUTION MET, PT IS PICKED UP BY WARRANTY COORDINATOR FOR VQ SCAN, PT LEFT UNIT IN STABLE CONDITION.
[2017-10-24 20:00] VITALS: BP 160/111
--- NOTE | 2017-10-24 20:30 | NUR ---
PT CAME BACK FROM [facility], PT IN STABLE CONDITION, NO DISTRESS NOTED, STATED WANTING TO EAT, HEPARIN DRIP RECONNECTED, CALL LIGHT WITHIN REACH, WILL CONTINUE TO MONITOR.
--- NOTE | 2017-10-24 20:32 | NUR ---
Pt at procedure in [facility] during scheduled tx time, pt refused tx when returned from procedure, did not want it and wanted to eat, no resp distress or sob at this time, call light within reach, aware of prn tx, Fatuma REN aware.
--- NOTE | 2017-10-24 21:12 | NUR ---
DUE MEDICATION ADMINISTERED, PT TOLERATED WELL, NO DISTRESS NOTED, CALL LIGHT WITHIN REACH, WILL CONTINUE TO MONITOR.
[2017-10-24] MEDS: ALBUTEROL SULFATE/IPRATROPIU 3 ML SOL IH PRN (21:15)
--- NOTE | 2017-10-24 22:01 | NUR ---
CHECKED ON PT, PT KEEPS TAKING OFF OXYGEN, REORIENT PT AND EDUCATE PT REGARDING THE NEED TO HAVE HIS NASAL CANULA ON, PT STATED UNDERSTANDING, NO DISTRESS NOTED, CALL LIGHT WITHIN REACH, WILL CONTINUE TO MONITOR.
--- NOTE | 2017-10-24 23:11 | NUR ---
CHECKED ON PT, PT REFUSED TO PUT ON GOWN, AND PT STATED "WHEN YOU ARE NOT HERE, THE CABLES ARE ATTACKING ME", PT RESTING, NO DISTRESS NOTED, CALL LIGHT WITHIN REACH, WILL CONTINUE TO MONITOR.
--- NOTE | 2017-10-25 00:10 | NUR ---
PT RESTING, NO DISTRESS NOTED, V/S TAKEN, WITHIN PT BASELINE, PT STABLE, PT KEEPS TAKING OFF NC, PT SAT 88% ON ROOM AIR, EDUCATE PT REGARDING IMPORTANCE OF NC, PT STATED UNDERSTANDING, PT SAT 96% ON 4LPM O2 VIA NC. CALL LIGHT WITHIN REACH, WILL CONTINUE TO MONITOR.
[2017-10-25 00:15] VITALS: BP_SYST 134; BP_SYST 160; BP_DIAS 111; BP_DIAS 89
[2017-10-25] MEDS: ALBUTEROL SULFATE/IPRATROPIU 3 ML SOL IH PRN ×3 (01:13→22:18)
--- NOTE | 2017-10-25 02:19 | NUR ---
RESULT OF PTT CAME BACK, 49.5, PER HEPARIN PROTOCOL NO CHANGES IN RATE. PT STABLE, NO DISTRESS NOTED, CALL LIGHT WITHIN REACH, WILL CONTINUE TO MONITOR.
--- NOTE | 2017-10-25 02:42 | NUR ---
PT REFUSED SCD STATING THAT HE DOES NOT WANT ANYTHING ON HIM.
[2017-10-25 04:00] VITALS: BP 128/94
--- NOTE | 2017-10-25 04:22 | NUR ---
CHECKED ON PT, PT TOOK OFF NC AGAIN, ASSIST PT WITH NC, PT SAT94%, PT STATED FEELING SHORT OF BREATH, NOTIFIED RT, PT ALSO COMPLAINED OF NC DRYING UP HIS NOSTRIL, NOTIFIED RT REGARDING PT COMPLAINS AND SUGGESTED HUMIDIFIER FOR PT. PT STABLE, NO DISTRESS NOTED, CALL LIGHT WITHIN REACH, WILL CONTINUE TO MONITOR.
[2017-10-25 07:19] LABS: BASOPHILS # (AUTO) 0.1 K/uL (0.00-0.22); BASOPHILS % (AUTO) 1.1 % (0.0-2.0); EOSINOPHILS # (AUTO) 0.1 K/uL (0-0.4); EOSINOPHILS % (AUTO) 1.9 % (0.0-4.0); HEMATOCRIT 34.5 % (36-52); HEMOGLOBIN 10.8 g/dL (12.0-18.0); LYMPHOCYTES # (AUTO) 0.9 K/uL (2.0-11.5); LYMPHOCYTES % (AUTO) 14.8 % (20.5-51.1); MEAN CORPUSCULAR HEMOGLOBIN 28 pg (27-31); MEAN CORPUSCULAR HGB CONC 31 g/dL (33-37); MEAN CORPUSCULAR VOLUME 88.4 fL (80-94); MONOCYTES # (AUTO) 0.8 K/uL (0.8-1.0); MONOCYTES % (AUTO) 12.4 % (1.7-9.3); NEUTROPHILS # (AUTO) 4.2 K/uL (1.8-7.7); NEUTROPHILS % (AUTO) 69.8 % (42.2-75.2); PLATELET COUNT (AUTO) 259 K/uL (140-450); RED CELL DISTRIBUTION WIDTH 16.9 % (11.6-13.7); WHITE BLOOD COUNT (AUTO) 6.1 K/uL (4.8-10.8)
[2017-10-25] MEDS: ALBUTEROL SULFATE/IPRATROPIU 3 ML SOL IH SCH ×3 (07:28→18:55)
--- NOTE | 2017-10-25 07:30 | NUR ---
ENDORSED PT TO DAY SHIFT NURSE NAINA RN, PT STABLE, NO DISTRESS NOTED, CALL LIGHT WITHIN REACH.
--- NOTE | 2017-10-25 07:32 | NUR ---
RECEIVED REPORT FROM HEAVY EQUIPMENT SERVICE MANAGER NURSE. PT LYING SUPINE IN BED, AWAKE & ALERT. C/0 10/25 PAIN TO RT INGUINAL SX SITE. WILL GIVE PAIN MED. SAFETY MEASURES IN PLACE, CALL KAM WITHIN REACH. Addendum: 10/25/17 at 0842 by Delilah Persaud RN WRONG PT CHARTED FOR 10/25/17 0732. RECEIVED REPORT FROM HEAVY EQUIPMENT SERVICE MANAGER NURSE @ 0732. PT SLEEPING IN BED, RESPIRATIONS EVEN, SLIGHTLY LABORED. O2 @ 4LPM VIA NC IN PLACE. SAFETY MEASURES IN PLACE. CALL KAM WITHIN REACH.
[2017-10-25 07:36] LABS: MAGNESIUM 2.1 mg/dL (1.8-2.4); PHOSPHORUS 3.5 mg/dL (2.5-4.9)
[2017-10-25 07:47] LABS: ANION GAP 7.7 (8-16); CARBON DIOXIDE 33.2 mmol/L (21-32); CREATININE 0.7 mg/dL (0.7-1.3); POTASSIUM 3.9 mmol/L (3.5-5.1)
[2017-10-25 08:00] VITALS: BP 147/119
[2017-10-25] MEDS ORDERED: DIGOXIN 0.125 MG TAB PO SCH (09:00)
[2017-10-25] MEDS ORDERED: SPIRONOLACTONE 25 MG TAB PO SCH (09:00)
[2017-10-25] MEDS: DOCUSATE SODIUM 100 MG GELCAP PO SCH ×2 (09:24→20:09)
[2017-10-25] MEDS: LOSARTAN 50 MG TAB PO SCH (09:25)
[2017-10-25] MEDS: SPIRONOLACTONE 50 MG TAB PO SCH (09:26)
[2017-10-25] MEDS: CARVEDILOL 6.25 MG TAB PO SCH ×2 (09:27→20:09)
[2017-10-25] MEDS: FUROSEMIDE 40 MG/4 ML VIAL IVP SCH (09:27)
[2017-10-25] MEDS: DIGOXIN 0.125 MG TAB PO SCH (09:27)
--- NOTE | 2017-10-25 09:43 | NUR ---
ALL DUE MEDS GIVEN AT THIS TIME. PT ALERT, VERBAL. DENIES ANY PAIN OR DISCOMFORT.
--- NOTE | 2017-10-25 10:00 | NUR ---
PTT 51.8 NO CHANGES IN HEPARIN DRIP PER PROTOCOL. CONTINUE AT 1600 UNITS/HR. NO SIGNS OF BLEEDING NOTED.
[2017-10-25] MEDS: hePARIN / DEXT 5% PREMIX 250 ML IV SCH (10:19)
--- NOTE | 2017-10-25 11:20 | NUR ---
PATIENT HAS BEEN SCREENED AND CATEGORIZED MODERATE NUTRITION RISK. PATIENT WILL BE SEEN WITHIN 3-5 DAYS OF ADMISSION. 10/27/17 -10/29/[address]
[2017-10-25 12:00] VITALS: BP 141/118
[2017-10-25 16:00] VITALS: BP 139/103
--- NOTE | 2017-10-25 16:55 | NUR ---
PT SITTING UP IN CHAIR RESTING COMFORTABLY, RESP EVEN UNLABORED, DENIES ANY IMMEDIATE NEEDS, WILL CONTINUE TO MOTNIOR.
--- NOTE | 2017-10-25 19:20 | NUR ---
REPORT GIVEN TO BOTTOM CRANE OPERATOR NURSE. PT IN BED, ALERT, NO SIGNS OF DISTRESS. SAFETY MEASURES IN PLACE.
--- NOTE | 2017-10-25 19:21 | NUR ---
RECEIVED REPORT AT BEDSIDE FOR CONTINUITY OF CARE PT AAOX4. PT IV NOTED LFA 20G HEPARIN DRIP 16ML/HR. IV DUONG 20G LOCK. NO SOB NO S/S OF DISTRESS ON ON NC O2. PT ON BED REST BED LOWERED CALL LIGHT WITHIN REACH WILL CONTINUE TO MONITOR. PT HAS FLUID RESTRICTION 1L A DAY. ONLY HAS 280ML LEFT OF INPUT.
[2017-10-25 20:00] VITALS: BP 155/119
--- NOTE | 2017-10-25 20:30 | NUR ---
PT COMPLAINING OF SOB. RT CALLED FOR THERAPY. RT AT BEDSIDE SUGGESTED STEROIDS. RT AND I WENT TO TALK TO MD RESIDENCE TO DISCUSS THERAPY. MD STATED SHE WOULD LOOK INTO IT AND PUT IN ORDERS.
--- NOTE | 2017-10-25 22:17 | NUR ---
PUT IN THE ORDER FOR BREATHING INH OF BUDESONIDE 0.25MG BID START TOMORROW 729
--- NOTE | 2017-10-25 23:00 | NUR ---
PT COMPLAINED NOT FEELING GOOD REQUESTING TO STAY AT BEDSIDE. I ASSESSED O2 AND HE IS SAT AT 94% ON O2 4L NC. PT ALSO REQUESTING A FAN. PUT A FAN IN HIS ROOM AND REMINDED HIM TO BREATH THROUGH HIS MOUTH. PT NO SOB NO S/S OF DISTRESS WILL CONTINUE TO CLOSELY MONITOR.
[2017-10-26] VITALS: BP 147/104
--- NOTE | 2017-10-26 01:33 | NUR ---
ON HEART MONITOR. PT HAD EPISODE OF SHORT V-TACH. WILL CONTINUE TO MONITOR PT.
[2017-10-26] MEDS: hePARIN / DEXT 5% PREMIX 250 ML IV SCH (02:09)
--- NOTE | 2017-10-26 02:09 | NUR ---
STARTED NEW BAG OF HEPARIN. 16ML/HR. WILL CONTINUE TO MONITOR.
--- NOTE | 2017-10-26 03:00 | NUR ---
PT NASAL CANNULA ON FLOOR LET PT KNOW HE NEEDS NC O2 TO ASSIST WITH BREATHING. PT AGREED AND LET ME PUT ON O2 NC 3L. WILL CONTINUE TO MONITOR.
[2017-10-26] MEDS: ALBUTEROL SULFATE/IPRATROPIU 3 ML SOL IH PRN (03:09)
[2017-10-26 04:00] VITALS: BP 139/111
--- NOTE | 2017-10-26 05:00 | NUR ---
PT IS SLEEPING NO SOB NO S/S OF DISTRESS WILL CONTINUE TO MONITOR.
--- NOTE | 2017-10-26 05:20 | NUR ---
PT COMPLAINING OF NOT FEELING WELL HE STATED FOR ME TO TALK TO MD TO GET RX FOR COUGH MEDICINE AND TO HELP HIM HAVE A BOWEL MOVEMENT. PT STATED NO BOWEL MOVEMENT IN 2 DAYS.
[2017-10-26] MEDS ORDERED: LACTULOSE 20 GM/30 ML UDC PO SCH (05:30)
--- NOTE | 2017-10-26 05:30 | NUR ---
ADMIN COUGH MEDICINE AND LACTULOSE FOR A LAXATIVE TO HELP HIM HAVE A BM. UPON ENTERING THE ROOM PT NC O2 WAS OFF. I LET PT KNOW THE IMPORTANCE OF KEEPING NC ON. PT STATED HE NEEDS A BREAK AND REFUSED TO PUT IT BACK ON. WILL CONTINUE TO MONITOR.
[2017-10-26 06:06] LABS: BASOPHILS # (AUTO) 0.1 K/uL (0.00-0.22); BASOPHILS % (AUTO) 1.7 % (0.0-2.0); EOSINOPHILS # (AUTO) 0.2 K/uL (0-0.4); EOSINOPHILS % (AUTO) 2.5 % (0.0-4.0); HEMATOCRIT 33.8 % (36-52); HEMOGLOBIN 10.6 g/dL (12.0-18.0); LYMPHOCYTES # (AUTO) 0.9 K/uL (2.0-11.5); LYMPHOCYTES % (AUTO) 15.4 % (20.5-51.1); MEAN CORPUSCULAR HEMOGLOBIN 27 pg (27-31); MEAN CORPUSCULAR HGB CONC 31 g/dL (33-37); MEAN CORPUSCULAR VOLUME 87.8 fL (80-94); MONOCYTES # (AUTO) 0.7 K/uL (0.8-1.0); MONOCYTES % (AUTO) 11.2 % (1.7-9.3); NEUTROPHILS # (AUTO) 4.2 K/uL (1.8-7.7); NEUTROPHILS % (AUTO) 69.2 % (42.2-75.2); PLATELET COUNT (AUTO) 285 K/uL (140-450); RED BLOOD CELL COUNT(AUTO) 3.85 MIL/uL (4.20-6.10); RED CELL DISTRIBUTION WIDTH 16.8 % (11.6-13.7); WHITE BLOOD COUNT (AUTO) 6.1 K/uL (4.8-10.8)
[2017-10-26 06:28] LABS: ANION GAP 2.1 (8-16); CARBON DIOXIDE 36.5 mmol/L (21-32); CREATININE 0.7 mg/dL (0.7-1.3); POTASSIUM 3.6 mmol/L (3.5-5.1)
--- NOTE | 2017-10-26 06:30 | NUR ---
ADMINISTER COUGH MEDICINE 1HR FOR COUGH. COUGH MEDICINE EFFECTIVE WILL CONTINUE TO MONITOR.
[2017-10-26 06:34] LABS: MAGNESIUM 2.1 mg/dL (1.8-2.4); PHOSPHORUS 3.2 mg/dL (2.5-4.9)
[2017-10-26] MEDS: ALBUTEROL SULFATE/IPRATROPIU 3 ML SOL IH SCH ×3 (07:11→19:30)
[2017-10-26] MEDS: BUDESONIDE 0.25 MG/2 ML NEBU INH SCH ×2 (07:11→19:30)
--- NOTE | 2017-10-26 07:27 | NUR ---
ENDORSED REPORT TO DAYSHIFT NURSE AT BEDSIDE FOR CONTINUITY OF CARE.
--- NOTE | 2017-10-26 07:28 | NUR ---
RECEIVED REPORT FROM PM NURSE AT THE BEDSIDE. PT LYING ON HIS BACK ON HIS BED. RT AT THE BEDSIDE FOR THE BREATHING TREATMENT. HEPARIN DRIP INFUSING WELL. PT HAS THE IV ACCESS ON HIS LFT HAND 20 G. PT ADMITTED WITH DX SOB, CC IS SOB. PT BREATHING PATTERN SYMMETRICAL. INTRODUCED SELF AND UPDATED THE BOARD. INFORMED PT TO USE NC CONTINUOUSLY FOR HIS EASE IN BREATHING. VERBALIZED UNDERSTANDING OF TEACHING. INFORMED TO USE CALL LIGHT FOR ANY HELP. PLACED CALL LIGHT WITHIN PT REACH NO SIGN OF DISTRESS. WILL CONTINUE TO MONITOR PT.
[2017-10-26 08:00] VITALS: BP 137/86
[2017-10-26] MEDS: DOCUSATE SODIUM 100 MG GELCAP PO SCH ×2 (09:38→20:33)
[2017-10-26] MEDS: SPIRONOLACTONE 50 MG TAB PO SCH (09:38)
[2017-10-26] MEDS: LOSARTAN 50 MG TAB PO SCH (09:39)
[2017-10-26] MEDS: CARVEDILOL 6.25 MG TAB PO SCH ×2 (09:39→20:33)
[2017-10-26] MEDS: FUROSEMIDE 40 MG/4 ML VIAL IVP SCH (09:40)
[2017-10-26] MEDS: DIGOXIN 0.125 MG TAB PO SCH (09:40)
[2017-10-26] MEDS: LACTULOSE 20 GM/30 ML UDC PO SCH ×2 (09:40→20:33)
--- NOTE | 2017-10-26 09:45 | NUR ---
ADMINISTERED MEDS TO PT. TOLERATED WELL. PT STATES THAT HE HAD BM TODAY IN MORNING . URINATES FINE. HAS SCROTAL EDEMA. NO SIGN OF DISTRESS. HELPED HIM TO GO TO RESTROOM . AMBULATES WELL. PT ON HEPARIN DRIP, INFUSING WELL. IV SITE INTACT. NO SIGN OF DISTRESS. EDUCATED PT TO USE THE NASAL CANNULA CONTINUOUSLY FRO EASE IN HIS BREATHING. VERBALIZED UNDERSTANDING OF TEACHING. WILL CONTINUE TO MONITOR PT.
--- NOTE | 2017-10-26 10:30 | NUR ---
CHECKED ON PT. PT SITTING ON HIS BEDSIDE. HAS THE NC ON. DENIES ANY PAIN. NO SIGN OF DISTRESS. PT REFUSES TO HAVE CLOTHES ON, C/O OF DISCOMFORT . HAS THE SCROTAL EDEMA. ALL SAFETY MEASURE IN PLACE. WILL CONTINUE TO MONITOR PT.
--- NOTE | 2017-10-26 12:00 | NUR ---
CHECKED ON PT. SLEEPING AT THIS TIME. PER STUDENT NURSE PT REFUSED HIS VITAL SIGN . NO SIGN OF DISTRESS NOTED.ALL SAFETY MEASURE IN PLACE. WILL CONTINUE TO MONITOR PT.
[2017-10-26 12:34] VITALS: BP 144/102
--- NOTE | 2017-10-26 12:41 | NUR ---
CHECKED ON PT. SITTING ON HIS BEDSIDE. REFUSED HIS PLATE. INFORMED THAT THE FOOD HAS FIBER, WILL HELP WITH CONSTIPATION. PT ASKING TO ORDER FOR THE WHEAT CREAM BOWEL. FNS CALLED, LFT MESSAGE. CHECKED THE VS. NO SIGN OF DISTRESS. WILL CONTINUE TO MONITOR PT.
--- NOTE | 2017-10-26 14:59 | NUR ---
ADMINISTERED ELIQUIS 10 MG TO PT ORDERED. STOPPED IV HEPARIN DRIP MD ORDER. PT LYING DOWN ON HIS BED. NO SIGN OF DISTRESS. PT ON O2 VIA NC@3LPM . CALL LIGHT WITHIN PT REACH. NO SIGN OF DISTRESS. WILL CONTINUE TO MONITOR PT.
[2017-10-26] MEDS ORDERED: APIXABAN 2.5 MG TAB PO SCH (15:00)
[2017-10-26 16:00] VITALS: BP 145/60
--- NOTE | 2017-10-26 16:45 | NUR ---
CHECKED ON PT. LYING ON HIS BED. VS NORMAL. ASKED HIM TO USE THE INCENTIVE SPIROMETER REGULARLY EVERY 15 MIN SO THAT CAN HELP HIM TO BREATHE EASILY. VERBALIZED UNDERSTANDING OF TEACHING. PLACED CALL LIGHT WITHIN PT REACH. BED AT THE LOWEST POSITION.FORMED PT TO PRESS CALL LIGHT FOR ANY HELP. WILL CONTINUE TO MONITOR PT.
--- NOTE | 2017-10-26 17:30 | NUR ---
CHECKED ON PT. LYING ON HIS BED. DENIES PAIN. NO SIGN OF DISTRESS. ALL SAFETY MEASURE IN PLACE. WILL CONTINUE TO MONITOR PT.
--- NOTE | 2017-10-26 19:00 | NUR ---
ENDORSED PT TO PM NURSE AT THE BEDSIDE. PT IN STABLE CONDITION.
--- NOTE | 2017-10-26 19:01 | NUR ---
RECEIVED BEDSIDE REPORT FROM DAY SHIFT NURSE SITAL RN, PT STABLE, NO DISTRESS NOTED, PT SITTING ON BEDSIDE CHAIR, ON 3LPM O2 VIA NC, NO SOB, IV TO L FA 20G AND L UA 20G, PATENT INTACT, SL, DENIES ANY PAIN AT THIS MOMENT, INITIAL ASSESSMENT DONE, ALL SAFETY PRECAUTION MET, WILL CONTINUE TO MONITOR.
[2017-10-26 19:40] VITALS: BP 142/104
--- NOTE | 2017-10-26 20:33 | NUR ---
DUE MEDICATION ADMINISTERED, PT TOLERATED WELL, NO DISTRESS NOTED, CALL LIGHT WITHIN REACH, WILL CONTINUE TO MONITOR.
[2017-10-26] MEDS: guaiFENesin 20 MG/ML UDC PO PRN (22:47)
--- NOTE | 2017-10-26 22:47 | NUR ---
PT STATED THAT HE WANTS COUGH MEDICATION, NOTED PT COUGH A COUPLE OF TIMES. COUGH MEDICATION ORDERED ADMINISTERED, PT TOLERATED WELL, NO DISTRESS NOTED, CALL LIGHT WITHIN REACH, WILL CONTINUE TO MONITOR.
--- NOTE | 2017-10-26 23:55 | NUR ---
CHECKED ON PT, PT SITTING ON BEDSIDE CHAIR, NO DISTRESS NOTED, V/S TAKEN, WITHIN PT BASELINE, CALL LIGHT WITHIN REACH, WILL CONTINUE TO MONITOR.
[2017-10-27] VITALS: BP 130/94
--- NOTE | 2017-10-27 02:11 | NUR ---
CHECKED ON PT, PT WATCHING TV ON THE CHAIR ON THE SIDE OF THE BED, PT STABLE, NO DISTRESS NOTED, CALL LIGHT WITHIN REACH, WILL CONTINUE TO MONITOR.
[2017-10-27 04:00] VITALS: BP 127/96
--- NOTE | 2017-10-27 04:10 | NUR ---
CHECKED ON PT, PT SLEEPING ON CHAIR, NO DISTRESS NOTED, V/S TAKEN WITHIN PT BASELINE, CALL LIGHT WITHIN REACH, WILL CONTINUE TO MONITOR.
[2017-10-27 06:04] LABS: BASOPHILS % (AUTO) 0.6 % (0.0-2.0); EOSINOPHILS # (AUTO) 0.1 K/uL (0-0.4); EOSINOPHILS % (AUTO) 2.6 % (0.0-4.0); HEMATOCRIT 34.7 % (36-52); HEMOGLOBIN 10.9 g/dL (12.0-18.0); LYMPHOCYTES # (AUTO) 0.8 K/uL (2.0-11.5); LYMPHOCYTES % (AUTO) 15.4 % (20.5-51.1); MEAN CORPUSCULAR HEMOGLOBIN 28 pg (27-31); MEAN CORPUSCULAR HGB CONC 32 g/dL (33-37); MEAN CORPUSCULAR VOLUME 88.6 fL (80-94); MONOCYTES # (AUTO) 0.7 K/uL (0.8-1.0); MONOCYTES % (AUTO) 13.5 % (1.7-9.3); NEUTROPHILS # (AUTO) 3.6 K/uL (1.8-7.7); NEUTROPHILS % (AUTO) 67.9 % (42.2-75.2); PLATELET COUNT (AUTO) 286 K/uL (140-450); RED BLOOD CELL COUNT(AUTO) 3.92 MIL/uL (4.20-6.10); WHITE BLOOD COUNT (AUTO) 5.3 K/uL (4.8-10.8)
[2017-10-27] MEDS: ALBUTEROL SULFATE/IPRATROPIU 3 ML SOL IH SCH ×3 (06:56→19:27)
[2017-10-27] MEDS: BUDESONIDE 0.25 MG/2 ML NEBU INH SCH ×2 (06:56→19:27)
[2017-10-27 07:04] LABS: MAGNESIUM 2.2 mg/dL (1.8-2.4); PHOSPHORUS 4.7 mg/dL (2.5-4.9)
[2017-10-27 07:06] LABS: ANION GAP 4.4 (8-16); CARBON DIOXIDE 36.5 mmol/L (21-32); CREATININE 0.7 mg/dL (0.7-1.3); POTASSIUM 3.9 mmol/L (3.5-5.1)
--- NOTE | 2017-10-27 07:30 | NUR ---
ENDORSED PT TO DAY SHIFT ELIZABETH RN, PT STABLE, NO DISTRESS NOTED, CALL LIGHT WITHIN REACH.
--- NOTE | 2017-10-27 07:31 | NUR ---
RECEIVED REPORT FROM ACCOUNTING ASSISTANT NURSE ESTEBAN AT BEDSIDE FOR CONTINUITY OF CARE. PT IS AWAKE AND ORIENTED. INTRODUCED SELF AND UPDATED BOARD. PT REPORTED FEELING SOB. O2 SAT 92% ON O2 NC 3L/MIN. RESIDENT MD CAME IN AND SAW PT. ORDERS RECEIVED. NO COMPLAINTS AT THIS TIME. CALL LIGHT WITHIN REACH. BED IN LOW POSITION, WHEELS LOCKED. WILL CONTINUE TO MONITOR.
[2017-10-27 08:00] VITALS: BP 128/97
[2017-10-27] MEDS: SPIRONOLACTONE 50 MG TAB PO SCH (09:00)
--- NOTE | 2017-10-27 09:45 | NUR ---
PT OFF UNIT FOR XRAY. LEFT WITH CADASTRAL SURVEYOR AND STUDENTS.
[2017-10-27] MEDS: guaiFENesin 20 MG/ML UDC PO PRN (10:16)
[2017-10-27] MEDS: LACTULOSE 20 GM/30 ML UDC PO SCH ×2 (10:16→21:08)
--- NOTE | 2017-10-27 10:16 | NUR ---
ADMINISTERED SCHEDULED MEDS. PT COMPLAINED OF COUGH. ADMINISTERED ROBITUSSIN FOR COUGH. PT TOLERATED WELL. NO SIGNS OF DISTRESS. BED IN LOW POSITION, WHEELS LOCKED. CALL LIGHT WITHIN REACH. WILL CONTINUE TO MONITOR.
[2017-10-27] MEDS: DIGOXIN 0.125 MG TAB PO SCH (10:17)
[2017-10-27] MEDS: ASPIRIN 81 MG TAB.CHEW PO SCH (10:17)
[2017-10-27] MEDS: LOSARTAN 50 MG TAB PO SCH (10:17)
[2017-10-27] MEDS: DOCUSATE SODIUM 100 MG GELCAP PO SCH ×2 (10:17→21:09)
[2017-10-27] MEDS: CARVEDILOL 6.25 MG TAB PO SCH ×2 (10:18→21:09)
[2017-10-27] MEDS: FUROSEMIDE 40 MG/4 ML VIAL IVP SCH ×2 (10:36→21:22)
[2017-10-27] MEDS: APIXABAN 2.5 MG TAB PO SCH ×2 (10:47→21:11)
[2017-10-27 12:00] VITALS: BP 134/105
--- NOTE | 2017-10-27 12:00 | NUR ---
PT SITTING UP IN CHAIR. REFUSED LUNCH TRAY AND REQUESTED COD FISH WITH WHITE RICE, TOMATOES, ONIONS, AND AVOCADOS. CALLED [facility] AND GAVE FOOD TO PT. EATING LUNCH TRAY RIGHT NOW. NO SIGNS OF DISTRESS. CALL LIGHT WITHIN REACH. WILL CONTINUE TO MONITOR.
--- NOTE | 2017-10-27 13:45 | NUR ---
PT SITTING UP IN CHAIR SLEEPING WITH VISIBLE RESPIRATIONS. NO SIGNS OF DISTRESS. CALL LIGHT WITHIN REACH. WILL CONTINUE TO MONITOR.
--- NOTE | 2017-10-27 14:10 | NUR ---
PT WAS STATING THAT SHE WANTS TO LEAVE THE HOSPITAL NOW. ASKED PT IF SHE WANTED TO WAIT FOR DR. ZAMORA. REPORTED TO DR. ZAMORA THAT PT WANTS TO LEAVE. WILL COME AND SEE PT. Addendum: 10/27/17 at 1425 by Sara Fernandes RN CHARTED ON WRONG PT
--- NOTE | 2017-10-27 15:30 | NUR ---
PT SITTING UP IN CHAIR. ASKED IF PT NEEDED ANYTHING. PT STATED "NO." NO SIGNS OF DISTRESS. CALL LIGHT WITHIN REACH, WILL CONTINUE TO MONITOR.
[2017-10-27 16:00] VITALS: BP 129/103
--- NOTE | 2017-10-27 17:48 | NUR ---
DR. Leena CARDENAS CAME IN TO SEE PT. PT SITTING UP IN CHAIR. DINNER TRAY SERVED. PT REFUSED PEDRO TANNER ASKED FOR CREAM OF WHEAT. CALLED [facility] AND REQUEST TO ADD CREAM OF WHEAT ON ALL TRAYS. NO SIGNS OF DISTRESS. CALL LIGHT WITHIN REACH. WILL CONTINUE TO MONITOR.
--- NOTE | 2017-10-27 19:20 | NUR ---
RECEIVED REPORT FROM ISABEL RN DAYSHIFT NURSE AT BEDSIDE FOR CONTINUITY OF CARE, PT IN STABLE CONDITION, AOX 4 IN LOW BED SIDE RAILS UP AND ALL FALLS PRECAUTIONS IN PLACE.
--- NOTE | 2017-10-27 19:20 | NUR ---
ENDORSED PT TO CRIMINALIST NURSE DEANNA AT BEDSIDE FOR CONTINUITY OF CARE. PT IN STABLE CONDITION.
--- NOTE | 2017-10-27 19:45 | NUR ---
RT AT BEDSIDE FOR ADMINISTRATION OF NEB TREATMENT. 02 IS 99% W 3 L N/C . POST TREATMENT PT STATING 98% WITH 3 L N/C. PT NOTED BREATHING WITH PURSED LIPS AND USING ACCESSORY MUSCLES TO BREATH POST TREATMENT. HOWEVER PT HAD NO C/O VOICED OF ANXIETY PT HAS 2 IV SITES ONE ON L WRIST AND 1 ON L UPPER ARM. PT NOTED WITH EDEMA ON LOWER LEGS AND SCOTUM ( NON PITTING) PT AWARE OF FLUID RESTRICTIONS AND IS REQUESTING TO HAVE JUICE INSTEAD OF WATER. V/S FOLLOWS T 98.3 P 124 R 22 B/P 127/91 02 98% W 3 L VIA N/C.. PT HAD NO C/O OF PAIN OR DISTRESS NOTED.
[2017-10-27 20:00] VITALS: BP 127/91
--- NOTE | 2017-10-27 21:00 | NUR ---
PT GIVEN MEDS ORDERED AND HE DRANK 125MLS OF CRANBERRY JUICE. PT AWARE OF FLUID RESTRICTIONS AND HE WANTS JUICE FOR REMAINDING PORTION OF FLUID INSTEAD OF WATER. PT DRANK A SMALL CONTAINER OF JUICE WITH MEDS (125MLS). PT DENIES PAIN AT THIS TIME.
--- NOTE | 2017-10-28 00:43 | NUR ---
PT IN BED WITH N/C RUNNING AT 3 L. PT DENIES PAIN V/S FOLLOWS T 98.4 P 121 R 20 B/P 115/74 02 98 % WITH 3L N/C. PT C/O THAT RESPIRATORY THERAPY DID NOT COME TO SEE HIM AT 0000. PT THEN REMINDED THAT THE ORDER IS REQUESTED, AND THEN ASKED PT IS HE FEELS HE NEEDS RESPIRATORY TXT AND HE SAID YES. PT CONVERSING WITH RN AND WAS ABLE TO SPEAK WITH STAFF WITH MINIMAL DIFFICULTY AND DID NOT APPEAR TO BE SOB, RESPIRATORY WAS CONTACTED REGARDING PT REQUEST, PRIMARY RN ASKED PT IF HE FEELS SOB AND HE SAID NO. RESPIRATORY IN ROOM EVALUATING PT.
[2017-10-28] MEDS: ALBUTEROL SULFATE/IPRATROPIU 3 ML SOL IH PRN ×2 (00:50→17:27)
--- NOTE | 2017-10-28 02:00 | NUR ---
PT ASLEEP IN BED NO S/S OF PAIN OR DISTRESS NOTED. N/C RUNNING AT 3 L PT RESP ARE DEEP EVEN AND UNLABORED.
[2017-10-28 03:50] VITALS: BP 115/74
--- NOTE | 2017-10-28 04:00 | NUR ---
PT UP AND OUT OF BED DOING ROUTINE HYGIENE. PT CONTINUE TO WEAR THE N/C AT 3 LITERS. CNAS IN ROOM MAKING THE BED AND ASSISTING RESIDENT PRN FOR DAILY AM CARE. V/S FOLLOWS T 97.0 P 121 R 22 B/P 138/92 02 97% WITH N/C AT 3 L. PT SITTING UP IN CHAIR NO C/O VOICED.
[2017-10-28 06:09] LABS: BASOPHILS % (AUTO) 0.5 % (0.0-2.0); EOSINOPHILS # (AUTO) 0.1 K/uL (0-0.4); HEMATOCRIT 33.9 % (36-52); HEMOGLOBIN 10.7 g/dL (12.0-18.0); LYMPHOCYTES # (AUTO) 0.8 K/uL (2.0-11.5); LYMPHOCYTES % (AUTO) 15.1 % (20.5-51.1); MEAN CORPUSCULAR HEMOGLOBIN 28 pg (27-31); MEAN CORPUSCULAR HGB CONC 32 g/dL (33-37); MEAN CORPUSCULAR VOLUME 87.7 fL (80-94); MONOCYTES # (AUTO) 0.8 K/uL (0.8-1.0); MONOCYTES % (AUTO) 15.3 % (1.7-9.3); NEUTROPHILS # (AUTO) 3.5 K/uL (1.8-7.7); NEUTROPHILS % (AUTO) 67.1 % (42.2-75.2); PLATELET COUNT (AUTO) 284 K/uL (140-450); RED BLOOD CELL COUNT(AUTO) 3.86 MIL/uL (4.20-6.10); RED CELL DISTRIBUTION WIDTH 16.6 % (11.6-13.7); WHITE BLOOD COUNT (AUTO) 5.2 K/uL (4.8-10.8)
[2017-10-28 06:27] LABS: MAGNESIUM 1.9 mg/dL (1.8-2.4); PHOSPHORUS 3.6 mg/dL (2.5-4.9)
[2017-10-28 06:28] LABS: CREATININE 0.7 mg/dL (0.7-1.3); POTASSIUM 3.5 mmol/L (3.5-5.1)
--- NOTE | 2017-10-28 07:01 | NUR ---
RECEIVED CRITICAL VALUE FROM [place] IN LAB C02 WAS 40.1 IT IS TRENDING UPWARD FROM 33.[address] GIESLLE REYES MD ON DUTY
[2017-10-28] MEDS: ALBUTEROL SULFATE/IPRATROPIU 3 ML SOL IH SCH ×3 (07:12→18:56)
[2017-10-28] MEDS: BUDESONIDE 0.25 MG/2 ML NEBU INH SCH ×2 (07:13→18:56)
--- NOTE | 2017-10-28 07:20 | NUR ---
RECEIVED REPORT FROM THE MEDICAL PAYMENT POSTER NURSE AT BEDSIDE FOR CONTINUITY OF CARE. PT IS AWAKE AND ORIENTED. INTRODUCED MYSELF AND UPDATED THE BOARD. PT IS ON NC 3L O2. 2 IV SITES: L UA AND FA 20G SL. TAPE IS ALL FALLING OFF AND DRESSING IS DIRTY. I WILL CHECK FOR INFILTRATION AND CHANGE DRESSINGS LATER. LARGE ABD, FIRM. LBM WAS YESTERDAY X2. PER MEDICAL PAYMENT POSTER NURSE PT DOES AMBULATE TO AND FROM THE BATHROOM. SKIN IS INTACT, SOME EDEMA IN THE LOWER EXTREMITIES, NON PITTING. WILL CONTINUE TO MONITOR PT Addendum: 10/28/17 at 0733 by Dalia Hammond RN R/T HERE TO GIVE HIM BREATHING TX.
--- NOTE | 2017-10-28 07:25 | NUR ---
REPORT GIVEN TO CHUCK REN DAYSHIFT NURSE AT BEDSIDE, PT IN STABLE CONDITION B/P HIGH RESIDENT'S AWARE. CRITICAL LAB REPORT TO RELIVING RN.
[2017-10-28 08:00] VITALS: BP 135/87
[2017-10-28] MEDS: ASPIRIN 81 MG TAB.CHEW PO SCH (08:23)
[2017-10-28] MEDS: LOSARTAN 50 MG TAB PO SCH (08:23)
[2017-10-28] MEDS: SPIRONOLACTONE 50 MG TAB PO SCH (08:24)
[2017-10-28] MEDS: DIGOXIN 0.125 MG TAB PO SCH (08:24)
[2017-10-28] MEDS: CARVEDILOL 6.25 MG TAB PO SCH ×2 (08:25→21:00)
[2017-10-28] MEDS: LACTULOSE 20 GM/30 ML UDC PO SCH ×2 (08:25→21:04)
[2017-10-28] MEDS: FUROSEMIDE 40 MG/4 ML VIAL IVP SCH ×2 (08:25→21:04)
[2017-10-28] MEDS: DOCUSATE SODIUM 100 MG GELCAP PO SCH ×2 (08:26→21:04)
[2017-10-28] MEDS: APIXABAN 2.5 MG TAB PO SCH ×2 (08:31→21:12)
--- NOTE | 2017-10-28 08:33 | NUR ---
ADMINISTERED MORNING MEDS. PT TOLERATED WELL. NO COMPLAINTS. PT IS IN HIS CHAIR WITH SIDE TABLE IN FRONT OF HIM. PT IS COUGHING, PRODUCTIVE. WILL CONTINUE TO MONITOR PT.
--- NOTE | 2017-10-28 10:10 | NUR ---
PT IN THE BACK BY THE EXIT DOOR, IN A WHEELCHAIR. WANTED SOME SUN. SLEEPING. WILL CONTINUE TO MONITOR PT.
[2017-10-28 12:00] VITALS: BP 124/81
--- NOTE | 2017-10-28 12:13 | NUR ---
REMOVED FROM SUPPLEMENTAL OXYGEN AT THIS TIME FOR TITRATION TO ROOM AIR
--- NOTE | 2017-10-28 12:15 | NUR ---
Pipeliner Note: Patient has Medi-[employer] restricted, however, [employer] eligibility sheet indicates patient has SNF benefits. I faxed inquiries to the following snfs: [facility] Addendum: 10/29/17 at 1455 by iMla Gerard SS Today 10/29/17: I called and spoke with Dafne from [facility] , per Dafne they can't accept patient due to homelessness. Per Amor from [facility] , unable to accept patient, no reason given. Save
--- NOTE | 2017-10-28 12:23 | NUR ---
SATURATION CHECKED FROM [facility] TO [facility] SATURATION 88% ON ROOM AIR C/O SOB PLACED PATIENT BACK ON HUMIDIFIED SUPPLEMENTAL OXYGEN AT 2 LPM VIA LYNNETTE SAMUEL/GELA AT BEDSIDE
--- NOTE | 2017-10-28 12:23 | NUR ---
Gear Hobber Note: Per Adan from [facility] , [facility] , and [facility] , they aren't accepting [employer] patients at this time, unable to accept patient at these 3 snfs.
--- NOTE | 2017-10-28 12:35 | NUR ---
CALLED DR MILADYS PEÑALOZA [phone] TO REVIEW ROOM AIR SATURATION PREVIOUSLY NOTED AT 1213 & 1223 MD OUT OF AREA GAVE RESULTS TO DR YOSELYN MILLER
[2017-10-28 13:03] LABS: CARBON DIOXIDE 42.8 mmol/L (21-32)
[2017-10-28 13:04] LABS: ANION GAP -2.3 (8-16)
--- NOTE | 2017-10-28 13:11 | NUR ---
PT SITTING IN ROOM. PT AT ROOM AIR, SATURATING 88, 87%. ADMINISTERED O2 AT 2L. PT TOLERATING WELL. WILL CONTINUE TO MONITOR PT.
--- NOTE | 2017-10-28 15:52 | NUR ---
PT SITTING IN A CHAIR FACING THE WINDOW. BASKING IN THE SUN, WRITING SOMETHING IN A PIECE OF PAPER. NO SIGNS OF DISTRESS. NO COMPLAINTS. WILL CONTINUE TO MONITOR PT.
[2017-10-28 16:00] VITALS: BP 134/85
--- NOTE | 2017-10-28 17:45 | NUR ---
PT WANTS TO NOW TAKE A SHOWER. EXPLAINED TO PT THAT HE CAN'T AT THIS TIME BC WE ARE CLEANING THE FLOORS AND THAT SECTION IS BLOCKED OFF.
--- NOTE | 2017-10-28 19:20 | NUR ---
ENDORSED PT TO THE SYSTEMS TRAINER NURSE AT BEDSIDE FOR CONTINUITY OF CARE. PT IS IN STABLE CONDITION.
--- NOTE | 2017-10-28 19:21 | NUR ---
RECEIVED REPORT FROM DAY SHIFT NURSE LIZZIE-RN AT BEDSIDE. PT IS AOX4- 2 IV SITES: L UA AND FA 20G SL, 2L/NC. SKIN IS INTACT, SOME EDEMA IN THE LOWER EXTREMITIES, NON PITTING. , LARGE ABDOMEN, FIRM. PER COAL DELIVERER NURSE PT DOES AMBULATE TO AND FROM THE BATHROOM. DISCUSSED PLAN OF CARE AND PT VERBALIZED UNDERSTANDING. NO S/S OF RESPIRATORY DISTRESS OR DISCOMFORT NOTED AT THIS TIME. WHITE BOARD UPDATED. BED IN LOWEST POSITION, BED BREAKS ON, BOTH SIDE RAILS UP. CALL LIGHT AND BED SIDE TABLE ARE WITHIN REACH. WILL CONTINUE TO MONITOR.
[2017-10-28 20:00] VITALS: BP 118/88
--- NOTE | 2017-10-28 20:00 | NUR ---
VITAL SIGNS TAKEN AND TOLERATED WELL. NO S/S OF RESPIRATORY DISTRESS OR DISCOMFORT NOTED AT THIS TIME. WILL CONTINUE TO MONITOR.
--- NOTE | 2017-10-28 21:15 | NUR ---
SCHEDULED MEDICATIONS GIVEN AND TOLERATED WELL. COREG NOT GIVEN FOR DECREASED BP AT THIS TIME. NO S/S OF RESPIRATORY DISTRESS OR DISCOMFORT NOTED AT THIS TIME. WILL CONTINUE TO MONITOR.
--- NOTE | 2017-10-28 21:30 | NUR ---
PT IN SHOWER. NO S/S OF RESPIRATORY DISTRESS OR DISCOMFORT NOTED AT THIS TIME. BOTH IV SITES WRAPPED IN PLASTIC TO PREVENT DAMAGE. WILL CONTINUE TO MONITOR.
--- NOTE | 2017-10-28 22:00 | NUR ---
PT BACK IN BEDROOM. NO S/S OF RESPIRATORY DISTRESS OR DISCOMFORT NOTED AT THIS TIME. WILL CONTINUE TO MONITOR.
[2017-10-29] VITALS: BP 144/95
--- NOTE | 2017-10-29 | NUR ---
VITAL SIGNS TAKEN AND TOLERATED WELL. NO S/S OF RESPIRATORY DISTRESS OR DISCOMFORT NOTED AT THIS TIME. WILL CONTINUE TO MONITOR.
--- NOTE | 2017-10-29 02:00 | NUR ---
PT RESTING IN BED REVIEWING HIS OWN NOTES SITTING UP IN BED. NO S/S OF RESPIRATORY DISTRESS OR DISCOMFORT NOTED AT THIS TIME. WILL CONTINUE TO MONITOR.
[2017-10-29 04:00] VITALS: BP 129/73
--- NOTE | 2017-10-29 04:36 | NUR ---
DR. RIVERA AWARE OF PT REQUEST TO BE D/C BECAUSE HE HAS A COURT APPOINTMENT AND NEEDS TO LEAVE BY 6AM. AMA PAPERWORK READY TO BE SIGNED.
--- NOTE | 2017-10-29 05:00 | NUR ---
PT REQUESTING BREATHING TREATMENT FOR SOB. CALLED RT JULIUS FOR PRN TREATMENT. WILL CONTINUE TO MONITOR.
[2017-10-29] MEDS: ALBUTEROL SULFATE/IPRATROPIU 3 ML SOL IH PRN ×2 (05:09→23:44)
[2017-10-29] MEDS: ALBUTEROL SULFATE/IPRATROPIU 3 ML SOL IH SCH ×3 (06:31→19:06)
[2017-10-29 06:39] LABS: BASOPHILS % (AUTO) 0.3 % (0.0-2.0); EOSINOPHILS # (AUTO) 0.1 K/uL (0-0.4); EOSINOPHILS % (AUTO) 2.4 % (0.0-4.0); HEMATOCRIT 33.6 % (36-52); HEMOGLOBIN 10.8 g/dL (12.0-18.0); LYMPHOCYTES % (AUTO) 17.3 % (20.5-51.1); MEAN CORPUSCULAR HEMOGLOBIN 28 pg (27-31); MEAN CORPUSCULAR HGB CONC 32 g/dL (33-37); MEAN CORPUSCULAR VOLUME 87.1 fL (80-94); MONOCYTES # (AUTO) 0.9 K/uL (0.8-1.0); MONOCYTES % (AUTO) 14.7 % (1.7-9.3); NEUTROPHILS # (AUTO) 3.9 K/uL (1.8-7.7); NEUTROPHILS % (AUTO) 65.3 % (42.2-75.2); PLATELET COUNT (AUTO) 300 K/uL (140-450); RED BLOOD CELL COUNT(AUTO) 3.86 MIL/uL (4.20-6.10)
[2017-10-29] MEDS: BUDESONIDE 0.25 MG/2 ML NEBU INH SCH ×3 (06:43→19:10)
--- NOTE | 2017-10-29 06:48 | NUR ---
PLACED 2 L N\C POST HHNS
[2017-10-29 06:57] LABS: ANION GAP 5.4 (8-16); CREATININE 0.9 mg/dL (0.7-1.3); PHOSPHORUS 3.3 mg/dL (2.5-4.9); POTASSIUM 3.4 mmol/L (3.5-5.1)
--- NOTE | 2017-10-29 07:30 | NUR ---
placed 6 l oxymizer pt desats without oxygen pt removes
--- NOTE | 2017-10-29 07:30 | NUR ---
ENDORSED PT CARE TO DAY SHIFT NURSE JORDI FOR CONTINUITY OF CARE.
--- NOTE | 2017-10-29 07:31 | NUR ---
RECEIVED REPORT FROM THE SALES AGENT FINANCIAL REPORT SERVICE NURSE AT BEDSIDE FOR CONTINUITY OF CARE. PT WAS SLEEPING. CHECKED ON V/S, PT WAS NOT WEARING HIS NC. O2 SATURATION DOWN TO 40-60%. ADMINISTERED NC AT 6L. STILL IN HIS 60'S. CALLED R/T. THEY PUT ON AN OXIMIZER W/ 6L OF O2. FINALLY SATURATING AT 90-93%. PT NOW AWAKE. ENCOURAGED PT TO SIT UP AND KEEP HIS OXIMIZER ON. CRISTINA ALVAREZ. PLAN: KEEP HIM FOR FEW MORE DAYS FOR CONTINUED CARE. PT CONTINUES TO HAVE VERY LARGE DISTENDED ABD, ENLARGED SCROTUM, NON PITTING EDEMA IN THE LOWER EXTREMITIES. DUONG IV NEEDS TO COME OUT. DRESSING IS A MESS. WILL REMOVE IV WHEN GIVING MORNING MEDS. IV ON L FA STILL INTACT AND SL. BREAKDFAST IS HERE. WILL CONTINUE TO MONITOR PT.
--- NOTE | 2017-10-29 07:40 | NUR ---
decrease oxymizer to 4 l spo2 95
[2017-10-29 08:00] VITALS: BP 134/96
[2017-10-29] MEDS: DOCUSATE SODIUM 100 MG GELCAP PO SCH ×2 (08:26→20:10)
[2017-10-29] MEDS: DIGOXIN 0.125 MG TAB PO SCH (08:26)
[2017-10-29] MEDS: ASPIRIN 81 MG TAB.CHEW PO SCH (08:26)
[2017-10-29] MEDS: CARVEDILOL 6.25 MG TAB PO SCH ×2 (08:26→20:10)
[2017-10-29] MEDS: LOSARTAN 50 MG TAB PO SCH (08:26)
[2017-10-29] MEDS: LACTULOSE 20 GM/30 ML UDC PO SCH ×2 (08:27→20:11)
[2017-10-29] MEDS: FUROSEMIDE 40 MG/4 ML VIAL IVP SCH (08:27)
[2017-10-29] MEDS: SPIRONOLACTONE 50 MG TAB PO SCH ×2 (08:27→20:12)
[2017-10-29] MEDS: APIXABAN 2.5 MG TAB PO SCH (08:28)
--- NOTE | 2017-10-29 08:46 | NUR ---
ADMINISTERED MORNING MEDS. PT TOLERATED WELL. REDRESSED HIS IV SITES. EMPTIED 200ML OF CLEAR YELLOW URINE FROM URINAL. WILL CONTINUE TO MONITOR PT.
[2017-10-29] MEDS ORDERED: SPIRONOLACTONE 50 MG TAB PO SCH ×3 (09:00→14:27)
[2017-10-29] MEDS ORDERED: FUROSEMIDE 100 MG/10 ML VIAL IVP SCH (09:00)
[2017-10-29] MEDS ORDERED: FUROSEMIDE 40 MG/4 ML VIAL IVP SCH (09:28)
--- NOTE | 2017-10-29 09:50 | NUR ---
ADMINISTERED ADDITIONAL LASIX AND SPIROLACTONE ORDERED. PT TOLERATED WELL. PT SITTING ON SIDE OF BED. OXIMIZER STILL ON. PT IS TOLERATING WELL.
[2017-10-29 12:00] VITALS: BP 109/76
--- NOTE | 2017-10-29 12:45 | NUR ---
DECREASE OXYMIZER TO 3L SPO2 100
--- NOTE | 2017-10-29 14:41 | NUR ---
10/29/17 RD INITIAL ASSESSMENT COMPLETED PLEASE REFER TO NUTRITION ASSESSMENT UNDER CARE ACTIVITY FOR ESTIMATED NUTRITIONAL NEEDS. 1. CONTINUE CARDIAC DIET TOLERATED 2. RD TO FOLLOW-UP 5-7 DAYS, LOW RISK TONIO VILLAGOMEZ RD
[2017-10-29] MEDS ORDERED: POTASSIUM CHLORIDE 10 MEQ TABER PO SCH (15:40)
[2017-10-29 16:00] VITALS: BP 158/137
--- NOTE | 2017-10-29 16:25 | NUR ---
ADMINISTERED KDUR FOR LOW K. PT TOLERATED WELL. WILL CONTINUE TO MONITOR PT.
--- NOTE | 2017-10-29 16:41 | NUR ---
Commodity Merchant Note: Per Charlie from [facility] , unable to accept patient, no reason given. Per Donna from [facility] , unable to accept patient, no reason given.
--- NOTE | 2017-10-29 16:50 | NUR ---
PT C/O LEG CRAMP. WANTED ME TO SIT WITH HIM FOR A WHILE. CHATTED ABOUT HEALTH AND EDUCATED PT REGARDING COMPLIANCE OF MEDS AND PREVENTATIVE MEDS.
--- NOTE | 2017-10-29 19:15 | NUR ---
ENDORSED PT TO THE RFID MANAGER NURSE AT BEDSIDE FOR CONTINUITY OF CARE. PT IS IN STABLE CONDITION.
--- NOTE | 2017-10-29 19:16 | NUR ---
RECEIVED REPORT FROM DAY SHIFT NURSE LIZZIE-RN AT BEDSIDE. PT IS AOX4- 2 IV SITES: L UA AND FA 20G SL, 3L/OXIMIZER. AMBULATORY TO AND FROM THE BATHROOM. SKIN IS INTACT, SOME EDEMA IN THE LOWER EXTREMITIES AND SCROTUM, NON-PITTING. , LARGE ABDOMEN, FIRM. DISCUSSED PLAN OF CARE AND PT VERBALIZED UNDERSTANDING. NO S/S OF RESPIRATORY DISTRESS OR DISCOMFORT NOTED AT THIS TIME. WHITE BOARD UPDATED. BED IN LOWEST POSITION, BED BREAKS ON, BOTH SIDE RAILS UP. CALL LIGHT AND BED SIDE TABLE ARE WITHIN REACH. WILL CONTINUE TO MONITOR.
[2017-10-29 20:00] VITALS: BP 119/92
--- NOTE | 2017-10-29 20:00 | NUR ---
VITAL SIGNS TAKEN AND TOLERATED WELL. NO S/S OF RESPIRATORY DISTRESS OR DISCOMFORT NOTED AT THIS TIME. WILL CONTINUE TO MONITOR.
[2017-10-29] MEDS: RIVAROXABAN 10 MG TAB PO SCH (20:17)
--- NOTE | 2017-10-29 20:20 | NUR ---
SCHEDULED MEDICATION GIVEN AND TOLERATED WELL. NO S/S OF RESPIRATORY DISTRESS OR DISCOMFORT NOTED AT THIS TIME. PT REQUESTED THAT ALL MEDICATION BE GIVEN WITH JUICE ONLY- NOTE WRITTEN ON THE WHITE BOARD. WARM BLANKET PROVIDED FOR COMFORT BY MALKA TAN. WILL CONTINUE TO MONITOR.
--- NOTE | 2017-10-29 21:54 | NUR ---
PT REFUSED CPAP, HE WILL CALL IF HE DECIDES TO USE IT.
--- NOTE | 2017-10-29 22:00 | NUR ---
PT SLEEPING IN BED. ASSISTED PT BY PLACING OXIMIZER BACK ON NOSTRILS. EDUCATED PT ON THE IMPORTANCE OF KEEPING OXIMIZER IN PLACE FOR PROPER OXYGENATION. PT TOLERATED WELL AND VERBALIZED UNDERSTANDING. NO S/S OF RESPIRATORY DISTRESS OR DISCOMFORT NOTED AT THIS TIME. WILL CONTINUE TO MONITOR.
--- NOTE | 2017-10-29 23:15 | NUR ---
LEFT UPPER ARM IV SITE WAS ACCIDENTALLY DISLODGED. NO BLEEDING NOTED. WRAPPED IN GAUZE LEFT FA IV SITE. PT TOLERATED WELL. WILL CONTINUE TO MONITOR.
--- NOTE | 2017-10-29 23:15 | NUR ---
ASSISTED PT WITH OXIMIZER BACK ON PROPERLY. REINFORCED TEACHING AGAIN. PT VERBALIZED UNDERSTANDING. WILL CONTINUE TO MONITOR.
--- NOTE | 2017-10-29 23:52 | NUR ---
DR. OLIVARES SPOKE WITH PT ABOUT HIS NON-COMPLIANCE WITH KEEPING OXIMIZER ON PROPERLY FOR PROPER OXYGENATION. RT AT BEDSIDE. RECOMMENDED CPAP FOR THE REST OF THE NIGHT WITHOUT TAKING IT OFF. WILL CONTINUE TO MONITOR.
[2017-10-30] VITALS: BP 128/86
--- NOTE | 2017-10-30 | NUR ---
PT TOLERATED VITAL SIGNS WELL. CURRENTLY RECEIVING A BREATHING TREATMENT. RT PREPARING BIPAP MACHINE PT HAS CONSENTED TO USE. NO S/S OF RESPIRATORY DISTRESS OR DISCOMFORT NOTED AT THIS TIME. WILL CONTINUE TO MONITOR.
--- NOTE | 2017-10-30 02:05 | NUR ---
BIPAP MACHINE ALARMING AND FOUND PT WITHOUT MASK ON. EDUCATED PT ON THE IMPORTANCE OF HIS BIPAP MACHINE AND ASSISTED HIM WITH CONNECTING IN AGAIN. NO S/S OF RESPIRATORY DISTRESS OR DISCOMFORT NOTED AT THIS TIME. NOTICED SAO2 SATURATIONS INCREASE FROM 83% BACK UP TO 92% AND RISING. WILL CONTINUE TO MONITOR.
--- NOTE | 2017-10-30 04:00 | NUR ---
PT REFUSED VITAL SIGNS WHEN ASKED TWICE BY SHAKING HIS HEAD FROM LEFT TO RIGHT. BIPAP MACHINE ON AND WORKING WELL. PT RETURNED BACK TO SLEEPING IN BED. NO S/S OF RESPIRATORY DISTRESS OR DISCOMFORT NOTED AT THIS TIME. WILL CONTINUE TO MONITOR.
--- NOTE | 2017-10-30 06:00 | NUR ---
PT REQUESTING BANANA. CALLED [facility] AND THEY SAID THEY WOULD BRING A BANANA WITH HIS TRAY. NO S/S OF RESPIRATORY DISTRESS OR DISCOMFORT NOTED AT THIS TIME. WILL CONTINUE TO MONITOR.
--- NOTE | 2017-10-30 06:40 | NUR ---
PLACED PT ON OXYMIZER 4LPM SAT 96 HR 118 RR 20. WILL CONT TO MONITOR PT.
[2017-10-30] MEDS: BUDESONIDE 0.25 MG/2 ML NEBU INH SCH ×2 (06:41→19:16)
[2017-10-30] MEDS: ALBUTEROL SULFATE/IPRATROPIU 3 ML SOL IH SCH ×3 (06:41→19:16)
--- NOTE | 2017-10-30 07:05 | NUR ---
RECEIVED PATIENT REPORT AT BEDSIDE. PATIENT ASLEEP BUT AROUSABLE. PATIENT IS RECEIVING 4L O2 VIA OXYMIZER. O2 SAT 100 PERCENT AT THIS TIME. NO S/S OF DISTRESS NOTED. PATIENT ON TELE MONITORING. BED LOWERED WITH CALL LIGHT WITHIN REACH. WILL CONTINUE TO MONITOR
[2017-10-30 07:06] LABS: BASOPHILS % (AUTO) 0.5 % (0.0-2.0); EOSINOPHILS # (AUTO) 0.1 K/uL (0-0.4); HEMATOCRIT 34.3 % (36-52); HEMOGLOBIN 10.7 g/dL (12.0-18.0); LYMPHOCYTES % (AUTO) 14.9 % (20.5-51.1); MEAN CORPUSCULAR HEMOGLOBIN 27 pg (27-31); MEAN CORPUSCULAR HGB CONC 31 g/dL (33-37); MEAN CORPUSCULAR VOLUME 88.2 fL (80-94); MONOCYTES # (AUTO) 1.1 K/uL (0.8-1.0); MONOCYTES % (AUTO) 16.1 % (1.7-9.3); NEUTROPHILS # (AUTO) 4.3 K/uL (1.8-7.7); NEUTROPHILS % (AUTO) 66.5 % (42.2-75.2); PLATELET COUNT (AUTO) 292 K/uL (140-450); RED BLOOD CELL COUNT(AUTO) 3.89 MIL/uL (4.20-6.10); RED CELL DISTRIBUTION WIDTH 16.8 % (11.6-13.7); WHITE BLOOD COUNT (AUTO) 6.5 K/uL (4.8-10.8)
[2017-10-30 07:18] LABS: ANION GAP 3.1 (8-16); CREATININE 0.7 mg/dL (0.7-1.3); POTASSIUM 3.6 mmol/L (3.5-5.1)
--- NOTE | 2017-10-30 07:19 | NUR ---
ENDORSED PT CARE TO DAY SHIFT NURSE LAWANDA FOR CONTINUITY OF CARE.
[2017-10-30 07:35] LABS: MAGNESIUM 1.8 mg/dL (1.8-2.4); PHOSPHORUS 3.3 mg/dL (2.5-4.9)
[2017-10-30 07:53] VITALS: BP 125/89
[2017-10-30 08:07] LABS: CARBON DIOXIDE 40.5 mmol/L (21-32)
[2017-10-30] MEDS: LACTULOSE 20 GM/30 ML UDC PO SCH ×3 (09:00→20:25)
[2017-10-30] MEDS: FUROSEMIDE 100 MG/10 ML VIAL IVP SCH ×2 (09:23→20:26)
[2017-10-30] MEDS: ASPIRIN 81 MG TAB.CHEW PO SCH (09:24)
[2017-10-30] MEDS: DOCUSATE SODIUM 100 MG GELCAP PO SCH ×2 (09:24→20:26)
[2017-10-30] MEDS: LOSARTAN 50 MG TAB PO SCH (09:24)
[2017-10-30] MEDS: CARVEDILOL 6.25 MG TAB PO SCH ×2 (09:24→20:26)
[2017-10-30] MEDS: DIGOXIN 0.125 MG TAB PO SCH (09:25)
[2017-10-30] MEDS: SPIRONOLACTONE 50 MG TAB PO SCH ×2 (09:25→20:28)
[2017-10-30] MEDS: RIVAROXABAN 10 MG TAB PO SCH ×2 (09:30→20:33)
[2017-10-30] MEDS ORDERED: SODIUM PHOSPHATE 118 ML ENEM RC SCH (10:30)
--- NOTE | 2017-10-30 11:51 | NUR ---
Manager Utilization Management Note: Per Radha Ribeiro from [facility] / , they are not accepting [facility] patients at this time, unable to accept patient. Addendum: 10/30/17 at 1355 by Mila Gerard SS Lance Orozco from [facility] , patient is too young for their facility, they only accept patients who are 62 years old and older, unable to accept patient.
[2017-10-30 12:00] VITALS: BP 99/70
--- NOTE | 2017-10-30 12:51 | NUR ---
FLEET ENEMA ADMINISTERED PER PATIENT'S REQUEST
--- NOTE | 2017-10-30 13:00 | NUR ---
PATIENT AMBULATED TO THE BATHROOM. PER PATIENT HE HAD A SMALL BM. PATIENT ASSISTED BACK TO BED. NO S/S OF DISTRESS NOTED
--- NOTE | 2017-10-30 13:30 | NUR ---
PT REQUESTED TO BE PLACED ON BIPAP. SEE VENT CHECK FOR VITALS. WILL CONT TO MONITOR PT.
--- NOTE | 2017-10-30 14:25 | NUR ---
TOOK PT OFF BIPAP PER PT'S REQUEST. PLACED PT ON 3LPM OXYMIZER. SAT 100 HR 112 RR 18. ABG ATTEMPTED ONCE BUT PT IMMEDIATELY REQUESTED TO STOP. PT REFUSED TO BE COOPERATIVE AND SAID HE COULD NOT STAND THE PAIN FROM THE ABG NEEDLE. WILL CONT TO MONITOR PT.
[2017-10-30 16:41] VITALS: BP 110/63
--- NOTE | 2017-10-30 16:55 | NUR ---
PATIENT ASLEEP IN BED. NO S/S OF DISTRESS NOTED
--- NOTE | 2017-10-30 19:23 | NUR ---
PATIENT REPORT GIVEN AT BEDSIDE. PATIENT ENDORSED IN STABLE CONDITION
--- NOTE | 2017-10-30 19:24 | NUR ---
RECEIVED PT AWAKE SITTING ON SIDE OF BED, AAOX4, VITAL SIGNS STABLE, ATRIAL FLUTTER ON TELE, ON O2 4L VIA OXIMIZER, NO SOB NOTED, OCCASIONAL COUGH NOTED, DENIES PAIN, BREATHING TX PER RT, PLAN OF CARE DISCUSSED, SAFETY MEASURES IN PLACE, CALL LIGHT WITHIN REACHED.
[2017-10-30 20:10] VITALS: BP 116/82
--- NOTE | 2017-10-30 20:30 | NUR ---
DUE MEDS ADMINISTERED, PT WANTS TO TAKE A SHOWER, IV SITE COVERED, AMBULATED TO SHOWER ROOM WITH STEADY GAIT, INSTRUCTED TO PULL CORD IF NEED ASSISTANCE.
--- NOTE | 2017-10-30 21:50 | NUR ---
PT BACK TO ROOM, RT ZION PUT PT ON BIPAP, TOLERATED WELL, MONITORED CLOSELY.
--- NOTE | 2017-10-30 23:40 | NUR ---
PT SLEEPING, EASILY AROUSABLE, VITAL SIGNS STABLE, ATRIAL FLUTTER ON TELE, NO SIGNS OF PAIN OR RESP DISTRESS, CONTINUE TO MONITOR CLOSELY.
[2017-10-31] VITALS: BP 102/67
--- NOTE | 2017-10-31 01:20 | NUR ---
PT TOOK OFF BIPAP AND AMBULATED TO BR, PT SAID HAD MODERATE BM, PT PUT BACK ON BIPAP, ENCOURAGE TO USE CALL LIGHT FOR ASSISTANCE, MONITORED CLOSELY.
--- NOTE | 2017-10-31 03:50 | NUR ---
PT AWAKE, WANTS BIPAP OFF, RT ZION PUT BACK PT ON O2 4L VIA OXIMIZER, 100% SAT, VITAL SIGNS STABLE, ATRIAL FLUTTER ON TELE, NO RESP DISTRESS NOTED, MONITORED CLOSELY.
[2017-10-31 04:00] VITALS: BP 114/79
--- NOTE | 2017-10-31 06:10 | NUR ---
PT SLEEPING, EASILY AROUSABLE, CONTINUE ON 4L OXIMIZER WITH SAT OF 98%, NO RESP DISTRESS NOTED, MONITORED CLOSELY.
[2017-10-31] MEDS: ALBUTEROL SULFATE/IPRATROPIU 3 ML SOL IH SCH ×3 (06:45→19:13)
[2017-10-31] MEDS: BUDESONIDE 0.25 MG/2 ML NEBU INH SCH (06:47)
[2017-10-31 07:09] LABS: BASOPHILS % (AUTO) 0.5 % (0.0-2.0); EOSINOPHILS # (AUTO) 0.2 K/uL (0-0.4); EOSINOPHILS % (AUTO) 3.1 % (0.0-4.0); HEMATOCRIT 32.5 % (36-52); HEMOGLOBIN 10.1 g/dL (12.0-18.0); LYMPHOCYTES # (AUTO) 1.2 K/uL (2.0-11.5); LYMPHOCYTES % (AUTO) 18.5 % (20.5-51.1); MEAN CORPUSCULAR HEMOGLOBIN 27 pg (27-31); MEAN CORPUSCULAR HGB CONC 31 g/dL (33-37); MONOCYTES # (AUTO) 0.9 K/uL (0.8-1.0); MONOCYTES % (AUTO) 14.1 % (1.7-9.3); NEUTROPHILS % (AUTO) 63.8 % (42.2-75.2); PLATELET COUNT (AUTO) 286 K/uL (140-450); RED BLOOD CELL COUNT(AUTO) 3.69 MIL/uL (4.20-6.10); RED CELL DISTRIBUTION WIDTH 16.2 % (11.6-13.7); WHITE BLOOD COUNT (AUTO) 6.2 K/uL (4.8-10.8)
--- NOTE | 2017-10-31 07:15 | NUR ---
PT SLEEPING, NO SIGNS OF DISTRESS, BEDSIDE REPORT GIVEN TO GELA RIOS FOR CONTINUITY OF CARE.
[2017-10-31 07:22] LABS: ANION GAP -0.5 (8-16); CREATININE 0.8 mg/dL (0.7-1.3); POTASSIUM 3.5 mmol/L (3.5-5.1)
[2017-10-31 07:38] VITALS: BP 104/86
[2017-10-31] MEDS: LACTULOSE 20 GM/30 ML UDC PO SCH ×2 (09:30→20:24)
[2017-10-31] MEDS: ASPIRIN 81 MG TAB.CHEW PO SCH (09:30)
[2017-10-31] MEDS: LOSARTAN 50 MG TAB PO SCH (09:30)
[2017-10-31] MEDS: DIGOXIN 0.125 MG TAB PO SCH (09:30)
[2017-10-31] MEDS: DOCUSATE SODIUM 100 MG GELCAP PO SCH ×2 (09:30→20:24)
[2017-10-31] MEDS: SPIRONOLACTONE 50 MG TAB PO SCH ×2 (09:31→20:25)
[2017-10-31] MEDS: CARVEDILOL 6.25 MG TAB PO SCH ×2 (09:31→20:24)
[2017-10-31] MEDS: FUROSEMIDE 100 MG/10 ML VIAL IVP SCH ×2 (09:32→20:24)
[2017-10-31] MEDS: RIVAROXABAN 10 MG TAB PO SCH ×2 (09:36→20:34)
--- NOTE | 2017-10-31 10:51 | NUR ---
PATIENT AWAKE IN BED, WATCHING TELEVISION. NO S/S OF DISTRESS NOTED
--- NOTE | 2017-10-31 11:05 | NUR ---
Custom Designer Note: Per Fatimah Keating from [facility] , she will be coming shortly this morning to hospital.
--- NOTE | 2017-10-31 11:25 | NUR ---
Area Development Consultant Note: Fatimah Keating from [facility] came to hospital to meet with patient, I provided her with printed patient's medical information.
[2017-10-31 12:00] VITALS: BP 108/79
[2017-10-31] MEDS ORDERED: SODIUM PHOSPHATE 118 ML ENEM RC SCH (14:00)
--- NOTE | 2017-10-31 14:30 | NUR ---
FLEET ENEMA ADMINISTERED
--- NOTE | 2017-10-31 14:50 | NUR ---
PATIENT REPORTS THAT HE HAD A BM BUT STATES THAT IT WAS ALL WATER. PATIENT NOW SITTING AT THE SIDE OF HIS BED. NO S/S OF DISTRESS NOTED
[2017-10-31 16:00] VITALS: BP 136/89
--- NOTE | 2017-10-31 16:28 | NUR ---
Manager Animal Note: Per Fatimah Keating from [facility] , patient does not have hospice benefits under [employer] restricted, unable to provide services for patient.
--- NOTE | 2017-10-31 19:25 | NUR ---
PATIENT REPORT GIVEN TO BLANKET BINDER NURSE
--- NOTE | 2017-10-31 19:27 | NUR ---
RECEIVED PT AWAKE ON BED, ON HIGH FOWLERS POSITION, VITAL SIGNS STABLE, ATRIAL FLUTTER ON TELE, ON O2 AT 4L VIA OXIMIZER, DIMINISHED LUNG SOUNDS, DENIES PAIN, NO SOB NOTED, PLAN OF CARE DISCUSSED, SAFETY MEASURES IN PLACE, CALL LIGHT WITHIN REACH.
[2017-10-31 20:00] VITALS: BP 114/82
--- NOTE | 2017-10-31 20:40 | NUR ---
DUE MEDS ADMINISTERED, PT STATED THAT HE PREFER TO BE ON OXIMIZER 4L FOR NOW, HE WILL CALL IF HE WANTS TO BE PUT ON BIPAP, SAT-96-98%, NO RESP DISTRESS NOTED, MONITORED CLOSELY.
--- NOTE | 2017-10-31 22:40 | NUR ---
PT OFF TELE, SEEN PT COMING OUT OF TOILET WITH STEADY GAIT, VOIDING FREELY, PUT BACK ON TELE MONITOR, ATRIAL FLUTTER, MONITORED CLOSELY.
[2017-11-01] VITALS: BP 109/82
--- NOTE | 2017-11-01 | NUR ---
PT SLEEPING, EASILY AROUSABLE, VITAL SIGNS STABLE, ATRIAL FLUTTER ON TELE, NO RESP DISTRESS NOTED, PT PREFER TO CONTINUE ON O2 4L VIA OXIMIZER AT THIS TIME, CONTINUE TO MONITOR CLOSELY.
[2017-11-01 04:00] VITALS: BP 121/71
--- NOTE | 2017-11-01 04:20 | NUR ---
PT LYING ON BED ON HIGH FOWLERS POSITION, OPEN EYES TO VOICE, VITAL SIGNS STABLE, NO RESP DISTRESS NOTED, MONITORED CLOSELY.
--- NOTE | 2017-11-01 07:10 | NUR ---
PT SLEEPING, NO SIGNS OF DISTRESS, BEDSIDE REPORT GIVEN TO RN SITAL FOR CONTINUITY OF CARE.
--- NOTE | 2017-11-01 07:11 | NUR ---
RECEIVED REPORT FROM PM NURSE AT THE BEDSIDE. PT ON OXYMIZER 4LPM. BREATHING PATTERN SYMMETRICAL. PT SEEN BY DR BURRIS IN MORNING ROUND. HAS THE STABLE VS. AOX4. BED AT THE LOWER POSITION, NO SIGN OF DISTRESS. WILL CONTINUE TO MONITOR PT.
[2017-11-01] MEDS: ALBUTEROL SULFATE/IPRATROPIU 3 ML SOL IH SCH ×2 (07:13→19:22)
[2017-11-01] MEDS: BUDESONIDE 0.25 MG/2 ML NEBU INH SCH ×2 (07:13→19:22)
[2017-11-01 07:39] LABS: BASOPHILS # (AUTO) 0.1 K/uL (0.00-0.22); BASOPHILS % (AUTO) 1.1 % (0.0-2.0); EOSINOPHILS # (AUTO) 0.2 K/uL (0-0.4); EOSINOPHILS % (AUTO) 2.5 % (0.0-4.0); HEMOGLOBIN 11.3 g/dL (12.0-18.0); LYMPHOCYTES # (AUTO) 1.3 K/uL (2.0-11.5); LYMPHOCYTES % (AUTO) 20.1 % (20.5-51.1); MEAN CORPUSCULAR HEMOGLOBIN 27 pg (27-31); MEAN CORPUSCULAR HGB CONC 31 g/dL (33-37); MEAN CORPUSCULAR VOLUME 87.4 fL (80-94); MONOCYTES # (AUTO) 1.1 K/uL (0.8-1.0); MONOCYTES % (AUTO) 16.8 % (1.7-9.3); NEUTROPHILS # (AUTO) 3.9 K/uL (1.8-7.7); NEUTROPHILS % (AUTO) 59.5 % (42.2-75.2); PLATELET COUNT (AUTO) 332 K/uL (140-450); RED BLOOD CELL COUNT(AUTO) 4.12 MIL/uL (4.20-6.10); RED CELL DISTRIBUTION WIDTH 16.4 % (11.6-13.7); WHITE BLOOD COUNT (AUTO) 6.5 K/uL (4.8-10.8)
[2017-11-01 07:45] LABS: CREATININE 0.8 mg/dL (0.7-1.3); POTASSIUM 3.6 mmol/L (3.5-5.1)
[2017-11-01 07:48] LABS: CARBON DIOXIDE 45.6 mmol/L (21-32)
[2017-11-01 07:54] VITALS: BP 122/89
[2017-11-01] MEDS: SPIRONOLACTONE 50 MG TAB PO SCH (08:58)
[2017-11-01] MEDS: LACTULOSE 20 GM/30 ML UDC PO SCH ×2 (08:58→20:29)
[2017-11-01] MEDS: FUROSEMIDE 100 MG/10 ML VIAL IVP SCH (08:59)
[2017-11-01] MEDS: DOCUSATE SODIUM 100 MG GELCAP PO SCH ×2 (09:00→20:30)
[2017-11-01] MEDS: DIGOXIN 0.125 MG TAB PO SCH (09:00)
[2017-11-01] MEDS: ASPIRIN 81 MG TAB.CHEW PO SCH (09:00)
[2017-11-01] MEDS: LOSARTAN 50 MG TAB PO SCH (09:00)
[2017-11-01] MEDS: CARVEDILOL 6.25 MG TAB PO SCH ×2 (09:01→20:30)
[2017-11-01] MEDS: RIVAROXABAN 10 MG TAB PO SCH ×3 (09:09→20:35)
--- NOTE | 2017-11-01 09:30 | NUR ---
ADMINISTERED MEDS TO PT. TOLERATED WELL. PT SITTING ON SIDE OF BED. WRITING, NO SIGN OF DISTRESS. PLACED CALL LIGHT WITHIN PT REACH. BED AT LOWEST POSITION.INFORMED PT TO PRESS CALL LIGHT FOR ANY HELP. WILL CONTINUE TO MONITOR PT.
[2017-11-01 12:00] VITALS: BP 93/50
--- NOTE | 2017-11-01 13:14 | NUR ---
PT IN SHOWER HHN RX DELAYED RN AWARE
[2017-11-01 16:00] VITALS: BP 99/64
--- NOTE | 2017-11-01 16:28 | NUR ---
CHECKED ON PT. SLEEPING AT THIS TIME. VS NOTED, NORMAL. NO SIGN OF DISTRESS. ALL SAFETY MEASURE IN PLACE. WILL CONTINUE TO MONITOR PT.
--- NOTE | 2017-11-01 17:30 | NUR ---
CHECKED ON PT. PT WASHING WASH CLOTH ON SINK. PT HAS BLEEDING FROM THE SCROTAL SKIN REGION. PER PT, HE GOT SLIGHT CUT WHILE USING RESTROOM. ASSESSED THE SITE, SMALL CUT, PUT BAND-AID ON THE SURFACE. MD AWARE. MD STATES TO MONITOR BLEEDING. NO SIGN OF DISTRESS. WILL CONTINUE TO MONITOR PT.
--- NOTE | 2017-11-01 19:30 | NUR ---
ENDORSED PT TO PM NURSE FOR CONTINUITY OF CARE AT THE BEDSIDE. PT STATES TO HAVE NO BLEEDING , PM NURSE AWARE. PT WITH BREATHING TREATMENT. PT IN STABLE CONDITION.
--- NOTE | 2017-11-01 19:31 | NUR ---
RECEIVED REPORT FROM DAY SHIFT RN FOR CONTINUITY OF CARE. PT IS A/OX4, ON 4L O2 VIA OXIMIZER. PT SKIN IS INTACT BUT HAS SACRAL EDEMA. PT HAS 20G IV TO LEFT FOREARM, ASYMPTOMATIC, INTACT AND PATENT. DISCUSSED PLAN OF CARE WITH PT, PT VERBALIZED UNDERSTANDING. VITAL SIGNS WITHIN NORMAL LIMITS. PT STABLE, NO SIGNS OF DISTRESS NOTED AT THIS TIME. BED IN LOWEST POSITION, BED ALARM ON. CALL LIGHT WITHIN REACH, WILL CONTINUE TO MONITOR.
[2017-11-01 20:00] VITALS: BP 111/89
[2017-11-01] MEDS: FUROSEMIDE 40 MG/4 ML VIAL IVP SCH (20:30)
[2017-11-01] MEDS: SPIRONOLACTONE 25 MG TAB PO SCH (20:30)
--- NOTE | 2017-11-01 20:35 | NUR ---
ADMINISTERED SCHEDULED MEDICATIONS, PT TOLERATED WELL.
[2017-11-02] VITALS: BP 86/54
--- NOTE | 2017-11-02 | NUR ---
VITAL SIGNS WITHIN NORMAL LIMITS. PT STABLE, NO SIGNS OF DISTRESS NOTED AT THIS TIME. BED IN LOWEST POSITION, BED ALARM ON. CALL LIGHT WITHIN REACH, WILL CONTINUE TO MONITOR. Addendum: 11/02/17 at 0212 by Ann Marie Venegas RN DISREGARD, WRONG PT.
--- NOTE | 2017-11-02 00:05 | NUR ---
PT BP IS DECREASED, OTHER VITAL SIGNS WITHIN NORMAL LIMITS. SPOKE TO DR FLORES ABOUT BP AND HE ONLY GAVE ORDERS TO KEEP MONITORING PT. PT STABLE, NO SIGNS OF DISTRESS NOTED AT THIS TIME. BED IN LOWEST POSITION, BED ALARM ON. CALL LIGHT WITHIN REACH, WILL CONTINUE TO MONITOR.
--- NOTE | 2017-11-02 02:00 | NUR ---
PT RESTING. NO SIGNS OF DISTRESS NOTED AT THIS TIME. BED IN LOWEST POSITION, BED ALARM ON. CALL LIGHT WITHIN REACH, WILL CONTINUE TO MONITOR.
[2017-11-02 04:00] VITALS: BP 95/72
[2017-11-02] MEDS: ALBUTEROL SULFATE/IPRATROPIU 3 ML SOL IH PRN (04:00)
--- NOTE | 2017-11-02 04:00 | NUR ---
VITAL SIGNS WITHIN NORMAL LIMITS. PT STABLE, NO SIGNS OF DISTRESS NOTED AT THIS TIME. BED IN LOWEST POSITION, BED ALARM ON. CALL LIGHT WITHIN REACH, WILL CONTINUE TO MONITOR.
--- NOTE | 2017-11-02 06:08 | NUR ---
NO SIGNS OF DISTRESS NOTED AT THIS TIME. BED IN LOWEST POSITION, BED ALARM ON. CALL LIGHT WITHIN REACH, WILL CONTINUE TO MONITOR.
[2017-11-02] MEDS: ALBUTEROL SULFATE/IPRATROPIU 3 ML SOL IH SCH ×3 (06:23→19:46)
[2017-11-02] MEDS: BUDESONIDE 0.25 MG/2 ML NEBU INH SCH ×2 (06:23→19:46)
--- NOTE | 2017-11-02 06:23 | NUR ---
PT REFUSED BREATHING TX NO SIGNS OF DISTRESS NOTED AT THIS TIME
--- NOTE | 2017-11-02 07:28 | NUR ---
ENDORSED PT TO DAY SHIFT RN FOR CONTINUITY OF CARE. PT IN STABLE CONDITION.
--- NOTE | 2017-11-02 07:29 | NUR ---
RECEIVED REPORT FROM COMPUTER SYSTEMS MANAGER NURSE. PT IN BED, AROUSABLE BY VOICE, DENIES ANY PAIN OR DISCOMFORT. NO SIGNS OF DISTRESS. CALL LIGHT WITHIN REACH.
[2017-11-02 08:00] VITALS: BP 109/70
[2017-11-02] MEDS: CARVEDILOL 6.25 MG TAB PO SCH ×2 (09:00→20:54)
[2017-11-02] MEDS: LOSARTAN 50 MG TAB PO SCH (09:00)
[2017-11-02] MEDS: LACTULOSE 20 GM/30 ML UDC PO SCH ×2 (09:20→20:52)
[2017-11-02] MEDS: FUROSEMIDE 40 MG/4 ML VIAL IVP SCH ×2 (09:21→16:30)
[2017-11-02] MEDS: DOCUSATE SODIUM 100 MG GELCAP PO SCH ×2 (09:22→20:52)
[2017-11-02] MEDS: RIVAROXABAN 10 MG TAB PO SCH ×2 (09:22→20:54)
[2017-11-02] MEDS: ASPIRIN 81 MG TAB.CHEW PO SCH (09:23)
[2017-11-02] MEDS: DIGOXIN 0.125 MG TAB PO SCH (09:23)
[2017-11-02] MEDS: SPIRONOLACTONE 25 MG TAB PO SCH ×2 (09:23→20:52)
--- NOTE | 2017-11-02 09:36 | NUR ---
SCHEDULED MEDS DUE GIVEN. PT SITTING UP IN CHAIR, NO DISTRESS NOTED. WILL CONTINUE TO MONITOR.
[2017-11-02] MEDS ORDERED: SODIUM PHOSPHATE 118 ML ENEM RC SCH (11:00)
--- NOTE | 2017-11-02 11:35 | NUR ---
Machine Stone Polisher Note: Late entry for 11/01/17: Multiple half-way facilities have not been able to accept patient due his current health insurance coverage ([employer] restricted); I met with patient at bedside and informed him of this. He verbalized understanding and stated he would like to be transfer to a half-way facility upon discharge if possible and expressed he does not want hospice services at this time. He understands that his current health insurance has made it difficult for him to be accepted. I asked him if he has considered enrolling into [facility] (IEHP) and explained to him that there is a possibility he might be accepted at a snf with IEHP or be referred to [facility], an organization that evaluates patients to identify needs and possibly provide housing, case management, medical care, and mental health services based on their criteria. He shared with me that he is interested on enrolling into IEHP and requested I help him with this process. I called and spoke with Denilson from Healthcare Options department at [facility] . I explained to Denilson patient would like enroll into IEHP. Denilson requested to speak with patient in order to to obtain permission from him to speak with me. Patient spoke with Denilson and asked patient to verify his name, date of , and home address. Patient told Denilson, he is homeless. Denilson informed patient there is a home address listed on his file and he could not assist him with process of enrolling into IEHP unless he provided him with that address. Patient attempted to recall addresses he had used in the past; however, his attempts were unsuccessful. Denilson spoke with me and told me I needed to speak with a [facility] eligibility application development team lead . I asked Denilson if I could speak with his roll forming supervisor. Denilson transferred me to his roll forming supervisor, Ly. I explained the situation to Ly and asked her if there was any way she could assist us (patient and I) with IEHPs enrollment. She reiterated what Denilson told me. I asked if she could please make an exception and assist patient without verifying the home address listed on patients file or if she could please provide me with name of city. I explained to her that it is crucial for patient to be enrolled into IEHP so we could better assist him with his discharge plan. She agreed to provide me with name of city on patients file. She stated it was [place], [place]. NICOLE Boswell stayed on phone with Ly to avoid losing connection with Ly. I went back to office and reviewed patients first hospital admission records on [facility] and noticed an address in [place], [place]. I went back to patients room and provided Ly with [place] address, she confirmed it was the address they had on file. [place] [address], [place] [address]. Ly initiated the process of patients IEHP enrollment and requested I call the [employer] [place] and dial option 1 and then option 9. I called [facility] and followed Devang instructions, I spoke with Leonela from [facility]. Leonela was able to complete patients IEHP enrollment. She stated she could not enroll him right away and as of November 16, 2017 he will have IEHP as his health insurance.
[2017-11-02 12:00] VITALS: BP 120/70
--- NOTE | 2017-11-02 12:10 | NUR ---
PATIENT SITTING IN BED WITH LUNCH TRAY IN FRONT. NO DISTRESS NOTED. CONDITION UNCHANGED. WILL CONTINUE TO MONITOR.
--- NOTE | 2017-11-02 13:42 | NUR ---
PT TAKING SHOWER WILL RECHECK ON PT WHEN HE RETURNS TO ROOM
--- NOTE | 2017-11-02 14:15 | NUR ---
pt has refused breathing tx no signs of distress noted at this time
--- NOTE | 2017-11-02 14:30 | NUR ---
FLEET ENEMA GIVEN TO PATIENT PER MD ORDERS. PATIENT REPORTS HAVING SMALL BM BUT ALL LIQUID FROM ENEMA. WILL CONTINUE TO MONITOR.
[2017-11-02 15:37] LABS: BASOPHILS # (AUTO) 0.1 K/uL (0.00-0.22); BASOPHILS % (AUTO) 1.1 % (0.0-2.0); EOSINOPHILS # (AUTO) 0.2 K/uL (0-0.4); EOSINOPHILS % (AUTO) 2.9 % (0.0-4.0); HEMATOCRIT 38.4 % (36-52); HEMOGLOBIN 12.1 g/dL (12.0-18.0); LYMPHOCYTES # (AUTO) 0.9 K/uL (2.0-11.5); LYMPHOCYTES % (AUTO) 15.4 % (20.5-51.1); MEAN CORPUSCULAR HEMOGLOBIN 27 pg (27-31); MEAN CORPUSCULAR HGB CONC 32 g/dL (33-37); MEAN CORPUSCULAR VOLUME 86.8 fL (80-94); MONOCYTES # (AUTO) 0.7 K/uL (0.8-1.0); MONOCYTES % (AUTO) 12.9 % (1.7-9.3); NEUTROPHILS # (AUTO) 3.8 K/uL (1.8-7.7); NEUTROPHILS % (AUTO) 67.7 % (42.2-75.2); PLATELET COUNT (AUTO) 358 K/uL (140-450); RED BLOOD CELL COUNT(AUTO) 4.43 MIL/uL (4.20-6.10); RED CELL DISTRIBUTION WIDTH 16.2 % (11.6-13.7); WHITE BLOOD COUNT (AUTO) 5.6 K/uL (4.8-10.8)
[2017-11-02 16:00] VITALS: BP 105/76
[2017-11-02 16:02] LABS: ANION GAP 4.6 (8-16); CREATININE 0.8 mg/dL (0.7-1.3); POTASSIUM 4.4 mmol/L (3.5-5.1)
[2017-11-02 16:13] LABS: CARBON DIOXIDE 42.8 mmol/L (21-32)
--- NOTE | 2017-11-02 17:15 | NUR ---
PATIENT SITTING AT BEDSIDE CHAIR READING A MAGAZINE. NO DISTRESS NOTED. DENIES ANY PAIN. SCHEDULED MEDICATIONS DUE GIVEN. SAFETY MEASURES IN PLACE, CALL LIGHT WITHIN REACH. WILL CONTINUE TO MONITOR.
--- NOTE | 2017-11-02 19:15 | NUR ---
REPORT GIVEN TO RN MEDICAL INPATIENT SERVICES NURSE FOR CONTINUITY OF CARE. PT IN STABLE CONDITION.
--- NOTE | 2017-11-02 19:20 | NUR ---
RECEIVED REPORT AT BEDSIDE.PT IS AWAKE,ALERT & ORIENTED.REP.IS UNLABORED W/BIPAP.CALL LIGHT WITHIN REACH.SL.PATENT.PLAN OF CARE DISCUSSED W/PT.HE VERBALIZED UNDERSTANDING.TELE IS ON.AND SHOWING ATRIAL FLUTTER.WILL CONTINUE MONITORING.
[2017-11-02 19:57] VITALS: BP 97/58
[2017-11-02] MEDS ORDERED: APIXABAN 2.5 MG TAB PO SCH (21:00)
--- NOTE | 2017-11-02 21:30 | NUR ---
DID NOT GIVE COREG TO PT DUE TO LOW BP=97/58.HE TOLERATED REST OF MED WELL.
[2017-11-03] VITALS: BP 102/60
--- NOTE | 2017-11-03 | NUR ---
SLEEPING.RESP IS UNLABORED W/NEBULIZER.HR STILL IS ATRIAL FLUTTER.NO C/O PAIN OR DISCOMFORT NOW.
--- NOTE | 2017-11-03 00:15 | NUR ---
CALLED BY NURSE GELA JAIN THAT PATIENT TOOK OFF BIPAP MASK AND WAS ALARMING, AND PATIENT STATED HE DOES NOT WANT TO WEAR AND ALSO DID NOT WANT PULSE OX ON. PLACED BACK ON 3LPM OXYMIZER [id number] HR 121BPM RR-22
[2017-11-03 04:00] VITALS: BP 99/65
--- NOTE | 2017-11-03 04:15 | NUR ---
SLEEPING.CONDITION STABLE.NO S/S OF ANY DISTRESS NOTED AT THIS TIME.
[2017-11-03] MEDS: ALBUTEROL SULFATE/IPRATROPIU 3 ML SOL IH SCH ×3 (06:26→19:00)
[2017-11-03] MEDS: BUDESONIDE 0.25 MG/2 ML NEBU INH SCH ×2 (06:26→19:30)
--- NOTE | 2017-11-03 06:26 | NUR ---
ENTERED PT'S ROOM FOR BREATHING TX PT STATED HE DID NOT WANT TX NOW HE WANTS TO SLEEP THERE IS NO SIGNS OF DISTRESS NOTED AT THIS TIME
--- NOTE | 2017-11-03 07:10 | NUR ---
ENDORSED TO AM RN .PT IS IN STABLE CONDITION.
--- NOTE | 2017-11-03 07:11 | NUR ---
RECEIVED REPORT FROM LEASING SPECIALIST NURSE. PATIENT SITTING IN BATHROOM TOILET. PATIENT ABLE TO GET BACK TO BED WITH STEADY GAIT. NO DISTRESS NOTED. DENIES ANY PAIN. RESPIRATIONS EVEN, UNLABORED, ON O2 4L/MIN VIA OXIMIZER WITH O2 SAT AT 95%. AAOX4, CALM, COOPERATIVE, SKIN COLOR APPROPRIATE TO ETHNICITY, WARM TO TOUCH. SKIN IS INTACT. HAS TESTICULAR SWELLING NOTED. PATIENT COMPLAINS OF CONSTIPATION, ENEMA SCHEDULED LATER TODAY. LUNGS DIMINISHED ON ALL LOBES. ABDOMEN SOFT, OBESE. IV SITE INTACT, PATENT, ON SALINE LOCK. REVIEWED PLAN OF CARE WITH PATIENT. PATIENT VERBALIZED UNDERSTANDING. SAFETY MEASURES IN PLACE, CALL LIGHT WITHIN REACH. WILL CONTINUE TO MONITOR.
[2017-11-03 07:50] LABS: BASOPHILS # (AUTO) 0.1 K/uL (0.00-0.22); BASOPHILS % (AUTO) 0.5 % (0.0-2.0); EOSINOPHILS # (AUTO) 0.1 K/uL (0-0.4); EOSINOPHILS % (AUTO) 0.9 % (0.0-4.0); HEMATOCRIT 35.3 % (36-52); LYMPHOCYTES # (AUTO) 0.8 K/uL (2.0-11.5); LYMPHOCYTES % (AUTO) 7.6 % (20.5-51.1); MEAN CORPUSCULAR HEMOGLOBIN 27 pg (27-31); MEAN CORPUSCULAR HGB CONC 31 g/dL (33-37); MONOCYTES # (AUTO) 1.3 K/uL (0.8-1.0); MONOCYTES % (AUTO) 11.6 % (1.7-9.3); NEUTROPHILS # (AUTO) 8.8 K/uL (1.8-7.7); NEUTROPHILS % (AUTO) 79.4 % (42.2-75.2); PLATELET COUNT (AUTO) 310 K/uL (140-450); RED BLOOD CELL COUNT(AUTO) 4.06 MIL/uL (4.20-6.10); RED CELL DISTRIBUTION WIDTH 16.2 % (11.6-13.7); WHITE BLOOD COUNT (AUTO) 11.1 K/uL (4.8-10.8)
[2017-11-03 07:59] VITALS: BP 114/87
[2017-11-03 08:10] LABS: ANION GAP 6.5 (8-16); CREATININE 0.8 mg/dL (0.7-1.3); POTASSIUM 4.3 mmol/L (3.5-5.1)
[2017-11-03 08:16] LABS: CARBON DIOXIDE 41.8 mmol/L (21-32)
[2017-11-03] MEDS: CARVEDILOL 6.25 MG TAB PO SCH ×2 (09:00→20:58)
[2017-11-03] MEDS: LOSARTAN 50 MG TAB PO SCH (09:00)
[2017-11-03] MEDS: SODIUM PHOSPHATE 118 ML ENEM RC SCH (09:00)
[2017-11-03] MEDS: FUROSEMIDE 40 MG/4 ML VIAL IVP SCH ×2 (09:32→16:43)
[2017-11-03] MEDS: DOCUSATE SODIUM 100 MG GELCAP PO SCH ×2 (09:32→20:55)
[2017-11-03] MEDS: ASPIRIN 81 MG TAB.CHEW PO SCH (09:32)
[2017-11-03] MEDS: DIGOXIN 0.125 MG TAB PO SCH (09:32)
[2017-11-03] MEDS: RIVAROXABAN 10 MG TAB PO SCH ×2 (09:34→20:56)
[2017-11-03] MEDS: POLYETHYLENE GLYCOL 17 GM/PKT PO SCH (09:36)
--- NOTE | 2017-11-03 09:45 | NUR ---
PATIENT LYING DOWN IN BED SLEEPING, AROUSABLE BY VOICE. NO DISTRESS NOTED. SCHEDULED MEDICATIONS DUE GIVEN. FLEET ENEMA NOT GIVEN DUE TO SOAPSUD ENEMA GIVEN INSTEAD PER MD ORDERS. SAFETY MEASURES IN PLACE, CALL LIGHT WITHIN REACH. WILL CONTINUE TO MONITOR.
--- NOTE | 2017-11-03 11:00 | NUR ---
PATIENT TAKING A SHOWER. ABLE TO AMBULATE TO SHOWER AND BACK TO BED WITH STEADY GAIT. SAFETY MEASURES IN PLACE, CALL LIGHT WITHIN REACH. WILL CONTINUE TO MONITOR.
[2017-11-03] MEDS: SPIRONOLACTONE 25 MG TAB PO SCH ×2 (11:03→21:03)
[2017-11-03 12:00] VITALS: BP 97/58
--- NOTE | 2017-11-03 13:11 | NUR ---
PT REFUSED BREATHING TX IN [facility] WANTS TO WAFER SLICER SUN GELA GARAY AT PT'S SIDE, THERE ARE NO SIGNS OF DISTRESS NOTED AT THIS TIME
[2017-11-03 16:00] VITALS: BP 97/71
--- NOTE | 2017-11-03 16:50 | NUR ---
PATIENT SITTING IN BED COMFORTABLY. NO DISTRESS NOTED. DENIES ANY PAIN. SCHEDULED MEDICATIONS DUE GIVEN. SAFETY MEASURES IN PLACE, CALL LIGHT WITHIN REACH. WILL CONTINUE TO MONITOR.
--- NOTE | 2017-11-03 18:30 | NUR ---
PATIENT SITTING IN BED COMFORTABLY, NO DISTRESS NOTED. DENIES ANY PAIN. CONDITION UNCHANGED. WILL CONTINUE TO MONITOR.
--- NOTE | 2017-11-03 19:20 | NUR ---
GAVE REPORT TO ARMAMENT REPAIRER NURSE FOR CONTINUITY OF CARE. PATIENT IN STABLE CONDITION
--- NOTE | 2017-11-03 19:21 | NUR ---
RECEIVED REPORT FROM DAY SHIFT NURSE JARROD-GELA. PT RESTING IN BED, ON 4L/OXIMIZER, WITH LEFT FA #20G-SL. PATIENT ABLE TO GET BACK TO BED WITH STEADY GAIT. AAOX4, CALM, COOPERATIVE, SKIN COLOR APPROPRIATE TO ETHNICITY, WARM TO TOUCH. SKIN IS INTACT. HAS TESTICULAR SWELLING, LARGE ABDOMEN AND ANASARCA NOTED. LUNGS DIMINISHED ON ALL LOBES. REVIEWED PLAN OF CARE WITH PATIENT. PATIENT VERBALIZED UNDERSTANDING. NO S/S OF RESPIRATORY DISTRESS OR DISCOMFORT NOTED AT THIS TIME. BED IN LOWEST POSITION, BED BREAKS ON, BOTH SIDE RAILS UP. BEDSIDE TABLE AND CALL LIGHT ARE WITHIN REACH. WILL CONTINUE TO MONITOR.
--- NOTE | 2017-11-03 19:30 | NUR ---
PATIENT REFUSED HHN TREATMENTS, ALBUTEROL AND PULMICORT. NO RESP. DISTRESS NOTED
[2017-11-03 20:00] VITALS: BP 88/58
--- NOTE | 2017-11-03 20:00 | NUR ---
VITAL SIGNS TAKEN AND TOLERATED WELL. NO S/S OF RESPIRATORY DISTRESS OR DISCOMFORT NOTED AT THIS TIME. WILL CONTINUE TO MONITOR.
[2017-11-03] MEDS: LACTULOSE 20 GM/30 ML UDC PO SCH (20:57)
--- NOTE | 2017-11-03 22:00 | NUR ---
PT RESTING IN BED. ON AND OFF SLEEPING. NO S/S OF RESPIRATORY DISTRESS OR DISCOMFORT NOTED AT THIS TIME. WILL CONTINUE TO MONITOR.
--- NOTE | 2017-11-03 23:30 | NUR ---
PATIENT SITTING UP IN BED STATED HE WANTS TO HOLD OFF USING BIPAP NOW, AND TO CHECK UP ON HIM LATER
[2017-11-04] VITALS (7 sets, daily range): BP systolic 90–107; BP diastolic 54–75
--- NOTE | 2017-11-04 | NUR ---
VITAL SIGNS TAKEN AND TOLERATED WELL. NO S/S OF RESPIRATORY DISTRESS OR DISCOMFORT NOTED AT THIS TIME. WILL CONTINUE TO MONITOR.
--- NOTE | 2017-11-04 02:00 | NUR ---
PT RESTING IN BED. ON AND OFF SLEEPING. NO S/S OF RESPIRATORY DISTRESS OR DISCOMFORT NOTED AT THIS TIME. WILL CONTINUE TO MONITOR.
--- NOTE | 2017-11-04 04:00 | NUR ---
VITAL SIGNS TAKEN AND PT TOLERATED WELL. NO S/S OF RESPIRATORY DISTRESS OR DISCOMFORT NOTED AT THIS TIME. WILL CONTINUE TO MONITOR.
--- NOTE | 2017-11-04 06:00 | NUR ---
PT RESTING IN BED. NO S/S OF RESPIRATORY DISTRESS OR DISCOMFORT NOTED AT THIS TIME. WILL CONTINUE TO MONITOR.
[2017-11-04] MEDS: ALBUTEROL SULFATE/IPRATROPIU 3 ML SOL IH SCH (06:34)
[2017-11-04] MEDS: BUDESONIDE 0.25 MG/2 ML NEBU INH SCH (06:34)
--- NOTE | 2017-11-04 07:00 | NUR ---
Patient's Plan of Care was discussed and reviewed with TAX COMPLIANCE AGENT: Alin CHOI
--- NOTE | 2017-11-04 07:05 | NUR ---
ENDORSED PT CARE TO DAY SHIFT NURSE MILLICENT FOR CONTINUITY OF CARE.
--- NOTE | 2017-11-04 07:10 | NUR ---
ASSUMED CONTINUITY OF CARE. NO SIGNS AND SYMPTOMS OF ACUTE DISTRESS NOTED. INITIAL ASSESSMENT DONE. KEEP COMFORTABLE ON BED. EXPLAINED DIAGNOSIS, PLAN OF CARE, PAIN MANAGEMENT TEACHING, FLUID RESTRICTION 1L/DAY, USE OF CALL LIGHT/BED/TV/BATHROOM. FALL PRECAUTION APPLIED. CALL LIGHT WITHIN REACH.
[2017-11-04 07:43] LABS: BASOPHILS # (AUTO) 0.1 K/uL (0.00-0.22); BASOPHILS % (AUTO) 0.8 % (0.0-2.0); EOSINOPHILS # (AUTO) 0.1 K/uL (0-0.4); EOSINOPHILS % (AUTO) 1.8 % (0.0-4.0); HEMATOCRIT 33.4 % (36-52); HEMOGLOBIN 10.5 g/dL (12.0-18.0); LYMPHOCYTES # (AUTO) 1.6 K/uL (2.0-11.5); LYMPHOCYTES % (AUTO) 19.1 % (20.5-51.1); MEAN CORPUSCULAR HEMOGLOBIN 27 pg (27-31); MEAN CORPUSCULAR HGB CONC 32 g/dL (33-37); MEAN CORPUSCULAR VOLUME 86.6 fL (80-94); MONOCYTES # (AUTO) 0.9 K/uL (0.8-1.0); MONOCYTES % (AUTO) 10.6 % (1.7-9.3); NEUTROPHILS # (AUTO) 5.6 K/uL (1.8-7.7); NEUTROPHILS % (AUTO) 67.7 % (42.2-75.2); PLATELET COUNT (AUTO) 279 K/uL (140-450); RED BLOOD CELL COUNT(AUTO) 3.86 MIL/uL (4.20-6.10); RED CELL DISTRIBUTION WIDTH 16.1 % (11.6-13.7); WHITE BLOOD COUNT (AUTO) 8.3 K/uL (4.8-10.8)
[2017-11-04 08:25] LABS: ANION GAP 5.4 (8-16); CARBON DIOXIDE 39.7 mmol/L (21-32); CREATININE 0.9 mg/dL (0.7-1.3); POTASSIUM 4.1 mmol/L (3.5-5.1)
--- NOTE | 2017-11-04 08:45 | NUR ---
INFORMED DR. PEÑALOZA ABOUT PT. SCHEDULED MEDICINE -LASIX 40 MG IVP, ALDACTONE 100MG PO, COREG 6.25 MG PO, COZAAR 50 MG PO, LANOXIN 0.125 MG PO AND VS AT 0800 ESPECIALLY BP 102/75. PER DR. PEÑALOZA, OK TO GIVE TO ALL SCHEDULED MEDICINE. INFORMED CHARGE NURSE HANNAH ZAPATA.
[2017-11-04] MEDS: SODIUM PHOSPHATE 118 ML ENEM RC SCH (09:00)
--- NOTE | 2017-11-04 09:20 | NUR ---
ASKED PT. WILL CHANGED PLASTIC THAT COVERS IV ACCESS ON LEFT FOREARM BECAUSE THAT WAS BIOHAZARD PLASTIC AND USE ONLY FOR THOSE BIOHAZARD SPECIMEN. PT.VERBALIZED UNDERSTANDING BUT REFUSED TO REMOVED IT. INFORMED CHARGE NURSE HANNAH ZAPATA.
[2017-11-04] MEDS: TAMSULOSIN 0.4 MG CAP PO SCH (09:25)
[2017-11-04] MEDS: SPIRONOLACTONE 25 MG TAB PO SCH ×2 (09:26→20:46)
[2017-11-04] MEDS: FINASTERIDE 5 MG TAB PO SCH (09:26)
[2017-11-04] MEDS: DOCUSATE SODIUM 100 MG GELCAP PO SCH ×2 (09:26→20:44)
[2017-11-04] MEDS: DIGOXIN 0.125 MG TAB PO SCH (09:26)
[2017-11-04] MEDS: ASPIRIN 81 MG TAB.CHEW PO SCH (09:27)
[2017-11-04] MEDS: CARVEDILOL 6.25 MG TAB PO SCH ×2 (09:28→21:00)
[2017-11-04] MEDS: RIVAROXABAN 10 MG TAB PO SCH ×2 (09:28→20:47)
[2017-11-04] MEDS: POLYETHYLENE GLYCOL 17 GM/PKT PO SCH (09:29)
[2017-11-04] MEDS: LOSARTAN 50 MG TAB PO SCH (09:29)
[2017-11-04] MEDS: LACTULOSE 20 GM/30 ML UDC PO SCH ×2 (09:29→20:43)
[2017-11-04] MEDS: FUROSEMIDE 40 MG/4 ML VIAL IVP SCH ×2 (09:32→17:00)
[2017-11-04] MEDS: ALBUTEROL SULFATE/IPRATROPIU 3 ML SOL IH PRN ×2 (11:04→19:08)
--- NOTE | 2017-11-04 12:47 | NUR ---
off bipap to eat
--- NOTE | 2017-11-04 17:12 | NUR ---
INFORMED DR. PEÑALOZA THAT PT. BP AT 1615 WAS 90/65. DR. PEÑALOZA REQUESTED TO CHECK PT. BP AGAIN.
--- NOTE | 2017-11-04 17:15 | NUR ---
INFORMED DR. PEÑALOZA THAT PT. LATEST BP 91/[address] PEÑALOZA ORDERED NOT TO GIVE LASIX 40 MG IVP. INFORMED CHARGE NURSE HANNAH ZAPATA.
--- NOTE | 2017-11-04 19:16 | NUR ---
BEDSIDE REPORT GIVEN TO NIKO ZAPATA. IN STABLE CONDITION.
--- NOTE | 2017-11-04 19:45 | NUR ---
ASKED PT. TO CALL FOR ASSISTANCE FOR AMBULATION OUTSIDE PT. ROOM FOR FALL PREVENTION. PT. NON-COMPLIANT. INFORMED CHARGE NURSE HANNAH ZAPATA. Addendum: 11/05/17 at 1756 by David Fernandez LVN WRONG ENTRY: ACTUAL TIME WAS 0945.
[2017-11-05 00:20] VITALS: BP 96/67
[2017-11-05 04:00] VITALS: BP 98/64
[2017-11-05 07:08] LABS: BASOPHILS % (AUTO) 0.7 % (0.0-2.0); EOSINOPHILS # (AUTO) 0.2 K/uL (0-0.4); EOSINOPHILS % (AUTO) 2.6 % (0.0-4.0); HEMATOCRIT 36.8 % (36-52); HEMOGLOBIN 11.8 g/dL (12.0-18.0); LYMPHOCYTES # (AUTO) 1.3 K/uL (2.0-11.5); LYMPHOCYTES % (AUTO) 21.3 % (20.5-51.1); MEAN CORPUSCULAR HEMOGLOBIN 28 pg (27-31); MEAN CORPUSCULAR HGB CONC 32 g/dL (33-37); MEAN CORPUSCULAR VOLUME 86.6 fL (80-94); MONOCYTES # (AUTO) 0.9 K/uL (0.8-1.0); MONOCYTES % (AUTO) 14.9 % (1.7-9.3); NEUTROPHILS # (AUTO) 3.8 K/uL (1.8-7.7); NEUTROPHILS % (AUTO) 60.5 % (42.2-75.2); PLATELET COUNT (AUTO) 290 K/uL (140-450); RED BLOOD CELL COUNT(AUTO) 4.25 MIL/uL (4.20-6.10); RED CELL DISTRIBUTION WIDTH 16.1 % (11.6-13.7); WHITE BLOOD COUNT (AUTO) 6.3 K/uL (4.8-10.8)
--- NOTE | 2017-11-05 07:20 | NUR ---
ASSUMED CONTINUITY OF CARE. NO SIGNS AND SYMPTOMS OF ACUTE DISTRESS NOTED. INITIAL ASSESSMENT DONE. PT. NON-COMPLIANT. REFUSED TO REMOVED BIOHAZARD PLASTIC THAT COVERS IV ACCESS ON LEFT FOREARM. FALL PRECAUTION APPLIED. CALL LIGHT WITHIN REACH.
[2017-11-05 07:25] LABS: ANION GAP 4.8 (8-16); CARBON DIOXIDE 39.7 mmol/L (21-32); CREATININE 0.9 mg/dL (0.7-1.3); POTASSIUM 4.5 mmol/L (3.5-5.1)
--- NOTE | 2017-11-05 07:30 | NUR ---
Patient's Plan of Care was discussed and reviewed with NET LEAD DEVELOPER: Alin CHOI
[2017-11-05 08:00] VITALS: BP 113/68
[2017-11-05] MEDS: FUROSEMIDE 40 MG/4 ML VIAL IVP SCH (08:32)
[2017-11-05] MEDS: TAMSULOSIN 0.4 MG CAP PO SCH (08:40)
[2017-11-05] MEDS: ASPIRIN 81 MG TAB.CHEW PO SCH (08:40)
[2017-11-05] MEDS: DOCUSATE SODIUM 100 MG GELCAP PO SCH ×2 (08:40→21:43)
[2017-11-05] MEDS: FINASTERIDE 5 MG TAB PO SCH (08:40)
[2017-11-05] MEDS: LACTULOSE 20 GM/30 ML UDC PO SCH ×2 (08:42→21:43)
[2017-11-05] MEDS: DIGOXIN 0.125 MG TAB PO SCH (08:43)
[2017-11-05] MEDS: POLYETHYLENE GLYCOL 17 GM/PKT PO SCH (08:43)
[2017-11-05] MEDS: CARVEDILOL 6.25 MG TAB PO SCH ×2 (08:44→21:00)
[2017-11-05] MEDS: SPIRONOLACTONE 25 MG TAB PO SCH (08:44)
[2017-11-05] MEDS: LOSARTAN 50 MG TAB PO SCH (08:44)
[2017-11-05] MEDS: RIVAROXABAN 10 MG TAB PO SCH ×2 (08:50→21:48)
--- NOTE | 2017-11-05 09:51 | NUR ---
WENT TO SHOWER ROOM WITHOUT ASSISTANCE. HAD STEADY GAIT AND BALANCE. ASKED TO CALL FOR ASSISTANCE IF NEEDS HELP. VERBALIZED UNDERSTANDING.
[2017-11-05 12:00] VITALS: BP 110/71
--- NOTE | 2017-11-05 13:48 | NUR ---
SLEEPING WELL IN COMFORTABLE POSITION. NO DIFFICULTY BREATHING OBSERVED. CALL LIGHT WITHIN REACH.
--- NOTE | 2017-11-05 15:18 | NUR ---
11/05/17 RD FOLLOW UP COMPLETED PLEASE REFER TO NUTRITION PROGRESS NOTE UNDER CARE ACTIVITY FOR ESTIMATED NUTRITIONAL NEEDS. 1.CONTINUE CARDIAC, RESTRICTED FLUID TO 1L PER DAY DIET TOLERATED. 2.RECOMMEND FOLIC ACID, B12 QD. 3.RECOMMEND VITAMINS D AND E EVERY OTHER DAY. 4. RD TO FOLLOW-UP 5-7 DAYS, LOW RISK. TONIO VILLAGOMEZ, RD
--- NOTE | 2017-11-05 16:00 | NUR ---
PT. NON-COMPLIANT, REFUSED VS CHECK. NO ACUTE DISTRESS NOTED. INFORMED CHARGE NURSE ABDIEL ZAPATA.
--- NOTE | 2017-11-05 19:20 | NUR ---
BEDSIDE REPORT GIVEN TO MENDEZ ZAPATA. IN STABLE CONDITION.
--- NOTE | 2017-11-05 19:21 | NUR ---
RECEIVED REPORT FROM DAY SHIFT NURSE MILLICENT. PT RESTING IN BED, ON 3L/OXIMIZER, WITH LEFT FA #20G-SL. PATIENT ABLE TO GET BACK TO BED WITH STEADY GAIT. AAOX4, CALM, COOPERATIVE, SKIN COLOR APPROPRIATE TO ETHNICITY, WARM TO TOUCH. SKIN IS INTACT. HAS TESTICULAR SWELLING, LARGE ABDOMEN AND ANASARCA NOTED. LUNGS DIMINISHED ON ALL LOBES. REVIEWED PLAN OF CARE WITH PATIENT. PATIENT VERBALIZED UNDERSTANDING. NO S/S OF RESPIRATORY DISTRESS OR DISCOMFORT NOTED AT THIS TIME. BED IN LOWEST POSITION, BED BREAKS ON, BOTH SIDE RAILS UP. BEDSIDE TABLE AND CALL LIGHT ARE WITHIN REACH. WILL CONTINUE TO MONITOR.
[2017-11-05 20:00] VITALS: BP 95/61
--- NOTE | 2017-11-05 20:00 | NUR ---
VITAL SIGNS TAKEN AND TOLERATED WELL. NO S/S OF RESPIRATORY DISTRESS OR DISCOMFORT NOTED AT THIS TIME. WILL CONTINUE TO MONITOR.
--- NOTE | 2017-11-05 21:50 | NUR ---
SCHEDULED MEDICATION GIVEN AND TOLERATED WELL. COREG WAS NOT GIVEN FOR LOW BLOOD PRESSURE. NO S/S OF RESPIRATORY DISTRESS OR DISCOMFORT NOTED AT THIS TIME. WILL CONTINUE TO MONITOR.
--- NOTE | 2017-11-05 23:00 | NUR ---
PT SLEEPING IN BED. NO S/S OF RESPIRATORY DISTRESS OR DISCOMFORT NOTED AT THIS TIME. WILL CONTINUE TO MONITOR.
[2017-11-06] VITALS: BP 98/50
--- NOTE | 2017-11-06 | NUR ---
VITAL SIGNS TAKEN AND TOLERATED WELL. PT FOUND WITHOUT OXYGEN HOWEVER 02SAT AT 96%. NO S/S OF RESPIRATORY DISTRESS OR DISCOMFORT NOTED AT THIS TIME. WILL CONTINUE TO MONITOR.
[2017-11-06] MEDS: ALBUTEROL SULFATE/IPRATROPIU 3 ML SOL IH PRN ×2 (01:57→06:30)
--- NOTE | 2017-11-06 02:00 | NUR ---
PT SLEEPING IN BED. NO S/S OF RESPIRATORY DISTRESS OR DISCOMFORT NOTED AT THIS TIME. WILL CONTINUE TO MONITOR.
[2017-11-06 04:00] VITALS: BP 89/53
--- NOTE | 2017-11-06 04:00 | NUR ---
VITAL SIGNS TAKEN AND TOLERATED WELL. NO S/S OF RESPIRATORY DISTRESS OR DISCOMFORT NOTED AT THIS TIME. WILL CONTINUE TO MONITOR.
--- NOTE | 2017-11-06 04:23 | NUR ---
NEW IV SITE LEFT FA #22G ON FIRST ATTEMPT. PT TOLERATED WELL. PT REQUESTED THAT IV SITE BE WRAPPED IN PLASTIC SO THAT IT MAY BE READY FOR A SHOWER IN THE MORNING. NO S/S OF RESPIRATORY DISTRESS OR DISCOMFORT NOTED AT THIS TIME. WILL CONTINUE TO MONITOR.
--- NOTE | 2017-11-06 06:00 | NUR ---
PT SLEEPING IN BED AT THIS TIME. NO S/S OF RESPIRATORY DISTRESS OR DISCOMFORT NOTED AT THIS TIME. WILL CONTINUE TO MONITOR.
[2017-11-06 07:11] LABS: BASOPHILS # (AUTO) 0.1 K/uL (0.00-0.22); BASOPHILS % (AUTO) 1.5 % (0.0-2.0); EOSINOPHILS # (AUTO) 0.2 K/uL (0-0.4); EOSINOPHILS % (AUTO) 3.7 % (0.0-4.0); HEMATOCRIT 33.2 % (36-52); HEMOGLOBIN 10.6 g/dL (12.0-18.0); LYMPHOCYTES # (AUTO) 1.4 K/uL (2.0-11.5); LYMPHOCYTES % (AUTO) 25.2 % (20.5-51.1); MEAN CORPUSCULAR HEMOGLOBIN 28 pg (27-31); MEAN CORPUSCULAR HGB CONC 32 g/dL (33-37); MEAN CORPUSCULAR VOLUME 86.9 fL (80-94); MONOCYTES # (AUTO) 0.8 K/uL (0.8-1.0); MONOCYTES % (AUTO) 13.9 % (1.7-9.3); NEUTROPHILS % (AUTO) 55.7 % (42.2-75.2); PLATELET COUNT (AUTO) 281 K/uL (140-450); RED BLOOD CELL COUNT(AUTO) 3.82 MIL/uL (4.20-6.10); RED CELL DISTRIBUTION WIDTH 16.1 % (11.6-13.7); WHITE BLOOD COUNT (AUTO) 5.5 K/uL (4.8-10.8)
[2017-11-06 07:14] LABS: ANION GAP 4.5 (8-16); CARBON DIOXIDE 37.3 mmol/L (21-32); CREATININE 0.8 mg/dL (0.7-1.3); POTASSIUM 3.8 mmol/L (3.5-5.1)
--- NOTE | 2017-11-06 07:14 | NUR ---
ENDORSED PT CARE TO DAY SHIFT NURSE NAINA-RN FOR CONTINUITY OF CARE.
--- NOTE | 2017-11-06 07:15 | NUR ---
REPORT RECEIVED FROM COMMUNICATIONS TOWER CLIMBER MENDEZ PT SLEEPING QUIETLY IN NAD, RESP EVEN UNLABORED, SKIN WARM DRY COLOR WNL, AROUSES EASILY, NO C/O PAIN OR SOB, NO IMMEDIATE NEEDS AT THIS TIME, PLAN OF CARE REVIEWED, ALL SAFETY MEASURES IN PLACE, WILL CONTINUE TO MONITOR
--- NOTE | 2017-11-06 07:46 | NUR ---
DR DAVID AND MD TEAM AT BEDSIDE.
[2017-11-06 08:00] VITALS: BP 90/52
[2017-11-06] MEDS ORDERED: FUROSEMIDE 40 MG/4 ML VIAL IVP SCH (09:00)
[2017-11-06] MEDS ORDERED: SPIRONOLACTONE 50 MG TAB PO SCH ×2 (09:00)
[2017-11-06] MEDS: POLYETHYLENE GLYCOL 17 GM/PKT PO SCH (09:00)
[2017-11-06] MEDS: LACTULOSE 20 GM/30 ML UDC PO SCH ×2 (09:00→20:14)
--- NOTE | 2017-11-06 09:30 | NUR ---
PT UP TO SHOWER, WALKS WITH STEADY GAIT, IV SITE WRAPPED
[2017-11-06] MEDS: DOCUSATE SODIUM 100 MG GELCAP PO SCH ×2 (10:05→20:14)
--- NOTE | 2017-11-06 10:05 | NUR ---
O2 SAT 97% ON ROOM AIR AFTER SHOWER, PT REFUSES REMOVE PLASTIC WRAP AROUND IV AFTER SHOWER.
[2017-11-06] MEDS: ASPIRIN 81 MG TAB.CHEW PO SCH (10:06)
[2017-11-06] MEDS: TAMSULOSIN 0.4 MG CAP PO SCH (10:06)
[2017-11-06] MEDS: CARVEDILOL 6.25 MG TAB PO SCH ×2 (10:06→20:19)
[2017-11-06] MEDS: DIGOXIN 0.125 MG TAB PO SCH (10:06)
[2017-11-06] MEDS: FINASTERIDE 5 MG TAB PO SCH (10:07)
--- NOTE | 2017-11-06 10:15 | NUR ---
AM MEDS GIVEN, HELD SPIRONOLACTONE FOR DECREASED BP, PT YOSSI WELL.
[2017-11-06] MEDS: RIVAROXABAN 10 MG TAB PO SCH ×2 (10:20→20:19)
[2017-11-06 12:00] VITALS: BP 100/67
--- NOTE | 2017-11-06 13:20 | NUR ---
PT WALKING AROUND IN HALLWAY WITH STEADY GAIT, STANDING BY THE WINDOW, REFUSES TO RETURN TO ROOM, RESP EVEN UNLABORED ON ROOM AIR, COLOR WNL, WILL CONTINUE TO MONTIOR.
[2017-11-06] MEDS ORDERED: DIGO0.1211 PO (13:47)
[2017-11-06] MEDS ORDERED: DOCU-299 PO (13:47)
[2017-11-06] MEDS ORDERED: CARV6.252 PO (13:47)
[2017-11-06] MEDS ORDERED: FINA5TAB5 PO (13:47)
[2017-11-06] MEDS ORDERED: XAR10 PO (13:47)
[2017-11-06] MEDS ORDERED: TAMS0.4C96 PO (13:47)
[2017-11-06] MEDS ORDERED: SPIR50TA PO (13:47)
[2017-11-06] MEDS ORDERED: LACT10SO11 PO (13:47)
[2017-11-06] MEDS ORDERED: ASPI81CT95 PO (13:47)
[2017-11-06] MEDS ORDERED: LAS20I PO (13:47)
--- NOTE | 2017-11-06 15:30 | NUR ---
PT REFUSES DISCHARGE, PT STATES "YOU CAN'T JUST KICK ME OUT RIGHT NOW, IT'S ALMOST 4PM, I WON'T BE ABLE TO FIND A PLACE TO SLEEP TONIGHT, CAN I STAY UNTIL 6AM". DR PEÑALOZA AT BEDSIDE EXPLAINED TO PT THAT HE IS NOT MEDICALLY STABLE FOR DISCHARGE NO NEED FOR SKILLED NEEDS FOR SNF NOW, RESOURCES FOR LOW COST MEDICAL CARE, PHARMACY, HOMELESS PACKET PROVIDED. PT CONTINUES TO STATE THAT HE CAN'T LEAVE NOW BUT HE WILL LEAVE AT 6AM. PT C/O DIFFICULTY BREATHING BUT PT SPEAKS CLEARLY IN FULL SENTENCES, APPEARS IN NO ACUTE DISTRESS. PT ASKED TO SPEAK WITH DIRECTOR INVESTMENT BANKING. CHARGE NURSE NOTIFIED. Addendum: 11/08/17 at 1626 by Yara Burns RN CORRECTION OF TYPO: DR PEÑALOZA EXPLAINED TO PT THAT HE IS NOW MEDICALLY STABLE FOR DISCHARGE, NO NEED FOR SKILLED NEEDS FOR SNF
[2017-11-06 16:00] VITALS: BP 112/62
--- NOTE | 2017-11-06 16:02 | NUR ---
CHARGE NURSE AT BEDSIDE, PT CONTINUES TO REFUSE DISCHARGE.
--- NOTE | 2017-11-06 17:20 | NUR ---
BARKING MACHINE FEEDER AT BEDSIDE, PT RESTING COMFORTABLY IN NAD ON ROOM AIR, STILL REFUSES DISCHARGE, WANTS TO SPEAKS TO DR DAVID, DR PEÑALOZA CALLED TO BEDSIDE, PT AGREES TO LEAVE AT 6AM TOMORROW. DISCHARGE INSTRUCTION GIVEN AND EXPLAINED, RX GIVEN AND EXPLAINED, PT VERBALIZED FULL UNDERSTANDING AND SIGNED DC PAPERS AND HOMELESS WAIVER FORM.
--- NOTE | 2017-11-06 18:00 | NUR ---
PT RESTING QUIETLY IN NAD, RESP EVEN UNLABORED ON ROOM AIR, PT EXPRESSED APPRECIATION FOR LETTING HIM STAY ONE MORE NIGHT, PT STATES IT IS HARD TO FIND PLACES TO SLEEP WHEN HOMELESS WITH HIS HEALTH CONDITION, PT'S FEELINGS VALIDATED, SUPPORT PROVIDED, DENIES ANY IMMEDIATE NEEDS, WILL CONTINUE TO MONTIOR.
--- NOTE | 2017-11-06 19:20 | NUR ---
REPORT GIVEN TO EXPERIMENTAL PLASTICS FABRICATOR NURSE, PT IN STABLE CONDITION
--- NOTE | 2017-11-06 19:21 | NUR ---
RECEIVED REPORT FROM DAY SHIFT NURSE NAINA-RN. PT RESTING IN BED, ON 3L/OXIMIZER. PATIENT ABLE TO GET BACK TO BED WITH STEADY GAIT. AAOX4, CALM, COOPERATIVE, SKIN COLOR APPROPRIATE TO ETHNICITY, WARM TO TOUCH. SKIN IS INTACT. HAS TESTICULAR SWELLING, LARGE ABDOMEN AND ANASARCA NOTED. LUNGS DIMINISHED ON ALL LOBES. REVIEWED PLAN OF CARE WITH PATIENT. PATIENT VERBALIZED UNDERSTANDING. NO S/S OF RESPIRATORY DISTRESS OR DISCOMFORT NOTED AT THIS TIME. BED IN LOWEST POSITION, BED BREAKS ON, BOTH SIDE RAILS UP. BEDSIDE TABLE AND CALL LIGHT ARE WITHIN REACH. WILL CONTINUE TO MONITOR.
--- NOTE | 2017-11-06 19:46 | NUR ---
PATIENT REFUSED PULSE-OX READING AND RESPIRATORY ASSESSMENT
[2017-11-06 20:00] VITALS: BP 96/51
--- NOTE | 2017-11-06 20:00 | NUR ---
VITAL SIGNS TAKEN AND TOLERATED WELL. NO S/S OF RESPIRATORY DISTRESS OR DISCOMFORT NOTED AT THIS TIME. WILL CONTINUE TO MONITOR.
--- NOTE | 2017-11-06 20:20 | NUR ---
SCHEDULED MEDICATION GIVEN AND TOLERATED WELL. COREG NOT GIVEN DUE TO DECREASED BLOOD PRESSURE. NO S/S OF RESPIRATORY DISTRESS OR DISCOMFORT NOTED AT THIS TIME. WILL CONTINUE TO MONITOR.
--- NOTE | 2017-11-06 22:00 | NUR ---
PT RESTING IN BED. NO S/S OF RESPIRATORY DISTRESS OR DISCOMFORT NOTED AT THIS TIME. WILL CONTINUE TO MONITOR.
[2017-11-07] VITALS: BP 73/52
--- NOTE | 2017-11-07 | NUR ---
VITAL SIGNS TAKEN AND TOLERATED WELL. LOW BLOOD PRESSURE NOTED. WILL REASSESS. NO S/S OF RESPIRATORY DISTRESS OR DISCOMFORT NOTED AT THIS TIME. WILL CONTINUE TO MONITOR.
--- NOTE | 2017-11-07 01:30 | NUR ---
BLOOD PRESSURE REASSESSMENT 141/99. NO S/S OF RESPIRATORY DISTRESS OR DISCOMFORT NOTED AT THIS TIME. WILL CONTINUE TO MONITOR.
[2017-11-07 04:00] VITALS: BP 85/49
--- NOTE | 2017-11-07 04:00 | NUR ---
VITAL SIGNS TAKEN AND TOLERATED WELL. PT REQUESTING PANTS SIZE 40 AND BAGS TO TAKE HIS PERSONAL BELONGINGS IN. WILL CALL SECURITY FOR PANTS. NO S/S OF RESPIRATORY DISTRESS OR DISCOMFORT NOTED AT THIS TIME. WILL CONTINUE TO MONITOR.
--- NOTE | 2017-11-07 04:40 | NUR ---
PROVIDED PT WITH PANTS GIVEN BY SECURITY AND PLASTIC BELONGING BAGS. LEFT THEM ON PT BEDSIDE TABLE. PT SLEEPING AT THIS TIME. NO S/S OF RESPIRATORY DISTRESS OR DISCOMFORT NOTED AT THIS TIME. WILL CONTINUE TO MONITOR.
--- NOTE | 2017-11-07 06:10 | NUR ---
PT WALKED OUT OF UNIT WITH POSSESSIONS. NO S/S OF RESPIRATORY DISTRESS OR DISCOMFORT NOTED. PT IN STABLE CONDITION.
--- NOTE | 2017-11-07 06:50 | NUR ---
5TH PSEUDOSEIZURE LASTING 3.5 MINUTES. 3RD DOSE OF ATIVAN GIVEN. SCHEDULING CLERK CROW -GELA PRESENT. NO INJURIES. NO S/S OF RESPIRATORY DISTRESS OR DISCOMFORT NOTED AT THIS TIME. PT CONTINUES TO SAT 94%. WILL CONTINUE TO MONITOR. Addendum: 11/07/17 at 0657 by Jackie Blake RN PLEASE DISREGARD. WRONG PATIENT.
== END 2017-11-07 06:15 | disposition home or self-care (01) | DRG 194 ==
LOC: MED 13:25 → MTU 15:59
PROVIDERS: ADMIT General Practice; ATTEND General Practice
DX: I11.0 Hypertensive heart disease with heart failure (principal); I26.99 Other pulmonary embolism without acute cor pulmonale; J96.21 Acute and chronic respiratory failure with hypoxia; E66.01 Morbid (severe) obesity due to excess calories; I27.20 Pulmonary hypertension, unspecified; E83.51 Hypocalcemia; E87.8 Other disorders of electrolyte and fluid balance, not elsewhere classified; I50.43 Acute on chronic combined systolic (congestive) and diastolic (congestive) heart failure; E88.09 Other disorders of plasma-protein metabolism, not elsewhere classified; I42.0 Dilated cardiomyopathy; I48.92 Unspecified atrial flutter; J44.1 Chronic obstructive pulmonary disease with (acute) exacerbation; R18.8 Other ascites; I16.0 Hypertensive urgency; F12.90 Cannabis use, unspecified, uncomplicated; E11.9 Type 2 diabetes mellitus without complications; K74.60 Unspecified cirrhosis of liver; J98.11 Atelectasis; G47.33 Obstructive sleep apnea (adult) (pediatric); J96.22 Acute and chronic respiratory failure with hypercapnia; D63.8 Anemia in other chronic diseases classified elsewhere; E87.6 Hypokalemia; K76.6 Portal hypertension; I87.2 Venous insufficiency (chronic) (peripheral); N40.0 Benign prostatic hyperplasia without lower urinary tract symptoms; K59.09 Other constipation; Z68.34 Body mass index [BMI] 34.0-34.9, adult; Z79.899 Other long term (current) drug therapy; Z86.73 Personal history of transient ischemic attack (TIA), and cerebral infarction without residual deficits; Z91.19 Patient's noncompliance with other medical treatment and regimen; Z59.0 Homelessness
CPT/HCPCS: 36415; 71045; 71046; 76705; 78582; 80048; 80053; 80305; 81001; 82948; 83605; 83690; 83735; 83880; 84100; 84134; 84484; 85025; 85379; 85610; 85730; 87040; 87070; 87081; 87086; 87186; 87205; 93005; 93970; 94640; 94660; 96374; 96375; 96376; 99285; A9540; J0282; J1644; J1940; J3490; J7060; J7620; J7626; Q0092

== ENCOUNTER 2019-10-07 14:49 | Inpatient (IN) | payer MEDICAID ==
[~2019-10-07] VITALS: Ht 172.7 cm; Wt 70.8 kg
[~2019-10-07 14:49] MED LIST changes: +ASPI81CT95 PO; -DEXT5SYR3 PO; +FINA5TAB5 PO; -FURO-570 PO; +LACT10SO11 PO; +LAS20I PO; -LOSA50TA1 PO; -MAGN1.7529 PO; +TAMS0.4C96 PO
[2019-10-07 15:16] VITALS: BP 153/104
--- NOTE | 2019-10-07 15:42 | NUR ---
C/O 12/25 SCROTUM PAIN & SWELLING X3-4 YEARS. PT ALSO C/O URINARY RETENTION AND CONSTIPATION. PT CANNOT RECALL THE LAST TIME HE URINATED. PT STATES HE ONLY HAS OCCASIONAL DROPS OF URINE COME OUT. DOES NOT KNOW THE LAST TIME HE HAD A BOWEL MOVEMENT. PT SCROTUM IS VERY SWOLLEN AND TENDER TO TOUCH. NO DISCHARGE NOTED. PT IN BED, SIDE RAIL UP X1. BED IN LOW POSITION.
--- NOTE | 2019-10-07 15:43 | NUR ---
PA IGLESIAS EVALUATING PT AT BEDSIDE
[2019-10-07 16:32] LABS: BASOPHILS # (AUTO) 0.1 K/uL (0.00-0.22); BASOPHILS % (AUTO) 0.6 % (0.0-2.0); EOSINOPHILS # (AUTO) 0.2 K/uL (0-0.4); EOSINOPHILS % (AUTO) 0.9 % (0.0-4.0); HEMATOCRIT 34.7 % (36-52); HEMOGLOBIN 11.2 g/dL (12.0-18.0); LYMPHOCYTES # (AUTO) 1.9 K/uL (2.0-11.5); MEAN CORPUSCULAR HEMOGLOBIN 30 pg (27-31); MEAN CORPUSCULAR HGB CONC 32 g/dL (33-37); MEAN CORPUSCULAR VOLUME 92.7 fL (80-94); MONOCYTES # (AUTO) 1.2 K/uL (0.8-1.0); NEUTROPHILS % (AUTO) 80.5 % (42.2-75.2); PLATELET COUNT (AUTO) 496 K/uL (140-450); RED BLOOD CELL COUNT(AUTO) 3.74 MIL/uL (4.20-6.10); RED CELL DISTRIBUTION WIDTH 13.2 % (11.6-13.7); WHITE BLOOD COUNT (AUTO) 17.5 K/uL (4.8-10.8)
--- NOTE | 2019-10-07 16:45 | NUR ---
# 14 FR Alfonso/COUDE catheter with 10 ml utilizing sterile technique. Immediate return of 1000 ml CLOUDY YELLOW urine noted. Bedside drainage bag placed below level of bladder. Urine sample collected and sent to lab. Pt tolerated procedure WELL.
[2019-10-07 16:50] LABS: ALBUMIN 3.7 g/dL (3.4-5.0); ANION GAP 16.6 (8-16); CARBON DIOXIDE 25.2 mmol/L (21-32); CREATININE 0.9 mg/dL (0.6-1.3); POTASSIUM 3.8 mmol/L (3.5-5.1); TOTAL BILIRUBIN 0.6 mg/dL (0.0-1.0)
[2019-10-07 17:42] LABS: BILIRUBIN,URINE NEGATIVE (NEGATIVE); BLOOD, URINE NEGATIVE (NEGATIVE); COLOR,URINE YELLOW (YELLOW); LEUKOCYTE ESTERASE ,URINE 1+ (NEGATIVE); NITRITE, URINE NEGATIVE (NEGATIVE); UGLUCOSE NEGATIVE (NEGATIVE)
[2019-10-07 17:54] LABS: APPEARANCE,URINE HAZY (CLEAR)
[2019-10-07 17:57] LABS: RBC,URINE NONE SEEN /HPF (0-5); WBC,URINE TOO MANY TO COUNT /HPF (0-5)
[2019-10-07 18:01] LABS: BARBITURATE, URINE NEGATIVE ng/ml (NEG <=200); BENZODIAZEPINE, URINE NEGATIVE ng/mL (NEG <=200); CANNABINOID, URINE POSITIVE ng/mL (NEG <=50); COCAINE, URINE NEGATIVE ng/mL (NEG <=300); OPIATE, URINE NEGATIVE ng/mL (NEG <=2000); PHENCYCLIDINE SCREEN,URINE NEGATIVE ng/mL (NEG <=25)
--- NOTE | 2019-10-07 18:01 | NUR ---
2500ML OF URINE OUTPUT RECORDED AND DISCARDED
[2019-10-07] MEDS ORDERED: PIPERACILLIN/TAZOBACTAM 3.375 GM in DEXTROSE 5% 50 ML IV ONE (18:05)
[2019-10-07] MEDS ORDERED: MORPHINE SULFATE 4 MG/ML SYR IVP ONE (18:05)
[2019-10-07] MEDS ORDERED: PIPERACILLIN/TAZOBACTAM 3.375 GM VIAL IV ONE ×2 (18:21→23:28)
--- NOTE | 2019-10-07 19:43 | NUR ---
PT ENDORSEMENT RECIEVED FROM MENDEZ REN. TRANSFER OF CARE AT THIS TIME.
--- NOTE | 2019-10-07 20:00 | NUR ---
EMPTIED MARIE CATHETER DRAINAGE BAG. EMPTIED 2000CC OF URINE. NO CLOG OR RESIDUES NOTED.
--- NOTE | 2019-10-07 21:30 | NUR ---
PT IN BED ASLEEP. DENIES ANY PAIN OR DISCOMFORT. AROUSABLE TO VOICE. NO FURTHER NEEDS AT THIS TIME.
[2019-10-07] MEDS ORDERED: NACL 0.9% 1,000 ML IV SCH (22:02)
[2019-10-07] MEDS ORDERED: LORazepam 2 MG/ML VIAL IM/IVP PRN (22:05)
[2019-10-07] MEDS ORDERED: NACL 0.9% 2,000 ML IV ONE (22:05)
[2019-10-07] MEDS ORDERED: HYDROcodone/APAP 5/325 MG 1 TAB TAB PO PRN (22:05)
[2019-10-07] MEDS ORDERED: ONDANSETRON 4 MG/2 ML VIAL IM/IVP PRN (22:05)
[2019-10-07] MEDS ORDERED: DOCUSATE SODIUM 100 MG GELCAP PO PRN (22:05)
[2019-10-07] MEDS ORDERED: ZOLPIDEM 5 MG TAB PO PRN (22:05)
[2019-10-07] MEDS ORDERED: ACETAMINOPHEN 325 MG TAB PO PRN (22:05)
[2019-10-07] MEDS ORDERED: MORPHINE SULFATE 2 MG/ML SYR IVP PRN (22:05)
--- NOTE | 2019-10-07 22:38 | NUR ---
PT REPORTS FEELING OF CONSTIPATION. PRN MEDICATION FOR CONSTIPATION ADMINISTERED. TOLERATED WELL. NADR
[2019-10-07] MEDS ORDERED: MAG SULF 2000 MG/WATER PREMIX 50 ML IV PRN (22:40)
[2019-10-07] MEDS ORDERED: POTASSIUM CHLORIDE 10 MEQ TABER PO PRN (22:40)
--- NOTE | 2019-10-07 22:40 | NUR ---
BLOOD CULTURES DRAWN AND SENT TO LAB .
--- NOTE | 2019-10-07 23:00 | NUR ---
LACTIC ACID SEPSIS PROTOCOL INITIATED
[2019-10-07] MEDS: PIPERACILLIN/TAZOBACTAM 3.375 GM in DEXTROSE 5% 50 ML IV SCH (23:33)
[2019-10-08 00:03] LABS: CHOL/HDL RATIO 2.5 (1-4.5); MAGNESIUM 1.9 mg/dL (1.8-2.4); PHOSPHORUS 3.3 mg/dL (2.5-4.9); THYROID STIMULATING HORMONE 1.65 uIU/mL (0.34-3.74)
[2019-10-08 00:49] LABS: BARBITURATE, URINE NEGATIVE ng/ml (NEG <=200); BENZODIAZEPINE, URINE NEGATIVE ng/mL (NEG <=200); CANNABINOID, URINE POSITIVE ng/mL (NEG <=50); COCAINE, URINE NEGATIVE ng/mL (NEG <=300); PHENCYCLIDINE SCREEN,URINE NEGATIVE ng/mL (NEG <=25)
[2019-10-08 00:50] LABS: OPIATE, URINE POSITIVE ng/mL (NEG <=2000)
[2019-10-08] MEDS ORDERED: SODIUM PHOSPHATE 118 ML ENEM RC ONE ×2 (01:10→06:55)
--- NOTE | 2019-10-08 01:36 | NUR ---
ADMINISTERED FLEET ENEMA FOR PT. NO BOWEL MOVEMENT.
--- NOTE | 2019-10-08 03:10 | NUR ---
MAG 1.9. PER MD WEAVER MED ORDER LIST, MAG-RIDER INITIATED ON LT AC RUNNING AT 25CC/HR.
--- NOTE | 2019-10-08 03:43 | NUR ---
PT ENDORSEMENT GIVEN TO ROBBY REN. TRANSFER OF CARE AT THIS TIME.
--- NOTE | 2019-10-08 03:43 | NUR ---
Pt report RECEIVED FROM GELA ENAMORADO. Transfer of care at this time.
--- NOTE | 2019-10-08 03:43 | NUR ---
PT TRANSPORTED TO ER OVERFLOW ROOM 101
--- NOTE | 2019-10-08 05:00 | NUR ---
PT RESTING IN BED IN POSITION OF COMFORT, BED LOW AND LOCKED, SIDERAILS UP, WILL CONTINUE TO MONITOR
[2019-10-08] MEDS: PIPERACILLIN/TAZOBACTAM 3.375 GM in DEXTROSE 5% 50 ML IV SCH ×3 (06:30→18:23)
--- NOTE | 2019-10-08 06:30 | NUR ---
PT SITTING IN CHAIR, CALM, COOPERATIVE, VSS, WILL CONTINUE TO MONITOR.
[2019-10-08] MEDS ORDERED: PIPERACILLIN/TAZOBACTAM 3.375 GM VIAL IV ONE (06:33)
--- NOTE | 2019-10-08 06:40 | NUR ---
AT BEDSIDE AND STATED TO APPLY SCROTAL SACK . WILL ENDORSE TO NEXT SHIFT.
[2019-10-08] MEDS ORDERED: MAGNESIUM HYDROXIDE 2400 MG/30 ML UDC PO ONE (06:55)
--- NOTE | 2019-10-08 07:05 | NUR ---
Pt report given to GELA CESPEDES. Transfer of care at this time.
--- NOTE | 2019-10-08 07:10 | NUR ---
RECEIVED REPORT FROM GELA BUSTAMANTE AND [facility].
[2019-10-08] MEDS ORDERED: DULoxetine 30 MG CAPDR PO SCH (07:30)
[2019-10-08 07:34] LABS: BASOPHILS # (AUTO) 0.1 K/uL (0.00-0.22); BASOPHILS % (AUTO) 0.4 % (0.0-2.0); EOSINOPHILS # (AUTO) 0.1 K/uL (0-0.4); EOSINOPHILS % (AUTO) 0.8 % (0.0-4.0); HEMATOCRIT 35.3 % (36-52); HEMOGLOBIN 11.6 g/dL (12.0-18.0); LYMPHOCYTES # (AUTO) 1.5 K/uL (2.0-11.5); MEAN CORPUSCULAR HEMOGLOBIN 30 pg (27-31); MEAN CORPUSCULAR HGB CONC 33 g/dL (33-37); MEAN CORPUSCULAR VOLUME 92.6 fL (80-94); MONOCYTES % (AUTO) 6.7 % (1.7-9.3); NEUTROPHILS % (AUTO) 82.1 % (42.2-75.2); PLATELET COUNT (AUTO) 459 K/uL (140-450); RED BLOOD CELL COUNT(AUTO) 3.81 MIL/uL (4.20-6.10); RED CELL DISTRIBUTION WIDTH 13.3 % (11.6-13.7); WHITE BLOOD COUNT (AUTO) 14.6 K/uL (4.8-10.8)
[2019-10-08 07:36] LABS: ANION GAP 12.8 (8-16); CARBON DIOXIDE 25.7 mmol/L (21-32); CREATININE 0.9 mg/dL (0.6-1.3); POTASSIUM 3.5 mmol/L (3.5-5.1)
[2019-10-08 07:56] LABS: MAGNESIUM 2.4 mg/dL (1.8-2.4); PHOSPHORUS 2.9 mg/dL (2.5-4.9)
[2019-10-08] MEDS: DEXT 5% / NACL 0.9% 1,000 ML IV SCH (08:18)
--- NOTE | 2019-10-08 10:01 | NUR ---
PT HAD LARGE BM AND HE STATES THAT HE IS FEELING MUCH BETTER AT THIS TIME.
[2019-10-08 10:25] VITALS: BP 160/102
--- NOTE | 2019-10-08 10:25 | NUR ---
RECEIVED PATIENT FROM ER NURSE AND ADMITTED VIA GURNEY. PATIENT IS AWAKE AND ALERT, ORIENTED X4. RESP EVEN AND UNLABORED ON ROOM AIR. PATIENT DENIES OF PAIN AT THIS TIME. RAC 18 SL, LFA 18 SL. PATIENT IS AMBULATORY WITH STEADY GAIT. MARIE NOTED. UPON INITIAL ASSESSMENT, LARGE SCROTAL SWELL NOTED. PATIENT STATED HE CAME IN TO THE ER BECAUSE HE COULDN'T URINATE AND IT WAS CAUSING HIM DISCOMFORT. MARIE IS DRAINING WELL. URINE NOTED CLEAR YELLOW. PATIENT IS COOPERATIVE DURING ADMISSION PROCESS. MRSA NARES COLLECTED. LARGE BM WAS EARLIER TODAY IN THE ER. DR OLIVARES CONSULT FOR SURGERY AT BEDSIDE. CALL LIGHT WITHIN REACH. WILL CONTINUE TO CARE.
--- NOTE | 2019-10-08 10:27 | NUR ---
Patient will be admitted to care of DR WEAVER. Admited to MS. Will go to room 112B. Belongings list completed. Report to GELA SALDANA.
[2019-10-08] MEDS: METOPROLOL 25 MG TAB PO SCH ×2 (11:58→21:56)
--- NOTE | 2019-10-08 12:05 | NUR ---
CONSENT SIGNED IN CHART FOR CT ABD/PELV WITH IV CONTRAST. PATIENT STATED HE'S ALLERGIC TO SEAFOOD. HOWEVER, HE HAS HAD DYE IV CONTRAST IN 2018 AND DID NOT EXHIBIT ANY REACTION. RD NURSE MADE AWARE.
--- NOTE | 2019-10-08 13:36 | NUR ---
DIRECTOR OF STAFF DEVELOPMENT NOTE: Patient's Orientation Person Situation Place Time Information Provided By PATIENT Comments SW MET PATIENT AT BEDSIDE TO VERIFY DEMOGRAPHICS. Illuminator, Realtionship and Phone Number N/A Healthcare Power of Quality Assurance Supervisor Trim No Does Patient Have a POLST No Identifying Problems Homelessness/Housing Is A Social Work Consult Needed No Mandate Report Filed No Explanation Of Identifying Problems PATIENT IS A 59-YEAR-OLD MALE ADMITTED FOR UTI AND BLADDER OUTLET OBSTRUCTION. PATIENT HAS PMHX OF CHF, OBESITY, HYPERTENSION, CIRRHOSIS, DIABETES, AND CARDIOMYOPATHY. Admitted From TRANSITIONAL Pre-Admission Level Of Functioning Status Independent/Ambulatory Prior Resources/Services Used In Last 12 Months Homeless Resources Prior DME No Prior DME Used Living Situation Homeless Other Living Situation/Comment PATIENT STATED THAT HE LIVES BEHIND A RESIDENCE AT [address] [place] [address] BUT THAT HE DOES NOT OWN THE PROPERTY BUT IS ALLOWED TO SLEEP THERE. Home Support No Caregiver Issues Financial Issues No Known Financial Issue Referral To The Financial Counselor Needed No Factors/Needs Half-Way/Homeless Explanation And Or Other Factors Affecting/Possible DC Needs SW PROVIDED HOMELESS RESOURCES, BUT PATIENT STATED THAT HE IS GOING BACK TO [place] AFTER HE IS DISCHARGED. Pt/Rep Participated In Discharge Plan Yes Patient/Family Agress With Discharge Plan Yes Discharge Plan Comments TENTATIVE DISCHARGE PLAN IS FOR PATIENT TO COORDINATE HIS WAY BACK TO [place]. DC Plan Status Initiated
--- NOTE | 2019-10-08 14:06 | NUR ---
PATIENT IS GOING FOR CT. PT LEFT IN STABLE CONDITION
--- NOTE | 2019-10-08 14:30 | NUR ---
PT CAME BACK FROM CT IN STABLE CONDITION. PATIENT STATED HE DOESN'T WANT THE IVF AT THIS TIME BECAUSE ITS VERY INCONVENIENT FOR HIM TO GET UP AND GO USE THE RESTROOM. PATIENT ALSO HAS A MARIE HE HAS TO CARRY. IVF IS OFF FOR NOW UNTIL FURTHER TEACHING CAN BE DONE.
--- NOTE | 2019-10-08 15:05 | NUR ---
PATIENT IS RESTING IN BED, AGREED TO IVF AT THIS TIME. PATIENT MADE SEVERAL ATTEMPTS TO USE THE BATHROOM FOR BM BUT NOT SUCCESSFUL. PATIENT HAD A LARGE BM IN THE ED THIS MORNING. RESP EVEN AND UNLABORED ON RA. REINFORCEMENT AND PATIENT TEACHING. PATIENT ABLE TO FOLLOW DIRECTION AND COMPLIANT. CALL LIGHT WITHIN REACH. WILL CONTINUE TO MONITOR.
--- NOTE | 2019-10-08 15:43 | NUR ---
DC PLANNIN YRS OLD MALE PATIENT WAS ADMITTED FROM HOME WITH A DX OF UTI, BLADDER OUTLET OBSTRUCTION.PT HAS A HX OF DM LIVER CIRRHOSIS CHF, MARIJUANA USE, AND CHRONIC A-FIB. CT ABD/PELVIS SHOWED PROSTATOMEGALY WITH PROSTATE GLAND. CONSULTED WITH UROLOGIST ,CONTINUED HOME MEDICATION STARTED ON IVF, IV ABX ZOSYN .DC PLAN TO GO HOME WHEN STABLE CM TO FOLLOW Addendum: 10/09/19 at 1506 by Michael Cervantes RODOLFO CONTACTED [facility] TO SCHEDULE FOLLOW UP APPOINTMENT FOR PATIENT [phone]. RODOLFO SPOKE WITH WENDY WHO REQUESTED TO FAX PHYSICIAN'S ORDER AND FACE SHEET TO [phone]. PATIENT WILL BE CONTACTED BY [facility].
--- NOTE | 2019-10-08 16:00 | NUR ---
PATIENT HAS BEEN SCREENED AND CATEGORIZED MODERATE NUTRITION RISK. PATIENT WILL BE SEEN WITHIN 3-5 DAYS OF ADMISSION. 10/10/19 10/12/[address]
--- NOTE | 2019-10-08 19:25 | NUR ---
ENDORSED PATIENT TO NIGHT NURSE. PATIENT IN STABLE CONDITION.
--- NOTE | 2019-10-08 19:30 | NUR ---
RECEIVED PT FROM DAY RN. PATIENT AOX4. NO S/S RESPIRATORY DISTRESS ON ROOM AIR. NO C/O OF PAIN AT THIS TIME. RAC 18 SL, LFA 18 SL. PATIENT AMBULATES WITH STEADY GAIT. MARIE IN PLACE DRAINING CLEAR LIGHT YELLOW URINE, LARGE SCROTAL SWELL. BED ON LOW POSITION, SIDE RAILS UP X2, CALL LIGHT WITHIN REACH. WILL CONTINUE TO MONITOR.
[2019-10-08 20:00] VITALS: BP 135/85
--- NOTE | 2019-10-08 22:00 | NUR ---
ADMINISTERED SCHEDULED MEDICATION PER MD. MEDICATION EDUCATION GIVEN. PT AGREED TO TAKE MEDICATION. WILL CONTINUE TO MONITOR.
--- NOTE | 2019-10-09 | NUR ---
PT REFUSED TO HAVE VITAL SIGNS TAKEN
[2019-10-09] MEDS: PIPERACILLIN/TAZOBACTAM 3.375 GM in DEXTROSE 5% 50 ML IV SCH ×3 (00:43→13:16)
--- NOTE | 2019-10-09 01:15 | NUR ---
PT REFUSED TO CONTINUE WITH MEDICATIONS. REQUESTING TO CONTINUE MEDICATIONS IN THE MORNING.
--- NOTE | 2019-10-09 01:16 | NUR ---
EDUCATED PATIENT ON INFECTION, DISEASE PROCESS, MEDICATION. PT REFUSED MEDICATION. PT STATED HE DOES NOT WANT TO GET SURGERY. WILL CONTINUE TO MONITOR
--- NOTE | 2019-10-09 03:00 | NUR ---
PT ASLEEP IN BED. NO DISTRESS NOTED. WILL CONTINUE TO MONITOR.
[2019-10-09] MEDS: DEXT 5% / NACL 0.9% 1,000 ML IV SCH (03:05)
--- NOTE | 2019-10-09 05:00 | NUR ---
PT RESTING IN BED. NO DISTRESS NOTED. DENIES PAIN. WILL CONTINUE TO MONITOR
[2019-10-09 06:21] LABS: CHLAMYDIA TRACHOMATIS AMP DNA Negative (Negative)
--- NOTE | 2019-10-09 07:30 | NUR ---
ENDORSED PT IN STABLE CONDITION TO DAY RN FOR CONTINUITY OF CARE.
--- NOTE | 2019-10-09 08:00 | NUR ---
RECEIVED REPORT FROM GELA DOHERTY. PATIENT ALERT AWAKE ORIENTED X4, NOT IN ANY DISTRESS NOTED. INITIAL ASSESSMENT INITIATED. PATIENT UPSET REGARDING DIET, KEEP NPO AT THIS TIME, WAITING FOR DR. GRESHAM UROLOGIST FOR RECOMMENDATION, EXPLIANED TO THE PATIENT WHY HE IS NPO AT THIS TIME. WILL CONTINUE TO MONITOR.
[2019-10-09 08:21] LABS: T4 (THYROXINE) 6.4 ug/dL (4.5-12.0)
[2019-10-09 08:25] LABS: BASOPHILS # (AUTO) 0.1 K/uL (0.00-0.22); BASOPHILS % (AUTO) 0.6 % (0.0-2.0); EOSINOPHILS # (AUTO) 0.2 K/uL (0-0.4); EOSINOPHILS % (AUTO) 1.5 % (0.0-4.0); HEMATOCRIT 34.8 % (36-52); HEMOGLOBIN 11.4 g/dL (12.0-18.0); LYMPHOCYTES # (AUTO) 1.2 K/uL (2.0-11.5); LYMPHOCYTES % (AUTO) 9.7 % (20.5-51.1); MEAN CORPUSCULAR HEMOGLOBIN 30 pg (27-31); MEAN CORPUSCULAR HGB CONC 33 g/dL (33-37); MEAN CORPUSCULAR VOLUME 92.3 fL (80-94); MONOCYTES # (AUTO) 1.1 K/uL (0.8-1.0); MONOCYTES % (AUTO) 8.4 % (1.7-9.3); NEUTROPHILS % (AUTO) 79.8 % (42.2-75.2); PLATELET COUNT (AUTO) 446 K/uL (140-450); RED BLOOD CELL COUNT(AUTO) 3.77 MIL/uL (4.20-6.10); RED CELL DISTRIBUTION WIDTH 13.5 % (11.6-13.7); WHITE BLOOD COUNT (AUTO) 12.5 K/uL (4.8-10.8)
[2019-10-09 08:27] LABS: ANION GAP 12.8 (8-16); CARBON DIOXIDE 27.9 mmol/L (21-32); CREATININE 0.8 mg/dL (0.6-1.3); POTASSIUM 3.7 mmol/L (3.5-5.1)
[2019-10-09] MEDS ORDERED: TAMSULOSIN 0.4 MG CAP PO SCH (08:30)
[2019-10-09] MEDS: METOPROLOL 25 MG TAB PO SCH (08:58)
[2019-10-09] MEDS ORDERED: FINASTERIDE 5 MG TAB PO SCH (09:00)
[2019-10-09 09:17] LABS: MAGNESIUM 2.3 mg/dL (1.8-2.4); PHOSPHORUS 3.1 mg/dL (2.5-4.9)
--- NOTE | 2019-10-09 10:00 | NUR ---
SEEN BY DR. DAVID AND DR. GRESHAM, FOR DC TODAY. HE WILL BE DC WITH MARIE CATHETER PER UROLOGIST DR. GRESHAM. NOTIFIED ENVIRONMENTAL INSPECTOR ABDIEL. WILL CONTINUE TO MONITOR.
[2019-10-09 10:02] VITALS: BP 148/96
[2019-10-09] MEDS ORDERED: FINA5TAB1 PO (14:15)
[2019-10-09] MEDS ORDERED: TAMS0.4C96 PO (14:16)
[2019-10-09] MEDS ORDERED: LEVO750T2 PO (14:16)
[2019-10-09 16:00] VITALS: BP 121/77
--- NOTE | 2019-10-09 16:41 | NUR ---
MARIE CATHETER REMOVED, NO PAIN NOTED.
--- NOTE | 2019-10-09 17:45 | NUR ---
PATIENT LOOKING FOR HIS SHOES, ON THE BELONGING LIST NO SHOES NOTED. SECURITY ASSISTED HIM AND HE WILL WAIT IN THE LOBBY. LOGISTIC MANAGER RAMÓN TALKED TO THE PATIENT.
--- NOTE | 2019-10-09 18:00 | NUR ---
DISCHARGE PATIENT AMBULATORY NOT IN NAY DISTRESS NOTED. DISCHARGE INSTRUCTION AND PRESCRIPTION GIVEN AND VEBALIZED UNDERSTNDING. IN STABLE CONDITION.
== END 2019-10-09 17:45 | disposition home or self-care (01) | DRG 720 ==
LOC: MED 14:49 → MTU 22:19 → MMU 10-08 03:50 → MTU 10-08 10:30
DX: A41.9 Sepsis, unspecified organism (principal); N32.0 Bladder-neck obstruction; N39.0 Urinary tract infection, site not specified; K74.60 Unspecified cirrhosis of liver; E11.9 Type 2 diabetes mellitus without complications; K40.90 Unilateral inguinal hernia, without obstruction or gangrene, not specified as recurrent; I11.0 Hypertensive heart disease with heart failure; I42.9 Cardiomyopathy, unspecified; I48.20 Chronic atrial fibrillation, unspecified; I50.9 Heart failure, unspecified; K59.00 Constipation, unspecified; N13.8 Other obstructive and reflux uropathy; N32.89 Other specified disorders of bladder; N40.1 Benign prostatic hyperplasia with lower urinary tract symptoms; N50.89 Other specified disorders of the male genital organs; Z86.74 Personal history of sudden cardiac arrest; Z91.19 Patient's noncompliance with other medical treatment and regimen; E66.9 Obesity, unspecified; G47.33 Obstructive sleep apnea (adult) (pediatric); Z68.23 Body mass index [BMI] 23.0-23.9, adult; R33.9 Retention of urine, unspecified
CPT/HCPCS: 36415; 71045; 80048; 80053; 80305; 81001; 82140; 82150; 83036; 83605; 83690; 83735; 83880; 84100; 84436; 84443; 84484; 85025; 85610; 85730; 87040; 87081; 87086; 87186; 87491; 96365; 96375; 99285; J1644; J2270; J2543; J3475; J7042; J7060; Q0092; Q9967

== ENCOUNTER 2020-03-01 15:26 | Emergency (ER) | payer MEDICAID ==
[~2020-03-01 15:26] MED LIST changes: -ALBU0.0912 IH; -ASPI81CT95 PO; -CARV6.252 PO; -DIGO0.1211 PO; -DOCU-299 PO; +FINA5TAB1 PO; -FINA5TAB5 PO; -LACT10SO11 PO; -LAS20I PO; +LEVO750T2 PO; -SPIR50TA PO; -XAR10 PO
--- NOTE | 2020-03-01 16:03 | NUR ---
pt left without being seen.
== END 2020-03-01 16:03 | disposition home or self-care (01) ==
LOC: MED 15:26
DX: Z53.21 Procedure and treatment not carried out due to patient leaving prior to being seen by health care provider (principal)